=== PATIENT | female | born 1980 | race Caucasian/White ===

== ENCOUNTER 2016-02-24 10:38 | Emergency (ER) | payer OTHER ==
[~2016-02-24] VITALS: Ht 154.9 cm; Wt 71.0 kg
[~2016-02-24 10:38] MED LIST: GLC/500 PO; OXYC1TAB3 PO
[2016-02-24 10:43] VITALS: BP 119/77; TEMP 36.7; Ht 154.9 cm; Wt 71.0 kg
[2016-02-24] MEDS ORDERED: SULFAMETHOXAZOLE/TRIMETHOPRIM DS 800/160MG TAB PO STA (11:06)
[2016-02-24] MEDS ORDERED: PHENAZOPYRIDINE HCL 200 MG TAB PO STA (11:06)
[2016-02-24] MEDS ORDERED: SULF800T23 PO (11:08)
--- NOTE | 2016-02-24 11:08 | EMERGENCY ROOM VISIT NOTE ---
History Report prepared by Lisa: Becky Solorzano Under the Supervision of: Dr. Carlos Bone M.D. First contact with patient: 11:00 Chief Complaint: URINARY SYMPTOMS Stated Complaint: PELVIC PAIN Nursing Triage Summary: pt to [facility] ED with c/o pelvic abd pain into her vaginal area. no discharge no bleeding pt states that she has some dysuria History of Present Illness The patient is a 36 year old female who presents to the Emergency Room with complaints of persistent pelvic pain for the past few days. She rates her discomfort as a 10/10. She has tried taking Tylenol, but it has not provided much relief. She also complains of dysuria but denies any abnormal vaginal discharge or bleeding. She reports she has never experienced a UTI before. The patient denies any recent sexual intercourse or other sexual activity. Source of History: patient Onset: past few days Position: pelvis Symptom Intensity: 10/10 Timing: other (persistent) Modifying Factors (Relieving): tylenol Associated Symptoms: + urinary symptoms Past Medical & Surgical Medical Problems: (1) Acute bilateral lower abdominal pain (2) Acute bronchitis (3) Acute bronchitis (4) Ankle injury (5) Chest pain (6) Epigastric abdominal pain (7) Foot pain (8) Foot pain (9) Knee pain (10) Left ankle sprain (11) Left ankle sprain (12) Left breast abscess (13) Leukocytosis (14) Pain, dental (15) Pain, dental (16) Renal colic (17) Right ankle sprain (18) Right knee pain (19) Thumb pain Surgical Problems: (1) H/O lithotripsy (2) Tubal Ligation Status Family History Diabetes mellitus Social History Smoking Status: Current Every Day Smoker Alcohol Use: occasionally Drug Use: none Marital Status: single Occupation Status: unemployed Current/Historical Medications Scheduled Phenazopyridine HCl (Pyridium), 200 MG PO TID Sulfa/Trimethoprim (Bactrim Ds 800MG/160MG), 1 TAB PO BID Allergies Coded Allergies: Penicillins (Verified Allergy, Unknown, rash, 02/24/16) Physical Exam Vital Signs Date Time Temp Pulse Resp B/P Pulse Ox O2 Delivery O2 Flow Rate FiO2 02/24/16 11:33 78 18 99 02/24/16 10:43 36.7 82 20 119/77 100 Physical Exam GENERAL: Patient is a healthy-appearing well-nourished HEAD: Normocephalic atraumatic EYES: Ocular movements intact pupils equal and react to light OROPHARYNX mucous membranes are moist no exudates present no erythema or edema present NECK: Supple no nuchal rigidity CHEST: Good equal expansion LUNGS: Clear and equal to auscultation CARDIAC: Normal S1 and S2 ABDOMEN: Soft, tender in suprapubic area, no guarding BACK: No CVA tenderness EXTREMITIES: No pain upon palpation normal muscle strength in all groups no clubbing cyanosis or edema NEURO: Patient is following commands is answering questions appropriately. Alert and oriented x3 Cranial Nerves 2-12 grossly intact Medical Decision & Procedures Laboratory Results Test 02/24/16 11:05 Urine Color YELLOW Urine Appearance CLOUDY (CLEAR) Urine pH 5.0 (4.5-7.5) Urine Specific [place] 1.024 (1.000-1.030) Urine Protein 1+ (NEG) Urine Glucose (UA) 1+ (NEG) Urine Ketones NEG (NEG) Urine Occult Blood 2+ (NEG) Urine Nitrite NEG (NEG) Urine Bilirubin NEG (NEG) Urine Urobilinogen NEG (NEG) Urine Leukocyte Esterase NEG (NEG) Urine WBC (Auto) 1-5 /hpf (0-5) Urine RBC (Auto) 0-4 /hpf (0-4) Urine Hyaline Casts (Auto) 1-5 /lpf (0-5) Urine Epithelial Cells (Auto) >30 /lpf (0-5) Urine Bacteria (Auto) 1+ (NEG) Urine Yeast (Auto) (NONE PRSENT) Labs reviewed by ED physician. Medications Administered Medications (Trade) Dose Ordered Sig/Gertrudis Route Start Time Stop Time Status Last Admin Dose Admin Trimethoprim/ Sulfamethoxazole (Septra Ds 800/ 160MG Tab) 1 tab NOW STAT PO 02/24/16 11:06 02/24/16 11:08 DC 02/24/16 11:31 1 TAB Phenazopyridine HCl (Pyridium Tab) 200 mg NOW STAT PO 02/24/16 11:06 02/24/16 11:08 DC 02/24/16 11:31 200 MG Oxycodone/ Acetaminophen (Percocet 5-325MG Tab) 2 tab NOW ONCE PO 02/24/16 11:15 02/24/16 11:16 DC 02/24/16 11:31 2 TAB ED Course 1102: Past medical records reviewed. The patient was evaluated in room C4. A complete history and physical examination was performed. 1106: Pyridium Tab 200 mg PO, Septra Ds 800/160 mg 1 tab PO. 1115: Percocet 5/325 mg 2 tab PO. 1130: I reevaluated the patient. She is feeling well. I discussed her discharge instructions and she verbalized complete understanding and agreement. Medical Decision This is a 36-year-old female who presents emergency department complaining of urinary symptoms. The patient is complaining of frequency of going. She has no CVA tenderness and has mild suprapubic tenderness. Serial abdominal examinations were performed on the patient while she was in the emergency department and at no time did the patient exhibit abdominal tenderness or surgical abdomen. For this reason I felt the patient can be treated with Bactrim pending urine culture results. She was also placed on Pyridium and given Percocet while she was in the emergency department. Repeat examination revealed improvement patient's symptoms. Impression Primary Impression: Symptoms of urinary tract infection Scribe Attestation The scribe's documentation has been prepared under my direction and personally reviewed by me in its entirety. I confirm that the note above accurately reflects all work, treatment, procedures, and medical decision making performed by me. Departure Information Dispostion Home / Self-Care Prescriptions Phenazopyridine HCl (Pyridium) 200 Mg Tab 200 MG PO TID for Bladder pain, #6 TAB Prov: Carlos Bone MD 02/24/16 Sulfa/Trimethoprim (Bactrim Ds 800MG/160MG) Tab 1 TAB PO BID for 7 Days, #14 TAB Prov: Carlos Bone MD 02/24/16 Referrals Thien Borrego M.D. (PCP) Patient Instructions A Signature Page, ED UTI Cystitis Female, My [facility] Additional Instructions Culture results are usually available in approx 48 hours You have been examined and treated today on an emergency basis only. This is not a substitute for, or an effort to provide, complete comprehensive medical care. It is impossible to recognize and treat all injuries or illnesses in a single emergency department visit. It is therefore important that you follow up closely with Dr Borrego. Call as soon as possible for an appointment. Thank you for your time and consideration. I look forward to speaking with you again soon. Please don't hesitate to call us if you have any questions.
[2016-02-24] MEDS ORDERED: PHEN-876 PO (11:09)
[2016-02-24] MEDS ORDERED: OXYCODONE/ACETAMINOPHEN 5-325 TAB PO ONE (11:15)
[2016-02-24 11:33] VITALS: PULSE 78; O2SAT 99
[2016-02-24 12:36] LABS: URINE APPEARANCE CLOUDY (CLEAR); URINE BILIRUBIN NEG (NEG); URINE COLOR YELLOW; URINE EPITHELIAL CELL AUTO >30 /lpf (0-5); URINE NITRITE NEG (NEG); URINE SPECIFIC GRAVITY 1.024 (1.000-1.030); UROBILINOGEN NEG (NEG); ZZUR CULT IF INDIC CLEAN CATCH YES
[2016-02-24 12:39] LABS: MANUAL MICROSCOPIC REQUIRED? NO; REVIEW REQ? YES
[2016-03-03] MEDS ORDERED: METH4PAK PO (18:01)
== END 2016-02-24 11:34 | disposition home or self-care (01) ==
LOC: EDBD 10:38 → C.EDC 10:38
DX: R39.9 Unspecified symptoms and signs involving the genitourinary system (principal); F17.200 Nicotine dependence, unspecified, uncomplicated; Z98.51 Tubal ligation status

== ENCOUNTER 2016-05-03 11:57 | Emergency (ER) | payer OTHER ==
[~2016-05-03] VITALS: Ht 154.9 cm; Wt 66.6 kg
[~2016-05-03 11:57] MED LIST changes: -GLC/500 PO; -OXYC1TAB3 PO; +PHEN-876 PO
[2016-05-03 12:04] VITALS: BP 147/84; PULSE 99; TEMP 37; O2SAT 98; Ht 154.9 cm; Wt 66.6 kg
[2016-05-03] MEDS ORDERED: OXYC-57 PO (12:44)
[2016-05-03] MEDS ORDERED: CLIN300C10 PO (12:44)
--- NOTE | 2016-05-03 19:22 | EMERGENCY ROOM VISIT NOTE ---
ED Visit Note First contact with patient: 12:14 CHIEF COMPLAINT: Tooth pain. HISTORY OF PRESENT ILLNESS: Ms. Tenorio is a 36-year-old white female who ambulates into the ED complaining of right mandibular dental pain. She reports a progressive dental pain for approximately 2 weeks over the right mandible. She was seen by her dentist and is scheduled for a tooth extraction May 26. She reports over the last week she has noted increasing pain and over the last 2 days she has noted facial swelling. Currently she is complaining of pain in the area of tooth 29. She describes her discomfort as a combination of sharp and throbbing. She rates her discomfort 10/10. Her pain does radiate to the preauricular area and into the angle of the mandible. Her pain worsens with chewing, palpation and exposure hot and cold foods. He has not identified any alleviating factors related to the pain. He is been using [id number] medications without relief of her discomfort. Associated with her pain she has noted some mild swelling over the lower edge of the mandible which is slightly extended to the area under the mandible. She denies any associated symptoms including fevers, chills, sweats, sore throat, difficulty swallowing, voice changes, drooling. REVIEW OF SYSTEMS: As noted above in History of Present Illness. 8 body systems were reviewed with this patient and found to be negative unless noted above otherwise. PMH: Diabetes. CURRENT MEDICATION: Patient denies. ALLERGIES TO MEDICATION: Penicillin. SOCIAL HISTORY: Patient is not currently employed; she feels safe in her home environment; she denies alcohol use and admits to tobacco use. PHYSICAL EXAM: Vital Signs: Date Time Temp Pulse Resp B/P Pulse Ox O2 Delivery O2 Flow Rate FiO2 05/03/16 12:04 37.0 99 20 147/84 98 Room Air General: 36 year-old white female in mild distress due to pain, nontoxic appearing, afebrile and hemodynamically stable. Neurological: Awake, alert and oriented to person, place and time. Answering questions appropriately and following commands. Normal gait. Good hand eye coordination. No focal motor or sensory deficits. Skin: Warm, dry and pink. HEENT: Atraumatic and normocephalic. Over the inferior border of the mandible on the right patient has mild swelling without erythema or cellulitic appearance. There is no palpable abscesses in this area. Oral cavity is moist and pink. Airway is patent. Uvula is midline and no abscesses are seen. Speech is normal. No drooling. No intraoral trauma is noted. Obvious signs of dental decay in the area of tooth #29. The gingiva in this area is mildly erythematous and edematous. No palpable abscesses. No cervical or submandibular lymphadenopathy. ED COURSE: Patient is assessed as noted above. Patient is educated about her findings and instructed on her treatment plan; she verbalizes understanding and agreement with this plan. CLINIC IMPRESSION: Dental pain. Possible early dental abscess. DISPOSITION: Patient discharged home in stable condition; prior to departure she was reassessed and subjectively reported she was feeling the same. PLAN: Comfort measures were discussed including a sliding pain scale of ibuprofen, acetaminophen and Percocet. She was warned that Percocet is a narcotic and once taking this medication she should not drink, drive or do any activities that require her full attention. Patient was prescribed Pen-Vee K 500 mg 4 times a day for 10 days. Additional instructions were given and the patient including the use of dental wax, liquid/mechanical soft diet and tobacco avoidance. Patient was encouraged to keep her upcoming followup with personal dentist for definitive care and treatment. Patient was encouraged to return the ED for uncontrolled pain, increasing facial swelling or redness, fevers or any new/concerning symptoms.
== END 2016-05-03 12:50 | disposition home or self-care (01) ==
LOC: C.EDB 11:59 → C.EDD 12:50
DX: K08.89 Other specified disorders of teeth and supporting structures (principal)

== ENCOUNTER 2016-06-30 19:41 | Emergency (ER) | payer OTHER ==
[~2016-06-30] VITALS: Ht 154.9 cm; Wt 71.0 kg
[~2016-06-30 19:41] MED LIST changes: +CLIN300C10 PO; +OXYC-57 PO; -PHEN-876 PO
[2016-06-30 19:45] VITALS: Ht 154.9 cm; Wt 71.0 kg
[2016-06-30] MEDS ORDERED: OXYCODONE HCL IR 5 MG TAB (IMMEDIATE RELEASE) PO STA (19:59)
--- NOTE | 2016-06-30 20:26 | DIAGNOSTIC IMAGING REPORT ---
RIGHT KNEE 3 VIEWS CLINICAL HISTORY: R knee pain Right pain COMPARISON: None. DISCUSSION: The bones and joint spaces appear intact. There is no evidence of fracture, dislocation or bony disease. There is no evidence for soft tissue swelling. IMPRESSION: Negative study. Electronically signed by: Julito Lovelace M.D. 06/30/2016 8:25 PM Dictated Date/Time: 06/30/2016 8:25 PM
[2016-06-30] MEDS ORDERED: OXYC1TAB3 PO (20:45)
[2016-06-30] MEDS ORDERED: OXYCODONE IR HOME PACK PO ONE (21:00)
[2016-06-30 21:03] VITALS: BP 128/68; PULSE 87; TEMP 36.9; O2SAT 99
--- NOTE | 2016-06-30 22:44 | EMERGENCY ROOM VISIT NOTE ---
History First contact with patient: 19:50 Chief Complaint: KNEEPAIN Stated Complaint: RT KNEE PAIN History of Present Illness The patient is a 36 year old female who presents to the Emergency Room with complaints of right knee pain for the past 2 weeks. The patient denies any known injury to the knee. She reports that most of the pain is on the front of the knee. It is worse when she walks or goes up and down steps. She denies any instability, clicking or locking of the knee. The patient denies any prior history of chronic right knee pain. She denies any back pain or thigh pain. She reports that the pain does somewhat radiate into the upper leg. She denies any paresthesias or numbness of the right foot or toes. She rates her discomfort a 10 out of 10. The patient has been taking Aleve and applying ice without relief. Review of Systems 10 system review was performed and was negative except for pertinent positives and negatives as indicated in history of present illness Past Medical/Surgical History Medical Problems: (1) Acute bilateral lower abdominal pain (2) Acute bronchitis (3) Acute bronchitis (4) Ankle injury (5) Chest pain (6) Epigastric abdominal pain (7) Foot pain (8) Foot pain (9) Knee pain (10) Left ankle sprain (11) Left ankle sprain (12) Left breast abscess (13) Leukocytosis (14) Pain, dental (15) Pain, dental (16) Renal colic (17) Right ankle sprain (18) Right knee pain (19) Thumb pain Surgical Problems: (1) H/O lithotripsy (2) Tubal Ligation Status Family History Diabetes mellitus Social History Smoking Status: Current Every Day Smoker Alcohol Use: occasionally Drug Use: none Marital Status: single Occupation Status: unemployed Current/Historical Medications Scheduled PRN Oxycodone Ir (Roxicodone Ir), 1 TAB PO Q6H PRN for Pain Allergies Coded Allergies: Penicillins (Verified Allergy, Unknown, rash, 06/30/16) Physical Exam Vital Signs Date Time Temp Pulse Resp B/P Pulse Ox O2 Delivery O2 Flow Rate FiO2 06/30/16 21:03 36.9 87 20 128/68 99 06/30/16 21:02 87 20 128/68 99 Room Air 06/30/16 19:45 36.9 90 20 133/71 99 Room Air Physical Exam CONSTITUTIONAL: Healthy and well nourished. Alert and oriented X 3 with positive affect. HEENT: Normocephalic, atraumatic. Pupils equal, round and reactive. NECK: Full active range of motion without discomfort. MUSCULOSKELETAL: Examination of the right knee does not show any ecchymosis, erythema, increased warmth to palpation or obvious joint effusion. Flexion worsens her pain anteriorly. She has significant tenderness to palpation about the patella. Positive patellar grind test. The patient is able straight leg raise. No popliteal masses or tenderness to palpation through the hamstrings. She has mild tenderness to palpation of the medial lateral joint line. Ligamentous exam is normal. Range of motion is limited to 0-75 because of discomfort. Pedal pulses are intact. INTEGUMENTARY: No rash or other significant dermatologic conditions noted. NEUROLOGIC: No focal neurologic deficits noted. Right upper extremity is sensory intact. Medical Decision & Procedures ER Provider Diagnostic Interpretation: My interpretation of right knee x-rays does not show any acute fractures, dislocation, joint effusion or significant degenerative change. Radiologist report is as follows: RIGHT KNEE 3 VIEWS CLINICAL HISTORY: R knee pain Right pain COMPARISON: None. DISCUSSION: The bones and joint spaces appear intact. There is no evidence of fracture, dislocation or bony disease. There is no evidence for soft tissue swelling. IMPRESSION: Negative study. Medications Administered Medications (Trade) Dose Ordered Sig/Gertrudis Route Start Time Stop Time Status Last Admin Dose Admin Oxycodone HCl (Roxicodone Immediate Rel Tab) 5 mg NOW STAT PO 06/30/16 19:59 06/30/16 20:01 DC 06/30/16 20:07 5 MG Oxycodone HCl (Roxicodone Immediate Rel 5MG Home Pack) 1 homepack UD ONCE PO 06/30/16 21:00 06/30/16 21:01 DC 06/30/16 20:55 1 HOMEPACK ED Course Patient history and physical exam were performed. Nurse's notes were reviewed. The patient requested something for pain, and was administered OxyIR 5 mg. X- rays of the right knee were normal. Any immobilizer and crutches were dispensed. The patient was encouraged to intermittently apply ice and elevate the knee for swelling and pain. Ibuprofen and Tylenol as needed for baseline pain relief. The patient was provided a home pack and prescription for OxyIR as needed for breakthrough pain. No drinking or driving while taking this medication. She was instructed to follow-up with her PCP for reevaluation in 5- 7 days, at which time she can be referred to orthopedics as needed. The patient voiced understanding of all discharge instructions, was happy with plan of care, and rated her pain a 4 out of 10 at the time of discharge. [employer] Drug Monitoring Program Search Results: patient reviewed within database, no issues identified Impression Primary Impression: Right anterior knee pain Departure Information Prescriptions Oxycodone Ir (Roxicodone Ir) 5 Mg Tab 1 TAB PO Q6H Y for Pain, #12 TAB For Initial Treatment Prov: Sukhjinder Lr PA 06/30/16 Referrals Thien Borrego M.D. (PCP) Patient Instructions My [facility]
== END 2016-06-30 21:04 | disposition home or self-care (01) ==
LOC: C.EDB 19:42 → C.EDD 21:04
DX: M25.561 Pain in right knee (principal); F17.210 Nicotine dependence, cigarettes, uncomplicated; Z83.3 Family history of diabetes mellitus

== ENCOUNTER 2016-08-22 10:54 | Emergency (ER) | payer OTHER ==
[~2016-08-22] VITALS: Ht 154.9 cm; Wt 66.6 kg
[~2016-08-22 10:54] MED LIST changes: -CLIN300C10 PO; -OXYC-57 PO; +OXYC1TAB3 PO
[2016-08-22 10:57] VITALS: TEMP 36.7; Ht 154.9 cm; Wt 66.6 kg
[2016-08-22] MEDS ORDERED: KETOROLAC TROMETHAMINE 30 MG/ML VIAL IV STA (12:03)
[2016-08-22 12:16] LABS: BASO % 0.8 %; BASO ABS # 0.07 K/uL (0-0.2); COMPLETE YES; EOS % 1.2 %; HEMATOCRIT 41.3 % (37-47); IG% 0.2 %; LYMPH % 36.2 %; LYMPH ABS # 3.12 K/uL (1.2-3.4); MEAN CELL VOLUME 83.3 fL (80-100); MEAN CORPUSCULAR HEMOGLOBIN 29.2 pg (25-34); MEAN CORPUSCULAR HGB CONC 35.1 g/dl (32-36); MEAN PLATELET VOLUME 9.8 fL (7.4-10.4); MONO % 8.8 %; NEUT % 52.8 %; PLATELET COUNT 199 K/uL (130-400); RED BLOOD COUNT 4.96 M/uL (4.2-5.4); WHITE BLOOD COUNT 8.63 K/uL (4.8-10.8)
[2016-08-22 12:28] LABS: BUN/CREATININE RATIO 9.6 (10-20); CREATININE 0.8 mg/dl (0.60-1.20); POTASSIUM 3.9 mmol/L (3.5-5.1); PREG INTERNAL NEGATIVE QC NEG CLEAR BACKGROUND; PREG INTERNAL POSITIVE QC POS CONTROL LINE
[2016-08-22 12:30] LABS: PROTHROMBIN TIME (PATIENT) 10.7 SECONDS (9.0-12.0)
[2016-08-22 12:31] LABS: POINT OF CARE TROPONIN I < 0.030 ng/ml (0-0.045)
--- NOTE | 2016-08-22 13:01 | DIAGNOSTIC IMAGING REPORT ---
CHEST 2 VIEWS ROUTINE HISTORY: Left chest pain. COMPARISON: Chest 05/07/2015. FINDINGS: The heart is normal in size. No pleural effusions. The lungs are clear. There is a faint linear density within the left lung apex which favors a pleural reflection from a pneumothorax. The maximal pleural gap is 8 mm. IMPRESSION: Small left apical pneumothorax. Electronically signed by: Mario Sandoval M.D. 08/22/2016 1:00 PM Dictated Date/Time: 08/22/2016 12:57 PM
[2016-08-22 13:26] VITALS: O2SAT 97
--- NOTE | 2016-08-22 14:10 | DIAGNOSTIC IMAGING REPORT ---
CHEST CT WITHOUT CONTRAST CT DOSE: 280.94 mGycm HISTORY: Pneumothorax eval right PTX per Dr. Simran schroeder TECHNIQUE: Multiaxial CT images of the chest were performed without contrast. COMPARISON: Chest series in the FINDINGS: The lungs are clear. The mediastinal vascular structures are within normal limits. No mediastinal or hilar lymphadenopathy. No pleural effusion or pneumothorax. Limited views of the upper abdomen demonstrate a normal liver and spleen. No evidence pneumothorax IMPRESSION: Lungs are clear. No evidence pneumothorax by CT evaluation Electronically signed by: Julito Lovelace M.D. 08/22/2016 2:09 PM Dictated Date/Time: 08/22/2016 2:04 PM
[2016-08-22 14:39] VITALS: BP 115/73; PULSE 65; O2SAT 100
--- NOTE | 2016-08-24 20:20 | EMERGENCY ROOM VISIT NOTE ---
History Report prepared by Lisa: Sandy Rios Under the Supervision of: Dr. Prateek Kirby M.D. First contact with patient: 11:57 Chief Complaint: CARDIAC ASSESSMENT Stated Complaint: PAIN IN LEFT BREAST Nursing Triage Summary: Pt started to experience chest pain in the left chest last evening. Pt states that the pain is sharp and radiates to the back. Denies SOB, Nausea or vomiting. Pt states that the pain can be reproduced. Pt has no cardiac history. History of Present Illness The patient is a 36 year old female who presents to the Emergency Room with complaints of left chest pain beginning last night at 11. The pain is described as being sharp and rated at a 10/10. She states that the pain radiates to the back. The patient denies abdominal pain, shortness of breath, light-headedness, and diaphoresis. She states that she did not take any medication for her pain today. The patient reports that she smokes 1-2 packs of cigarettes per day. She states that she does not on control, as she has had a tubal ligation. The patient states that she is diabetic and that there is no family history of heart disease. Source of History: patient Onset: last night, 13 hours ago Position: chest (left) Symptom Intensity: rated at a 10/10 Quality: sharp (radiating to the bacl ) Modifying Factors (Worsening): movement Associated Symptoms: No diaphoresis, No SOB, No abdominal pain Note: also denies light-headedness Review of Systems See HPI for pertinent positives & negatives. A total of 10 systems reviewed and were otherwise negative. Past Medical & Surgical Medical Problems: (1) Acute bilateral lower abdominal pain (2) Acute bronchitis (3) Acute bronchitis (4) Ankle injury (5) Chest pain (6) Diabetes (7) Epigastric abdominal pain (8) Foot pain (9) Foot pain (10) Knee pain (11) Left ankle sprain (12) Left ankle sprain (13) Left breast abscess (14) Leukocytosis (15) Pain, dental (16) Pain, dental (17) Renal colic (18) Right ankle sprain (19) Right knee pain (20) Thumb pain Surgical Problems: (1) H/O lithotripsy (2) Tubal Ligation Status Family History Diabetes mellitus Social History Smoking Status: Current Every Day Smoker Alcohol Use: occasionally Drug Use: none Marital Status: single Occupation Status: unemployed Current/Historical Medications No Active Prescriptions or Reported Meds Allergies Coded Allergies: Penicillins (Verified Allergy, Unknown, rash, 06/30/16) Physical Exam Vital Signs Date Time Temp Pulse Resp B/P (MAP) Pulse Ox O2 Delivery O2 Flow Rate FiO2 08/22/16 14:39 65 20 115/73 100 08/22/16 13:26 97 Nasal Cannula 2.0 08/22/16 13:12 70 08/22/16 12:30 71 20 118/79 95 Room Air 08/22/16 12:19 97 Room Air 08/22/16 11:28 97 Room Air 08/22/16 11:17 96 Room Air 08/22/16 11:11 80 08/22/16 10:57 36.7 90 16 136/78 97 Room Air Physical Exam Constitutional: Vital signs reviewed. Eyes: Pupils are equal round reactive to light. Conjunctiva are noninjected. ENT: Pharynx is clear without erythema or exudate. Mucous membranes are moist. Neck supple without meningeal signs. Respiratory: Clear to auscultation bilaterally. Breath sounds are equal bilaterally. Cardiovascular: Regular rate and rhythm. No rubs or gallops. GI: Soft, nondistended and nontender. Bowel sounds are present. Musculoskeletal: No peripheral edema. No lower extremity tenderness. Tenderness to left anterior chest wall. Integumentary: No cyanosis. Neurological: The patient is awake and alert. No focal deficits. Psychiatric: Normal affect. Medical Decision & Procedures ER Provider Diagnostic Interpretation: X-ray results as stated below per interpretation by me and the radiologist: CHEST 2 VIEWS ROUTINE HISTORY: Left chest pain. COMPARISON: Chest 05/07/2015. FINDINGS: The heart is normal in size. No pleural effusions. The lungs are clear. There is a faint linear density within the left lung apex which favors a pleural reflection from a pneumothorax. The maximal pleural gap is 8 mm. IMPRESSION: Small left apical pneumothorax. Electronically signed by: Mario Sandoval M.D. 08/22/2016 1:00 PM Dictated Date/Time: 08/22/2016 12:[address] results as stated below per my review and radiologist interpretation. CHEST CT WITHOUT CONTRAST CT DOSE: 280.94 mGycm HISTORY: Pneumothorax eval right PTX per Dr. Simran scrhoeder TECHNIQUE: Multiaxial CT images of the chest were performed without contrast. COMPARISON: Chest series in the FINDINGS: The lungs are clear. The mediastinal vascular structures are within normal limits. No mediastinal or hilar lymphadenopathy. No pleural effusion or pneumothorax. Limited views of the upper abdomen demonstrate a normal liver and spleen. No evidence pneumothorax IMPRESSION: Lungs are clear. No evidence pneumothorax by CT evaluation Electronically signed by: Julito Lovelace M.D. 08/22/2016 2:09 PM Dictated Date/Time: 08/22/2016 2:04 PM Laboratory Results 08/22/16 11:39 Red Blood Count 4.96, Mean Corpuscular Volume 83.3, Mean Corpuscular Hemoglobin 29.2, Mean Corpuscular Hemoglobin Concent 35.1, Mean Platelet Volume 9.8, Neutrophils (%) (Auto) 52.8, Lymphocytes (%) (Auto) 36.2, Monocytes (%) (Auto) 8.8, Eosinophils (%) (Auto) 1.2, Basophils (%) (Auto) 0.8, Neutrophils # (Auto) 4.56, Lymphocytes # (Auto) 3.12, Monocytes # (Auto) 0.76, Eosinophils # (Auto) 0.10, Basophils # (Auto) 0.07 08/22/16 11:39 Test 08/22/16 11:39 08/22/16 12:12 White Blood Count 8.63 K/uL (4.8-10.8) Red Blood Count 4.96 M/uL (4.2-5.4) Hemoglobin 14.5 g/dL (12.0-16.0) Hematocrit 41.3 % (37-47) Mean Corpuscular Volume 83.3 fL (80-100) Mean Corpuscular Hemoglobin 29.2 pg (25-34) Mean Corpuscular Hemoglobin Concent 35.1 g/dl (32-36) Platelet Count 199 K/uL (130-400) Mean Platelet Volume 9.8 fL (7.4-10.4) Neutrophils (%) (Auto) 52.8 % Lymphocytes (%) (Auto) 36.2 % Monocytes (%) (Auto) 8.8 % Eosinophils (%) (Auto) 1.2 % Basophils (%) (Auto) 0.8 % Neutrophils # (Auto) 4.56 K/uL (1.4-6.5) Lymphocytes # (Auto) 3.12 K/uL (1.2-3.4) Monocytes # (Auto) 0.76 K/uL (0.11-0.59) Eosinophils # (Auto) 0.10 K/uL (0-0.5) Basophils # (Auto) 0.07 K/uL (0-0.2) RDW Standard Deviation 38.3 fL (36.4-46.3) RDW Coefficient of Variation 12.7 % (11.5-14.5) Immature Granulocyte % (Auto) 0.2 % Immature Granulocyte # (Auto) 0.02 K/uL (0.00-0.02) Prothrombin Time 10.7 SECONDS (9.0-12.0) Prothromb Time International Ratio 1.0 (0.9-1.1) Activated Partial Thromboplast Time 26.1 SECONDS (21.0-31.0) Partial Thromboplastin Ratio 1.0 Anion Gap 8.0 mmol/L (3-11) Est Creatinine Clear Calc Drug Dose 83.2 ml/min Estimated GFR () 108.4 Estimated GFR (Non- 93.5 BUN/Creatinine Ratio 9.6 (10-20) Calcium Level 9.0 mg/dl (8.5-10.1) Human Chorionic Gonadotropin, Qual NEG (NEG) Bedside D-Dimer 242 ng/mlFEU (0-450) Bedside Troponin I < 0.030 ng/ml (0-0.045) Laboratory results as reviewed by me. Medications Administered Medications (Trade) Dose Ordered Sig/Gertrudis Route Start Time Stop Time Status Last Admin Dose Admin Ketorolac Tromethamine (Toradol Inj) 10 mg NOW STAT IV 08/22/16 12:03 08/22/16 12:08 DC 08/22/16 12:28 10 MG ECG Indication: chest pain Rate (beats per minute): 74 Rhythm: normal sinus Findings: no acute ischemic change, no ectopy ED Course 1200: The patient was evaluated in room C11. A complete history and physical exam was performed. 1203: Ordered Toradol Inj 10 mg IV. 1325: Dr. Erickson said that the patient is able to go home. Dr. Erickson would like to have the patient to have a non-contrast CT scan before she leaves. He will see the patient on Thursday. 1335: The patient says that she feels better and that she is happy with that plan. 1440: I talked with the patient about her results. 1450: Upon reevaluation, the patient appeared to have improvement of her symptoms. I discussed maciel's findings with her. She verbalized agreement of the treatment plan. She was discharged home. Medical Decision This is a 36-year-old female who presents with chest pain. Differential diagnosis includes pleurisy, strain, pneumothorax, pneumonia, pulmonary embolism. I did perform a limited focused review of portions of the patient's old chart on the electronic medical record. The patient has had no recent pertinent visits to this hospital. Blood Pressure Screening: Patient was found to have a slightly elevated blood pressure due to circumstances. I do not believe that the patient requires hypertension monitoring. Medication Reconciliation: I attest that I have personally reviewed the patient' s current medication list. I did evaluate the patient as noted above. The patient is presenting left- sided chest pain which is reproducible on palpation. IV access was established. The patient was placed on a continuous locomotive oiler. I did order and personally review the patient's 12-lead EKG and chest x-ray as described above. The radiologist describes a small apical pneumothorax on the left. I did order and review the patient's blood work as noted in the electronic medical record. Troponin and d-dimer are negative. I did discuss case with Dr. Erickson who recommended CT scan of the chest and follow up on Thursday. I did order a CT of the chest. I did review the images myself as well as the radiology report as described above. There is no evidence of pneumothorax. I did treat patient with Toradol IV. On reassessment she is feeling better. I did discuss the test results with the patient and recommended close follow up with her doctor. She was discharged in good condition. Consults Time Called: 1315 Consulting Physician: Dr. Erickson- [facility] Returned Call: 1325 Dr. Erickson said that the patient is able to go home. Dr. Erickson would like to have the patient to have a non-contrast CT scan before she leaves. He will see the patient on Thursday. Impression Primary Impression: Left sided chest pain Scribe Attestation The scribe's documentation has been prepared under my direct and personally reviewed by me in its entirety. I confirm that the note above accurately reflects all work, treatment, procedures, and medical decision making performed by me. Departure Information Prescriptions No Active Prescriptions or Reported Meds Referrals Thien Borrego M.D. (PCP) Forms IMPORTANT VISIT INFORMATION Patient Instructions ED Chest Pain Atypical Unkn Cause, My [facility] Additional Instructions You have been examined and treated today on an emergency basis only. This is not a substitute for, or an effort to provide, complete comprehensive medical care. It is impossible to recognize and treat all injuries or illnesses in a single emergency department visit. It is therefore important that you follow up closely with your physician. Call as soon as possible for an appointment. Return for worsening symptoms or if you develop fever, vomiting, shortness of breath or any other concerning symptoms.
== END 2016-08-22 14:40 | disposition home or self-care (01) ==
LOC: C.EDB 10:56 → C.EDC 14:40
DX: R07.9 Chest pain, unspecified (principal); E11.9 Type 2 diabetes mellitus without complications; Z83.3 Family history of diabetes mellitus; F17.200 Nicotine dependence, unspecified, uncomplicated

== ENCOUNTER 2016-09-28 19:26 | Emergency (ER) | payer OTHER ==
[~2016-09-28] VITALS: Ht 154.9 cm; Wt 65.0 kg
[2016-09-28 19:34] VITALS: TEMP 37.3; Ht 154.9 cm; Wt 65.0 kg
[2016-09-28] MEDS ORDERED: KETOROLAC TROMETHAMINE 30 MG/ML VIAL IV STA (19:41)
[2016-09-28 20:02] LABS: BASO % 0.2 %; BASO ABS # 0.02 K/uL (0-0.2); COMPLETE YES; EOS % 1.3 %; HEMATOCRIT 42.1 % (37-47); IG% 0.1 %; LYMPH % 45.5 %; LYMPH ABS # 4.17 K/uL (1.2-3.4); MEAN CORPUSCULAR HEMOGLOBIN 29.8 pg (25-34); MEAN CORPUSCULAR HGB CONC 35.9 g/dl (32-36); MEAN PLATELET VOLUME 9.2 fL (7.4-10.4); MONO % 7.2 %; NEUT % 45.7 %; PLATELET COUNT 220 K/uL (130-400); RED BLOOD COUNT 5.07 M/uL (4.2-5.4); WHITE BLOOD COUNT 9.16 K/uL (4.8-10.8)
[2016-09-28 20:10] LABS: INR 0.9 (0.9-1.1); PROTHROMBIN TIME (PATIENT) 10.1 SECONDS (9.0-12.0)
[2016-09-28 20:12] LABS: POINT OF CARE TROPONIN I < 0.030 ng/ml (0-0.045)
[2016-09-28 20:22] LABS: ALT/SGPT 22 U/L (12-78); BLOOD UREA NITROGEN 10 mg/dl (7-18); BUN/CREATININE RATIO 11.5 (10-20); CALCIUM 8.6 mg/dl (8.5-10.1); CARBON DIOXIDE 27 mmol/L (21-32); CHLORIDE 106 mmol/L (98-107); CREATININE 0.84 mg/dl (0.60-1.20); GLUCOSE 139 mg/dl (70-99); POTASSIUM 4.2 mmol/L (3.5-5.1); SODIUM 141 mmol/L (136-145)
[2016-09-28 20:27] LABS: ALKALINE PHOSPHATASE 104 U/L (45-117); AST/SGOT 19 U/L (15-37)
--- NOTE | 2016-09-28 20:29 | DIAGNOSTIC IMAGING REPORT ---
CHEST ONE VIEW PORTABLE HISTORY: Atypical CHEST PAIN COMPARISON: Chest 08/22/2016. FINDINGS: A few small right basilar linear densities consistent with subsegmental atelectasis. The lungs are otherwise clear. Cardiac silhouette is normal in size. No pleural effusions. No pneumothorax. IMPRESSION: No acute process. Electronically signed by: Mario Sandoval M.D. 09/28/2016 8:28 PM Dictated Date/Time: 09/28/2016 8:26 PM
[2016-09-28 20:57] LABS: PREG INTERNAL NEGATIVE QC NEG CLEAR BACKGROUND; PREG INTERNAL POSITIVE QC POS CONTROL LINE
[2016-09-28 22:48] VITALS: BP 133/73; PULSE 77; O2SAT 97
--- NOTE | 2016-09-29 00:36 | EMERGENCY ROOM VISIT NOTE ---
History Report prepared by Lisa: Dev Gamble Under the Supervision of: Dr. Tigre La M.D. First contact with patient: 19:29 Chief Complaint: CHEST PAIN Stated Complaint: CHEST PAIN History of Present Illness The patient is a 36 year old female who presents to the Emergency Room via EMS with complaints of an episode of left-sided chest pain that started prior to arrival this evening. She says that she was at rest on her couch when the pain came on, and she rates the pain as a 10 out of 10 in severity. The patient was here a month ago for similar chest pain, and was discharged. She says that she saw her primary care doctor (Dr. Borrego), who told the patient that if the pain came on again, to call the hospital. The patient adds that she had left arm pain as well, which she still has currently. She notes that her left side of her chest is still sore. The patient says that she felt completely fine before the pain came on today. She denies any recent travels, long car trips, or plane trips. The patient states that she has no family history of blood clots or heart attacks. Pt denies LOC, headache, fevers, chills, diaphoresis, visual changes, neck pain, breathing difficulties, nausea, vomiting, abdominal pain, back pain, melena, hematochezia, urinary symptoms, numbness, weakness, lymphadenopathy, rash, or other complaints. Source of History: patient, nursing staff Onset: Prior to arrival this evening Position: chest (left) Symptom Intensity: 10/10 Timing: other (episode) Note: Associated symptoms: Left arm pain. Review of Systems See HPI for pertinent positives and negatives. A total of ten systems were reviewed and were otherwise negative. Past Medical & Surgical Medical Problems: (1) Acute bilateral lower abdominal pain (2) Acute bronchitis (3) Acute bronchitis (4) Ankle injury (5) Chest pain (6) Diabetes (7) Epigastric abdominal pain (8) Foot pain (9) Foot pain (10) Knee pain (11) Left ankle sprain (12) Left ankle sprain (13) Left breast abscess (14) Leukocytosis (15) Pain, dental (16) Pain, dental (17) Renal colic (18) Right ankle sprain (19) Right knee pain (20) Thumb pain Surgical Problems: (1) H/O lithotripsy (2) Tubal Ligation Status Family History Diabetes mellitus Social History Smoking Status: Current Every Day Smoker Alcohol Use: occasionally Drug Use: none Marital Status: single Occupation Status: unemployed Current/Historical Medications No Active Prescriptions or Reported Meds Allergies Coded Allergies: Penicillins (Verified Allergy, Unknown, rash, 06/30/16) Physical Exam Vital Signs Date Time Temp Pulse Resp B/P (MAP) Pulse Ox O2 Delivery O2 Flow Rate FiO2 09/28/16 22:48 133/73 09/28/16 22:48 77 16 133/73 97 Room Air 09/28/16 22:16 74 27 96 09/28/16 22:01 82 24 120/78 97 09/28/16 21:46 72 23 96 09/28/16 21:31 75 27 98 09/28/16 21:30 121/82 09/28/16 21:16 74 21 98 09/28/16 21:01 77 17 96 09/28/16 20:56 74 19 98 09/28/16 20:41 82 22 98 09/28/16 20:30 111/75 09/28/16 20:26 100 22 96 09/28/16 20:11 78 26 96 09/28/16 20:08 Room Air 09/28/16 20:06 78 26 126/88 97 09/28/16 19:56 84 16 98 09/28/16 19:46 79 22 99 09/28/16 19:36 76 09/28/16 19:36 75 20 98 09/28/16 19:34 37.3 75 23 144/80 98 Room Air 09/28/16 19:31 144/80 Physical Exam GENERAL: Awake, alert, well-appearing, in no distress HENT: Normocephalic, atraumatic. Oropharynx unremarkable. EYES: Normal conjunctiva. Sclera non-icteric. NECK: Supple. No nuchal rigidity. FROM. No JVD. RESPIRATORY: Clear to auscultation. CARDIAC: Regular rate, normal rhythm. Extremities warm and well perfused. Pulses equal. ABDOMEN: Soft, non-distended. No tenderness to palpation. No rebound or guarding. No masses. RECTAL: Deferred. MUSCULOSKELETAL: Left peristernal tenderness. The back is symmetrical on inspection without obvious abnormality. There is no CVA tenderness to palpation. No joint edema. LOWER EXTREMITIES: Calves are equal size bilaterally and non-tender. No edema. No discoloration. NEURO: Normal sensorium. No sensory or motor deficits noted. SKIN: No rash or jaundice noted. Medical Decision & Procedures ER Provider Diagnostic Interpretation: X-ray: Per my interpretation, radiologist review. CHEST ONE VIEW PORTABLE HISTORY: Atypical CHEST PAIN COMPARISON: Chest 08/22/2016. FINDINGS: A few small right basilar linear densities consistent with subsegmental atelectasis. The lungs are otherwise clear. Cardiac silhouette is normal in size. No pleural effusions. No pneumothorax. IMPRESSION: No acute process. Electronically signed by: Mario Sandoval M.D. 09/28/2016 8:28 PM Dictated Date/Time: 09/28/2016 8:26 PM Laboratory Results 09/28/16 19:50 Red Blood Count 5.07, Mean Corpuscular Volume 83.0, Mean Corpuscular Hemoglobin 29.8, Mean Corpuscular Hemoglobin Concent 35.9, Mean Platelet Volume 9.2, Neutrophils (%) (Auto) 45.7, Lymphocytes (%) (Auto) 45.5, Monocytes (%) (Auto) 7.2, Eosinophils (%) (Auto) 1.3, Basophils (%) (Auto) 0.2, Neutrophils # (Auto) 4.18, Lymphocytes # (Auto) 4.17, Monocytes # (Auto) 0.66, Eosinophils # (Auto) 0.12, Basophils # (Auto) 0.02 09/28/16 19:50 Test 09/28/16 19:50 09/28/16 19:55 09/28/16 22:03 White Blood Count 9.16 K/uL (4.8-10.8) Red Blood Count 5.07 M/uL (4.2-5.4) Hemoglobin 15.1 g/dL (12.0-16.0) Hematocrit 42.1 % (37-47) Mean Corpuscular Volume 83.0 fL (80-100) Mean Corpuscular Hemoglobin 29.8 pg (25-34) Mean Corpuscular Hemoglobin Concent 35.9 g/dl (32-36) Platelet Count 220 K/uL (130-400) Mean Platelet Volume 9.2 fL (7.4-10.4) Neutrophils (%) (Auto) 45.7 % Lymphocytes (%) (Auto) 45.5 % Monocytes (%) (Auto) 7.2 % Eosinophils (%) (Auto) 1.3 % Basophils (%) (Auto) 0.2 % Neutrophils # (Auto) 4.18 K/uL (1.4-6.5) Lymphocytes # (Auto) 4.17 K/uL (1.2-3.4) Monocytes # (Auto) 0.66 K/uL (0.11-0.59) Eosinophils # (Auto) 0.12 K/uL (0-0.5) Basophils # (Auto) 0.02 K/uL (0-0.2) RDW Standard Deviation 37.5 fL (36.4-46.3) RDW Coefficient of Variation 12.6 % (11.5-14.5) Immature Granulocyte % (Auto) 0.1 % Immature Granulocyte # (Auto) 0.01 K/uL (0.00-0.02) Prothrombin Time 10.1 SECONDS (9.0-12.0) Prothromb Time International Ratio 0.9 (0.9-1.1) Activated Partial Thromboplast Time 26.0 SECONDS (21.0-31.0) Partial Thromboplastin Ratio 1.0 Anion Gap 8.0 mmol/L (3-11) Est Creatinine Clear Calc Drug Dose 78.4 ml/min Estimated GFR () 102.2 Estimated GFR (Non- 88.2 BUN/Creatinine Ratio 11.5 (10-20) Calcium Level 8.6 mg/dl (8.5-10.1) Total Bilirubin 0.2 mg/dl (0.2-1) Direct Bilirubin < 0.1 mg/dl (0-0.2) Aspartate Amino Transf (AST/SGOT) 19 U/L (15-37) Alanine Aminotransferase (ALT/SGPT) 22 U/L (12-78) Alkaline Phosphatase 104 U/L (45-117) Total Creatine Kinase 62 U/L (26-192) Creatine Kinase MB < 0.5 ng/ml (0.5-3.6) Creatine Kinase MB Ratio (0-3.0) Total Protein 7.0 gm/dl (6.4-8.2) Albumin 3.6 gm/dl (3.4-5.0) Lipase 179 U/L (73-393) Human Chorionic Gonadotropin, Qual NEG (NEG) Bedside D-Dimer 241 ng/mlFEU (0-450) Bedside Troponin I < 0.030 ng/ml (0-0.045) Laboratory results reviewed by me Medications Administered Medications (Trade) Dose Ordered Sig/Gertrudis Route Start Time Stop Time Status Last Admin Dose Admin Ketorolac Tromethamine (Toradol Inj) 15 mg NOW STAT IV 09/28/16 19:41 09/28/16 19:42 DC 09/28/16 20:06 15 MG ECG Indication: chest pain Rate (beats per minute): 73 Rhythm: normal sinus Findings: no acute ischemic change, no ectopy Change: Repeat ECG: Normal sinus rhythm 74 bpm, no ectopy, no acute ischemic changes. ED Course 1932: The patient was evaluated in room C9. A complete history and physical exam was performed. 1940: Ordered Toradol Inj 15 mg IV. 2146: I reevaluated the patient and she feels much better. She notes that prior to sitting on the couch, she was ripping up carpet. 2244: I reevaluated the patient and she is resting. Discussed results and discharge instructions: she verbalized understanding and agreement. The patient is ready for discharge. Medical Decision Triage Nursing notes reviewed. The patient's presentation and history were concerning for chest pain. Etiologies such as costochondritis, cardiac ischemia, aortic dissection, pulmonary embolism, pneumonia, pneumothorax, musculoskeletal, infections, gastrointestinal, as well as others were entertained. The patient was evaluated. She had blood work, EKG and imaging obtained. Her cc, chemistry panel, LFTs, lipase, cardiac markers, and d-dimer were negative. She is not . Chest x-ray is negative. The patient had a repeat ECG and troponin performed and these were negative. The patient initially denied any trauma and stated this occurred at rest. After family arrived discussed the issue some more as it seemed to be very musculoskeletal and then the patient remembered she was ripping up carpet all afternoon. I suspect that this is musculoskeletal as it is reproducible and has negative diagnostic testing. She had a negative workup last time this occurred as well. I discussed conservative management with her. She'll use NSAIDs and Tylenol at home. If she worsens in any way she will be back. She'll follow-up closely as an outpatient with her primary physician. By the evaluation outlined above other emergent etiologies such as those listed in the differential, as well as others, were deemed relatively unlikely. The patient was educated about the findings as listed above. All questions were answered and the patient was pleased with the treatment. Return instructions were outlined and the patient was discharged in stable condition. The patient was referred to her PCP for follow-up for a recheck of the current condition. Medication Reconcilliation Current Medication List: was personally reviewed by me No medications on list. Blood Pressure Screening Patient's blood pressure: Elevated blood pressure Blood pressure disposition: Referred to PCP Impression Primary Impression: Left sided chest pain Scribe Attestation The scribe's documentation has been prepared under my direction and personally reviewed by me in its entirety. I confirm that the note above accurately reflects all work, treatment, procedures, and medical decision making performed by me. Departure Information Dispostion Home / Self-Care Prescriptions No Active Prescriptions or Reported Meds Referrals Thien Borrego M.D. (PCP) Patient Instructions My [facility] Additional Instructions CHEST PAIN INSTRUCTIONS: Ibuprofen(Motrin, Advil) may be used for fever or pain. Use 600mg every six hours as needed. Take with food. Avoid using more than 2400mg in a 24 hour period. Do not use 2400mg per day for more than three consecutive days without physician direction. Prolonged inappropriate use can lead to stomach upset or ulcers. (AND/OR) Acetaminophen(Tylenol) may be used for fever or pain. Use 1000mg every six hours as needed. Avoid using more than 4000mg in a 24 hour period. Rest and drink plenty of fluids as tolerated. Continue current medications. Avoid strenuous activities and anything that worsens your pain. Resume normal activities once your symptoms resolve. Return to the ER immediately for worsening or persistent chest pain, abdominal pain, vomiting, fevers, chest pains, difficulty breathing, worsening of your condition, or as needed. Follow up with your primary physician in 2-3 days for a recheck of your current condition.
== END 2016-09-28 22:57 | disposition home or self-care (01) ==
LOC: EDBD 19:26 → C.EDC 19:28
DX: R07.9 Chest pain, unspecified (principal); E11.9 Type 2 diabetes mellitus without complications; F17.200 Nicotine dependence, unspecified, uncomplicated; Z87.828 Personal history of other (healed) physical injury and trauma; Z98.51 Tubal ligation status; Z98.890 Other specified postprocedural states; Z83.3 Family history of diabetes mellitus

== ENCOUNTER 2016-11-10 12:22 | Emergency (ER) | payer OTHER ==
[2016-11-10 12:24] VITALS: TEMP 36.6; Ht 154.9 cm
[2016-11-10] MEDS ORDERED: KETOROLAC TROMETHAMINE 60 MG/2 ML VIAL IM STA (12:37)
--- NOTE | 2016-11-10 13:40 | DIAGNOSTIC IMAGING REPORT ---
RIGHT KNEE 1 OR 2 VIEWS ROUTINE CLINICAL HISTORY: Right knee pain/attention tibial tuberosity. COMPARISON: Right knee radiograph June 30, 2016. FINDINGS: Alignment of the right knee is anatomic. No fracture or osseous lesion is present. There may be a small right knee joint effusion. There is mild spurring of the inferior pole of the patella at the origin the patellar tendon. There is mild bony prominence of tibial tuberosity which is chronic and unchanged. This is at the insertion of the patellar tendon. IMPRESSION: 1. No acute fracture. 2. Suspected small right knee joint effusion. 3. Prominence of the tibial tubercle at the insertion of the patellar tendon which is unchanged and represents a chronic finding. Electronically signed by: Cody Baez M.D. 11/10/2016 1:39 PM Dictated Date/Time: 11/10/2016 1:35 PM
--- NOTE | 2016-11-10 13:48 | EMERGENCY ROOM VISIT NOTE ---
ED Visit Note First contact with patient: 12:27 CHIEF COMPLAINT: Right knee pain HISTORY OF PRESENT ILLNESS: This 36-year-old female presents the ER with chief complaint of right knee pain which started yesterday. She also states that she noticed a lump just below her kneecap which she does not think was there before. The patient denies any trauma to the knee. The patient has had problems with her knee in the past for which she saw [facility]. This was just 3 months ago. She states that her knee always clicks when she bends it. She went through physical therapy. She was feeling better. The patient currently denies any locking or giving out of the knee. She did not try and call [facility] today. REVIEW OF SYSTEMS: 6 system review was performed and was negative unless stated otherwise in history of present illness. PMH: The patient is healthy; prior right knee problems SOCIAL HISTORY: Patient lives with her boyfriend. The patient admits to tobacco use denies any alcohol use. PHYSICAL EXAM: Vital Signs: Were reviewed Reviewed Nurse's notes. GENERAL: 36- year-old white female appears in no acute distress. MENTAL STATUS: Alert, oriented, and cooperative. RIGHT KNEE: The patient has increased prominence of the tibial tuberosity as compared to the left knee. The patient is tender to palpation over this area. The patient is also tender to palpation over the entire joint space. Limited range of motion secondary to pain. No ligament instability noted. Audible clicking noted with flexion and extension. EMERGENCY DEPARTMENT COURSE: The patient was evaluated. The patient's EMR medication list were reviewed. The patient was given Toradol 60 mg IM. X-ray of the right knee was ordered and interpreted by the radiologist and myself. DIAGNOSTICS:RIGHT KNEE 1 OR 2 VIEWS ROUTINE CLINICAL HISTORY: Right knee pain/attention tibial tuberosity. COMPARISON: Right knee radiograph June 30, 2016. FINDINGS: Alignment of the right knee is anatomic. No fracture or osseous lesion is present. There may be a small right knee joint effusion. There is mild spurring of the inferior pole of the patella at the origin the patellar tendon. There is mild bony prominence of tibial tuberosity which is chronic and unchanged. This is at the insertion of the patellar tendon. IMPRESSION: 1. No acute fracture. 2. Suspected small right knee joint effusion. 3. Prominence of the tibial tubercle at the insertion of the patellar tendon which is unchanged and represents a chronic finding. Electronically signed by: Cody Baez M.D. 11/10/2016 1:39 PM Dictated Date/Time: 11/10/2016 1:35 PM The patient was informed of the findings. The patient has a knee brace at home. The patient was discharged home in stable condition. DIAGNOSIS: Right knee pain DISCHARGE INSTRUCTIONS: Ibuprofen 600 mg every 6 hours with food for pain. Keep leg elevated whenever possible over the next 24 hours. Ice intermittently over the next 48 hours. Wear knee brace except for bathing until pain is improving. Recommend follow-up with [facility]. Problem List Medical Problems: (1) Acute bilateral lower abdominal pain Status: Resolved (2) Acute bronchitis Status: Resolved (3) Acute bronchitis Status: Resolved (4) Ankle injury Status: Resolved (5) Chest pain Status: Resolved (6) Epigastric abdominal pain Status: Resolved (7) Foot pain Status: Resolved (8) Foot pain Status: Resolved (9) Knee pain Status: Resolved (10) Left ankle sprain Status: Resolved (11) Left ankle sprain Status: Resolved (12) Left breast abscess Status: Resolved (13) Leukocytosis Status: Resolved (14) Pain, dental Status: Resolved (15) Pain, dental Status: Resolved (16) Renal colic Status: Resolved (17) Right ankle sprain Status: Resolved (18) Right knee pain Status: Resolved (19) Thumb pain Status: Resolved Surgical Problems: (1) H/O lithotripsy Status: Resolved (2) Tubal Ligation Status Status: Resolved Current/Historical Medications No Active Prescriptions or Reported Meds Allergies Coded Allergies: Penicillins (Verified Allergy, Unknown, rash, 06/30/16) Vital Signs Date Time Temp Pulse Resp B/P (MAP) Pulse Ox O2 Delivery O2 Flow Rate FiO2 11/10/16 12:24 36.6 87 18 134/74 99 Room Air Medications Administered Medications (Trade) Dose Ordered Sig/Gertrudis Route Start Time Stop Time Status Last Admin Dose Admin Ketorolac Tromethamine (Toradol Inj) 60 mg NOW STAT IM 11/10/16 12:37 11/10/16 12:39 DC 11/10/16 13:08 60 MG Departure Information Prescriptions No Active Prescriptions or Reported Meds Referrals Thien Borrego M.D. (PCP) Patient Instructions [facility]
[2016-11-10 13:59] VITALS: BP 128/85; PULSE 92; O2SAT 98
== END 2016-11-10 14:00 | disposition home or self-care (01) ==
LOC: C.EDB 12:23 → C.EDD 14:00
DX: M25.561 Pain in right knee (principal)

== ENCOUNTER → 2016-11-28 | Outpatient (CLI) | payer OTHER ==
[2016-11-28 13:04] LABS: BASO % 0.5 %; BASO ABS # 0.06 K/uL (0-0.2); COMPLETE YES; EOS % 1.1 %; HEMATOCRIT 42.8 % (37-47); IG% 0.4 %; LYMPH ABS # 4.78 K/uL (1.2-3.4); MEAN CELL VOLUME 83.8 fL (80-100); MEAN CORPUSCULAR HEMOGLOBIN 29.7 pg (25-34); MEAN CORPUSCULAR HGB CONC 35.5 g/dl (32-36); MEAN PLATELET VOLUME 9.6 fL (7.4-10.4); PLATELET COUNT 236 K/uL (130-400); RED BLOOD COUNT 5.11 M/uL (4.2-5.4); WHITE BLOOD COUNT 12.27 K/uL (4.8-10.8)
[2016-11-28 17:32] LABS: LYME DISEASE AB IGG NEG (NEG); LYME DISEASE AB IGM NEG (NEG)
== END | disposition home or self-care (01) ==
LOC: C.LABBFT 10:59
PROVIDERS: ATTEND Internal Medicine
DX: M25.561 Pain in right knee (principal); M25.469 Effusion, unspecified knee

== ENCOUNTER → 2016-12-02 | Outpatient (CLI) | payer OTHER ==
--- NOTE | 2016-12-02 13:47 | DIAGNOSTIC IMAGING REPORT ---
R LOWER EXT JOINT WITHOUT CLINICAL HISTORY: 36 years-old Female presenting with M25.561 Knee pain, [id number] Knee joint effusion. TECHNIQUE: Multisequence, multiplanar MR imaging of the right knee was performed without the use of intravenous contrast. IV contrast: None. COMPARISON: Plain radiographs of the right knee from 11/10/2016. FINDINGS: Localizer images: Unremarkable. No bony edema. Increased signal intensity within the articular cartilage of the patella focally along the lateral aspect of the lateral facet (series 4 image 10) and to a lesser extent in the medial facet. This suggests grade 1 articular cartilage injury. Remaining articular cartilage intact. Anterior and posterior cruciate ligaments intact. Medial and lateral menisci intact. Medial collateral ligament intact. Lateral collateral ligament complex including the biceps femoris tendon, fibular collateral ligament, popliteal tendon, and iliotibial band intact. Quadriceps and patellar tendons intact. Trace knee joint effusion. No popliteal cyst. Normal muscle bulk and signal intensity. IMPRESSION: 1. Grade 1 articular cartilage injury suggested at the lateral greater than medial patellar facets. 2. Trace joint effusion. 3. Otherwise normal. Electronically signed by: Hayden London M.D. 12/02/2016 1:45 PM Dictated Date/Time: 12/02/2016 1:39 PM
== END | disposition home or self-care (01) ==
LOC: C.MRI 12:56
PROVIDERS: ATTEND Internal Medicine
DX: M25.461 Effusion, right knee (principal); M25.561 Pain in right knee; R93.7 Abnormal findings on diagnostic imaging of other parts of musculoskeletal system

== ENCOUNTER 2017-03-09 14:39 | Emergency (ER) | payer OTHER ==
[~2017-03-09] VITALS: Ht 154.9 cm; Wt 68.7 kg
[2017-03-09 14:44] VITALS: TEMP 36.3; Ht 154.9 cm; Wt 68.7 kg
[2017-03-09] MEDS ORDERED: ACETAMINOPHEN 500 MG TAB PO STA (14:52)
[2017-03-09] MEDS ORDERED: ALBUT/IPRATROP 3MG/0.5MG NEB 3 ML VIAL INH STA (14:52)
[2017-03-09] MEDS ORDERED: BENZONATATE 100MG CAP PO ONE (15:00)
--- NOTE | 2017-03-09 15:03 | EMERGENCY ROOM VISIT NOTE ---
History Report prepared by Lisa: Taisha Rodas Under the Supervision of: Dr. Rusty Simmons M.D. First contact with patient: 14:48 Chief Complaint: COUGH Stated Complaint: PAIN IN MY CHEST Nursing Triage Summary: patient c/o sore throat, cough and chest congestion x 3 days. patient denies fever. History of Present Illness The patient is a 37 year old female who presents to the Emergency Room with complaints of persistent chest pain that started 3 days ago. The patient rates her pain a 10/10. She notes she is having difficulty breathing and it is difficult for her to talk. The patient states she has had bronchitis in the past. She reports she is coughing more than usual and her chest pain worsens when she coughs. She denies a history of COPD, asthma, or heart problems. She has not been to the hospital for lung issues for a long time. She states she has been wheezing at night. She notes she is also experiencing headaches, stuffy nose, and a sore throat. She denies any vomiting, diarrhea, or fever. The patient notes she received a flu shot this year. Her family has been ill with similar respiratory symptoms. Source of History: patient Onset: 3 days ago Position: chest (left) Symptom Intensity: 10/10 Timing: other (persistent) Associated Symptoms: + headache, + sorethroat, + cough, No fevers, No vomiting, No diarrhea Note: Additional symptoms: stuffy nose. Review of Systems See HPI for pertinent positives & negatives. A total of 10 systems reviewed and were otherwise negative. Past Medical & Surgical Medical Problems: (1) Acute bilateral lower abdominal pain (2) Acute bronchitis (3) Acute bronchitis (4) Ankle injury (5) Chest pain (6) Diabetes (7) Epigastric abdominal pain (8) Foot pain (9) Foot pain (10) Knee pain (11) Left ankle sprain (12) Left ankle sprain (13) Left breast abscess (14) Leukocytosis (15) Pain, dental (16) Pain, dental (17) Renal colic (18) Right ankle sprain (19) Right knee pain (20) Thumb pain Surgical Problems: (1) H/O lithotripsy (2) Tubal Ligation Status Family History Diabetes mellitus Social History Smoking Status: Current Every Day Smoker Alcohol Use: occasionally Drug Use: none Marital Status: single Occupation Status: unemployed Current/Historical Medications Scheduled Albuterol Hfa (Ventolin Hfa), 3 PUFFS INH Q6H Azithromycin (Zithromax Z-Mat), 0 PO UD Scheduled PRN Benzonatate (Tessalon Perles), 1-2 CAP PO TID PRN for Cough Allergies Coded Allergies: Penicillins (Verified Allergy, Unknown, rash, 03/09/17) Physical Exam Vital Signs Date Time Temp Pulse Resp B/P (MAP) Pulse Ox O2 Delivery O2 Flow Rate FiO2 03/09/17 16:51 78 20 131/80 96 03/09/17 14:46 98 Room Air 03/09/17 14:44 36.3 85 20 154/86 98 Room Air Physical Exam GENERAL: Patient is in no acute distress. HEENT: No acute trauma, normocephalic atraumatic, mucous membranes moist, no nasal congestion, no scleral icterus. NECK: No stridor, no adenopathy, no meningismus, trachea is midline. LUNGS: Diminished breath sounds bilaterally, no wheezing, breath sounds equal, no rhonchi. HEART: Without murmurs gallops or rubs, regular rate and rhythm. CHEST: Tender to anterior chest wall. ABDOMEN: Soft, nontender, bowel sounds positive, no hernias, no peritonitis. EXTREMITIES: No cyanosis or edema, full range of motion of all the joints without pain or difficulty, no signs for acute trauma. NEUROLOGIC: Oriented x 3, no acute motor or sensory deficits, no focal weakness. SKIN: No rash, no jaundice, no diaphoresis. Medical Decision & Procedures ER Provider Diagnostic Interpretation: Radiology results as stated below per my review and radiologist interpretation: CHEST ONE VIEW PORTABLE HISTORY: 37 years-old Female cough acute cough COMPARISON: Chest radiograph 09/28/2016 TECHNIQUE: Portable AP view of the chest FINDINGS: Cardiac silhouette is within normal limits. Linear subsegmental lateral left midlung and right lung base opacities are noted without pneumothorax, pleural effusion or overt pulmonary edema. The bones of the chest appear grossly intact. IMPRESSION: Linear subsegmental lateral left midlung and right lung base opacities favor atelectasis. No definite focal airspace consolidation to suggest pneumonia. The above report was generated using voice recognition software. It may contain grammatical, syntax or spelling errors. Electronically signed by: Yvon Carvalho M.D. 03/09/2017 3:13 PM Dictated Date/Time: 03/09/2017 3:12 PM Laboratory Results Test 03/09/17 15:20 Influenza Type A Antigen Neg for Influ A (NEG) Influenza Type B Antigen Neg for Influ B (NEG) Laboratory results reviewed by me. Medications Administered Medications (Trade) Dose Ordered Sig/Gertrudis Route Start Time Stop Time Status Last Admin Dose Admin Albuterol/ Ipratropium (Duoneb) 3 ml NOW STAT INH 03/09/17 14:52 03/09/17 14:55 DC 03/09/17 15:20 3 ML Acetaminophen (Tylenol Tab) 1,000 mg NOW STAT PO 03/09/17 14:52 03/09/17 14:55 DC 03/09/17 15:15 1,000 MG Benzonatate (Tessalon Perles Cap) 200 mg NOW ONCE PO 03/09/17 15:00 03/09/17 15:01 DC 03/09/17 15:14 200 MG ECG Indication: chest pain Rate (beats per minute): 73 Rhythm: normal sinus Findings: no acute ischemic change, no ectopy ED Course 1448: The patient was evaluated in room B5. A complete history and physical exam was performed. 1452: Tylenol Tab 1000 mg PO, Duoneb 3 ml INH. 1500: Benzonatate 200 mg PO. 1623: Reevaluated the patient. Discussed results and discharge instructions: She verbalized understanding and agreement. The patient is ready for discharge. Medical Decision The patient is a 37 year old female who presents to the ED with complaints of chest pain. Differential diagnoses considered include flu like illness, influenza, bronchitis, PNA, musculoskeletal pain, PNX, [place].. The patient presents with cough and congestion and some shortness of breath. She did have some reproducible chest pain. Chest film shows some atelectasis, no obvious pneumonia, no CHF or pneumothorax. EKG shows a sinus rhythm, no acute ischemia. Influenza testing was negative. On exam, the patient had diminished breath sounds, she was not hypoxic, febrile or toxic. The patient was given a DuoNeb, oral Tessalon Perles for cough. She received oral Tylenol. The patient has an acute bronchitis. Because of her lung history and smoking history, I will use antibiotics. Zithromax was prescribed. Heat to the chest wall was suggested. I will prescribe Tessalon for cough. If things are worsening, she should return for reassessment. Medication Reconcilliation Current Medication List: was personally reviewed by me Blood Pressure Screening Patient's blood pressure: Elevated blood pressure Blood pressure disposition: Referred to PCP Impression Primary Impression: Acute bronchitis Additional Impression: Anterior chest wall pain Scribe Attestation The scribe's documentation has been prepared under my direction and personally reviewed by me in its entirety. I confirm that the note above accurately reflects all work, treatment, procedures, and medical decision making performed by me. Departure Information Dispostion Home / Self-Care Prescriptions Azithromycin (ZITHROMAX Z-MAT) 250 Mg Tab 0 PO UD, #1 PKT Prov: Rusty Simmons M.D. 03/09/17 Benzonatate (TESSALON PERLES) 100 Mg Cap 1-2 CAP PO TID Y for Cough, #20 CAP Prov: Rusty Simmons M.D. 03/09/17 Albuterol Hfa (VENTOLIN HFA) 200 Puffs/[id number] Mcg Aers 3 PUFFS INH Q6H, #1 INHALER Prov: Rusty Simmons M.D. 03/09/17 Referrals Thien Borrego M.D. (PCP) Patient Instructions [facility] Additional Instructions tessalon perles for cough every 8 hours as needed albuterol 3 puffs every 4 hours as needed to help the breathing zpac as directed return if breathing is worsening heat to the chest wall will help otc pain meds as needed Problem Qualifiers
--- NOTE | 2017-03-09 15:14 | DIAGNOSTIC IMAGING REPORT ---
CHEST ONE VIEW PORTABLE HISTORY: 37 years-old Female cough acute cough COMPARISON: Chest radiograph 09/28/2016 TECHNIQUE: Portable AP view of the chest FINDINGS: Cardiac silhouette is within normal limits. Linear subsegmental lateral left midlung and right lung base opacities are noted without pneumothorax, pleural effusion or overt pulmonary edema. The bones of the chest appear grossly intact. IMPRESSION: Linear subsegmental lateral left midlung and right lung base opacities favor atelectasis. No definite focal airspace consolidation to suggest pneumonia. The above report was generated using voice recognition software. It may contain grammatical, syntax or spelling errors. Electronically signed by: Yvon Carvalho M.D. 03/09/2017 3:13 PM Dictated Date/Time: 03/09/2017 3:12 PM
[2017-03-09 16:18] LABS: INFLUENZA B ANTIGEN Neg for Influ B (NEG)
[2017-03-09] MEDS ORDERED: BENZ100C18 PO (16:36)
[2017-03-09] MEDS ORDERED: AZITTAB PO (16:36)
[2017-03-09] MEDS ORDERED: VNTHFA/IN INH (16:36)
[2017-03-09 16:51] VITALS: BP 131/80; PULSE 78; O2SAT 96
== END 2017-03-09 16:52 | disposition home or self-care (01) ==
LOC: C.EDB 14:40
DX: J20.9 Acute bronchitis, unspecified (principal); R07.89 Other chest pain; E11.9 Type 2 diabetes mellitus without complications; Z98.51 Tubal ligation status; F17.200 Nicotine dependence, unspecified, uncomplicated; Z83.3 Family history of diabetes mellitus

== ENCOUNTER 2017-04-07 10:06 | Emergency (ER) | payer OTHER ==
[~2017-04-07] VITALS: Ht 154.9 cm; Wt 68.0 kg
[~2017-04-07 10:06] MED LIST changes: -OXYC1TAB3 PO; +VNTHFA/IN INH
[2017-04-07 10:08] VITALS: TEMP 36.6; Ht 154.9 cm; Wt 68.0 kg
[2017-04-07] MEDS ORDERED: ACETAMINOPHEN 500 MG TAB PO STA (10:20)
[2017-04-07] MEDS ORDERED: OXYCODONE HCL IR 5 MG TAB (IMMEDIATE RELEASE) PO STA (10:20)
[2017-04-07] MEDS ORDERED: IBUPROFEN 600 MG TAB PO STA (10:20)
[2017-04-07] MEDS ORDERED: TRAMADOL HCL 50 MG TAB PO STA (10:20)
--- NOTE | 2017-04-07 10:23 | EMERGENCY ROOM VISIT NOTE ---
History Report prepared by Lisa: Kenyon Wong Under the Supervision of: Dr. Devon Cruz M.D. First contact with patient: 10:09 Chief Complaint: KNEEPAIN Stated Complaint: PAIN IN RIGHT KNEE History of Present Illness The patient is a 37 year old white female with a past medical history of diabetes who presents to the ED with a cc of worsening burning and sharp right knee pain beginning a couple weeks ago. The pain is worsened with movement. Positive foot pain. Negative recent falls. She states that she has been getting injections in her knee at an orthopedist for torn ligaments, and nothing has been helping. Her last injection was a month ago. Nothing caused the pain initially. She takes pills for her diabetes. She does not take any other medications and has not had any other surgeries. The patient smokes tobacco. Source of History: patient Onset: a couple of weeks ago Position: knee (right) Quality: burning, sharp Timing: worsening Modifying Factors (Worsening): movement Note: Associated symptoms: Right foot pain. Review of Systems See HPI for pertinent positives and negatives. A total of ten systems were reviewed and were otherwise negative. Past Medical & Surgical Medical Problems: (1) Acute bilateral lower abdominal pain (2) Acute bronchitis (3) Acute bronchitis (4) Ankle injury (5) Chest pain (6) Diabetes (7) Epigastric abdominal pain (8) Foot pain (9) Foot pain (10) Knee pain (11) Left ankle sprain (12) Left ankle sprain (13) Left breast abscess (14) Leukocytosis (15) Pain, dental (16) Pain, dental (17) Renal colic (18) Right ankle sprain (19) Right knee pain (20) Thumb pain Surgical Problems: (1) H/O lithotripsy (2) Tubal Ligation Status Family History Diabetes mellitus Social History Smoking Status: Current Every Day Smoker Alcohol Use: occasionally Drug Use: none Marital Status: single Occupation Status: unemployed Current/Historical Medications Scheduled Tramadol Hcl (Ultram), 50 MG PO Q8H Allergies Coded Allergies: Penicillins (Verified Allergy, Unknown, rash, 04/07/17) Physical Exam Vital Signs Date Time Temp Pulse Resp B/P (MAP) Pulse Ox O2 Delivery O2 Flow Rate FiO2 04/07/17 11:27 73 16 131/72 97 Room Air 04/07/17 10:08 36.6 87 16 146/79 98 Physical Exam GENERAL: Awake, alert, well-appearing, NAD HENT: Normocephalic, atraumatic. Missing many maxillary teeth EYES: Normal conjunctiva. Sclera non-icteric. NECK: Supple. No nuchal rigidity. FROM. RESPIRATORY: CTAB, no rhonchi, wheezing, crackles CARDIAC: RRR, no MRG ABDOMEN: Soft, NTND, BS+ MSK: No erythema, swelling, or calor. Mild MCL TTP greater LCL TTP. Pain with varus and valgus stress. No joint laxity with anterior or posterior drawer. No chest wall TTP, no LE edema NEURO: GCS 15, CN 2-12 intact, moves all 4s on command SKIN: No rash or jaundice noted. Medical Decision & Procedures ER Provider Diagnostic Interpretation: Radiology results as stated below per my review and radiologist interpretation: R KNEE 3 VIEWS CLINICAL HISTORY: Chronic right knee pain. COMPARISON: Right knee radiographs June 30, 2016 and MRI of the right knee December 02, 2016. FINDINGS: Alignment of the right knee is anatomic. No fracture or suspicious lesion is present. Joint spaces are preserved. There is minimal spurring of the patella and tibial tubercle. No joint effusion is identified. IMPRESSION: No significant abnormality of the right knee. Electronically signed by: Cody Baez M.D. 04/07/2017 11:14 AM Dictated Date/Time: 04/07/2017 11:13 AM Medications Administered Medications (Trade) Dose Ordered Sig/Gertrudis Route Start Time Stop Time Status Last Admin Dose Admin Ibuprofen (Motrin Tab) 800 mg NOW STAT PO 04/07/17 10:20 04/07/17 10:22 DC 04/07/17 11:04 800 MG Acetaminophen (Tylenol Tab) 1,000 mg NOW STAT PO 04/07/17 10:20 04/07/17 10:22 DC 04/07/17 11:03 1,000 MG Tramadol HCl (Ultram Tab) 50 mg NOW STAT PO 04/07/17 10:20 04/07/17 10:22 DC 04/07/17 11:05 50 MG Oxycodone HCl (Roxicodone Immediate Rel Tab) 5 mg NOW STAT PO 04/07/17 10:20 04/07/17 10:22 DC 04/07/17 11:04 5 MG ED Course 1009: The patient was evaluated in room B6. A complete history and physical exam was performed. 1146: I reevaluated the patient. Discussed results and discharge instructions: She verbalized understanding and agreement. The patient is ready for discharge. Medical Decision The patient is a 37 year old white female with a past medical history of diabetes who presents to the ED with a cc of worsening burning and sharp right knee pain beginning a couple weeks ago. The pain is worsened with movement. Differential diagnosis: Etiologies such as fracture, dislocation, neurovascular compromise, compartment syndrome, soft tissue injury, as well as others were entertained. Patient was seen and evaluated the bedside. Patient has a history of diabetes and was complaining some worsening right-sided knee pain. Patient has no swelling but does complain of some mild paraspinal valgus stress. Patient has no anterior or posterior joint laxity. Patient started and seen by the orthopedist but was told to come here for further evaluation. Patient has no focal signs of infection. She may have some sort of ligamentous injury or sprain although the patient denies any trauma or twisting or popping feeling. Patient did have a plain knee film that was completed that was negative acute. Patient's pain was mildly improved medication management for symptom control. Patient was told to follow-up with her PCP and/or orthopedist. Patient was deemed suitable for outpatient follow-up and treatment at this time. The PDMP was reviewed and the patient has never had no controlled prescription substances within the last 12 months. Patient was given strict follow-up, discharge, and return precautions. All questions were answered. Patient was deemed suitable for outpatient follow-up at this time. Patient agreed with the plan of care and was safely discharged home. [place] Drug Monitoring Program Search Results: patient reviewed within database Drug Monitoring Findings: No Rx's w/in last 12 months in [place] Medication Reconcilliation Current Medication List: was personally reviewed by me Blood Pressure Screening Patient's blood pressure: Elevated blood pressure Blood pressure disposition: Elevated BP felt to be situational Impression Primary Impression: Chronic knee pain Additional Impression: Encounter for smoking cessation counseling Scribe Attestation The scribe's documentation has been prepared under my direction and personally reviewed by me in its entirety. I confirm that the note above accurately reflects all work, treatment, procedures, and medical decision making performed by me. Departure Information Dispostion Home / Self-Care Prescriptions Tramadol Hcl (ULTRAM) 50 Mg Tab 50 MG PO Q8H, #12 TAB PRN PAIN Prov: Devon Cruz M.D. 04/07/17 Referrals Thien Borrego M.D. (PCP) Forms HOME CARE DOCUMENTATION FORM, IMPORTANT VISIT INFORMATION Patient Instructions ED RICE, Knee Pain, [facility] Additional Instructions Please return to the emergency department if you have worsening or recurrent symptoms not amenable to at-home treatment. Please call for a follow-up appointment with her primary care physician. Please take your medications as prescribed. If you have other concerns and/or complaints please feel free to also call your primary care physician's office or return the ED for further evaluation, management, and treatment. You may take 600 mg Ibuprofen every 6 hours as needed for pain with food for no more than 2 consecutive days. You may take tylenol 1000 mg every 6 hours as needed for pain. You may take motrin and tylenol separately or at the same time. You may take tramadol if you have persistent pain after motrin/tylenol but take w/ caution as it is a sedating medication. Take your medications as prescribed. You have been examined and treated today on an emergency basis only. This is not a substitute for, or an effort to provide, complete comprehensive medical care. It is impossible to recognize and treat all injuries or illnesses in a single emergency department visit. It is therefore important that you follow up closely with [facility], your PCP, and/or your specialist(s). Call as soon as possible for an appointment. Thank you for your time and consideration. I look forward to speaking with you again soon. Please don't hesitate to call us if you have any questions. Problem Qualifiers Primary Impression: Chronic knee pain Laterality: right Qualified Codes: M25.561 - Pain in right knee; G89.29 - Other chronic pain
--- NOTE | 2017-04-07 11:16 | DIAGNOSTIC IMAGING REPORT ---
R KNEE 3 VIEWS CLINICAL HISTORY: Chronic right knee pain. COMPARISON: Right knee radiographs June 30, 2016 and MRI of the right knee December 02, 2016. FINDINGS: Alignment of the right knee is anatomic. No fracture or suspicious lesion is present. Joint spaces are preserved. There is minimal spurring of the patella and tibial tubercle. No joint effusion is identified. IMPRESSION: No significant abnormality of the right knee. Electronically signed by: Cody Baez M.D. 04/07/2017 11:14 AM Dictated Date/Time: 04/07/2017 11:13 AM
[2017-04-07 11:27] VITALS: BP 131/72; PULSE 73; O2SAT 97
[2017-04-07] MEDS ORDERED: TRAM-453 PO (11:34)
== END 2017-04-07 11:53 | disposition home or self-care (01) ==
LOC: C.EDB 10:07
DX: M25.561 Pain in right knee (principal); G89.29 Other chronic pain; Z71.6 Tobacco abuse counseling; F17.210 Nicotine dependence, cigarettes, uncomplicated; E11.9 Type 2 diabetes mellitus without complications; Z83.3 Family history of diabetes mellitus; Z79.899 Other long term (current) drug therapy

== ENCOUNTER → 2017-06-04 | Outpatient (CLI) | payer OTHER ==
[2017-06-04 12:53] LABS: HEMOGLOBIN A1C 8.7 % (4.5-5.6)
== END | disposition home or self-care (01) ==
LOC: C.LABBFT 10:45
PROVIDERS: ATTEND Nurse Practitioner
DX: E11.29 Type 2 diabetes mellitus with other diabetic kidney complication (principal)

== ENCOUNTER 2017-07-06 19:38 | Emergency (ER) | payer OTHER ==
[~2017-07-06] VITALS: Ht 154.9 cm; Wt 63.8 kg
[2017-07-06 19:40] VITALS: TEMP 36.8; Ht 154.9 cm; Wt 63.8 kg
[2017-07-06] MEDS ORDERED: KETOROLAC TROMETHAMINE 30 MG/ML VIAL IV STA (19:51)
[2017-07-06] MEDS ORDERED: SODIUM CHLORIDE 0.9% 1000ML 1,000 ML IV STA (19:51)
[2017-07-06] MEDS ORDERED: ONDANSETRON INJ 2 MG/ML 2 ML VIAL IV STA (19:51)
--- NOTE | 2017-07-06 20:10 | EMERGENCY ROOM VISIT NOTE ---
ED Visit Note First contact with patient: 19:45 CHIEF COMPLAINT: Right flank pain HISTORY OF PRESENTING ILLNESS: This is a 37-year-old female who presents the emergency department with complaint of right flank pain that started approximately 10 minutes ago. Patient states that she was feeling fine when she got a sudden stabbing pain in her right side, she states the pain is constant, radiates from her right lower abdomen around the side to her right middle back, worse with movement, better with rest, rates as 10/10. She did not try any medications for the pain prior to coming to the ED. She denies any associated symptoms of nausea, vomiting, diarrhea, constipation, bloody or black stools, dysuria or urinary frequency, hematuria, or fever/chills. She reports a history of kidney stones a few years ago, states that it felt the same way which is why she came directly to the emergency department. She reports a history of a bilateral tubal ligation, denies any other abdominal surgeries. She denies any other symptoms of headaches, neck pain or stiffness, chest pain, shortness of breath, back pain, or unusual rash. REVIEW OF SYSTEMS: A complete 10 point review of systems was reviewed with the patient with pertinent positives and negatives as per history of present illness. All else were negative. PAST MEDICAL HISTORY: Reviewed in chart, see problem list below SOCIAL HISTORY: Lives at home. She is a current everyday smoker. She denies alcohol use. ALLERGIES: Reviewed in chart, see below. PHYSICAL EXAM: CONSTITUTIONAL: Pleasant and cooperative. No acute distress, but appears uncomfortable and in pain. Mildly dehydrated. HEENT: Normocephalic, atraumatic. Pupils equal, round and reactive to light, EOMI. TMs normal. Pharynx normal. Tacky mucous members. NECK: Supple, full active range of motion without discomfort. No cervical adenopathy. RESPIRATORY: Clear to auscultation bilaterally with no wheezing, crackles, rhonchi or stridor. Equal expansion bilaterally. CARDIOVASCULAR: Regular rate and rhythm with no murmurs, rubs or gallops. Normal peripheral perfusion. No edema. GASTROINTESTINAL: Tenderness to palpation in the right mid abdomen and flank, no rebound tenderness or guarding. Abdomen is soft and nondistended. No palpable masses or HSM. Bowel sounds present in all quadrants. No CVA tenderness bilaterally. MUSCULOSKELETAL: Full range of motion of all joints without discomfort. INTEGUMENTARY: No rash or other significant dermatologic conditions noted. NEUROLOGIC: Alert and oriented X 4 with normal affect. Normal strength and sensation in all 4 extremities. No focal neurologic deficits noted. Normal speech. Normal gait observed. ED COURSE AND MEDICAL DECISION MAKING: CC: Patient presenting with complaint of right flank pain DIFFERENTIAL DIAGNOSIS: Includes, but not limited to ureteral stone, ureteral colic, UTI, pyelonephritis, appendicitis, mesenteric adenitis, ovarian cyst, ovarian torsion, ectopic , musculoskeletal sprain/strain, muscle spasm , among others. INTERPRETATION OF LABS: No leukocytosis, no anemia, no significant electrolyte abnormalities, normal renal function, normal liver enzymes. UA shows trace ketones consistent with mild dehydration, no signs of infection. Serum negative. IMAGING: ABD/PELVIS WITHOUT FOR STONE CLINICAL HISTORY: 37 years-old Female presenting with Flank pain, right-sided abdominal pain, eval for stone. TECHNIQUE: Multidetector CT of the abdomen and pelvis was performed without the use of intravenous contrast. IV contrast: None. A dose lowering technique was used consistent with the principles of ALARA (as low as reasonably achievable). COMPARISON: 06/03/2015. CT DOSE (mGy.cm): The estimated cumulative dose is 907.74 mGy.cm. FINDINGS: Electoral Officer topogram: Unremarkable. Lung bases: Normal dependent reticulation and bandlike opacities at the lung bases likely atelectasis. Mild smooth interlobular septal thickening. Mosaic attenuation may suggest small airways disease. Normal heart size. No pericardial or pleural effusion. Liver: Normal morphology. Density consistent with hepatic steatosis. Biliary: Pneumobilia noted. No gross evidence for biliary ductal dilatation allowing for noncontrast technique. Normal gallbladder. Pancreas: Coarse calcifications in the pancreatic head, nonspecific. Otherwise normal noncontrast appearance of the pancreatic parenchyma. Spleen: Calcification in the splenic parenchyma, nonspecific. Otherwise normal noncontrast appearance. Adrenal glands: Normal. Kidneys and ureters: Extensive left nonobstructing nephrolithiasis. No right renal calculi. Ureters normal. No hydronephrosis. Bladder: Incompletely evaluated secondary to underdistention. Pelvic organs: Normal noncontrast appearance. Bowel: Normal appendix. No bowel obstruction. Peritoneal cavity: No free fluid or intraperitoneal gas. Lymph nodes: No gross lymphadenopathy allowing for noncontrast technique. Vasculature: Normal noncontrast appearance. Abdominal wall: Normal. Musculoskeletal: Normal. IMPRESSION: 1. No appendicitis. 2. Nonobstructing left nephrolithiasis, unchanged. No hydronephrosis. 3. Pneumobilia as on prior exam. This may be due to prior sphincterotomy or sphincter Ulices dysfunction. 4. Hepatic steatosis. Correlate with liver function tests to exclude steatohepatitis as a cause for abdominal pain. MEDICATION RECONCILIATION: I attest that I have personally reviewed the patient 's current medication list. INITIAL VITAL SIGNS REVIEW: I reviewed the patient's initial vital signs and interpret them as follows: T: Afebrile; BP: Hypertensive; HR: Tachycardic; RR : Within normal limits; Pulse Ox: Within normal limits on room air. Blood pressure screening: The patient was found to have an elevated blood pressure, which was felt to be situational. SUMMARY: Patient was evaluated at bedside, history and physical exam performed. Patient is alert and oriented, no acute distress, but does appear uncomfortable and in pain, sitting in the stretcher holding her right side. Patient is tender in the right mid abdomen and flank area to palpation, no rebound tenderness or guarding. Orders were placed at bedside for labs, UA, , IV fluids for hydration as a precaution, IV Toradol for pain, IV Zofran for nausea, CT abdomen/pelvis noncontrast to evaluate for ureteral stone. Patient discussed with Dr. Simmons, who agrees with my assessment and plan. Nursing staff called stating that the patient did not get any relief after the Toradol, she is asking for something stronger. IV morphine 4 mg ordered. Labs and imaging reviewed as above, unremarkable, no findings to explain patient 's pain. Patient reassessed multiple times throughout ED stay, patient has remained stable, tachycardia resolved after IV fluids and pain medication. She now appears much more comfortable, resting the stretcher and talking on the phone. She states that her pain has fully resolved after the morphine. Patient was updated on all results and plan for discharge, she was encouraged to follow closely with her PCP. Patient was also given strict return precautions should her symptoms worsen, she verbalized understanding. Patient was discharged home in stable condition and ambulatory. Problem List Medical Problems: (1) Acute bilateral lower abdominal pain Status: Resolved (2) Acute bronchitis Status: Resolved (3) Acute bronchitis Status: Resolved (4) Ankle injury Status: Resolved (5) Chest pain Status: Resolved (6) Epigastric abdominal pain Status: Resolved (7) Foot pain Status: Resolved (8) Foot pain Status: Resolved (9) Knee pain Status: Resolved (10) Left ankle sprain Status: Resolved (11) Left ankle sprain Status: Resolved (12) Left breast abscess Status: Resolved (13) Leukocytosis Status: Resolved (14) Pain, dental Status: Resolved (15) Pain, dental Status: Resolved (16) Renal colic Status: Resolved (17) Right ankle sprain Status: Resolved (18) Right knee pain Status: Resolved (19) Thumb pain Status: Resolved Surgical Problems: (1) H/O lithotripsy Status: Resolved (2) Tubal Ligation Status Status: Resolved Current/Historical Medications Scheduled Metformin Hcl (Glucophage), 500 MG PO TID Allergies Coded Allergies: Penicillins (Verified Allergy, Unknown, rash, 04/07/17) Vital Signs Date Time Temp Pulse Resp B/P (MAP) Pulse Ox O2 Delivery O2 Flow Rate FiO2 07/06/17 22:24 73 18 122/77 98 07/06/17 20:57 80 18 112/66 99 Room Air 07/06/17 19:40 36.8 110 22 144/83 98 Room Air Laboratory Results 07/06/17 20:01 Red Blood Count 5.66, Mean Corpuscular Volume 81.8, Mean Corpuscular Hemoglobin 29.7, Mean Corpuscular Hemoglobin Concent 36.3, Mean Platelet Volume 9.8, Neutrophils (%) (Auto) 41.1, Lymphocytes (%) (Auto) 49.9, Monocytes (%) (Auto) 6.9, Eosinophils (%) (Auto) 1.6, Basophils (%) (Auto) 0.3, Neutrophils # (Auto) 3.67, Lymphocytes # (Auto) 4.47, Monocytes # (Auto) 0.62, Eosinophils # (Auto) 0.14, Basophils # (Auto) 0.03 07/06/17 20:01 Test 07/06/17 20:01 White Blood Count 8.95 K/uL (4.8-10.8) Red Blood Count 5.66 M/uL (4.2-5.4) Hemoglobin 16.8 g/dL (12.0-16.0) Hematocrit 46.3 % (37-47) Mean Corpuscular Volume 81.8 fL (80-100) Mean Corpuscular Hemoglobin 29.7 pg (25-34) Mean Corpuscular Hemoglobin Concent 36.3 g/dl (32-36) Platelet Count 199 K/uL (130-400) Mean Platelet Volume 9.8 fL (7.4-10.4) Neutrophils (%) (Auto) 41.1 % Lymphocytes (%) (Auto) 49.9 % Monocytes (%) (Auto) 6.9 % Eosinophils (%) (Auto) 1.6 % Basophils (%) (Auto) 0.3 % Neutrophils # (Auto) 3.67 K/uL (1.4-6.5) Lymphocytes # (Auto) 4.47 K/uL (1.2-3.4) Monocytes # (Auto) 0.62 K/uL (0.11-0.59) Eosinophils # (Auto) 0.14 K/uL (0-0.5) Basophils # (Auto) 0.03 K/uL (0-0.2) RDW Standard Deviation 38.2 fL (36.4-46.3) RDW Coefficient of Variation 12.8 % (11.5-14.5) Immature Granulocyte % (Auto) 0.2 % Immature Granulocyte # (Auto) 0.02 K/uL (0.00-0.02) Nucleated RBC Absolute Count (auto) 0.06 K/uL (0-0) Nucleated Red Blood Cells % 0.7 % Urine Color YELLOW Urine Appearance CLEAR (CLEAR) Urine pH 5.0 (4.5-7.5) Urine Specific [place] 1.038 (1.000-1.030) Urine Protein NEG (NEG) Urine Glucose (UA) 3+ (NEG) Urine Ketones TRACE (NEG) Urine Occult Blood NEG (NEG) Urine Nitrite NEG (NEG) Urine Bilirubin NEG (NEG) Urine Urobilinogen NEG (NEG) Urine Leukocyte Esterase NEG (NEG) Anion Gap 10.0 mmol/L (3-11) Est Creatinine Clear Calc Drug Dose 67.3 ml/min Estimated GFR () 86.3 Estimated GFR (Non- 74.5 BUN/Creatinine Ratio 5.7 (10-20) Calcium Level 8.6 mg/dl (8.5-10.1) Total Bilirubin 0.5 mg/dl (0.2-1) Direct Bilirubin mg/dl (0-0.2) Aspartate Amino Transf (AST/SGOT) U/L (15-37) Alanine Aminotransferase (ALT/SGPT) 32 U/L (12-78) Alkaline Phosphatase 156 U/L (45-117) Total Protein 7.7 gm/dl (6.4-8.2) Albumin 3.8 gm/dl (3.4-5.0) Human Chorionic Gonadotropin, Qual NEG (NEG) Medications Administered Medications (Trade) Dose Ordered Sig/Gertrudis Route Start Time Stop Time Status Last Admin Dose Admin Sodium Chloride 1,000 ml @ 999 mls/hr Q1H1M STAT IV 07/06/17 19:51 07/06/17 20:51 DC 07/06/17 20:20 999 MLS/HR Ondansetron HCl (Zofran Inj) 4 mg NOW STAT IV 07/06/17 19:51 07/06/17 19:56 DC 07/06/17 20:06 4 MG Ketorolac Tromethamine (Toradol Inj) 15 mg NOW STAT IV 07/06/17 19:51 07/06/17 19:56 DC 07/06/17 20:06 15 MG Morphine Sulfate (MoRPHine SULFATE INJ) 4 mg NOW STAT IV 07/06/17 21:14 07/06/17 21:15 DC 07/06/17 21:19 4 MG Departure Information Impression Primary Impression: Right flank pain Dispostion Home / Self-Care Condition GOOD Referrals Thien Borrego M.D. (PCP) Patient Instructions ED Flank Pain Uncertain Cause, My [facility] Additional Instructions You have been treated in the Emergency Department for your right flank pain. Laboratory results and imaging studies have ruled out any emergent causes for your symptoms which would warrant admission or surgery. For pain control, you can use the following [id number] medicines (if >12 yo): - Regular strength (325mg/tab) Tylenol (acetaminophen) 2 tabs every 4-6 hours as needed. Do not exceed 10 tablets in a 24 hour period. Avoid taking more than 3000 mg of Tylenol per day. This includes any other sources of acetaminophen you may take on a regular basis. - Regular strength (200 mg/tab) Advil (ibuprofen) 3 tabs every 6-8 hours as needed. Do not exceed a dose of 2400 mg per day. You may also use a heating pad to the area as needed for comfort. Drink plenty of fluids to stay well hydrated. Please follow-up with your Primary Care Provider in the next few days if your symptoms persist. Return to the emergency department for severe worsening abdominal or back pain, worsening nausea/vomiting, vomiting blood, blood in your stool or urine, fevers > 101.5, severe dizziness or passing out, or any other concerns. Work Instructions Return To Work: 2 days
[2017-07-06 20:23] LABS: BASO % 0.3 %; BASO ABS # 0.03 K/uL (0-0.2); EOS % 1.6 %; EOS ABS # 0.14 K/uL (0-0.5); HEMATOCRIT 46.3 % (37-47); HEMOGLOBIN 16.8 g/dL (12.0-16.0); IG# 0.02 K/uL (0.00-0.02); LYMPH % 49.9 %; LYMPH ABS # 4.47 K/uL (1.2-3.4); MEAN CELL VOLUME 81.8 fL (80-100); MEAN CORPUSCULAR HEMOGLOBIN 29.7 pg (25-34); MEAN CORPUSCULAR HGB CONC 36.3 g/dl (32-36); MEAN PLATELET VOLUME 9.8 fL (7.4-10.4); MONO % 6.9 %; MONO ABS # 0.62 K/uL (0.11-0.59); NEUT % 41.1 %; NEUT ABS # 3.67 K/uL (1.4-6.5); NUCLEATED RED BLOOD CELL ABS 0.06 K/uL (0-0); PLATELET COUNT 199 K/uL (130-400); RED CELL DISTRIBUTION WIDTH CV 12.8 % (11.5-14.5); RED CELL DISTRIBUTION WIDTH SD 38.2 fL (36.4-46.3); WHITE BLOOD COUNT 8.95 K/uL (4.8-10.8)
[2017-07-06] MEDS ORDERED: GLC/500 PO (20:34)
[2017-07-06] MEDS ORDERED: MoRPHine SULFATE 4 MG/ML 1 ML CARP\\VIAL IV STA (21:14)
--- NOTE | 2017-07-06 21:27 | DIAGNOSTIC IMAGING REPORT ---
ABD/PELVIS WITHOUT FOR STONE CLINICAL HISTORY: 37 years-old Female presenting with Flank pain, right-sided abdominal pain, eval for stone. TECHNIQUE: Multidetector CT of the abdomen and pelvis was performed without the use of intravenous contrast. IV contrast: None. A dose lowering technique was used consistent with the principles of ALARA (as low as reasonably achievable). COMPARISON: 06/03/2015. CT DOSE (mGy.cm): The estimated cumulative dose is 907.74 mGy.cm. FINDINGS: Residency Director topogram: Unremarkable. Lung bases: Normal dependent reticulation and bandlike opacities at the lung bases likely atelectasis. Mild smooth interlobular septal thickening. Mosaic attenuation may suggest small airways disease. Normal heart size. No pericardial or pleural effusion. Liver: Normal morphology. Density consistent with hepatic steatosis. Biliary: Pneumobilia noted. No gross evidence for biliary ductal dilatation allowing for noncontrast technique. Normal gallbladder. Pancreas: Coarse calcifications in the pancreatic head, nonspecific. Otherwise normal noncontrast appearance of the pancreatic parenchyma. Spleen: Calcification in the splenic parenchyma, nonspecific. Otherwise normal noncontrast appearance. Adrenal glands: Normal. Kidneys and ureters: Extensive left nonobstructing nephrolithiasis. No right renal calculi. Ureters normal. No hydronephrosis. Bladder: Incompletely evaluated secondary to underdistention. Pelvic organs: Normal noncontrast appearance. Bowel: Normal appendix. No bowel obstruction. Peritoneal cavity: No free fluid or intraperitoneal gas. Lymph nodes: No gross lymphadenopathy allowing for noncontrast technique. Vasculature: Normal noncontrast appearance. Abdominal wall: Normal. Musculoskeletal: Normal. IMPRESSION: 1. No appendicitis. 2. Nonobstructing left nephrolithiasis, unchanged. No hydronephrosis. 3. Pneumobilia as on prior exam. This may be due to prior sphincterotomy or sphincter Ulices dysfunction. 4. Hepatic steatosis. Correlate with liver function tests to exclude steatohepatitis as a cause for abdominal pain. Electronically signed by: Hayden London M.D. 07/06/2017 9:26 PM Dictated Date/Time: 07/06/2017 9:07 PM
[2017-07-06 21:47] LABS: ALBUMIN 3.8 gm/dl (3.4-5.0); ALKALINE PHOSPHATASE 156 U/L (45-117); ALT/SGPT 32 U/L (12-78); BLOOD UREA NITROGEN 6 mg/dl (7-18); CALCIUM 8.6 mg/dl (8.5-10.1); CARBON DIOXIDE 27 mmol/L (21-32); CREATININE 0.96 mg/dl (0.60-1.20); GLUCOSE 271 mg/dl (70-99); SODIUM 137 mmol/L (136-145); TOTAL PROTEIN 7.7 gm/dl (6.4-8.2)
[2017-07-06 22:24] VITALS: BP 122/77; PULSE 73; O2SAT 98
== END 2017-07-06 22:21 | disposition home or self-care (01) ==
LOC: C.EDB 19:39 → C.EDC 22:21
DX: R10.9 Unspecified abdominal pain (principal); F17.210 Nicotine dependence, cigarettes, uncomplicated; Z79.84 Long term (current) use of oral hypoglycemic drugs; Z88.0 Allergy status to penicillin

== ENCOUNTER 2017-07-11 16:36 | Emergency (ER) | payer OTHER ==
[~2017-07-11] VITALS: Ht 154.9 cm; Wt 64.5 kg
[~2017-07-11 16:36] MED LIST changes: +GLC/500 PO; -VNTHFA/IN INH
[2017-07-11 16:39] VITALS: TEMP 36.7; Ht 154.9 cm; Wt 64.5 kg
[2017-07-11] MEDS ORDERED: KETOROLAC TROMETHAMINE 30 MG/ML VIAL IV STA (17:05)
[2017-07-11] MEDS ORDERED: ONDANSETRON INJ 2 MG/ML 2 ML VIAL IV STA (17:05)
[2017-07-11] MEDS ORDERED: MoRPHine SULFATE 4 MG/ML 1 ML CARP\\VIAL IV PRN (17:15)
[2017-07-11 17:33] LABS: BASO % 0.2 %; BASO ABS # 0.02 K/uL (0-0.2); EOS % 1.3 %; EOS ABS # 0.12 K/uL (0-0.5); HEMATOCRIT 44.7 % (37-47); HEMOGLOBIN 15.9 g/dL (12.0-16.0); IG# 0.03 K/uL (0.00-0.02); LYMPH % 36.7 %; MEAN CELL VOLUME 80.7 fL (80-100); MEAN CORPUSCULAR HEMOGLOBIN 28.7 pg (25-34); MEAN CORPUSCULAR HGB CONC 35.6 g/dl (32-36); MEAN PLATELET VOLUME 9.3 fL (7.4-10.4); MONO % 7.9 %; MONO ABS # 0.71 K/uL (0.11-0.59); NEUT % 53.6 %; NEUT ABS # 4.82 K/uL (1.4-6.5); PLATELET COUNT 202 K/uL (130-400); RED CELL DISTRIBUTION WIDTH CV 12.9 % (11.5-14.5); RED CELL DISTRIBUTION WIDTH SD 38.1 fL (36.4-46.3)
[2017-07-11] MEDS ORDERED: OPTIRAY 320 IV PRN (17:45)
--- NOTE | 2017-07-11 17:51 | EMERGENCY ROOM VISIT NOTE ---
History Report prepared by Lisa: Cristin Coley Under the Supervision of: Dr. Rusty Simmons M.D. First contact with patient: 16:59 Chief Complaint: ABDOMINAL PAIN Stated Complaint: PAIN IN LOWER BACK AND STOMACH Nursing Triage Summary: abdominal pain and back pain 10/10 History of Present Illness The patient is a 37 year old female who presents to the Emergency Room with complaints of constant abdominal pain starting yesterday. The patient states that the pain comes with lower back pain. She currently rates her pain as a 10/ 10 in severity. The patient notes that the pain is worse when she changes positions and uses the restroom. She reports that she tried taking Pepto Bismol with no relief. The patient complains of nausea. The patient notes that she has hurt her tailbone in the past and had UTIs, but this feels different. The patient denies diarrhea, urinary symptoms, vaginal discharge, fever, vomiting, lifting anything heavy recently, pulling a muscle, ever having an ovarian cyst, ever having diverticulitis, a history of abdominal surgeries, loss of appetite, eating affecting the pain, and concern for . The patient notes that she did move her bowels today. Source of History: patient Onset: yesterday Position: abdomen Symptom Intensity: 10/10 Timing: constant Modifying Factors (Worsening): urination, defecation, other (changing positions) Associated Symptoms: + nausea, + back pain (lower), No fevers, No vomiting, No diarrhea, No urinary symptoms Note: The patient denies loss of appetite, pulling a muscle, and vaginal discharge. Review of Systems See HPI for pertinent positives & negatives. A total of 10 systems reviewed and were otherwise negative. Past Medical & Surgical Medical Problems: (1) Acute bilateral lower abdominal pain (2) Acute bronchitis (3) Acute bronchitis (4) Ankle injury (5) Chest pain (6) Diabetes (7) Epigastric abdominal pain (8) Foot pain (9) Foot pain (10) Kidney stone (11) Knee pain (12) Left ankle sprain (13) Left ankle sprain (14) Left breast abscess (15) Leukocytosis (16) Pain, dental (17) Pain, dental (18) Renal colic (19) Right ankle sprain (20) Right knee pain (21) Thumb pain Surgical Problems: (1) H/O lithotripsy (2) Tubal Ligation Status Family History Diabetes mellitus Social History Smoking Status: Current Every Day Smoker Alcohol Use: occasionally Drug Use: none Marital Status: single Occupation Status: unemployed Current/Historical Medications Scheduled Metformin Hcl (Glucophage), 500 MG PO TID Scheduled PRN Oxycodone Ir (Roxicodone Ir), 1-2 TAB PO Q4H PRN for Pain Allergies Coded Allergies: Penicillins (Verified Allergy, Unknown, rash, 04/07/17) Physical Exam Vital Signs Date Time Temp Pulse Resp B/P (MAP) Pulse Ox O2 Delivery O2 Flow Rate FiO2 07/11/17 19:50 89 20 135/72 98 07/11/17 17:59 90 16 137/72 98 Room Air 07/11/17 16:39 36.7 98 18 130/80 100 Room Air Physical Exam GENERAL: Patient is in no acute distress. HEENT: No acute trauma, normocephalic atraumatic, mucous membranes moist, no nasal congestion, no scleral icterus. NECK: No stridor, no adenopathy, no meningismus, trachea is midline. LUNGS: Clear to auscultation bilaterally, no wheeze, no rhonchi, breath sounds equal. HEART: 2/6 systolic murmur. Regular rate and rhythm. ABDOMEN: Soft, bowel sounds positive, no hernias, no peritonitis. Tender more so in the RLQ and mildly tender in LLQ. BACK: No flank discomfort with percussion. No muscle soreness with palpation. EXTREMITIES: No cyanosis or edema, full range of motion of all the joints without pain or difficulty, no signs for acute trauma. NEUROLOGIC: Oriented x 3, no acute motor or sensory deficits, no focal weakness. SKIN: No rash, no jaundice, no diaphoresis. Medical Decision & Procedures ER Provider Diagnostic Interpretation: Radiology results as stated below per my review and radiologist interpretation: CT ABD/PELVIS IV CONTRAST ONLY CLINICAL HISTORY: Right lower quadrant abdominal pain COMPARISON STUDY: 07/06/2017 TECHNIQUE: Following the IV administration of 116 mL of Optiray-320, CT scan of the abdomen and pelvis was performed from the lung bases to the proximal femurs. Images are reviewed in the axial, sagittal, and coronal planes. IV contrast was administered without complication. A dose lowering technique was utilized adhering to the principles of ALARA. CT DOSE: 262.72 mGy.cm FINDINGS: Lower chest: There are minor atelectatic type changes within the right lower lobe and right middle lobe. Liver: There is hepatic steatosis. No focal hepatic masses are visualized. There are few droplets of pneumobilia, similar to the preceding study. Gallbladder: Unremarkable. Spleen: Normal in size and attenuation. Pancreas: Unremarkable. Adrenal glands: Unremarkable. Kidneys: No solid renal masses are visualized. There is left-sided nephrolithiasis. There is upper pole left renal cortical scarring. Bowel: There are no transition zones indicate bowel obstruction. The appendix appears normal. There is no acute diverticulitis. Peritoneum: There is no intraperitoneal free air or abdominal ascites. Vasculature: The abdominal aorta is normal in course and caliber. Adenopathy: None. Pelvic viscera: There is a 16 mm involuting right ovarian cyst Skeletal structures: No destructive osseous lesions are seen. IMPRESSION: 1. No evidence of bowel obstruction. No evidence of free air 2. Normal appendix 3. Hepatic steatosis. Trace pneumobilia, similar to the prior study. 4. Left-sided nephrolithiasis. Left upper pole renal cortical scarring 5. 16 mm involuting right ovarian cyst with trace periovarian fluid Electronically signed by: Edil Calix M.D. 07/11/2017 7:04 PM Dictated Date/Time: 07/11/2017 7:00 PM Laboratory Results 07/11/17 17:20 Red Blood Count 5.54, Mean Corpuscular Volume 80.7, Mean Corpuscular Hemoglobin 28.7, Mean Corpuscular Hemoglobin Concent 35.6, Mean Platelet Volume 9.3, Neutrophils (%) (Auto) 53.6, Lymphocytes (%) (Auto) 36.7, Monocytes (%) (Auto) 7.9, Eosinophils (%) (Auto) 1.3, Basophils (%) (Auto) 0.2, Neutrophils # (Auto) 4.82, Lymphocytes # (Auto) 3.30, Monocytes # (Auto) 0.71, Eosinophils # (Auto) 0.12, Basophils # (Auto) 0.02 07/11/17 17:20 Test 07/11/17 17:20 White Blood Count 9.00 K/uL (4.8-10.8) Red Blood Count 5.54 M/uL (4.2-5.4) Hemoglobin 15.9 g/dL (12.0-16.0) Hematocrit 44.7 % (37-47) Mean Corpuscular Volume 80.7 fL (80-100) Mean Corpuscular Hemoglobin 28.7 pg (25-34) Mean Corpuscular Hemoglobin Concent 35.6 g/dl (32-36) Platelet Count 202 K/uL (130-400) Mean Platelet Volume 9.3 fL (7.4-10.4) Neutrophils (%) (Auto) 53.6 % Lymphocytes (%) (Auto) 36.7 % Monocytes (%) (Auto) 7.9 % Eosinophils (%) (Auto) 1.3 % Basophils (%) (Auto) 0.2 % Neutrophils # (Auto) 4.82 K/uL (1.4-6.5) Lymphocytes # (Auto) 3.30 K/uL (1.2-3.4) Monocytes # (Auto) 0.71 K/uL (0.11-0.59) Eosinophils # (Auto) 0.12 K/uL (0-0.5) Basophils # (Auto) 0.02 K/uL (0-0.2) RDW Standard Deviation 38.1 fL (36.4-46.3) RDW Coefficient of Variation 12.9 % (11.5-14.5) Immature Granulocyte % (Auto) 0.3 % Immature Granulocyte # (Auto) 0.03 K/uL (0.00-0.02) Urine Color YELLOW Urine Appearance CLEAR (CLEAR) Urine pH 5.5 (4.5-7.5) Urine Specific [place] 1.038 (1.000-1.030) Urine Protein NEG (NEG) Urine Glucose (UA) 3+ (NEG) Urine Ketones TRACE (NEG) Urine Occult Blood NEG (NEG) Urine Nitrite NEG (NEG) Urine Bilirubin NEG (NEG) Urine Urobilinogen NEG (NEG) Urine Leukocyte Esterase NEG (NEG) Urine Test NEG (NEG) Anion Gap 7.0 mmol/L (3-11) Est Creatinine Clear Calc Drug Dose 76.4 ml/min Estimated GFR () 100.0 Estimated GFR (Non- 86.3 BUN/Creatinine Ratio 8.2 (10-20) Calcium Level 9.3 mg/dl (8.5-10.1) Total Bilirubin 0.3 mg/dl (0.2-1) Aspartate Amino Transf (AST/SGOT) 25 U/L (15-37) Alanine Aminotransferase (ALT/SGPT) 20 U/L (12-78) Alkaline Phosphatase 132 U/L (45-117) Total Protein 7.4 gm/dl (6.4-8.2) Albumin 3.7 gm/dl (3.4-5.0) Globulin 3.7 gm/dl (2.5-4.0) Albumin/Globulin Ratio 1.0 (0.9-2) Lipase 242 U/L (73-393) Laboratory results reviewed by me. Medications Administered Medications (Trade) Dose Ordered Sig/Gertrudis Route Start Time Stop Time Status Last Admin Dose Admin Ondansetron HCl (Zofran Inj) 4 mg NOW STAT IV 07/11/17 17:05 07/11/17 17:08 DC 07/11/17 17:54 4 MG Morphine Sulfate (MoRPHine SULFATE INJ) 4 mg Q30M PRN IV 07/11/17 17:15 07/11/17 20:47 DC 07/11/17 17:54 4 MG Ketorolac Tromethamine (Toradol Inj) 15 mg NOW STAT IV 07/11/17 17:05 07/11/17 17:08 DC 07/11/17 17:54 15 MG Oxycodone HCl (Roxicodone Immediate Rel 5MG Home Pack) 1 homepack UD ONCE PO 07/11/17 19:45 07/11/17 19:46 DC 07/11/17 19:53 1 HOMEPACK ED Course 1700: The patient was evaluated in room C11B. A complete history and physical exam was performed. 1704: Ordered Toradol Inj 15 mg IV, Zofran Inj 4 mg IV. 1714: Ordered Morphine Sulfate 4 mg PRN IV pain. 1916: Reevaluated the patient and she is feeling much better. Discussed results and discharge instructions: She verbalized understanding and agreement. The patient is ready for discharge. 1944: Ordered Oxycodone HCl 1 homepack PO. Medical Decision Differential diagnoses include appendicitis, diverticulitis, ovarian cyst, pancreatitis, biliary colic, bowel obstruction, abscess, hernia, musculoskeletal pain. There is no leukocytosis or concerning anemia. No significant electrolyte abnormality, kidney failure, hepatitis or pancreatitis. Urinalysis does not show infection. On exam, the patient did not have peritonitis. She was not febrile or toxic. Abdominal and pelvis CT does not show appendicitis or abscess , no diverticulitis. There was a ruptured right ovarian cyst. The patient's pain is likely from her ruptured ovarian cyst. She was mostly tender in the right lower quadrant/pelvis during my evaluation. Patient was given IV morphine, IV Zofran, IV Toradol. She feels improved. The patient will be discharged with ibuprofen, heat, rest, OB follow-up. She was given a prescription for a small number of oxycodone for severe pain. She can return for fever, vomiting or worsening symptoms. [place] Drug Monitoring Program Search Results: no issues identified Medication Reconcilliation Current Medication List: was personally reviewed by me Blood Pressure Screening Patient's blood pressure: Elevated blood pressure Blood pressure disposition: Elevated BP felt to be situational Impression Primary Impression: Lower abdominal pain Additional Impression: Right ovarian cyst Scribe Attestation The scribe's documentation has been prepared under my direction and personally reviewed by me in its entirety. I confirm that the note above accurately reflects all work, treatment, procedures, and medical decision making performed by me. Departure Information Dispostion Home / Self-Care Prescriptions Oxycodone Ir (Roxicodone Ir) 5 Mg Tab 1-2 TAB PO Q4H Y for Pain, #8 TAB Prov: Rusty Simmons M.D. 07/11/17 Referrals Thien Borrego M.D. (PCP) Forms Call Back Authorization, HOME CARE DOCUMENTATION FORM, IMPORTANT VISIT INFORMATION Patient Instructions My [facility] Additional Instructions use motrin 600 mg 3x per day for pain heat to the area on the abdomen may help oxy ir 1-2 tab every 4 hours for severe pain return for fever or uncontrolled pain or vomiting follow with lumber mover for a recheck of the cyst Problem Qualifiers
[2017-07-11 17:54] LABS: ALBUMIN 3.7 gm/dl (3.4-5.0); CALCIUM 9.3 mg/dl (8.5-10.1); CREATININE 0.85 mg/dl (0.60-1.20); POTASSIUM 3.6 mmol/L (3.5-5.1); TOTAL PROTEIN 7.4 gm/dl (6.4-8.2)
--- NOTE | 2017-07-11 19:06 | DIAGNOSTIC IMAGING REPORT ---
CT ABD/PELVIS IV CONTRAST ONLY CLINICAL HISTORY: Right lower quadrant abdominal pain COMPARISON STUDY: 07/06/2017 TECHNIQUE: Following the IV administration of 116 mL of Optiray-320, CT scan of the abdomen and pelvis was performed from the lung bases to the proximal femurs. Images are reviewed in the axial, sagittal, and coronal planes. IV contrast was administered without complication. A dose lowering technique was utilized adhering to the principles of ALARA. CT DOSE: 262.72 mGy.cm FINDINGS: Lower chest: There are minor atelectatic type changes within the right lower lobe and right middle lobe. Liver: There is hepatic steatosis. No focal hepatic masses are visualized. There are few droplets of pneumobilia, similar to the preceding study. Gallbladder: Unremarkable. Spleen: Normal in size and attenuation. Pancreas: Unremarkable. Adrenal glands: Unremarkable. Kidneys: No solid renal masses are visualized. There is left-sided nephrolithiasis. There is upper pole left renal cortical scarring. Bowel: There are no transition zones indicate bowel obstruction. The appendix appears normal. There is no acute diverticulitis. Peritoneum: There is no intraperitoneal free air or abdominal ascites. Vasculature: The abdominal aorta is normal in course and caliber. Adenopathy: None. Pelvic viscera: There is a 16 mm involuting right ovarian cyst Skeletal structures: No destructive osseous lesions are seen. IMPRESSION: 1. No evidence of bowel obstruction. No evidence of free air 2. Normal appendix 3. Hepatic steatosis. Trace pneumobilia, similar to the prior study. 4. Left-sided nephrolithiasis. Left upper pole renal cortical scarring 5. 16 mm involuting right ovarian cyst with trace periovarian fluid Electronically signed by: Edil Calix M.D. 07/11/2017 7:04 PM Dictated Date/Time: 07/11/2017 7:00 PM
[2017-07-11] MEDS ORDERED: OXYC1TAB3 PO (19:42)
[2017-07-11] MEDS ORDERED: OXYCODONE IR HOME PACK PO ONE (19:45)
[2017-07-11 19:50] VITALS: BP 135/72; PULSE 89; O2SAT 98
== END 2017-07-11 19:58 | disposition home or self-care (01) ==
LOC: C.EDB 16:37 → C.EDC 19:58
DX: R10.30 Lower abdominal pain, unspecified (principal); N83.201 Unspecified ovarian cyst, right side; E11.9 Type 2 diabetes mellitus without complications; Z79.02 Long term (current) use of antithrombotics/antiplatelets; F17.210 Nicotine dependence, cigarettes, uncomplicated; Z88.0 Allergy status to penicillin

== ENCOUNTER → 2017-09-11 | Outpatient (CLI) | payer OTHER ==
[~2017-09-11] MED LIST changes: -GLC/500 PO; +IBUP-1050 PO; +METF1TAB85 PO; +TRAM-10 PO
[2017-09-11 17:47] LABS: BLOOD UREA NITROGEN 6 mg/dl (7-18); CREATININE 0.76 mg/dl (0.60-1.20)
== END | disposition home or self-care (01) ==
LOC: C.LABBFT 11:46
PROVIDERS: ATTEND Nurse Practitioner Family
DX: Z00.00 Encounter for general adult medical examination without abnormal findings (principal)

== ENCOUNTER → 2017-09-12 | Outpatient (CLI) | payer OTHER ==
--- NOTE | 2017-09-12 11:50 | DIAGNOSTIC IMAGING REPORT ---
KUB HISTORY: Right-sided abdominal pain. N20.0 Nephrolithiasis COMPARISON: KUB 04/26/2015. Abdomen and pelvis CT 08/05/2017. FINDINGS: The bowel gas pattern is unremarkable. There are no dilated loops of small bowel to suggest an obstruction. No right renal calculi. Multiple small stones seen within the left kidney with the largest measuring 4 mm. These are most pronounced within the upper pole. No ureteral or bladder calculi. Evidence for prior tubal ligation. No pneumoperitoneum or pneumatosis. IMPRESSION: Stable left-sided nephrolithiasis. No ureteral calculi. Electronically signed by: Mario Sandoval M.D. 09/12/2017 11:49 AM Dictated Date/Time: 09/12/2017 11:48 AM
== END | disposition home or self-care (01) ==
LOC: C.RAD 11:12
PROVIDERS: ATTEND Nurse Practitioner Adult Health
DX: N20.0 Calculus of kidney (principal)

== ENCOUNTER → 2017-09-17 | Outpatient (CLI) | payer OTHER ==
[~2017-09-17] MED LIST changes: +OPTIRAY 320 IV PRN
--- NOTE | 2017-09-17 10:59 | DIAGNOSTIC IMAGING REPORT ---
ABDOMEN AND PELVIS CT WITH IV AND ORAL CONTRAST CT DOSE: 279.32 mGy.cm HISTORY: Acute right-sided lower abdominal pain with acute nausea R10.9,R10.30,E11.9 TECHNIQUE: Multiaxial CT images of the abdomen and pelvis were performed following the use of intravenous and oral contrast. A dose lowering technique was utilized adhering to the principles of ALARA. COMPARISON STUDY: CT abdomen and pelvis 08/05/2017. FINDINGS: Mild subsegmental bibasilar atelectasis. No pneumatosis or pneumoperitoneum. Unchanged mild pneumobilia. Imaged inferior cardiac chambers are unremarkable. Gallbladder is within normal limits. The liver is otherwise unremarkable. No intrahepatic biliary ductal dilation. The spleen, and adrenal glands are unremarkable. Coarse calcifications of the pancreatic head and uncinate process redemonstrated. Cortical scarring about the superior pole left kidney. Nonobstructing left nephrolithiasis redemonstrated with calculi of the superior pole measuring up to 4 mm. The previously noted punctate nonobstructing calculi about the right kidney are not definitively seen on this contrast-enhanced exam. No ureteral calculi or obstructive uropathy. Partially decompressed bladder with mild wall thickening. Uterus and left adnexum are unremarkable. Peripherally enhancing cystic lesion measuring 1.8 cm involves the right adnexum. Ill-defined area of heterogeneous enhancement involves the lower right mid uterine body measuring approximately 1.4 cm on image 335 series 3. Mild atheromatous plaque about the aorta without aneurysm. No pathologically enlarged lymph nodes. Patent portal vein. There is no bowel obstruction or focal bowel wall thickening. The appendix appears normal within the abdominal right lower quadrant. The terminal ileum is also within normal limits. Soft tissues and imaged breast parenchyma are within normal limits. The bones appear to be intact. IMPRESSION: 1. No acute intra-abdominal or intrapelvic abnormality identified. Normal appendix. 2. Nonobstructing left nephrolithiasis without ureteral calculi identified. 3. Unchanged mild pneumobilia. 4. Involuting follicle of the right ovary, 1.8 cm. 5. There is a 1.4 cm area of heterogeneous enhancement about the lower mid right uterine body, suspicious for possible uterine leiomyoma. Electronically signed by: Yvon Carvalho M.D. 09/17/2017 10:57 AM Dictated Date/Time: 09/17/2017 10:46 AM
== END | disposition home or self-care (01) ==
LOC: C.CTS 10:16
PROVIDERS: ATTEND Nurse Practitioner Family
DX: R10.30 Lower abdominal pain, unspecified (principal); R93.5 Abnormal findings on diagnostic imaging of other abdominal regions, including retroperitoneum; E11.9 Type 2 diabetes mellitus without complications

== ENCOUNTER 2022-10-04 01:08 | Inpatient (IN) ==
[2022-10-04] MEDS ORDERED: SODIUM CHLORIDE 0.9% 1000ML 1,000 ML IV STA (01:16)
[2022-10-04] MEDS ORDERED: DROPERIDOL 5 MG/2 ML VIAL IV STA (01:16)
[2022-10-04] MEDS ORDERED: FAMOTIDINE 20MG IV PUSH 20 MG/5 ML SYR IV STA (01:16)
--- NOTE | 2022-10-04 01:22 | Emergency Department Note ---
History of Present Illness General Chief complaint: Back Injury/Pain History of Present Illness This 42-year-old female presents via EMS complaining of severe abdominal pain today. She states this is different than her back pain. Patient states the pain started on the left side and now spread across her abdomen. No prior abdominal surgeries. Patient denies fall, chest pain, dyspnea, diarrhea, urinary symptoms. She states she vomited secondary to the pain. No blood or black in it. Home Medications Medication Instructions Recorded Confirmed Type pen needle, diabetic 32 gauge x #100 ea 06/10/21 05/12/22 Rx 1/4" (Novofine 32) fenofibrate nanocrystallized 48 mg 48 mg PO DAILY #90 tabs 06/12/21 10/04/22 Rx tablet (Tricor) diclofenac sodium 75 mg 75 mg PO BID 05/12/22 10/04/22 History tablet,delayed release metformin 500 mg tablet 500 mg PO QID #120 tabs 08/13/22 10/04/22 Rx albuterol sulfate 90 mcg/actuation 2 puff inhalation Q4H PRN 10/04/22 10/04/22 History aerosol inhaler Shortness Of Breath Or Wheezing dulaglutide 3 mg/0.5 mL 3 mg subcut WK 10/04/22 10/04/22 History subcutaneous pen injector ([facility]) gabapentin 300 mg capsule 300 mg PO TID 10/04/22 10/04/22 History glimepiride 1 mg tablet 1 mg PO DAILYBB 10/04/22 10/04/22 History Allergies Allergy/AdvReac Type Severity Reaction Status Date / Time Penicillins Allergy Intermediate Rash Verified 10/04/22 01:34 Past Med/Surg History Medical History Arthritis Diabetes mellitus, type 2 History of kidney stones History of nephrolithiasis Hypertriglyceridemia Surgical History History of bilateral tubal ligation History of cystoscopy STONE REMOVAL History of hysterectomy History of lithotripsy History of tooth extraction History of urethral stent Hx of knee surgery RT Family History Father Diabetes Family history of diabetes mellitus Uncle Family history of diabetes mellitus Other No family history of adverse response to anesthesia Denies family history of Colon cancer Ovarian cancer Prostate cancer Myocardial infarction Breast cancer Social History Smoking Status: Never smoker Tobacco Type: Cigarettes Cigarettes Per Day: 3 CIG DAILY; Second Hand Exposure: Yes; Do You Dip or Chew Tobacco: No; Hx Alcohol Use: No Hx Substance Use: No Preferred Language: Croatian Communication Ability: Effective Visual Impairment: No Limitations Tube Inspector Required: No Beliefs That Will Affect Care: None marital status: Single Current Living Situation: Family Current Living Situation Comment: WITH BOYFRIEND AND SON current occupational status: unemployed Feels Safe at Home: Yes Assistive Devices: Glasses Review of Systems A total of 10 systems reviewed and were otherwise negative Physical Exam Vital Signs Vital Signs - 24 hr 10/04/22 01:13 Temperature 37 C Temperature Source Oral Pulse Rate 120 H Pulse Rhythm Regular Pulse Strength Normal Respiratory Rate 18 Respiratory Effort / Characteristics Non-Labored Spontaneous Respiratory Depth Normal Respiratory Pattern Regular Blood Pressure 123/75 Blood Pressure Mean 91 Blood Pressure Position Sitting Pulse Oximetry 99 Oxygen Delivery Method Room Air Sepsis Recent Fever Within 48 Hours No Sepsis New/Unexplained Change in Mental Status N/A Sepsis Action Taken by Nursing No Action Required VITALS: Vitals are noted on the nurse's note and reviewed by myself. Vital signs mildly tachycardic. GENERAL: White female complaining of being in pain, in no acute distress, nondiaphoretic, well-developed well-nourished. SKIN: The skin was without rashes, erythema, edema, or bruising. There is no tenting of the skin. Capillary reflex less than 2 seconds. HEAD: Normocephalic atraumatic. EARS: External auditory canals clear, EYES: Pupils equal round and reactive to light and accommodation. Conjunctivae without injection, sclerae without icterus. Extraocular movements intact. NOSE: Patent, turbinates without inflammation or discharge. MOUTH: Mucous membranes moist. Pharynx without erythema or exudate. Uvula midline. Airway patent. Tongue does not deviate. NECK: Supple without nuchal rigidity. No lymphadenopathy. No thyromegaly. Cervical spine is nontender. No JVD. HEART: Regular rate and rhythm LUNGS: Clear to auscultation bilaterally without wheezes, rales or rhonchi. No retractions or accessory muscle use. ABDOMEN: Positive bowel sounds x 4. Normal tympanic percussion. Soft, diffusely tender to palpation, without masses or organomegaly. Bravo sign negative. No guarding or rebound tenderness. No CVA tenderness MUSCULOSKELETAL: No muscle atrophy, erythema, or edema noted. NEURO: Patient was alert and oriented to person place and time. Normal sensation to light and sharp touch. No focal neurological deficits. Course Administered Medications Discontinued Medications Droperidol (Droperidol 5 Mg/2 Ml Vial) 1.25 mg IV ONE STA Stop: 10/04/22 01:17 Last Admin: 10/04/22 01:22 Dose: 1.25 mg Documented By: ANGELAW Sodium Chloride (Nss 1000ml) 1,000 mls @ 999 mls/hr IV .Q1H1M STA Stop: 10/04/22 02:16 Last Infusion: 10/04/22 02:44 Dose: 0 mls/hr Documented By: Admin: 10/04/22 01:23 Dose: 999 mls/hr Documented By: ANGELAW Famotidine (Pepcid 20mg Iv Push) 20 mg in 5 mls @ 2.5 mls/min IV NOW STA Stop: 10/04/22 01:17 Last Admin: 10/04/22 01:22 Dose: 2.5 mls/min Documented By: ANGELAW Acetaminophen (Ofirmev) 1,000 mg in 100 mls @ 400 mls/hr IV NOW STA Stop: 10/04/22 02:04 Last Infusion: 10/04/22 02:34 Dose: 0 mls/hr Documented By: Admin: 10/04/22 01:57 Dose: 400 mls/hr Documented By: SANDEEP Ioversol (Optiray 320 100ml) 93 ml IV ONCE ONE Stop: 10/04/22 01:38 Last Admin: 10/04/22 01:37 Dose: 93 ml Documented By: CARMINA Ketorolac Tromethamine (Ketorolac Tromethamine 15 Mg/Ml Vial) 10 mg IV NOW STA Stop: 10/04/22 02:14 Last Admin: 10/04/22 02:34 Dose: 10 mg Documented By: SANDEEP Tamsulosin HCl (Tamsulosin Hcl 0.4 Mg Cap) 0.4 mg PO NOW ONE Stop: 10/04/22 02:36 Last Admin: 10/04/22 02:39 Dose: 0.4 mg Documented By: SANDEEP Medical Decision Making Medical Records Attestation: I reviewed the patient's medical records. Home Medications Current Medication List: was personally reviewed by me Laboratory Data Attestation: I reviewed the patient's lab results. 10/04/22 01:16 10/04/22 01:16 Lab Results 10/04/22 10/04/22 10/04/22 Range/Units 01:16 01:16 01:16 WBC 20.31 H (4.8-10.8) K/ul RBC 5.01 (4.20-5.40) M/uL Hgb 15.0 (12.0-16.0) g/dl POC Hgb (12.0-16.0) g/dl Hct 42.0 (37.0-47.0) % POC Hct (37-47) % MCV 83.8 (80.0-100.0) fL MCH 29.9 (25.0-34.0) pg MCHC 35.7 (32.0-36.0) g/dL RDW Std Deviation 37.5 (36.4-46.3) fL RDW Coeff of Jorge 12.4 (11.5-14.5) % Plt Count 263 (130-400) K/uL MPV 9.4 (9.4-12.4) fL Immature Gran % (Auto) 0.6 % Neut % (Auto) 89.6 % Lymph % (Auto) 4.7 % [place] % (Auto) 4.7 % Eos % (Auto) 0.1 % Baso % (Auto) 0.3 % Neut # (Auto) 18.18 H (1.40-6.50) K/uL Lymph # (Auto) 0.96 L (1.2-3.4) K/uL [place] # (Auto) 0.96 H (0.11-0.59) K/uL Eos # (Auto) 0.02 (0-0.50) K/uL Baso # (Auto) 0.06 (0-0.2) K/uL Immature Gran # (Auto) 0.13 (0.01-0.20) K/uL POC Sodium (135-144) mmol/L Sodium 136 (136-145) mmol/L POC Potassium (3.3-5.0) mmol/L Potassium 4.1 (3.5-5.1) mmol/L POC Chloride (101-112) mmol/L Chloride 104 (98-107) mmol/L Carbon Dioxide 20 L (21-32) mmol/L POC Total CO2 (24-31) mmol/L Anion Gap 12 H (3-11) POC Anion Gap (16-25) mmol/L POC BUN (7-18) mg/dl BUN 10 (6-23) mg/dl Creatinine 0.99 (0.6-1.2) mg/dl POC Creatinine (0.6-1.3) mg/dl Est Cr Clr Drug Dosing 60.7 ml/min Est GFR ( Amer) 80.3 ml/min Est GFR (Non-Af Amer) 69.3 ml/min BUN/Creatinine Ratio 10.1 (10-20) Glucose 232 H (70-99(Fasting)) mg/dl POC Glucose (other) (70-99) mg/dl Calcium 9.7 (8.6-10.3) mg/dl POC Ioniz Calcium Tabatha (1.12-1.32) mmol/l Total Bilirubin 0.9 (0.2-1.0) mg/dl AST 13 (13-39) U/L ALT 8 (7-52) U/L Alkaline Phosphatase 80 (34-104) U/L Total Protein 7.9 (6.0-8.3) gm/dl Albumin 4.6 (3.4-5.0) gm/dl Globulin 3.3 (2.5-4.0) gm/dl Albumin/Globulin Ratio 1.4 (0.9-2) Lipase 26 (11-82) U/L HCG, Qual Negative (Negative) Urine Color Urine Appearance (Clear) Urine pH (4.5-7.5) Ur Specific [place] (1.000-1.030) Urine Protein (Negative) Urine Glucose (UA) (Negative) Urine Ketones (Negative) Urine Blood (Negative) Urine Nitrite (Negative) Urine Bilirubin (Negative) Urine Urobilinogen (Negative) Ur Leukocyte Esterase (Negative) Urine WBC (Auto) (0-5) /hpf Urine RBC (Auto) (0-4) /hpf U Hyaline Cast (Auto) (0-5) /lpf U Epithel Cells (Auto) (0-5) /lpf Urine Bacteria (Auto) (Negative) SARS-CoV-2, RNA, NAAT (NEGATIVE) 10/04/22 10/04/22 10/04/22 Range/Units 01:19 01:24 02:20 WBC (4.8-10.8) K/ul RBC (4.20-5.40) M/uL Hgb (12.0-16.0) g/dl POC Hgb 14.3 (12.0-16.0) g/dl Hct (37.0-47.0) % POC Hct 42 (37-47) % MCV (80.0-100.0) fL MCH (25.0-34.0) pg MCHC (32.0-36.0) g/dL RDW Std Deviation (36.4-46.3) fL RDW Coeff of Jorge (11.5-14.5) % Plt Count (130-400) K/uL MPV (9.4-12.4) fL Immature Gran % (Auto) % Neut % (Auto) % Lymph % (Auto) % [place] % (Auto) % Eos % (Auto) % Baso % (Auto) % Neut # (Auto) (1.40-6.50) K/uL Lymph # (Auto) (1.2-3.4) K/uL [place] # (Auto) (0.11-0.59) K/uL Eos # (Auto) (0-0.50) K/uL Baso # (Auto) (0-0.2) K/uL Immature Gran # (Auto) (0.01-0.20) K/uL POC Sodium 137 (135-144) mmol/L Sodium (136-145) mmol/L POC Potassium 3.8 (3.3-5.0) mmol/L Potassium (3.5-5.1) mmol/L POC Chloride 105 (101-112) mmol/L Chloride (98-107) mmol/L Carbon Dioxide (21-32) mmol/L POC Total CO2 18 L (24-31) mmol/L Anion Gap (3-11) POC Anion Gap 19.0 (16-25) mmol/L POC BUN 8 (7-18) mg/dl BUN (6-23) mg/dl Creatinine (0.6-1.2) mg/dl POC Creatinine 0.9 (0.6-1.3) mg/dl Est Cr Clr Drug Dosing ml/min Est GFR ( Amer) ml/min Est GFR (Non-Af Amer) ml/min BUN/Creatinine Ratio (10-20) Glucose (70-99(Fasting)) mg/dl POC Glucose (other) 235 H (70-99) mg/dl Calcium (8.6-10.3) mg/dl POC Ioniz Calcium [place] 1.12 (1.12-1.32) mmol/l Total Bilirubin (0.2-1.0) mg/dl AST (13-39) U/L ALT (7-52) U/L Alkaline Phosphatase (34-104) U/L Total Protein (6.0-8.3) gm/dl Albumin (3.4-5.0) gm/dl Globulin (2.5-4.0) gm/dl Albumin/Globulin Ratio (0.9-2) Lipase (11-82) U/L HCG, Qual (Negative) Urine Color Yellow Urine Appearance Clear (Clear) Urine pH 5.5 (4.5-7.5) Ur Specific [place] > 1.045 H (1.000-1.030) Urine Protein Negative (Negative) Urine Glucose (UA) 3+ H (Negative) Urine Ketones 1+ H (Negative) Urine Blood Trace H (Negative) Urine Nitrite Negative (Negative) Urine Bilirubin Negative (Negative) Urine Urobilinogen Negative (Negative) Ur Leukocyte Esterase Negative (Negative) Urine WBC (Auto) 10-30 H (0-5) /hpf Urine RBC (Auto) 0-4 (0-4) /hpf U Hyaline Cast (Auto) 0 (0-5) /lpf U Epithel Cells (Auto) 10-20 H (0-5) /lpf Urine Bacteria (Auto) Negative (Negative) SARS-CoV-2, RNA, NAAT NEGATIVE (NEGATIVE) Imaging Data Attestation: I personally reviewed and interpreted this imaging study as follows: Radiologist's Impression: Abdomen/Pelvis CT 10/04/22 01:16 Exam(s): CT ABDOMEN + PELVIS With Contrast IV Amt: 93ML OPTIRAY 350 EXAM: CT Abdomen and Pelvis With Intravenous Contrast CLINICAL HISTORY: Reason for exam: left mid abd pain. TECHNIQUE: Axial computed tomography images of the abdomen and pelvis with intravenous contrast. CTDI is 14.94 mGy and DLP is 744.2 mGy-cm. Automated exposure control was utilized for the study. A dose lowering technique was utilized adhering to the principles of ALARA. CONTRAST: Patient received 93ML OPTIRAY 350 of IV contrast COMPARISON: 10/20/2021 FINDINGS: Lung bases: Unremarkable. No mass. No consolidation. ABDOMEN: Liver: Unremarkable. No mass. Gallbladder and bile ducts: Unremarkable. No calcified stones. No ductal dilation. Pancreas: Unremarkable. No mass. No ductal dilation. Spleen: Unremarkable. No splenomegaly. Adrenals: Unremarkable. No mass. Kidneys and ureters: 0.7 cm distal left ureteral calculus at the level of the distal sacrum causing moderate hydronephrosis and hydroureter with perinephric inflammation and decreased enhancement of the left kidney. Stomach and bowel: Unremarkable. No obstruction. No mucosal thickening. PELVIS: Appendix: No findings to suggest acute appendicitis. Bladder: Unremarkable. No mass. Reproductive: Uterus has been removed. ABDOMEN and PELVIS: Intraperitoneal space: Unremarkable. No free air. No significant fluid collection. Bones/joints: No acute fracture. No dislocation. Soft tissues: Unremarkable. Vasculature: Unremarkable. No abdominal aortic aneurysm. Lymph nodes: Unremarkable. No enlarged lymph nodes. IMPRESSION: 0.7 cm distal left ureteral calculus at the level of the distal sacrum causing moderate hydronephrosis and hydroureter with perinephric inflammation and decreased enhancement of the left kidney. Electronically signed by: Kevyn Dominguez M.D. 10/04/22 02:11 AM MDM Narrative Prior records/ancillary studies reviewed. Triage Nursing notes reviewed. Additional history obtained from EMS. The patient's history was concerning for abdominal pain. Differential diagnosis: Etiologies such as appendicitis, diverticulitis, PUD, biliary pathology, UTI, pancreatitis, obstruction, mesenteric ischemia, aortic pathology, infections, inflammatory bowel disease, renal colic, as well as others were entertained. Physical examination findings: As above. ER treatment provided: An order was placed for continuous cardiac monitoring. The monitor shows a rate of 60-1 40 with a sinus rhythm per my Independent interpretation. IV fluids, droperidol and Pepcid were ordered Rocephin, Toradol and Tylenol were ordered On reassessment the patient felt better. Diagnostics interpreted by me: The labs Independently Interpreted by myself revealed Leukocytosis, hyperglycemia without DKA Negative hCG Urine concerning for infection sent for culture and prior urine culture was reviewed Imaging studies: CT of the abdomen pelvis concerning for left ureterolithiasis with hydronephrosis per my independent interpretation and report was reviewed as above Consultation: A consultation was placed with the hospitalist. The case was discussed and diagnostics were reviewed. The patient was evaluated in the ER for further treatment. A consultation was placed with urology, Dr. Lynne and recommends medical admission and was agreeable with the antibiotics. He will evaluate the patient in the morning. He states call back at anytime if the patient condition changes. Exam and history seem consistent with infected left ureteral stone. Labs and diagnostics were independently interpreted by myself. Radiology read the CAT scan. Patient was started on IV fluids antibiotics and pain meds as above. prior and urine culture was reviewed. She was reassessed multiple times. She was not febrile. She was not vomiting. Patient is agreeable treatment plan of admission. Medicine and urology were consulted and the case was discussed. Patient was admitted to the medical service in stable condition. By the evaluation outlined above emergent etiologies such as appendicitis, diverticulitis, PUD, biliary pathology, pancreatitis, obstruction, mesenteric ischemia, aortic pathology, inflammatory bowel disease, as well as others were deemed relatively unlikely. The pt informed about the findings as listed above. All questions were answered and pleased with the treatment. The chart was completed utilizing [employer] Speech voice recognition software. Grammatical errors, random word insertions, pronoun errors, and incomplete sentences are an occassional consequence of this system due to software limitations, ambient noise, and hardware issues. Any formal questions or concerns about the content, text, or information contained within the body of this dictation should be directly addressed to the physician news assistant for clarification. Impression & Plan Renal colic on left side, Ureterolithiasis, Acute hyperglycemia, Leukocytosis, Acute UTI Discharge Plan Visit Data Chief Complaint: Back Injury/Pain ED Provider: Eva Wei ED Midlevel Provider: Subha Carlin Discharge Problem: Renal colic on left side, Ureterolithiasis, Acute hyperglycemia, Leukocytosis, Acute UTI Patient Disposition: Admitted As Inpatient Condition: Good Forms Stand Alone Forms: My [facility] [employer] Prescriptions Prescriptions: No Action diclofenac sodium 75 mg tablet,delayed release (DR/EC) 75 mg PO BID (DME) pen needle, diabetic [Novofine 32] 32 gauge x 1/4" needle See Rx Instructions .ROUTE .MEDSUPPLY Qty: 100 3RF Rx Instructions: test once daily and prn fenofibrate nanocrystallized [Tricor] 48 mg tablet 48 mg PO DAILY Qty: 90 3RF metformin 500 mg tablet 500 mg PO QID Qty: 120 5RF albuterol sulfate 90 mcg/actuation HFA aerosol inhaler 2 puff INHALATION Q4H PRN (Reason: Shortness Of Breath Or Wheezing) Trulicity 3 mg/0.5 mL pen injector 3 mg SUBCUT WK Rx Instructions: TUESDAYS glimepiride 1 mg tablet 1 mg PO DAILYBB gabapentin 300 mg capsule 300 mg PO TID Referrals Referrals: Darrel Shah MD [Primary Care Provider] -
[2022-10-04 01:36] LABS: iSTAT Creatinine 0.9 mg/dl (0.6-1.3); iSTAT Hemoglobin 14.3 g/dl (12.0-16.0); iSTAT Ionized Calcium 1.12 mmol/l (1.12-1.32); iSTAT Potassium 3.8 mmol/L (3.3-5.0)
[2022-10-04] MEDS ORDERED: OPTIRAY 320 100ml IV ONE (01:37)
[2022-10-04 01:41] LABS: Basophils # (auto) 0.06 K/uL (0-0.2); Basophils % (auto) 0.3 %; Eosinophils # (auto) 0.02 K/uL (0-0.50); Eosinophils % (auto) 0.1 %; Immature Granulocytes # (auto) 0.13 K/uL (0.01-0.20); Immature Granulocytes % (auto) 0.6 %; Lymphocytes # (auto) 0.96 K/uL (1.2-3.4); Lymphocytes % (auto) 4.7 %; Mean Corpuscular Hemoglobin 29.9 pg (25.0-34.0); Mean Corpuscular Hgb Conc 35.7 g/dL (32.0-36.0); Mean Corpuscular Volume 83.8 fL (80.0-100.0); Mean Platelet Volume 9.4 fL (9.4-12.4); Monocytes # (auto) 0.96 K/uL (0.11-0.59); Monocytes % (auto) 4.7 %; Neutrophils # (auto) 18.18 K/uL (1.40-6.50); Neutrophils % (auto) 89.6 %; Platelet Count 263 K/uL (130-400); RDW Coefficient of Variation 12.4 % (11.5-14.5); RDW Standard Deviation 37.5 fL (36.4-46.3); Red Blood Count 5.01 M/uL (4.20-5.40); White Blood Count 20.31 K/ul (4.8-10.8)
[2022-10-04] MEDS ORDERED: ACETAMINOPHEN 1,000 MG/100 ML VIAL IV STA (01:50)
[2022-10-04 01:54] LABS: Albumin Globulin Ratio 1.4 (0.9-2); Albumin Level 4.6 gm/dl (3.4-5.0); BUN Creatinine Ratio 10.1 (10-20); Bilirubin,Total 0.9 mg/dl (0.2-1.0); Calcium 9.7 mg/dl (8.6-10.3); Creatinine Clr Calc Pharmacy 60.7 ml/min; Est GFR (African American) 80.3 ml/min; Est GFR (Non-African American) 69.3 ml/min; Globulin 3.3 gm/dl (2.5-4.0); Potassium 4.1 mmol/L (3.5-5.1); Total Protein 7.9 gm/dl (6.0-8.3)
[2022-10-04 01:58] LABS: Pregnancy Test, Serum Negative (Negative)
--- NOTE | 2022-10-04 02:12 | CT Scan Report ---
Exam(s): CT ABDOMEN + PELVIS With Contrast IV Amt: 93ML OPTIRAY 350 EXAM: CT Abdomen and Pelvis With Intravenous Contrast CLINICAL HISTORY: Reason for exam: left mid abd pain. TECHNIQUE: Axial computed tomography images of the abdomen and pelvis with intravenous contrast. CTDI is 14.94 mGy and DLP is 744.2 mGy-cm. Automated exposure control was utilized for the study. A dose lowering technique was utilized adhering to the principles of ALARA. CONTRAST: Patient received 93ML OPTIRAY 350 of IV contrast COMPARISON: 10/20/2021 FINDINGS: Lung bases: Unremarkable. No mass. No consolidation. ABDOMEN: Liver: Unremarkable. No mass. Gallbladder and bile ducts: Unremarkable. No calcified stones. No ductal dilation. Pancreas: Unremarkable. No mass. No ductal dilation. Spleen: Unremarkable. No splenomegaly. Adrenals: Unremarkable. No mass. Kidneys and ureters: 0.7 cm distal left ureteral calculus at the level of the distal sacrum causing moderate hydronephrosis and hydroureter with perinephric inflammation and decreased enhancement of the left kidney. Stomach and bowel: Unremarkable. No obstruction. No mucosal thickening. PELVIS: Appendix: No findings to suggest acute appendicitis. Bladder: Unremarkable. No mass. Reproductive: Uterus has been removed. ABDOMEN and PELVIS: Intraperitoneal space: Unremarkable. No free air. No significant fluid collection. Bones/joints: No acute fracture. No dislocation. Soft tissues: Unremarkable. Vasculature: Unremarkable. No abdominal aortic aneurysm. Lymph nodes: Unremarkable. No enlarged lymph nodes. IMPRESSION: 0.7 cm distal left ureteral calculus at the level of the distal sacrum causing moderate hydronephrosis and hydroureter with perinephric inflammation and decreased enhancement of the left kidney. Electronically signed by: Kevyn Dominguez M.D. 10/04/22 02:11 AM
[2022-10-04] MEDS ORDERED: KETOROLAC TROMETHAMINE 15 MG/ML VIAL IV STA (02:13)
[2022-10-04] MEDS ORDERED: TAMSULOSIN HCL 0.4 MG CAP PO ONE (02:35)
[2022-10-04 02:44] LABS: Appearance Urine Clear (Clear); Bacteria Urine Automated Negative (Negative); Bilirubin Urine Negative (Negative); Blood Urine Trace (Negative); Cast Urine Automated 0 /lpf (0-5); Color Urine Yellow; Glucose Urine UA 3+ (Negative); Ketones Urine 1+ (Negative); Leukocyte Esterase Urine Negative (Negative); Nitrite Urine Negative (Negative); Protein Urine Negative (Negative); RBC Urine Automated 0-4 /hpf (0-4); Specific Gravity Urine > 1.045 (1.000-1.030); Urobilinogen Urine Negative (Negative); pH Urine 5.5 (4.5-7.5)
[2022-10-04] MEDS ORDERED: cefTRIAXone SODIUM 1,000 MG in DEXTROSE 5% AD-VAN 50 ML IV STA (02:49)
[2022-10-04] MEDS ORDERED: SODIUM CHLORIDE 0.9% 1000ML 1,000 ML IV ONE ×2 (02:56→04:19)
[2022-10-04 03:15] LABS: Magnesium 1.4 mg/dl (1.7-2.4)
[2022-10-04] MEDS ORDERED: CEFEPIME 2,000 MG/20 ML VIAL IV STA (03:23)
--- NOTE | 2022-10-04 03:23 | History & Physical Report ---
Date of Service October 04, 2022 Assessment & Plan (1) Severe sepsis: Plan: SIRS plus lactic acidosis secondary to complicated UTI secondary to recurrent obstructive uropathy DM2 on oral medications, suboptimal control as of outpatient hemoglobin A1c of 8.2 last June 2022 ongoing tobacco abuse Medical telemetry CS, cefepime Monitor lactic acid response to IVF Continue Flomax, strain urine Urology consult Re: Obstructive uropathy causing sepsis (ER provider already in touch with Dr. Lynne.) N.p.o. until patient seen by Urology in a.m. anticipation of procedure. Basal bolus insulin adjusted for n.p.o. status. ISS BG goal 1 10-1 40 Nicotine replacement therapy as needed DVT prophylaxis. Lovenox subcu Full code Text document was generated using [employer] voice recognition software. It may contain grammatical or spelling errors. Kindly contact undersigned for clarification of any documentation item in question. History of Present Illness Chief Complaint: left flank pain Primary Care Provider: Darrel Shah MD History obtained from patient and records. Medical history significant for urolithiasis, hyperlipidemia, DM2 on oral medications, ongoing tobacco abuse. Last confinement 1999 for left-sided pyelonephritis status post stent placement. Patient seen at the ER last week for tailbone pain attributed to sacroiliitis. Symptoms resolved at home. Patient experience severe abdominal pain yesterday more on the left side. Some nausea, emesis. No hematuria symptoms. Pain reminiscent of kidney stone pain. Patient denies chest pain, SOB. Medical History as above Surgical History : Urologic procedures, knee surgery, JACK, dental surgery Family History : DM Personal/Social history : 1 cigarette a day, EtOH intake, currently unemployed Allergies Allergy/AdvReac Type Severity Reaction Status Date / Time Penicillins Allergy Intermediate Rash Verified 10/04/22 01:34 Home Medications Medication Instructions Recorded Confirmed Type pen needle, diabetic 32 gauge x #100 ea 06/10/21 05/12/22 Rx 1/4" (Novofine 32) fenofibrate nanocrystallized 48 mg 48 mg PO DAILY #90 tabs 06/12/21 10/04/22 Rx tablet (Tricor) diclofenac sodium 75 mg 75 mg PO BID 05/12/22 10/04/22 History tablet,delayed release metformin 500 mg tablet 500 mg PO QID #120 tabs 08/13/22 10/04/22 Rx albuterol sulfate 90 mcg/actuation 2 puff inhalation Q4H PRN 10/04/22 10/04/22 History aerosol inhaler Shortness Of Breath Or Wheezing dulaglutide 3 mg/0.5 mL 3 mg subcut WK 10/04/22 10/04/22 History subcutaneous pen injector (Trulicity) gabapentin 300 mg capsule 300 mg PO TID 10/04/22 10/04/22 History glimepiride 1 mg tablet 1 mg PO DAILYBB 10/04/22 10/04/22 History Past Med/Surg History Medical History Arthritis Diabetes mellitus, type 2 History of kidney stones History of nephrolithiasis Hypertriglyceridemia Surgical History History of bilateral tubal ligation History of cystoscopy STONE REMOVAL History of hysterectomy History of lithotripsy History of tooth extraction History of urethral stent Hx of knee surgery RT Family History Father Diabetes Family history of diabetes mellitus Uncle Family history of diabetes mellitus Other No family history of adverse response to anesthesia Denies family history of Colon cancer Ovarian cancer Prostate cancer Myocardial infarction Breast cancer Social History Smoking Status: Never smoker Tobacco Type: Cigarettes Cigarettes Per Day: 3 CIG DAILY; Second Hand Exposure: Yes; Do You Dip or Chew Tobacco: No; Hx Alcohol Use: No Hx Substance Use: No Preferred Language: Uruguayan Communication Ability: Effective Visual Impairment: No Limitations Cell Installer Required: No Beliefs That Will Affect Care: None marital status: Single Current Living Situation: Family Current Living Situation Comment: WITH BOYFRIEND AND SON current occupational status: unemployed Feels Safe at Home: Yes Assistive Devices: Glasses Review of Systems Review of Systems: As per HPI, all other systems reviewed and negative Physical Exam Physical Exam: GENERAL: Slightly uncomfortable, looks older than stated age, no respiratory distress SKIN: Normal color, warm HEENT: Bespectacled, pink palpebral conjunctivae, no ptosis, dry buccal mucosa NECK : Supple, no tenderness CHEST : CTA, no tenderness HEART : Tachycardic, no obvious murmurs ABDOMEN: Some distention, left-sided abdominal tenderness EXTREMITIES : No LE swelling/tenderness, no other conspicuous deformities noted NEUROLOGIC : Coherent, no facial asymmetry, no other gross focality Results & Data Results & Data Vital Signs (Past 12 Hours) Vital Signs Temp Pulse Pulse Resp BP BP Pulse Ox 10/04/22 03:11 83 18 153/89 H 98 10/04/22 02:30 85 20 150/66 H 98 10/04/22 01:13 37 C 120 H 18 123/75 99 O2 Del Method 10/04/22 03:11 Room Air 10/04/22 02:30 Room Air 10/04/22 01:13 Room Air Laboratory Results Laboratory Results WBC 20.31 K/ul (4.8-10.8) H 10/04/22 01:16 RBC 5.01 M/uL (4.20-5.40) 10/04/22 01:16 Hgb 15.0 g/dl (12.0-16.0) 10/04/22 01:16 POC Hgb 14.3 g/dl (12.0-16.0) 10/04/22 01:24 Hct 42.0 % (37.0-47.0) 10/04/22 01:16 POC Hct 42 % (37-47) 10/04/22 01:24 MCV 83.8 fL (80.0-100.0) 10/04/22 01:16 MCH 29.9 pg (25.0-34.0) 10/04/22 01:16 MCHC 35.7 g/dL (32.0-36.0) 10/04/22 01:16 RDW Std Deviation 37.5 fL (36.4-46.3) 10/04/22 01:16 RDW Coeff of Jorge 12.4 % (11.5-14.5) 10/04/22 01:16 Plt Count 263 K/uL (130-400) 10/04/22 01:16 MPV 9.4 fL (9.4-12.4) 10/04/22 01:16 Immature Gran % (Auto) 0.6 % 10/04/22 01:16 Neut % (Auto) 89.6 % 10/04/22 01:16 Lymph % (Auto) 4.7 % 10/04/22 01:16 Cotton % (Auto) 4.7 % 10/04/22 01:16 Eos % (Auto) 0.1 % 10/04/22 01:16 Baso % (Auto) 0.3 % 10/04/22 01:16 Neut # (Auto) 18.18 K/uL (1.40-6.50) H 10/04/22 01:16 Lymph # (Auto) 0.96 K/uL (1.2-3.4) L 10/04/22 01:16 Cotton # (Auto) 0.96 K/uL (0.11-0.59) H 10/04/22 01:16 Eos # (Auto) 0.02 K/uL (0-0.50) 10/04/22 01:16 Baso # (Auto) 0.06 K/uL (0-0.2) 10/04/22 01:16 Immature Gran # (Auto) 0.13 K/uL (0.01-0.20) 10/04/22 01:16 POC Sodium 137 mmol/L (135-144) 10/04/22 01:24 Sodium 136 mmol/L (136-145) 10/04/22 01:16 POC Potassium 3.8 mmol/L (3.3-5.0) 10/04/22 01:24 Potassium 4.1 mmol/L (3.5-5.1) 10/04/22 01:16 POC Chloride 105 mmol/L (101-112) 10/04/22 01:24 Chloride 104 mmol/L (98-107) 10/04/22 01:16 Carbon Dioxide 20 mmol/L (21-32) L 10/04/22 01:16 POC Total CO2 18 mmol/L (24-31) L 10/04/22 01:24 Anion Gap 12 (3-11) H 10/04/22 01:16 POC Anion Gap 19.0 mmol/L (16-25) 10/04/22 01:24 POC BUN 8 mg/dl (7-18) 10/04/22 01:24 BUN 10 mg/dl (6-23) 10/04/22 01:16 Creatinine 0.99 mg/dl (0.6-1.2) 10/04/22 01:16 POC Creatinine 0.9 mg/dl (0.6-1.3) 10/04/22 01:24 Est Cr Clr Drug Dosing 60.7 ml/min 10/04/22 01:16 Est GFR ( Amer) 80.3 ml/min 10/04/22 01:16 Est GFR (Non-Af Amer) 69.3 ml/min 10/04/22 01:16 BUN/Creatinine Ratio 10.1 (10-20) 10/04/22 01:16 Glucose 232 mg/dl (70-99(Fasting)) H 10/04/22 01:16 POC Glucose (other) 235 mg/dl (70-99) H 10/04/22 01:24 Calcium 9.7 mg/dl (8.6-10.3) 10/04/22 01:16 POC Ioniz Calcium [place] 1.12 mmol/l (1.12-1.32) 10/04/22 01:24 Magnesium 1.4 mg/dl (1.7-2.4) L 10/04/22 01:16 Total Bilirubin 0.9 mg/dl (0.2-1.0) 10/04/22 01:16 AST 13 U/L (13-39) 10/04/22 01:16 ALT 8 U/L (7-52) 10/04/22 01:16 Alkaline Phosphatase 80 U/L (34-104) 10/04/22 01:16 Total Protein 7.9 gm/dl (6.0-8.3) 10/04/22 01:16 Albumin 4.6 gm/dl (3.4-5.0) 10/04/22 01:16 Globulin 3.3 gm/dl (2.5-4.0) 10/04/22 01:16 Albumin/Globulin Ratio 1.4 (0.9-2) 10/04/22 01:16 Lipase 26 U/L (11-82) 10/04/22 01:16 HCG, Qual Negative (Negative) 10/04/22 01:16 Urine Color Yellow 10/04/22 02:20 Urine Appearance Clear (Clear) 10/04/22 02:20 Urine pH 5.5 (4.5-7.5) 10/04/22 02:20 Ur Specific [place] > 1.045 (1.000-1.030) H 10/04/22 02:20 Urine Protein Negative (Negative) 10/04/22 02:20 Urine Glucose (UA) 3+ (Negative) H 10/04/22 02:20 Urine Ketones 1+ (Negative) H 10/04/22 02:20 Urine Blood Trace (Negative) H 10/04/22 02:20 Urine Nitrite Negative (Negative) 10/04/22 02:20 Urine Bilirubin Negative (Negative) 10/04/22 02:20 Urine Urobilinogen Negative (Negative) 10/04/22 02:20 Ur Leukocyte Esterase Negative (Negative) 10/04/22 02:20 Urine WBC (Auto) 10-30 /hpf (0-5) H 10/04/22 02:20 Urine RBC (Auto) 0-4 /hpf (0-4) 10/04/22 02:20 U Hyaline Cast (Auto) 0 /lpf (0-5) 10/04/22 02:20 U Epithel Cells (Auto) 10-20 /lpf (0-5) H 10/04/22 02:20 Urine Bacteria (Auto) Negative (Negative) 10/04/22 02:20 SARS-CoV-2, RNA, NAAT NEGATIVE (NEGATIVE) 10/04/22 01:19 Impressions Abdomen/Pelvis CT 10/04/22 01:16 Exam(s): CT ABDOMEN + PELVIS With Contrast IV Amt: 93ML OPTIRAY 350 EXAM: CT Abdomen and Pelvis With Intravenous Contrast CLINICAL HISTORY: Reason for exam: left mid abd pain. TECHNIQUE: Axial computed tomography images of the abdomen and pelvis with intravenous contrast. CTDI is 14.94 mGy and DLP is 744.2 mGy-cm. Automated exposure control was utilized for the study. A dose lowering technique was utilized adhering to the principles of ALARA. CONTRAST: Patient received 93ML OPTIRAY 350 of IV contrast COMPARISON: 10/20/2021 FINDINGS: Lung bases: Unremarkable. No mass. No consolidation. ABDOMEN: Liver: Unremarkable. No mass. Gallbladder and bile ducts: Unremarkable. No calcified stones. No ductal dilation. Pancreas: Unremarkable. No mass. No ductal dilation. Spleen: Unremarkable. No splenomegaly. Adrenals: Unremarkable. No mass. Kidneys and ureters: 0.7 cm distal left ureteral calculus at the level of the distal sacrum causing moderate hydronephrosis and hydroureter with perinephric inflammation and decreased enhancement of the left kidney. Stomach and bowel: Unremarkable. No obstruction. No mucosal thickening. PELVIS: Appendix: No findings to suggest acute appendicitis. Bladder: Unremarkable. No mass. Reproductive: Uterus has been removed. ABDOMEN and PELVIS: Intraperitoneal space: Unremarkable. No free air. No significant fluid collection. Bones/joints: No acute fracture. No dislocation. Soft tissues: Unremarkable. Vasculature: Unremarkable. No abdominal aortic aneurysm. Lymph nodes: Unremarkable. No enlarged lymph nodes. IMPRESSION: 0.7 cm distal left ureteral calculus at the level of the distal sacrum causing moderate hydronephrosis and hydroureter with perinephric inflammation and decreased enhancement of the left kidney. Electronically signed by: Kevyn Dominguez M.D. 10/04/22 02:11 AM Diagnostic Findings EKG as per my interpretation :Rate 130, sinus tachycardia, normal axis, no ischemia
[2022-10-04] MEDS ORDERED: PROMETHAZINE HCL 6.25 MG in SODIUM CHLORIDE 0.9% 50 ML IV PRN (03:28)
[2022-10-04] MEDS ORDERED: LORazepam 0.5 MG TAB PO PRN (03:28)
[2022-10-04] MEDS ORDERED: MoRPHine SULFATE 4 MG/ML 1 ML CARP\\VIAL IV PRN (03:28)
[2022-10-04] MEDS: MAGNESIUM SULFATE / D5W 1 GM/100 ML BAG IV SCH ×2 (03:39→06:07)
[2022-10-04] MEDS ORDERED: METOPROLOL TARTRATE 1 MG/ML VIAL IV STA (03:56)
[2022-10-04] MEDS ORDERED: BENZTROPINE MESYLATE 1 MG/ML 2 ML AMP IV STA (04:28)
[2022-10-04] MEDS ORDERED: LORazepam 2 MG/1 ML VIAL IV STA (04:33)
[2022-10-04] MEDS ORDERED: GLUCAGON FOR INJ 1 MG VIAL SQ PRN (05:24)
[2022-10-04] MEDS ORDERED: DEXTROSE 50% 50 ML SYRINGE IV PRN (05:24)
[2022-10-04] MEDS ORDERED: GLUCOSE 40% GEL 15 GM TUBE PO PRN (05:24)
[2022-10-04] MEDS ORDERED: LANTUS PER UNIT CHARGE SQ SCH (05:24)
[2022-10-04] MEDS ORDERED: CARBOHYDRATES FOR HYPOGLYCEMIA PO PRN (05:24)
[2022-10-04] MEDS ORDERED: GLUCOSE 10 TAB/TUBE PO PRN (05:24)
[2022-10-04] MEDS ORDERED: LACTATED RINGER'S 1,000 ML IV ONE (06:00)
[2022-10-04] MEDS: INSULIN ASPART PER UNIT CHARGE SC SCH ×4 (06:07→21:42)
--- NOTE | 2022-10-04 07:16 | Urology Consultation ---
Date of Consultation October 04, 2022 Assessment & Plan (1) Ureterolithiasis: (2) Renal colic on left side: (3) Acute UTI: Plan CT scan demonstrates a left ureteral stone. Although urinalysis was overall reassuring and she does not endorse significant infectious symptoms, her chirag kocytosis and tachycardia raise concern for possible infection. In absence of another source, we discussed the role for cystoscopy, left retrograde pyelogram, left ureteral stent placement, as it is possible there is an infection blocked behind her kidney stone. We discussed risks and benefits of the surgery. We reviewed risks of bleeding, infection, injury to the urinary tract, need for additional procedures, inability to place the stent. She expressed understanding and would like to proceed with surgery. Plan: Cystoscopy, left ureteral stent placement today in the OR Maintain NPO until after surgery Continue broad-spectrum antibiotics, narrow based on cultures once available History of Present Illness Reason for Consultation: left ureteral stone, possible UTI Attending Physician: Samson Keller MD History of Present Illness This is a 42 year old female who presented to the emergency department on 10/04/22 with left sided abdominal pain associated with nausea and vomiting. She has a history of back pain, however this has felt different. Work-up in the emergency department was notable for leukocytosis (WBC 20.31). Creatinine was normal at 0.99. Glucose was somewhat elevated at 232. Urinalysis was negative for nitrites, negative for leukocyte esterase, did not demonstrate bacteria, however showed some epithelial cells and white blood cells. CT scan of the abdomen and pelvis was performed. I independently reviewed these images. Both kidneys are in normal position. There is hydronephrosis on the left side extending down the ureter to a 5 to 6 mm stone. There is a delayed nephrogram on the left side. There are also some small stones/calcifications in the left kidney. Her bladder appears grossly normal. At the bedside this morning, she denies passing the stone. She is still having some flank pain. She denies fevers or chills. She denies any urinary symptoms, specifically dysuria or bladder pressure. She has had UTIs in the past and does not have any of the symptoms. Allergies Allergy/AdvReac Type Severity Reaction Status Date / Time Penicillins Allergy Intermediate Rash Verified 10/04/22 01:34 Home Medications Medication Instructions Recorded Confirmed Type pen needle, diabetic 32 gauge x #100 ea 04/18/22 03/20/23 Rx 1/4" (Novofine 32) fenofibrate nanocrystallized 48 mg 48 mg PO DAILY #90 tabs 06/12/21 10/04/22 Rx tablet (Tricor) diclofenac sodium 75 mg 75 mg PO BID 05/12/22 10/04/22 History tablet,delayed release metformin 500 mg tablet 500 mg PO QID #120 tabs 08/13/22 10/04/22 Rx albuterol sulfate 90 mcg/actuation 2 puff inhalation Q4H PRN 10/04/22 10/04/22 History aerosol inhaler Shortness Of Breath Or Wheezing dulaglutide 3 mg/0.5 mL 3 mg subcut WK 10/04/22 10/04/22 History subcutaneous pen injector (Trulicity) gabapentin 300 mg capsule 300 mg PO TID 10/04/22 10/04/22 History glimepiride 1 mg tablet 1 mg PO DAILYBB 10/04/22 10/04/22 History Patient History Medical History Arthritis Diabetes mellitus, type 2 History of kidney stones History of nephrolithiasis Hypertriglyceridemia Surgical History History of bilateral tubal ligation History of cystoscopy STONE REMOVAL History of hysterectomy History of lithotripsy History of tooth extraction History of urethral stent Hx of knee surgery RT Family History Father Diabetes Family history of diabetes mellitus Uncle Family history of diabetes mellitus Other No family history of adverse response to anesthesia Denies family history of Colon cancer Ovarian cancer Prostate cancer Myocardial infarction Breast cancer Social History Smoking Status: Current every day smoker Tobacco Type: Cigarettes Cigarettes Per Day: 2; Second Hand Exposure: Yes; Do You Dip or Chew Tobacco: No; Tobacco Cessation Education Requested by Patient: No Hx Alcohol Use: No Hx Substance Use: No (pt takes prescribed oxy) Preferred Language: Belarusian Communication Ability: Effective Visual Impairment: No Limitations Hand Paster Required: No Beliefs That Will Affect Care: None marital status: Single Current Living Situation: Significant Other Current Living Situation Comment: WITH BOYFRIEND AND SON current occupational status: unemployed Other Information That Helps Us Care for You: No Feels Safe at Home: Yes Safety Concerns: Feels Safe At This Time Assistive Devices: None Review of Systems Review of Systems: 12 point review of systems negative except for otherwise indicated. Physical Exam Constitutional: well developed and well nourished; no acute distress Eyes: + anicteric sclerae; pupils not irregular Respiratory: normal respiratory effort; no respiratory distress, does not use accessory muscles and no cough Cardiovascular: well perfused Gastrointestinal (Abdomen): Inspection/Auscultation: abdomen normal to inspection; abdomen not distended Musculoskeletal: Extremities: extremities normal to inspection Skin: normal turgor; no rashes and no lesions Neurologic: moves all extremities and awake Psychiatric: Orientation: alert and oriented x 3 Results & Data Vital Signs (Past 12 Hours) Vital Signs Temp Pulse Pulse Resp BP BP Pulse Ox 10/04/22 05:46 36.8 C 125 H 18 101/67 96 10/04/22 04:52 10/04/22 04:30 128 H 26 H 105/56 L 97 10/04/22 04:38 119 H 10/04/22 04:00 133 H 37 H 118/69 93 10/04/22 04:02 37.4 C 10/04/22 03:38 136 H 10/04/22 03:11 112 H 18 153/89 H 98 10/04/22 02:30 123 H 20 150/66 H 98 10/04/22 01:13 37 C 120 H 18 123/75 99 O2 Del Method 10/04/22 05:46 Room Air 10/04/22 04:52 Room Air 10/04/22 04:30 Room Air 10/04/22 04:38 10/04/22 04:00 Room Air 10/04/22 04:02 10/04/22 03:38 10/04/22 03:11 Room Air 10/04/22 02:30 Room Air 10/04/22 01:13 Room Air PG Care Time/CCT Total # of Minutes Spent Total Time Spent with Patient: Total time spent is greater than 50% in coordination of care (as documented) at patient's floor/unit and/or counseling patient: Coding Level of Care Code 72246 IN/OBS CONSULT LVL 4,60M Diagnoses Ureterolithiasis N20.1 Renal colic on left side N23 Acute UTI N39.0
[2022-10-04] MEDS: GABAPENTIN 300 MG CAP PO SCH ×3 (07:56→21:44)
[2022-10-04] MEDS: FENOFIBRATE NANOCRYSTALLIZED 48 MG TABLET PO SCH (07:56)
[2022-10-04] MEDS: oxyCODONE HCL IR 5 MG TAB (IMMEDIATE RELEASE) PO PRN (08:01)
[2022-10-04 09:23] LABS: Amphetamines+Metham, Urine Neg (Neg); Barbiturates, Urine Neg (Neg); Benzodiazepine, Urine Neg (Neg); Cocaine, Urine Neg (Neg); MDMA (Ecstacy), Urine Neg (Neg); Methadone, Urine Neg (Neg); Opiate, Urine Neg (Neg); Phencyclidine, Urine Neg (Neg)
[2022-10-04] MEDS: ENOXAPARIN INJ 40 MG/0.4 ML SYR SQ SCH (10:17)
--- NOTE | 2022-10-04 11:40 | Electrocardiogram Report ---
Test Reason : Blood Pressure : / mmHG Vent. Rate : 131 BPM Atrial Rate : 131 BPM P-R Int : 128 ms QRS Dur : 066 ms QT Int : 296 ms P-R-T Axes : 050 032 027 degrees QTc Int : 437 ms Sinus tachycardia Nonspecific ST abnormality Abnormal ECG When compared with ECG of 12-JUL-2021 18:17, Vent. rate has increased BY 56 BPM T wave inversion now evident in Inferior leads Confirmed by Leeroy Short ([id number]) on 10/04/2022 11:39:28 AM Referred By: Darrel Shah Confirmed By:Leeroy Short
[2022-10-04] MEDS: LACTATED RINGER'S 1,000 ML IV SCH ×3 (11:43→23:15)
[2022-10-04 13:46] LABS: A calco-baum cmplx NotReported Not Detected (NotDetected); Bact fragilis Not Reported Not Detected (NotDetected); C auris Not Reported Not Detected (NotDetected); CTX-M Resistant Gene Not Detected (NotDetected); Calbicans Not Reported Not Detected (NotDetected); Candida glabrata Not Reported Not Detected (NotDetected); Candida krusei Not Reported Not Detected (NotDetected); Cneoformans/gatti Not Reported Not Detected (NotDetected); Cparapsilosis Not Reported Not Detected (NotDetected); Ctropicalis Not Reported Not Detected (NotDetected); E cloacae compx Not Reported Not Detected (NotDetected); Efaecalis Not Reported Not Detected (NotDetected); Efaecium Not Reported Not Detected (NotDetected); Enterobacterales DETECTED (NotDetected); Enterobacterales Not Reported DETECTED (NotDetected); Escherichia coli Not Reported DETECTED (NotDetected); H influenzae Not Reported Not Detected (NotDetected); IMP Resistant Gene Not Detected (NotDetected); K aerogenes Not Reported Not Detected (NotDetected); KPC Resistant Gene Not Detected (NotDetected); Koxytoca Not Reported Not Detected (NotDetected); Kpneumoniae grp Not Reported Not Detected (NotDetected); Lmonocyt Not Reported Not Detected (NotDetected); N meningitidis Not Reported Not Detected (NotDetected); NDM Resistant Gene Not Detected (NotDetected); OXA 48 Like Resistant Gene Not Detected (NotDetected); P aeruginosa Not Reported Not Detected (NotDetected); Proteus spp Not Reported Not Detected (NotDetected); Salmonella spp Not Reported Not Detected (NotDetected); Smarcescens Not Reported Not Detected (NotDetected); Staph lugdunensis Not Reported Not Detected (NotDetected); Staph spp. Not Reported Not Detected (NotDetected); Staphaureus Not Reported Not Detected (NotDetected); Staphepi Not Reported Not Detected (NotDetected); Stenmaltophilia Not Reported Not Detected (NotDetected); Strep agal(GrpB) Not Reported Not Detected (NotDetected); Strep pneum Not Reported Not Detected (NotDetected); Strep pyog (GrpA) Not Reported Not Detected (NotDetected); Strep spp Not Reported Not Detected (NotDetected); VIM Resistant Gene Not Detected (NotDetected); mcr-1 Colistin Resistant Gene Not Detected (NotDetected)
[2022-10-04] MEDS ORDERED: SODIUM CHLORIDE 0.9% 1000ML 250 ML IV ONE (14:08)
[2022-10-04] MEDS: CEFEPIME 2,000 MG in SYRINGE 0 ML IV SCH ×2 (14:16→21:43)
--- NOTE | 2022-10-04 14:28 | Anesthesiology Consultation ---
Date of Service October 04, 2022 Assessment & Plan (1) Encounter for pre-operative examination: Chart Review Chart Review: Acceptable Risk for Surgery History Surgery Operation Date: 10/04/22 14:00 Proposed Procedures p Ureteral Stent Insertion/Removal(Left) - Zack Lynne MD Height/Weight Height: 5 ft 1 in Weight: 61.405 kg Allergies Allergy/AdvReac Type Severity Reaction Status Date / Time Penicillins Allergy Intermediate Rash Verified 10/04/22 01:34 Medications Home Medications Medication Instructions Recorded Confirmed Last Taken pen needle, diabetic 32 gauge x #100 ea 06/10/21 05/12/22 Unknown 1/4" (Novofine 32) fenofibrate nanocrystallized 48 mg 48 mg PO DAILY #90 tabs 06/12/21 10/04/22 10/03/22 tablet (Tricor) diclofenac sodium 75 mg 75 mg PO BID 05/12/22 10/04/22 10/03/22 tablet,delayed release metformin 500 mg tablet 500 mg PO QID #120 tabs 08/13/22 10/04/22 10/03/22 albuterol sulfate 90 mcg/actuation 2 puff inhalation Q4H PRN 10/04/22 10/04/22 Unknown aerosol inhaler Shortness Of Breath Or Wheezing dulaglutide 3 mg/0.5 mL 3 mg subcut WK 10/04/22 10/04/22 09/30/22 subcutaneous pen injector (Trulicity) gabapentin 300 mg capsule 300 mg PO TID 10/04/22 10/04/22 10/03/22 glimepiride 1 mg tablet 1 mg PO DAILYBB 10/04/22 10/04/22 10/03/22 Active Medications Generic Name Dose Route Start Last Admin Trade Name Freq PRN Reason Stop Dose Admin Enoxaparin Sodium 40 mg 10/04/22 09:00 10/04/22 10:17 Enoxaparin Inj 40 Mg/0.4 Ml Syr SQ 11/03/22 08:59 Not Given QAM [place] Fenofibrate 48 mg 10/04/22 09:00 10/04/22 07:56 Fenofibrate Nanocrystallized 48 Mg Tablet PO 11/03/22 08:59 48 mg DAILY [place] Administration Gabapentin 300 mg 10/04/22 09:00 10/04/22 14:27 Gabapentin 300 Mg Cap PO 11/03/22 08:59 Not Given TID [place] Cefepime HCl 2,000 mg/ Syringe 20 mls @ 5 mls/min 10/04/22 12:00 10/04/22 14:16 IV 10/14/22 11:59 5 mls/min Q8H [place] Administration Protocol Lactated Ringer's 1,000 mls @ 150 mls/hr 10/04/22 11:00 10/04/22 11:43 Lr IV 11/03/22 10:59 150 mls/hr .Q6H40M [place] Administration Insulin Aspart 0 units 10/04/22 05:24 10/04/22 14:16 Insulin Aspart Per Unit Charge SC 11/03/22 05:23 4 units ACHS [place] Administration Insulin Glargine 5 units 10/04/22 05:24 10/04/22 06:08 Lantus Per Unit Charge SQ 11/03/22 05:23 5 units DAILY [place] Administration Oxycodone HCl 5 - 10 mg 10/04/22 03:28 10/04/22 08:01 Oxycodone Hcl Ir 5 Mg Tab (Immediate Release) PO 10/18/22 03:27 10 mg QID PRN Administration Pain Past Medical History Medical History (Updated 10/04/22 @ 14:27 by Yousif Schuler MD) Arthritis Diabetes mellitus, type 2 History of kidney stones Hypertriglyceridemia Past Family History Family History Father Diabetes Family history of diabetes mellitus Uncle Family history of diabetes mellitus Other No family history of adverse response to anesthesia Denies family history of Colon cancer Ovarian cancer Prostate cancer Myocardial infarction Breast cancer Past Surgical History Surgical History History of bilateral tubal ligation History of cystoscopy STONE REMOVAL History of hysterectomy History of lithotripsy History of tooth extraction History of urethral stent Hx of knee surgery RT Social History Smoking Status: Current every day smoker tobacco type: cigarettes Smoking cigarettes per day: 2 Do You Dip or Chew Tobacco: No Hx Alcohol Use: No Hx Substance Use: No (pt takes prescribed oxy) substance use type: does not use Physical Exam Vital Signs Last Vital Signs Temp 37.0 C 10/04/22 11:38 Pulse 97 H 10/04/22 11:38 Resp 16 10/04/22 11:38 BP 90/58 L 08/12/23 12:40 Pulse Ox 92 10/04/22 11:38 O2 Del Method Room Air 10/04/22 11:38 Testing Laboratory Results 10/04/22 01:16 10/04/22 01:16 Urine Color Yellow 10/04/22 02:20 Urine Appearance Clear (Clear) 10/04/22 02:20 Urine pH 5.5 (4.5-7.5) 10/04/22 02:20 Ur Specific [place] > 1.045 (1.000-1.030) H 10/04/22 02:20 Urine Protein Negative (Negative) 10/04/22 02:20 Urine Glucose (UA) 3+ (Negative) H 10/04/22 02:20 Urine Ketones 1+ (Negative) H 10/04/22 02:20 Urine Nitrite Negative (Negative) 10/04/22 02:20 Ur Leukocyte Esterase Negative (Negative) 10/04/22 02:20 Urine WBC (Auto) 10-30 /hpf (0-5) H 10/04/22 02:20 Urine RBC (Auto) 0-4 /hpf (0-4) 10/04/22 02:20 U Hyaline Cast (Auto) 0 /lpf (0-5) 10/04/22 02:20 U Epithel Cells (Auto) 10-20 /lpf (0-5) H 10/04/22 02:20 Urine Bacteria (Auto) Negative (Negative) 10/04/22 02:20 10/04/22 03:14 Anaerobic Blood Culture - Preliminary Blood Gram negative bacilli 10/04/22 03:28 Anaerobic Blood Culture - Preliminary Blood Gram negative bacilli 10/04/22 10/04/22 12:01 05:53 POC Glucose 227 H 249 H
[2022-10-04] MEDS ORDERED: LIDOCAINE 2% 2 ML VIAL/AMP(20MG/ML) INFIL ONE (14:38)
[2022-10-04] MEDS ORDERED: PROPOFOL IV EMULSION 10 MG/ML 20 ML VIAL IV ONE (14:38)
[2022-10-04] MEDS ORDERED: fentaNYL citrate PF 100 MCG/2 ML VIAL ONE (14:38)
[2022-10-04] MEDS ORDERED: MIDAZOLAM HCL 1 MG/ML 2ML VIAL ONE (14:38)
[2022-10-04] MEDS ORDERED: ONDANSETRON INJ 2 MG/ML 2 ML VIAL IV PRN (14:55)
[2022-10-04] MEDS ORDERED: ATROPINE SULFATE 0.1 MG/ML 10ML SYR IV PRN (14:55)
[2022-10-04] MEDS ORDERED: PHENYLEPHRINE 100MCG/ML 5ML SYR IV PRN (14:55)
[2022-10-04] MEDS ORDERED: ePHEDrine sulfate 50 MG/ML AMP IV PRN (14:55)
--- NOTE | 2022-10-04 14:56 | Hospitalist Progress Note ---
Date of Service October 04, 2022 Assessment & Plan (1) Severe sepsis: Plan: SIRS PLUS LACTIC ACIDOSIS SECONDARY TO BACTEREMIA,COMPLICATED UTI SECONDARY TO RECURRENT OBSTRUCTIVE UROPATHY Urine culture: Pending Blood culture: Gram-negative bacilli Blood pressure on the lower side, continue vigorous IV fluids Afebrile Positive leukocytosis Continue cefepime IV day #1 For stent placement today by urology service Repeat blood culture tomorrow DM2 on oral medications, suboptimal control as of outpatient hemoglobin A1c of 8.2 last June 2022 Obtain A1c Insulin sliding scale Monitor closely Ongoing tobacco abuse DVT prophylaxis. Lovenox subcu Full code plan of care discussed with patient in detail and at length all questions answered She is understanding, agreeable, comfortable with the plan of care Admission and Anticipated Discharge Date Admission Date: October 04, 2022 Subjective Follow-up for sepsis, UTI, left ureter stone, etc. Sleeping in bed, comfortable, not in distress, easily awakened States she feels improved compared to yesterday but still feels very tired Minimal left abdominal discomfort, pink-tinged urine, but no fevers or chills, nausea or vomiting no chest pain, dyspnea, palpitations, dizziness No other new symptoms Review of Systems Review of Systems: all noted and negative except for above Physical Exam Physical Exam: General- oriented x 3, not in distress, speaks in sentences with no effort or accessory muscle use Eyes- anicteric Neck- no JVD Lungs- clear breath sounds bilaterally, no rales/wheezes Heart- normal rate, regular rhythm; no murmurs Abdomen- normal bowel sounds, nondistended, soft, mild left lower quadrant tenderness Extremities- no pretibial edema, no calf tenderness Neuro- alert, oriented x 3; no gross focal neurologic deficits Skin- warm & dry Results & Data Results & Data Vital Signs (Past 12 Hours) Vital Signs Temp Pulse Pulse Resp BP BP Pulse Ox 10/04/22 12:40 90/58 L 10/04/22 11:38 37.0 C 97 H 16 80/45 L 92 10/04/22 08:25 98/64 L 10/04/22 07:30 36.7 C 115 H 16 82/52 L 95 10/04/22 07:30 114 H 10/04/22 05:46 36.8 C 125 H 18 101/67 96 10/04/22 04:52 10/04/22 04:30 128 H 26 H 105/56 L 97 10/04/22 04:38 119 H 10/04/22 04:00 133 H 37 H 118/69 93 10/04/22 04:02 37.4 C 10/04/22 03:38 136 H 10/04/22 03:11 112 H 18 153/89 H 98 O2 Del Method 10/04/22 12:40 10/04/22 11:38 Room Air 10/04/22 08:25 10/04/22 07:30 Room Air 10/04/22 07:30 10/04/22 05:46 Room Air 10/04/22 04:52 Room Air 10/04/22 04:30 Room Air 10/04/22 04:38 10/04/22 04:00 Room Air 10/04/22 04:02 10/04/22 03:38 10/04/22 03:11 Room Air all noted and reviewed including below
[2022-10-04] MEDS ORDERED: ONDANSETRON INJ 2 MG/ML 2 ML VIAL ONE (14:59)
--- NOTE | 2022-10-04 15:26 | Operative Report ---
PG Post Operative Report Pre & Post Diagnosis Operation Date: 10/04/22 14:00 Pre-Op Diagnosis: Left Ureteral Calculus Post-Op Diagnosis: Left Ureteral Calculus I identified the patient and participated in the time-out.: Yes Procedure Operation Date: 10/04/22 14:00 Actual Procedures p Cystoscopy, Retrograde Pyelogram, Insertion of Left Ureteral Stent(Left) - Zack Lynne MD Surgeon Zack Lynen MD [employer] History Professor None Estimated Blood Loss 0 Findings Consistent with Post-Op Diagnosis Successful left ureteral stent placement Specimens None Drains 6 Japanese by 24 cm double-J ureteral stent in the left ureter Anesthesia Type MAC Complications none Disposition Accompanied Patient To Recovery: Yes Disposition: Recovery Room Indications This is a 42-year-old female admitted to the hospital with left-sided abdominal pain, a CT scan demonstrating a left ureteral stone as well as tachycardia and leukocytosis. She is being brought to the OR for left ureteral stent placement due to suspicion for possible urinary tract infection and sepsis. Description of Procedure The patient was identified in the holding area and informed consent was confirmed. She was marked on the left side, then was taken to the operating room where anesthesia was initiated. She was placed in the dorsal lithotomy position with all pressure points appropriately padded. She was prepped and draped in the usual sterile fashion and a preoperative timeout was performed. A well-lubricated cystoscope was inserted per urethra and panendoscopy was performed. The urethra was normal in appearance. The bladder was of normal size with ureteral orifices in orthotopic position. The left ureteral orifice was identified and cannulated with a 5 Japanese open- ended catheter. A retrograde pyelogram was performed demonstrating the distal ureter was normal in course and caliber. I did not appreciate a filling defect to suggest a stone, however there was some hydronephrosis of the proximal ureter and kidney. A 0.038" ZIPwire was advanced to the level of the kidney under fluoroscopic guidance. Over the wire, a 6 Japanese x 24 centimeter double-J ureteral stent was advanced. When the wire was removed, the proximal curl was visualized in the kidney with x-ray, and the distal curl visualized in the bladder with the cystoscope. At this point the bladder was drained and all instrumentation was removed. The patient was then awakened from anesthesia and was brought to the PACU in stable condition. I attest to the content of the Intraoperative Record and any orders documented therein. Any exceptions are noted below.
[2022-10-04] MEDS ORDERED: DIATRIZOATE MEGLUMINE 30% 100ML VIAL INSTIL ONE (15:32)
--- NOTE | 2022-10-04 16:01 | Fluoroscopy Report ---
FL retrograde includes kub CLINICAL HISTORY: LEFT SIDE CYSTO COMPARISON STUDY: None. FLUOROSCOPY TIME: 10 seconds FLUOROSCOPY IMAGES: 2 Ka,r: 2.6 mGy FINDINGS: Retrograde opacification of the left renal collecting system/ureter followed by placement o f a left ureteral stent. Only the proximal portion of the stent is identified and appears in good pos ition. IMPRESSION: Fluoroscopic assistance as above. ACT 112: Negative or not required by law. Electronically signed by: Mario Sandoval M.D. 10/04/2022 4:00 PM
--- NOTE | 2022-10-04 16:06 | Anesthesiology Progress Note ---
Date of Service October 04, 2022 Anesthesia Post Procedure Vital Signs Vital Signs: Temp Pulse Pulse Pulse Resp BP BP 10/04/22 15:50 36.4 C L 104 H 22 93/45 L 10/04/22 15:40 107 H 22 97/58 L 10/04/22 15:30 37.3 C 103 H 29 H 89/48 L 10/04/22 12:40 90/58 L 10/04/22 11:38 37.0 C 97 H 16 80/45 L 10/04/22 08:25 98/64 L 10/04/22 07:30 36.7 C 115 H 16 82/52 L 10/04/22 07:30 114 H 10/04/22 05:46 36.8 C 125 H 18 101/67 10/04/22 04:52 10/04/22 04:30 128 H 26 H 105/56 L 10/04/22 04:38 119 H 10/04/22 04:00 133 H 37 H 118/69 10/04/22 04:02 37.4 C 10/04/22 03:38 136 H 10/04/22 03:11 112 H 18 153/89 H 10/04/22 02:30 123 H 20 150/66 H 10/04/22 01:13 37 C 120 H 18 123/75 Pulse Ox O2 Del Method O2 Flow Rate 10/04/22 15:50 92 Room Air 10/04/22 15:40 92 Room Air 10/04/22 15:30 99 Oxymask 5 10/04/22 12:40 10/04/22 11:38 92 Room Air 10/04/22 08:25 10/04/22 07:30 95 Room Air 10/04/22 07:30 10/04/22 05:46 96 Room Air 10/04/22 04:52 Room Air 10/04/22 04:30 97 Room Air 10/04/22 04:38 10/04/22 04:00 93 Room Air 10/04/22 04:02 10/04/22 03:38 10/04/22 03:11 98 Room Air 10/04/22 02:30 98 Room Air 10/04/22 01:13 99 Room Air Pain Intensity Left Abdomen: Pain Intensity: 9 Transfer of Care Handoff Completed per policy Notes Mental Status: alert / awake / arousable Patient Amnestic to Procedure: Yes Nausea / Vomiting: adequately controlled Pain: adequately controlled Airway Patency, RR, SpO2: stable & adequate BP & HR: stable & adequate Hydration State: stable & adequate Anesthetic Complications: no major complications apparent
[2022-10-04] MEDS: ACETAMINOPHEN 325 MG TAB PO PRN ×2 (17:13→21:42)
[2022-10-04] MEDS ORDERED: IBUPROFEN 200 MG TAB PO STA (18:39)
[2022-10-04] MEDS: LANTUS PER UNIT CHARGE SQ SCH (23:15)
[2022-10-05] MEDS: oxyCODONE HCL IR 5 MG TAB (IMMEDIATE RELEASE) PO PRN (04:45)
[2022-10-05] MEDS: CEFEPIME 2,000 MG in SYRINGE 0 ML IV SCH ×3 (04:45→19:51)
[2022-10-05] MEDS: LACTATED RINGER'S 1,000 ML IV SCH ×3 (04:45→15:54)
[2022-10-05] MEDS ORDERED: KETOROLAC 30 MG/ML VIAL IV PRN (08:35)
[2022-10-05] MEDS: ENOXAPARIN INJ 40 MG/0.4 ML SYR SQ SCH (08:36)
[2022-10-05] MEDS: GABAPENTIN 300 MG CAP PO SCH ×3 (08:36→20:34)
[2022-10-05] MEDS: FENOFIBRATE NANOCRYSTALLIZED 48 MG TABLET PO SCH (08:36)
[2022-10-05] MEDS: TAMSULOSIN HCL 0.4 MG CAP PO SCH (08:37)
[2022-10-05] MEDS: INSULIN ASPART PER UNIT CHARGE SC SCH ×4 (08:46→20:35)
[2022-10-05 08:51] LABS: BUN Creatinine Ratio 13.2 (10-20); Calcium 8.4 mg/dl (8.6-10.3); Creatinine Clr Calc Pharmacy 84.4 ml/min; Est GFR (African American) 110.6 ml/min; Est GFR (Non-African American) 95.4 ml/min; Magnesium 1.6 mg/dl (1.7-2.4); Potassium 4.1 mmol/L (3.5-5.1)
[2022-10-05 09:06] LABS: Basophils # (auto) 0.06 K/uL (0-0.2); Basophils % (auto) 0.3 %; Eosinophils # (auto) 0.13 K/uL (0-0.50); Eosinophils % (auto) 0.7 %; Hematocrit (blood only) 30.9 % (37.0-47.0); Hemoglobin 10.4 g/dl (12.0-16.0); Immature Granulocytes % (auto) 1.1 %; Lymphocytes # (auto) 2.14 K/uL (1.2-3.4); Lymphocytes % (auto) 11.6 %; Mean Corpuscular Hemoglobin 29.1 pg (25.0-34.0); Mean Corpuscular Hgb Conc 33.7 g/dL (32.0-36.0); Mean Corpuscular Volume 86.3 fL (80.0-100.0); Mean Platelet Volume 10.3 fL (9.4-12.4); Monocytes # (auto) 1.21 K/uL (0.11-0.59); Monocytes % (auto) 6.6 %; Neutrophils # (auto) 14.64 K/uL (1.40-6.50); Neutrophils % (auto) 79.7 %; Platelet Count 147 K/uL (130-400); RDW Coefficient of Variation 12.8 % (11.5-14.5); RDW Standard Deviation 40.3 fL (36.4-46.3); Red Blood Count 3.58 M/uL (4.20-5.40); White Blood Count 18.38 K/ul (4.8-10.8)
[2022-10-05] MEDS: ACETAMINOPHEN 500 MG TAB PO SCH ×2 (09:14→17:10)
[2022-10-05 09:45] LABS: Estimated Average Glucose 171 mg/dl; Hemoglobin A1C 7.6 % (4.5-5.6)
--- NOTE | 2022-10-05 11:11 | Urology Progress Note ---
Date of Service October 05, 2022 Assessment & Plan (1) Ureterolithiasis: (2) Renal colic on left side: (3) Acute UTI: Plan Left kidney now draining with ureteral stent in position. Would recommend continuing broad-spectrum antibiotics, can narrow coverage as culture data becomes available No plan for further urologic intervention during this admission. We will arrange outpatient follow-up to discuss/coordinate stone management Urology will sign off for now, please call with any questions or concerns. Admission and Anticipated Discharge Date Admission Date: October 04, 2022 Subjective Feeling well this morning, denies fevers or chills Denies any pain or urinary symptoms from the stent, stone pain has improved Had some fevers and soft blood pressures after stent placement Remains on broad-spectrum antibiotics: Blood cultures with gram-negative rods, urine culture pending Mild improvement in leukocytosis (18.38) Physical Exam Physical Exam: Well-appearing, NAD Results & Data Vital Signs (Past 12 Hours) Vital Signs Temp Pulse Pulse Resp BP BP Pulse Ox 10/05/22 07:30 37.2 C 92 H 16 104/73 88 L 10/05/22 05:14 10/05/22 04:49 110/67 10/05/22 02:49 36.6 C 80 18 85/54 L 93 10/05/22 00:26 Pulse Ox O2 Del Method O2 Del Method 10/05/22 07:30 Room Air 10/05/22 05:14 96 Room Air 10/05/22 04:49 10/05/22 02:49 Room Air 10/05/22 00:26 Room Air PG Care Time/CCT Total # of Minutes Spent Total Time Spent with Patient: Total time spent is greater than 50% in coordination of care (as documented) at patient's floor/unit and/or counseling patient: Coding Level of Care Code 80787 SUB INP/OBS CARE 25MIN Diagnoses Ureterolithiasis N20.1 Renal colic on left side N23 Acute UTI N39.0
--- NOTE | 2022-10-05 11:30 | Hospitalist Progress Note ---
Date of Service October 05, 2022 Assessment & Plan (1) Severe sepsis: Plan: SIRS PLUS LACTIC ACIDOSIS SECONDARY TO BACTEREMIA,COMPLICATED UTI SECONDARY TO RECURRENT OBSTRUCTIVE UROPATHY Urine culture: Pending Blood culture: Gram-negative bacilli Repeat blood culture: Pending Status post stent placement 10/04/2022 No problems with urination Renal function stable Blood pressure on the lower side Afebrile Leukocytosis improving Continue cefepime IV day #2 IV fluids DM2 on oral medications, suboptimal control as of outpatient hemoglobin A1c of 8.2 last June 2022 7.6 Insulin sliding scale Ongoing tobacco abuse DVT prophylaxis. Lovenox subcu Full code plan of care discussed with patient in detail and at length all questions answered She is understanding, agreeable, comfortable with the plan of care Admission and Anticipated Discharge Date Admission Date: October 04, 2022 Subjective Follow-up for ureteral stone, UTI, bacteremia, etc. Seen resting in bed, comfortable, not in distress, sitting up, having breakfast Good spirits States she feels improved compared to yesterday Still having some left-sided lower abdominal discomfort No problems with urination Denies chills, nausea vomiting, shortness of breath No other symptoms Review of Systems Review of Systems: all noted and negative except for above Physical Exam Physical Exam: General- oriented x 3, not in distress, speaks in sentences with no effort or accessory muscle use Eyes- anicteric Neck- no JVD Lungs- clear breath sounds bilaterally, no rales/wheezes Heart- normal rate, regular rhythm; no murmurs Abdomen- normal bowel sounds, nondistended, soft, nontender Extremities- no pretibial edema, no calf tenderness Neuro- alert, oriented x 3; no gross focal neurologic deficits Skin- warm & dry Results & Data Results & Data Vital Signs (Past 12 Hours) Vital Signs Temp Pulse Pulse Resp BP BP Pulse Ox 10/05/22 07:30 37.2 C 92 H 16 104/73 88 L 10/05/22 05:14 10/05/22 04:49 110/67 10/05/22 02:49 36.6 C 80 18 85/54 L 93 10/05/22 00:26 Pulse Ox O2 Del Method O2 Del Method 10/05/22 07:30 Room Air 10/05/22 05:14 96 Room Air 10/05/22 04:49 10/05/22 02:49 Room Air 10/05/22 00:26 Room Air all noted and reviewed including below
[2022-10-05] MEDS: ACETAMINOPHEN 325 MG TAB PO PRN (19:50)
[2022-10-05] MEDS: LANTUS PER UNIT CHARGE SQ SCH (21:03)
[2022-10-06] MEDS: ACETAMINOPHEN 500 MG TAB PO SCH ×2 (01:03→08:37)
[2022-10-06] MEDS: LACTATED RINGER'S 1,000 ML IV SCH (01:03)
[2022-10-06] MEDS: CEFEPIME 2,000 MG in SYRINGE 0 ML IV SCH (03:02)
[2022-10-06] MEDS: ENOXAPARIN INJ 40 MG/0.4 ML SYR SQ SCH (08:36)
[2022-10-06] MEDS: TAMSULOSIN HCL 0.4 MG CAP PO SCH (08:38)
[2022-10-06] MEDS: GABAPENTIN 300 MG CAP PO SCH (08:38)
[2022-10-06] MEDS: FENOFIBRATE NANOCRYSTALLIZED 48 MG TABLET PO SCH (08:38)
[2022-10-06] MEDS: INSULIN ASPART PER UNIT CHARGE SC SCH ×2 (08:43→12:20)
--- NOTE | 2022-10-06 10:21 | Hospitalist Progress Note ---
Date of Service October 06, 2022 Assessment & Plan (1) Severe sepsis: Plan: SECONDARY TO BACTEREMIA,COMPLICATED UTI SECONDARY TO RECURRENT OBSTRUCTIVE UROPATHY SIRS plus lactic acidosis Urine culture: More than 3 types of organisms present: Low counts Blood culture: E. coli pansensitive Repeat blood culture: Pending Status post ureteral stent placement 10/04/[address] Zack Lynne No problems with urination Renal function stable Blood pressure improved Afebrile Leukocytosis improving Continue cefepime IV day #2.5 --> transition to ciprofloxacin 500 mg twice a day x12 days to complete 14-day course Follow-up with urologist Dr. 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 Resting in bed, comfortable, not in distress States that she feels much better overall Denies abdominal/flank/back pain No problems with urination No fevers or chills no chest pain, dyspnea, palpitations, dizziness Ambulating in the room with no problems No other symptoms States she would like to be discharged today Review of Systems Review of Systems: all noted and negative except for above Physical Exam Physical Exam: General- oriented x 3, not in distress, speaks in sentences with no effort or accessory muscle use Eyes- anicteric Neck- no JVD Lungs- clear breath sounds bilaterally, no rales/wheezes Heart- normal rate, regular rhythm; no murmurs Abdomen- normal bowel sounds, nondistended, soft, nontender No CVA tenderness Extremities- no pretibial edema, no calf tenderness Neuro- alert, oriented x 3; no gross focal neurologic deficits Skin- warm & dry Results & Data Results & Data Vital Signs (Past 12 Hours) Vital Signs Temp Pulse Pulse Pulse Resp BP Pulse Ox 10/06/22 07:45 36.8 C 79 16 152/89 H 92 10/06/22 07:41 94 H 10/06/22 03:36 36.9 C 78 16 146/88 H 92 10/05/22 23:02 36.6 C 84 16 131/78 91 O2 Del Method 10/06/22 07:45 Room Air 10/06/22 07:41 10/06/22 03:36 Room Air 10/05/22 23:02 Room Air all noted and reviewed including below
[2022-10-06] MEDS ORDERED: CIPROFLOXACIN 500 MG TAB PO SCH (10:30)
[2022-10-06 11:11] LABS: Basophils # (auto) 0.06 K/uL (0-0.2); Basophils % (auto) 0.4 %; Eosinophils # (auto) 0.09 K/uL (0-0.50); Eosinophils % (auto) 0.6 %; Hematocrit (blood only) 30.3 % (37.0-47.0); Hemoglobin 10.4 g/dl (12.0-16.0); Immature Granulocytes # (auto) 0.13 K/uL (0.01-0.20); Immature Granulocytes % (auto) 0.9 %; Lymphocytes % (auto) 13.7 %; Mean Corpuscular Hemoglobin 29.1 pg (25.0-34.0); Mean Corpuscular Hgb Conc 34.3 g/dL (32.0-36.0); Mean Corpuscular Volume 84.9 fL (80.0-100.0); Mean Platelet Volume 10.6 fL (9.4-12.4); Monocytes % (auto) 5.2 %; Neutrophils # (auto) 12.11 K/uL (1.40-6.50); Neutrophils % (auto) 79.2 %; Platelet Count 148 K/uL (130-400); RDW Coefficient of Variation 12.7 % (11.5-14.5); RDW Standard Deviation 39.5 fL (36.4-46.3); Red Blood Count 3.57 M/uL (4.20-5.40); White Blood Count 15.29 K/ul (4.8-10.8)
[2022-10-06 11:18] LABS: BUN Creatinine Ratio 14.5 (10-20); Calcium 8.5 mg/dl (8.6-10.3); Est GFR (African American) 110.6 ml/min; Est GFR (Non-African American) 95.4 ml/min; Potassium 3.7 mmol/L (3.5-5.1)
== END 2022-10-06 13:00 | disposition home or self-care (01) | DRG 854 ==
LOC: ED 01:08 → 2N 03:25

== ENCOUNTER 2024-07-06 00:48 | Inpatient (IN) ==
[2024-07-06 01:15] LABS: Hematocrit (blood only) 44.8 % (37.0-47.0); Hemoglobin 15.5 g/dl (12.0-16.0); Mean Corpuscular Hemoglobin 29.4 pg (25.0-34.0); Mean Corpuscular Hgb Conc 34.6 g/dL (32.0-36.0); Mean Platelet Volume 9.6 fL (9.4-12.4); Platelet Count 284 K/uL (130-400); RDW Coefficient of Variation 12.3 % (11.5-14.5); RDW Standard Deviation 37.8 fL (36.4-46.3); Red Blood Count 5.27 M/uL (4.20-5.40); White Blood Count 26.88 K/ul (4.8-10.8)
[2024-07-06] MEDS: DICYCLOMINE HCL 10 MG/ML 2 ML AMP/VIAL IM ONE ×2 (01:18→02:35)
[2024-07-06] MEDS: FAMOTIDINE 20MG IV PUSH 20 MG/5 ML SYR IV STA (01:18)
[2024-07-06] MEDS: ONDANSETRON INJ 2 MG/ML 2 ML VIAL IV STA ×2 (01:18→02:09)
[2024-07-06] MEDS: SODIUM CHLORIDE 0.9% 1,000 ML IV SCH ×2 (01:18→08:39)
[2024-07-06 01:33] LABS: Albumin Globulin Ratio 1.6 (0.9-2); Albumin Level 5.1 gm/dl (3.4-5.0); BUN Creatinine Ratio 18.2 (10-20); Bilirubin,Total 0.9 mg/dl (0.2-1.0); Calcium 9.8 mg/dl (8.6-10.3); Globulin 3.2 gm/dl (2.5-4.0); Magnesium 1.5 mg/dl (1.7-2.4); Potassium 3.9 mmol/L (3.5-5.1); Total Protein 8.3 gm/dl (6.0-8.3)
[2024-07-06 01:37] LABS: Basophils % (auto) 0.4 %; Echinocytes 1+; Eosinophils # (auto) 0.01 K/uL (0.00-0.50); Immature Granulocytes # (auto) 0.24 K/uL (0.01-0.20); Immature Granulocytes % (auto) 0.9 %; Lymphocytes # (auto) 2.61 K/uL (1.20-3.40); Lymphocytes % (auto) 9.7 %; Monocytes # (auto) 1.02 K/uL (0.11-0.59); Monocytes % (auto) 3.8 %; Neutrophils % (auto) 85.2 %
[2024-07-06 01:39] LABS: Troponin I High Sensitivity 5.2 pg/ml (0-14)
--- NOTE | 2024-07-06 01:40 | Emergency Department Note ---
History of Present Illness General Chief complaint: Abdominal Pain Stated complaint: NAUSEA/VOMITTING Time Seen by Provider: 07/06/24 00:50 History of Present Illness This 44-year-old female presents ER complaining of nausea vomiting and diarrhea today. Patient denies well water, recent antibiotics, recent travel, chest pain, dyspnea, fever, chills, flulike illness. Home Medications Medication Instructions Recorded Confirmed Type dulaglutide 4.5 mg/0.5 mL 4.5 mg subcut WK 07/06/24 07/06/24 History subcutaneous pen injector (Trulicity) Allergies Allergy/AdvReac Type Severity Reaction Status Date / Time Penicillins Allergy Intermediate Rash Verified 07/06/24 01:18 Past Med/Surg History Problem List Hypomagnesemia (Acute) Nausea, vomiting, and diarrhea (Acute) Leukocytosis (Acute) Renal colic on left side (Acute) Severe sepsis Acute UTI (Acute) Leukocytosis (Acute) Acute hyperglycemia (Acute) Ureterolithiasis (Acute) Renal colic on left side (Acute) Impingement syndrome, shoulder, left Mechanical low back pain Constipation Encounter for pre-operative examination Diabetes mellitus with renal manifestations, uncontrolled (Chronic) Microalbuminuria Pulmonary valve disorder (Chronic) pt unaware Nephrolithiasis (Chronic) Hypertriglyceridemia (Chronic) Medical History Nephrolithiasis Ureteral stent present Arthritis History of kidney stones Diabetes mellitus, type 2 Surgical History History of hysterectomy History of urethral stent History of lithotripsy Hx of knee surgery RT History of cystoscopy History of bilateral tubal ligation History of tooth extraction Family History Father Diabetes Family history of diabetes mellitus Uncle Family history of diabetes mellitus Other No family history of adverse response to anesthesia Denies family history of Colon cancer Ovarian cancer Prostate cancer Myocardial infarction Breast cancer Social History Smoking Status: Current every day smoker Tobacco Type: Cigarettes Cigarettes Per Day: 3; Second Hand Exposure: Yes; Do You Dip or Chew Tobacco: No; Hx Alcohol Use: No Hx Substance Use: No Preferred Language: Nam[place]ian Communication Ability: Effective Visual Impairment: No Limitations Trouble Locator Test Desk Required: No Beliefs That Will Affect Care: None marital status: Single Current Living Situation: Significant Other Current Living Situation Comment: WITH BOYFRIEND AND SON current occupational status: unemployed Feels Safe at Home: Yes Assistive Devices: None Review of Systems A total of 10 systems reviewed and were otherwise negative Physical Exam Vital Signs Vital Signs - 24 hr 07/06/24 00:38 07/06/24 00:52 07/06/24 00:53 Temperature 36.7 C Temperature Source Oral Pulse Rate 68 75 Pulse Rate [Radial] Pulse Rate from SpO2 Sensor Respiratory Rate 16 Respiratory Effort / Characteristics Respiratory Depth Respiratory Pattern Blood Pressure 147/75 H 147/75 H Blood Pressure [Right Arm] Blood Pressure Mean 99 100 Blood Pressure Mean [Right Arm] Pulse Oximetry 95 Oxygen Delivery Method Sepsis Recent Fever Within 48 Hours No Sepsis New/Unexplained Change in Mental Status No Sepsis Action Taken by Nursing No Action Required 07/06/24 00:54 07/06/24 01:01 07/06/24 01:01 Temperature Temperature Source Pulse Rate Pulse Rate [Radial] Pulse Rate from SpO2 Sensor Respiratory Rate Respiratory Effort / Characteristics Non-Labored Respiratory Depth Normal Respiratory Pattern Blood Pressure 174/98 H 174/98 H Blood Pressure [Right Arm] Blood Pressure Mean 134 134 Blood Pressure Mean [Right Arm] Pulse Oximetry Oxygen Delivery Method Sepsis Recent Fever Within 48 Hours Sepsis New/Unexplained Change in Mental Status Sepsis Action Taken by Nursing 07/06/24 01:02 07/06/24 01:21 07/06/24 01:27 Temperature Temperature Source Pulse Rate 70 75 Pulse Rate [Radial] Pulse Rate from SpO2 Sensor 70 Respiratory Rate 15 25 H Respiratory Effort / Characteristics Respiratory Depth Respiratory Pattern Blood Pressure Blood Pressure [Right Arm] Blood Pressure Mean Blood Pressure Mean [Right Arm] Pulse Oximetry 98 Oxygen Delivery Method Room Air Sepsis Recent Fever Within 48 Hours Sepsis New/Unexplained Change in Mental Status Sepsis Action Taken by Nursing 07/06/24 01:31 07/06/24 01:45 07/06/24 02:00 Temperature Temperature Source Pulse Rate 69 94 H Pulse Rate [Radial] Pulse Rate from SpO2 Sensor Respiratory Rate 25 H 25 H Respiratory Effort / Characteristics Respiratory Depth Respiratory Pattern Blood Pressure 142/73 H Blood Pressure [Right Arm] Blood Pressure Mean 116 Blood Pressure Mean [Right Arm] Pulse Oximetry Oxygen Delivery Method Sepsis Recent Fever Within 48 Hours Sepsis New/Unexplained Change in Mental Status Sepsis Action Taken by Nursing 07/06/24 02:12 07/06/24 03:00 07/06/24 04:45 Temperature Temperature Source Pulse Rate 76 Pulse Rate [Radial] 73 Pulse Rate from SpO2 Sensor 71 Respiratory Rate 17 Respiratory Effort / Characteristics Non-Labored Spontaneous Respiratory Depth Normal Respiratory Pattern Regular Blood Pressure Blood Pressure [Right Arm] 143/63 H Blood Pressure Mean Blood Pressure Mean [Right Arm] 89 Pulse Oximetry 100 98 Oxygen Delivery Method Room Air Sepsis Recent Fever Within 48 Hours Sepsis New/Unexplained Change in Mental Status Sepsis Action Taken by Nursing VITALS: Vitals are noted on the nurse's note and reviewed by myself. Vital signs stable. GENERAL: Pleasant female, in no acute distress, nondiaphoretic, well-developed well-nourished. SKIN: Capillary reflex less than 2 seconds. HEENT: Normocephalic. PERRLA. EOMI. Nares patent. Mucous membranes moist. Neck is supple without nuchal rigidity. HEART: Regular rate and rhythm LUNGS: Clear to auscultation bilaterally without wheezes, rales or rhonchi. No retractions or accessory muscle use. ABDOMEN: Positive bowel sounds x 4. Normal tympanic percussion. Soft, nontender, without masses or organomegaly. Bravo sign negative. No guarding or rebound tenderness. no CVA tenderness MUSCULOSKELETAL: No gross musculoskeletal defects. NEURO: Patient was alert and oriented to person place and time. No focal neurological deficits. Course Administered Medications Discontinued Medications Dicyclomine HCl (Dicyclomine Hcl 10 Mg/Ml 2 Ml Amp/Vial) 20 mg IM NOW ONE Stop: 07/06/24 01:03 Last Admin: 07/06/24 01:18 Dose: 20 mg Documented By: RAQUEL Dicyclomine HCl (Dicyclomine Hcl 10 Mg/Ml 2 Ml Amp/Vial) Confirm Administered Dose 20 mg IM .STK-MED ONE Stop: 07/06/24 01:14 Last Admin: 07/06/24 02:35 Dose: Not Given Documented By: RAQUEL Famotidine (Famotidine 20mg/5ml Iv Push) Confirm Administered Dose 20 mg IV .STK-MED ONE Stop: 07/06/24 01:15 Last Admin: 07/06/24 02:35 Dose: Not Given Documented By: RAQUEL Sodium Chloride (Nss) 1,000 mls @ 999 mls/hr IV .Q1H1M [place] Stop: 07/06/24 02:15 Last Infusion: 07/06/24 03:23 Dose: Infused Documented By: Admin: 07/06/24 01:18 Dose: 999 mls/hr Documented By: RAQUEL Famotidine (Pepcid 20mg Iv Push) 20 mg in 5 mls @ 2.5 mls/min IV NOW STA Stop: 07/06/24 01:03 Last Admin: 07/06/24 01:18 Dose: 2.5 mls/min Documented By: RAQUEL Magnesium Sulfate/Dextrose (Magnesium Sulfate / D5w) 1 gm in 100 mls @ 200 mls/hr IV Q30M [place] Stop: 07/06/24 03:15 Last Infusion: 07/06/24 03:51 Dose: Infused Documented By: Admin: 07/06/24 03:22 Dose: 200 mls/hr Documented By: Infusion: 07/06/24 02:53 Dose: Infused Documented By: Admin: 07/06/24 02:23 Dose: 200 mls/hr Documented By: RAQUEL Sodium Chloride (Nss) 1,000 mls @ 999 mls/hr IV .Q1H1M ONE Stop: 07/06/24 04:21 Last Infusion: 07/06/24 04:44 Dose: Infused Documented By: Admin: 07/06/24 03:22 Dose: 999 mls/hr Documented By: PATRIC Ceftriaxone Sodium (Rocephin) 1,000 mg in 50 mls @ 100 mls/hr IV NOW STA Stop: 07/06/24 04:18 Last Infusion: 07/06/24 04:56 Dose: Infused Documented By: Admin: 07/06/24 04:18 Dose: 100 mls/hr Documented By: PATRIC Ioversol (Optiray 320 100ml) 100 ml IV ONCE ONE Stop: 07/06/24 01:56 Last Admin: 07/06/24 01:56 Dose: 93 ml Documented By: MIKE Magnesium Sulfate/Dextrose (Magnesium Sulfate 1gm / D5w Bag) Confirm Administered Dose 2 gm IV .STK-MED ONE Stop: 07/06/24 02:22 Last Admin: 07/06/24 02:36 Dose: Not Given Documented By: RAQUEL Ondansetron HCl (Ondansetron Inj 2 Mg/Ml 2 Ml Vial) 4 mg IV NOW STA Stop: 07/06/24 01:03 Last Admin: 07/06/24 01:18 Dose: 4 mg Documented By: RAQUEL Ondansetron HCl (Ondansetron Inj 2 Mg/Ml 2 Ml Vial) 4 mg IV NOW STA Stop: 07/06/24 02:06 Last Admin: 07/06/24 02:09 Dose: 4 mg Documented By: RAQUEL Ondansetron HCl (Ondansetron Inj 2 Mg/Ml 2 Ml Vial) Confirm Administered Dose 4 mg .ROUTE .STK-MED ONE Stop: 07/06/24 01:15 Last Admin: 07/06/24 02:36 Dose: Not Given Documented By: RAQUEL Ondansetron HCl (Ondansetron Inj 2 Mg/Ml 2 Ml Vial) Confirm Administered Dose 4 mg .ROUTE .STK-MED ONE Stop: 07/06/24 02:09 Last Admin: 07/06/24 02:36 Dose: Not Given Documented By: RAQUEL Tamsulosin HCl (Tamsulosin Hcl 0.4 Mg Cap) 0.4 mg PO NOW STA Stop: 07/06/24 04:16 Last Admin: 07/06/24 04:55 Dose: 0.4 mg Documented By: PATRIC Medical Decision Making Medical Records Attestation: I reviewed the patient's medical records. Home Medications Current Medication List: was personally reviewed by id Laboratory Data Attestation: I reviewed the patient's lab results. 07/06/24 00:57 07/06/24 04:21 Lab Results 07/06/24 07/06/24 07/06/24 Range/Units 00:57 01:40 04:21 WBC 26.88 H (4.8-10.8) K/ul RBC 5.27 (4.20-5.40) M/uL Hgb 15.5 (12.0-16.0) g/dl Hct 44.8 (37.0-47.0) % MCV 85.0 (80.0-100.0) fL MCH 29.4 (25.0-34.0) pg MCHC 34.6 (32.0-36.0) g/dL RDW Std Deviation 37.8 (36.4-46.3) fL RDW Coeff of Jorge 12.3 (11.5-14.5) % Plt Count 284 (130-400) K/uL MPV 9.6 (9.4-12.4) fL Immature Gran % (Auto) 0.9 % Neut % (Auto) 85.2 % Lymph % (Auto) 9.7 % [place] % (Auto) 3.8 % Eos % (Auto) 0.0 % Baso % (Auto) 0.4 % Neut # (Auto) 22.90 H (1.40-6.50) K/uL Lymph # (Auto) 2.61 (1.20-3.40) K/uL [place] # (Auto) 1.02 H (0.11-0.59) K/uL Eos # (Auto) 0.01 (0.00-0.50) K/uL Baso # (Auto) 0.10 (0.00-0.20) K/uL Immature Gran # (Auto) 0.24 H (0.01-0.20) K/uL Echinocytes 1+ Sodium 138 138 (136-145) mmol/L Potassium 3.9 4.1 (3.5-5.1) mmol/L Chloride 100 108 H (98-107) mmol/L Carbon Dioxide 18 L 16 L (21-32) mmol/L Anion Gap 20 H 14 H (3-11) BUN 16 13 (6-23) mg/dl Creatinine 0.88 0.74 (0.6-1.2) mg/dl Est Cr Clr Drug Dosing 58.0 69.0 ml/min eGFR 82.03 100.99 BUN/Creatinine Ratio 18.2 17.6 (10-20) Glucose 292 H 275 H (70-99(Fasting)) mg/dl Calcium 9.8 8.4 L (8.6-10.3) mg/dl Magnesium 1.5 L (1.7-2.4) mg/dl Total Bilirubin 0.9 (0.2-1.0) mg/dl AST 11 L (13-39) U/L ALT 6 L (7-52) U/L Alkaline Phosphatase 82 (34-104) U/L Troponin I High Sens 5.2 (0-14) pg/ml Total Protein 8.3 (6.0-8.3) gm/dl Albumin 5.1 H (3.4-5.0) gm/dl Globulin 3.2 (2.5-4.0) gm/dl Albumin/Globulin Ratio 1.6 (0.9-2) Lipase 16 (11-82) U/L Urine Color Yellow Urine Appearance Clear (Clear) Urine pH 5.5 (4.5-7.5) Ur Specific [place] 1.024 (1.000-1.030) Urine Protein 1+ H (Negative) Urine Glucose (UA) 3+ H (Negative) Urine Ketones 4+ H (Negative) Urine Blood Negative (Negative) Urine Nitrite Negative (Negative) Urine Bilirubin Negative (Negative) Urine Urobilinogen Negative (Negative) Ur Leukocyte Esterase Negative (Negative) Urine WBC (Auto) 6-10 H (0-5) /hpf Urine RBC (Auto) 0-2 (0-2) /hpf U Hyaline Cast (Auto) 3-5 H (0-2) /lpf U Epithel Cells (Auto) 3-5 H (0-2) /hpf Urine Bacteria (Auto) None Seen (None Seen) Imaging Data Attestation: I personally reviewed and interpreted this imaging study as follows: Radiologist's Impression: Abdomen/Pelvis CT 07/06/24 01:33 EXAM: CT abd pelvis IV con only CLINICAL HISTORY: pain TECHNIQUE: Contiguous axial images were obtained from the level of the diaphragm to the pubic symphysis with intravenous contrast. Coronal and sagittal reconstructions were likewise performed and indicated to increase the sensitivity for detecting clinically relevant pathology. If IV contrast material had not been administered, the likelihood of detecting abnormalities relevant to the patient's condition would have been substantially decreased. CT scan was performed according to ALARA (as low as reasonable achievable). COMPARISON: 16:52:10 VENDOR MANAGEMENT CONSULTANT FINDINGS: The visualized lung bases are clear. The liver is normal in size and attenuation. No focal liver lesions are seen. There is no intra or extrahepatic biliary ductal dilatation. Hepatic vasculature is patent. The gallbladder is present. The spleen, pancreas, and adrenal glands are unremarkable. The kidneys are normal in size and attenuation. Left kidney shows hydronephrosis and hydroureter up to an obstructing calculus of size 2mm is noted in left vesicoureteric junction. Multiple 1-2 mm sized concretion are noted involving upper and mid calyx of left kidney. The ureters are normal in caliber and no ureteral calculi are seen. The bladder is normal in contour. Pelvic viscera are unremarkable. No focal or diffuse bowel wall thickening or evidence of bowel obstruction is identified. No evidence of inflamed appendix. Abdominal and pelvic vasculature is patent. No adenopathy or fluid collections are seen. No aggressive appearing osseous lesions are identified. IMPRESSION: 1. Left kidney shows hydronephrosis and hydroureter up to an obstructing calculus of size 2mm is noted in left vesicoureteric junction. -new finding. 2. Multiple 1-2 mm sized concretion are noted involving upper and mid calyx of left kidney.-stable. 3. Prior pneumobilia it completely resolved. Electronically signed by Francisco Orozco 07-06-2024 03:34 AM [facility] Narrative Prior records/ancillary studies reviewed. Triage Nursing notes reviewed. Additional history obtained from nursing The patient's history was concerning for nausea, vomiting, diarrhea, and abdominal pain. Differential diagnosis: Etiologies such as gastroenteritis, food borne illness, infections, appendicitis, diverticulitis, inflammatory bowel disease, obstruction, GI bleed, biliary pathology, as well as others were entertained. Physical examination findings: As above. Abdominal examination revealed mild tenderness. Vital signs reviewed and revealed stable. ER treatment provided: IV hydration 2 L NSS. Zofran, Pepcid and Bentyl were ordered Rocephin was ordered for possible UTI On reassessment the patient felt better. Patient was tolerating p.o. intake. Diagnostics interpretation by me: EKG ordered for weakness EKG: Normal sinus, normal intervals, no acute ST-T wave changes. Impression normal sinus rhythm independently interpreted by myself The labs Independently Interpreted by myself revealed magnesium 1.5 Leukocytosis Elevated anion gap most likely from dehydration and repeat was ordered after patient was hydrated as above. Urine concerning for possible infection and sent for culture. Prior culture was reviewed Imaging studies: Imaging was reviewed and read by radiology Consultation: A consultation was placed with the hospitalist. The case was discussed and diagnostics were reviewed. The patient was evaluated in the ER for further treatment. Consultation was placed with urology and the case discussed. The patient was evaluated by the urology team. This appears to be consistent with nausea, vomiting, diarrhea, left renal colic and dehydration with a leukocytosis. Patient was still feeling quite weak and nauseous. She was reassessed multiple times. She was hydrated and medicated as above. Medicine was consulted and the case is discussed. She will be evaluated for admission. Patient was given Rocephin for possible UTI. By the evaluation outlined above emergent etiologies such as appendicitis, diverticulitis, obstruction, cardiac sources, mesenteric ischemia, aortic pathology, inflammatory bowel disease, renal colic, PUD, biliary pathology, , as well as others were deemed relatively unlikely. The pt informed about the findings as listed above. All questions were answered and pleased with the treatment. The chart was completed utilizing [employer] Speech voice recognition software. Grammatical errors, random word insertions, pronoun errors, and incomplete sentences are an occassional consequence of this system due to software limitations, ambient noise, and hardware issues. Any formal questions or concerns about the content, text, or information contained within the body of this dictation should be directly addressed to the physician biology research assistant for clarification. Impression & Plan Renal colic on left side, Leukocytosis, Nausea, vomiting, and diarrhea, Hypomagnesemia Discharge Plan Visit Data Chief Complaint: Abdominal Pain Stated Complaint: NAUSEA/VOMITTING ED Provider: Sandra Diehl ED Midlevel Provider: Subha Carlin Discharge Problem: Renal colic on left side, Leukocytosis, Nausea, vomiting, and diarrhea, Hypomagnesemia Patient Disposition: Admitted As Inpatient Condition: Good Forms Stand Alone Forms: [employer] Prescriptions Prescriptions: No Action Trulicity 4.5 mg/0.5 mL pen injector 4.5 mg SUBCUT WK Referrals Referrals: Darrel Shah MD [Primary Care Provider] -
[2024-07-06] MEDS: OPTIRAY 320 100ml IV ONE (01:56)
[2024-07-06] MEDS: MAGNESIUM SULFATE / D5W 1 GM/100 ML BAG IV SCH (02:23)
[2024-07-06 02:29] LABS: Appearance Urine Clear (Clear); Bacteria Urine Automated None Seen (None Seen); Bilirubin Urine Negative (Negative); Blood Urine Negative (Negative); Color Urine Yellow; Glucose Urine UA 3+ (Negative); Ketones Urine 4+ (Negative); Leukocyte Esterase Urine Negative (Negative); Nitrite Urine Negative (Negative); Protein Urine 1+ (Negative); RBC Urine Automated 0-2 /hpf (0-2); Specific Gravity Urine 1.024 (1.000-1.030); Urobilinogen Urine Negative (Negative); pH Urine 5.5 (4.5-7.5)
[2024-07-06] MEDS: FAMOTIDINE 20MG/5ML IV PUSH IV ONE (02:35)
[2024-07-06] MEDS: MAGNESIUM SULFATE 1GM / D5W BAG IV ONE (02:36)
[2024-07-06] MEDS: ONDANSETRON INJ 2 MG/ML 2 ML VIAL ONE ×2 (02:36)
[2024-07-06] MEDS: SODIUM CHLORIDE 0.9% 1,000 ML IV ONE (03:22)
--- OUTSIDE RECORDS SUMMARY | 2024-07-06 03:31 | External Medical Summary | Summary of Care ---
Author Name Unknown Organization [facility] Address [address] [facility] [place] [address] Phone [phone] Care Team Providers Care Mailing Machine Operator Name Role Phone Darrel Shah MD Primary Care Provider [phone] Reason for Visit * Reason Onset Date Comments Pre Cert/Prior Auth 03/14/2024 Trulicity 4. 5 Encounter Details Date Type Department Care Team (Late st Contact Info) Description 03/14/2024 Telephone [facility] [address] [place] [address] Darrel Shah MD [address] [facility] [place] [address] Pre Cert/Prior Auth (Trulicity 4.5) Allergies Active Allergy Reactions Criticality Noted Date Comments Penicillins Hives 06/11/2014 documented as of this encounter (statuses as of 03/15/2024) Medications Gabapentin 100 MG Oral Capsule (Neurontin)Indic ations:Trochante beth bursitis of left hip One cap am, one cap mid day and 3 caps at bedtime for 2 weeks as needed for pain 120 Capsule 4 Active Additional Information Patient not taking.Reported on 12/22/2023 keTORolac Tromethamine 10 MG Oral Tablet (Toradol)Indicat ions:Trochanteri c bursitis of left hip Take 1 Tablet by mouth 4 times a day as needed for Pain, Severe. Do not take for longer than 5 days 20 Tablet 4 Active OneTouch Verio In Vitro Strip (Glucose Blood) Use up to 4 times a day E11.9 100 Strip 11 09/23/2023 11:52 AM EDT 4 Active metFORMIN HCl 500 MG Oral Tablet (Glucophage) TAKE 1 TABLET BY MOUTH 4 TIMES DAILY 360 Tablet 3 09/23/2023 11:52 AM EDT 4 Active Diclofenac Sodium 75 MG Oral Tablet Delayed Release (Voltaren) Take 1 Tablet by mouth in the morning and 1 Tablet before bedtime. With food.. 60 Tablet 3 4 Active OneTouch Verio w/Device Kit Use up to 4 times a day E11.9 1 Kit 4 Active OneTouch Delica Plus [id number] Use up to 4 times a day 400 Each 1 10/08/2023 6:54 PM EDT 4 Active Fluconazole 150 MG Oral Tablet (Diflucan)Indica tions:Acute vaginitis Take 1 tab. If in 72 hours from first dose symptoms are not resolved, please take second tab. 2 Tablet 4 Active Dulaglutide 4.5 MG/0.5ML Subcutaneous Solution Auto-injector (Tastemaker [employer]) Inject 4.5 mg under the skin once a week 6 mL 2 5 Active documented as of this encounter (statuses as of 03/15/2024) Active Problems Problem Noted Date Diagnosed Date DDD (degenerative disc disease), lumbar 09/22/19 24 Sacroiliitis, not elsewhere classified 4 Overweight (BMI 25.0-29.9) 03/13/2022 Smoking 03/13/2022 Type 2 diabetes mellitus wit h hemoglobin A1c goal of less than 7.5% 11/05/2021 Other hyperlipidemia 11/05/2021 Chronic bilateral low back pain with bilateral s ciatica 11/05/2021 Diabetic peripheral neuropathy 11/05/2021 documented as of this encounter (statuses as of 03/15/2024) Resolved Problems Problem Noted Date Diagnosed Date Resolved Date Scabies 04/09/2016 09/11/2022 documented as of this encounter (statuses as of 03/15/2024) Immunizations Name Administration Dates Next Due DTaP Dipth/Tet/Acell Pertussis (Infanrix), Peds 03/07/2014 Pneumococcal Conjugate Vaccine, 20-valent (Prevn ar20) 11/11/2022 Seasonal Influenza, PF, 6 M & above, IM , (FluLaval or Fluzone) 11/11/2022 documented as of this encounter Social History Tobacco Use Types Packs/Day Years Used Date Smoking Tobacco: Every Day Cigarettes Passive Smoke Exposure: Never Smokeless Tobacco: Never Comments:used to smoke heavi er Alcohol Use Standard Drinks/Week Comments No 0 (1 standard drink = 0.6 oz pur e alcohol) Utilities Answer Date Recorded Do you have trouble paying y our heating, water, or electric bill? (Adult - for ages 18 years and over) Not on file 08/11/2023 Is your family able to pay t he heat, water, or electric bill? (Household - for ages 0-17 years) Not on file 08/11/2023 Does your family have access to good internet? (Household - for ages 0-17 years) Not on file 08/11/2023 Social Connections Answer Date Recorded How often do you feel lonely or isolated from those around you? (Adult - for ages 18 years and over) Not on file 08/11/2023 Comments No Sex and Gender Information Value Date Recorded Sex Assigned at Not on file Legal Sex Female 4:52 PM EST Gender Identity Not on file Sexual Orientation Not on file documented as of this encounter Miscellaneous Notes * Telephone Encounter - Rossana Ball LPN - 03/15/2024 10:35 AM EST Yes they do, do you want me to place that one. * Telephone Encounter - Darrel Shah MD - 03/15/2024 9:42 AM EST DO They have only 3 mg one? * Telephone Encounter - Rossana Ball LPN - 03/15/2024 9:38 AM EST Tired to place a Prompt PA for Trulicity 4.5 mg. But the only thing that was coming up was TRULICITY 3 MG/0.5 ML PEN. Please advise. * Telephone Encounter - Darrel Shah MD - 03/15/2024 9:01 AM EST Please provide previous Sep 21 office note Her recent hba1c was more than 8 in nov 2023 * [facility]/14/2024 11:19 AM EST Please submit PA. Include the following documentation: 09/22/23 OV notes Most recent A1C results Please copy and paste the following information into PA form: No contraindications for use What other drugs is there medical record documentation of therapeutic failure on, intolerance to, or contraindication to for this condition? metformin Julito as urgent: No Diagnosis/ICD-10 Code(s): E11.9 If instantaneous decision is not received after submitting prior auth, please continue to follow upon this and route back to the [facility] pool if no decision is made by the insurance by 03/17/24, after clarifying with the pharmacy that the claim is still not processing. If PA is denied, please also route back to [facility] pool. Thanks, Lara Silverio [facility] Clinical Pharmacist Centralized Clinical Pharmacy Services ([facility]) [phone] * Telephone Encounter - Darrin Fields CPhT - 03/14/2024 10:54 AM EST This is a new PA request. Upon review of this prior authorization request, I verified this request is appropriate. This is prescribed by a department for which [facility] is authorized to review prior authorizations This is not a duplicate encounter regarding the same prior authorization The patient is planning to use insurance The insurance information listed in previous note is correct and the plan that is requiring prior authorization The insurance does not cover either brand or generic forms of this script as written without prior authorization The insurance does not cover any NDCs of this script without prior authorization RX Estimate tool confirms this script needs prior authorization Of note, there is nothing currently pending in [facility] for this request. Please advise how to proceed. Thank you, Anthony Fields ([facility]) Feeder Operator III [facility] Pharmacy Services ([facility]) 03/14/2024, 10:54 AM * Telephone Encounter - Deena Watts CPhT - 03/14/2024 9:13 AM EST Pharmacy calling to inform doctor that the patient's insurance will not pay for this medication without a completed prior authorization. Did confirm this information with the pharmacy. Pt's current insurance information is as follows: Patient name: Celsa Tenorio ID number: [id number] BIN number: [id number] PCN number: [facility] Group number: [id number] Subscriber name: Celsa Tenorio Primary or Secondary Insurance:Primary Medication: trulicity 4.5 Reason for Request: prior auth required Pharmacy and phone number: [facility] [phone] Rx plan and phone number: [facility] [phone] Is this a new medication for the patient? No. How did the patient obtain the medication on the lastfill? It was covered last time on this same insurance. What alternative medications does the pharmacy have in stock?: none Thank you, Deena Watts [facility] Feeder Operator III [facility] Pharmacy Services([facility]) 03/14/24 documented in this encounter Plan of Treatment Upcoming Encounters Date Type Department Care Team (Late st Contact Info) Description 05/24/2024 1:30 PM EDT [facility] [address] [place] [phone] [facility] [address] [place] [address] [place] [address] Health Maintenance Due Date Last Done Comments DISCUSS TOBACCO CESSATION (REFER TO SMARTSET #5453) 1978 Depression Screening 1990 Albumin/Creatinine Ratio 01/12/1996 Pap Smear 1999 Cervical Cancer Screening 01/12/2008 HPV/Co-Test 01/12/2008 Mammogram 2018 Cologuard 2023 Colonoscopy 2023 Colorectal Cancer Screening 2023 Fecal Occult Blood Test 2023 Sigmoidoscopy 2023 GFR 07/01/2023 06/30/2022, 11/05/2021 COVID-19 Vaccine ( season) 2023 Influenza Vaccine (FLU shot) (#1) 2023 11/11/2022 Diabetic Eye Exam 03/19/2024 03/19/2023, 03/19/2023 HbA1c 06/22/2024 12/23/2023, 05/0 09/2022, 03/13/2022, Additional history exists Diabetic Foot Exam 08/05/2024 08/06/2023 Lipid Panel 07/01/2027 06/30/2022 DTap/Tdap Vaccines (3 - Td or Tdap) 08/30/2032 08/30/2022, 03/07/2014, 03/07/2014 Pneumococcal Vaccine: Pediatrics (0 to 5 Years) and At-Risk Patients (6 to 18 Years and 19+ Years) Completed 11/11/2022 HIV Screening Discontinued HPV (Gardasil) Vaccine Aged Out No lo nger eligible based on patient's age to complete this topic Hepatitis B Vaccine Discontinued Hepatitis C Screening Discontinued MENINGOCOCCAL (MENACTRA/MENVEO) Aged Out No longer eligible based on patient's age to complete this topic documented as of this encounter Medical Devices Not on filedocumented as of this encounter Care Teams Mailing Machine Operator Relationship Specialty Start Date End Date Darrel Shah MD PCP - General Internal Medicine 03/06/22 documented as of this encounter
--- OUTSIDE RECORDS SUMMARY | 2024-07-06 03:31 | External Medical Summary | Summary of Care ---
Author Name Unknown Organization [facility] Address [address] [place] [address] Phone [phone] Care Team Providers Care Pillar Worker Name Role Phone Darrel Shah MD Primary Care Provider [phone] Reason for Visit * Reason Comments Dosage Adjustment Via Phone (anticoag Cl inic) Encounter Details Date Type Department Care Team (Late st Contact Info) Description 06/08/2024 6:10 PM EDT Pharmacy Pharmacy, [facility] [address] [place] [address] [place], [facility] [address] [place] [address] Type 2 diabetes mellitus with hemoglobin A1c goal of less than 7.5% ([facility])* Allergies Active Allergy Reactions Criticality Noted Date Comments Penicillins Hives 06/11/2014 documented as of this encounter (statuses as of 06/08/2024) Medications Gabapentin 100 MG Oral Capsule (Neurontin)Indic [...] 1 Kit 4 Active OneTouch Delica Plus [id number] Use up to 4 times a day 400 Each 1 10/08/2023 6:54 PM EDT 4 Active Fluconazole 150 MG Oral Tablet (Diflucan)Indica tions:Acute vaginitis Take 1 tab. If in 72 hours from first dose symptoms are not resolved, please take second tab. 2 Tablet 4 Active Dulaglutide 4.5 MG/0.5ML Subcutaneous Solution Auto-injector (MDconnectME) Inject 4.5 mg under the skin once a week 6 mL 1 05/31/2024 11:03 AM EDT 4 Active documented as of this encounter (statuses as of 06/08/2024) Active Problems Problem Noted Date Diagnosed Date [...] as of this encounter (statuses as of 06/08/2024) Resolved Problems Problem Noted Date Diagnosed Date Resolved Date Scabies 04/09/2016 09/11/2022 documented as of this encounter (statuses as of 06/08/2024) Immunizations Name Administration Dates Next Due DTaP [...] on file documented as of this encounter Progress Notes * Ruby Bañuelos CPhT - 06/08/2024 8:49 AM EDT Patient Phone Numbers Left message on patient’s answering machine to schedule MTDM appointment for DM management. [facility] message sent --no Clinic will follow up again in 2 week(s). [Attempt # 1] Ruby Bañuelos CPhT, ASTRID Pack Master II [facility] Services ([facility]) documented in this encounter Plan of Treatment Upcoming Encounters Date Type Department Care Team (Late st Contact Info) Description 06/29/2024 6:10 PM EDT Pharmacy Pharmacy, [address] [place] [phone] [address] [facility] [address] [facility] [place] [address] Health Maintenance Due Date Last Done Comments DISCUSS TOBACCO CESSATION (REFER TO SMARTSET #7605) 1978 Depression Screening 1990 Albumin/Creatinine Ratio 01/12/1996 Pap Smear 1999 Cervical Cancer Screening 01/12/2008 HPV/Co-Test 01/12/2008 Mammogram 2018 Cologuard 2023 Colonoscopy 2023 Colorectal Cancer Screening 2023 Fecal Occult Blood Test 2023 Sigmoidoscopy 2023 GFR 07/01/2023 06/30/2022, 11/05/2021 COVID-19 Vaccine ( season) 2023 Diabetic Eye Exam 03/19/2024 03/19/2023, 03/19/2023 HbA1c 06/22/2024 12/23/2023, 05/0 09/2022, 03/13/2022, Additional history exists Diabetic Foot Exam 08/05/2024 08/06/2023 Influenza Vaccine (FLU shot) (Season Ended) 2024 11/11/2022 Lipid Panel 07/01/2027 06/30/2022 DTap/Tdap Vaccines (3 [...] on patient's age to complete this topic Meningitis B Vaccine (Bexsero/Trumemba) Aged Out No longer eligible based on patient's age to complete this topic documented as of this encounter Medical Devices Not on filedocumented as of this encounter Visit Diagnoses Diagnosis Type 2 diabetes mellitus with hemoglobin A1c goal of less than 7.5% (HCC)- Primary documented in this encounter Care Teams Pillar Worker Relationship Specialty Start Date End Date Darrel Shah MD PCP - General Internal Medicine 03/06/22 documented as of this encounter
--- OUTSIDE RECORDS SUMMARY | 2024-07-06 03:31 | External Medical Summary | Summary of Care ---
Author Name Unknown Organization [facility] Address [address] [facility] [place] [address] Phone [phone] Care Team Providers Care Patient Care Associate Name Role Phone Darrel Shah MD Primary Care Provider [phone] Reason for Visit * Reason Onset Date Comments Pre Cert/Prior Auth 03/14/2024 Trulicity 4. 5 Encounter Details Date Type Department Care Team (Late st Contact Info) Description 03/14/2024 Telephone [facility] [address] [place] [address] Darrel Shah MD [address] [facility] [place] [address] Pre Cert/Prior Auth (Trulicity 4.5) Allergies [...] 1 Kit 4 Active OneTouch Delica Plus [id number] Use up to 4 times a day 400 Each 1 10/08/2023 6:54 PM EDT 4 Active Fluconazole 150 MG Oral Tablet (Diflucan)Indica tions:Acute vaginitis Take 1 tab. If in 72 hours from first dose symptoms are not resolved, please take second tab. 2 Tablet 4 Active Dulaglutide 4.5 MG/0.5ML Subcutaneous Solution Auto-injector (NumberPicture) Inject 4.5 mg under the skin once [...] encounter Miscellaneous Notes * Telephone Encounter - Darrel Shah MD - 03/15/2024 10:50 AM EST I increased trulicity dose to 4.5 in Maximino I ordered trulicity 4.5 yesterday That is what pt is taking currently * Telephone Encounter - Rossana Ball LPN [...] nov 2023 * Telephone Encounter - Lara Silverio [facility] - 03/14/2024 11:19 AM EST Please [...] upon this and route back to the [facility] pool if no decision is made by the insurance by 03/17/24, after clarifying with the pharmacy that the claim is still not processing. If PA is denied, please also route back to [facility] pool. Thanks, Lara Silverio [facility] Clinical Pharmacist Centralized Clinical Pharmacy Services ([facility]) [phone] * Telephone Encounter - Darrin Fields CPhT - 03/14/2024 10:54 AM EST This is a new PA request. Upon review of this prior authorization request, I verified this request is appropriate. This is prescribed by a department for which [facility] is authorized to review prior authorizations This [...] note, there is nothing currently pending in Center for this request. Please advise how to proceed. Thank you, Anthony Fields ([facility]) Live In Housekeeper III Centralized Clin[facility] Pharmacy Services ([facility]) 03/14/2024, 10:54 AM * Telephone Encounter - Deena Watts CPhT - 03/14/2024 9:13 AM EST Pharmacy calling to inform doctor that the patient's insurance will not pay for this medication without a completed prior authorization. Did confirm this information with the pharmacy. Pt's current insurance information is as follows: Patient name: Celsa Tenorio ID number: [id number] BIN number: [id number] PCN number: [id number] Group number: [id number] Subscriber name: Celsa Tenorio Primary or Secondary Insurance:Primary Medication: trulicity 4.5 Reason for Request: prior auth required Pharmacy and phone number: [facility] [phone] Rx plan and phone number: [facility] [phone] Is this a new medication for the patient? No. How did the patient obtain the medication on the lastfill? It was covered last time on this same insurance. What alternative medications does the pharmacy have in stock?: none Thank you, Deena Watts CphT Live In Housekeeper III [facility]) 03/14/24 documented in this encounter Plan of Treatment Upcoming Encounters Date Type Department Care Team (Late st Contact Info) Description 05/24/2024 1:30 PM EDT Office Visit Pharmacy, [address] [place] [address] [facility] [place] [facility] [address] [place] [address] Health Maintenance Due Date Last Done Comments DISCUSS TOBACCO CESSATION (REFER TO SMARTSET #2686) 1978 Depression Screening 1990 Albumin/Creatinine Ratio 01/12/1996 [...] filedocumented as of this encounter Care Teams Patient Care Associate Relationship Specialty Start Date End Date Darrel Shah MD PCP - General Internal Medicine 03/06/22 documented as of this encounter
--- OUTSIDE RECORDS SUMMARY | 2024-07-06 03:31 | External Medical Summary | Summary of Care ---
Author Name Unknown Organization [facility] Address [address] [facility] [place] [address] Phone [phone] Care Team Providers Care Tankroom Tender Name Role Phone Darrel Shah MD Primary Care Provider [phone] Encounter Details Date Type Department Care Team (Late st Contact Info) Description 07/05/2024 Telephone [facility] [address] [place] [address] Darrel Shah MD [address] [place] [address] Allergies Active Allergy Reactions Criticality Noted Date Comments Penicillins Hives 06/11/2014 documented as of this encounter (statuses as of 07/05/2024) Medications Gabapentin 100 MG Oral Capsule (Neurontin)Indic [...] 1 Kit 4 Active OneTouch Delica Plus [id number] Use up to 4 times a day 400 Each 1 10/08/2023 6:54 PM EDT 4 Active Fluconazole 150 MG Oral Tablet (Diflucan)Indica tions:Acute vaginitis Take 1 tab. If in 72 hours from first dose symptoms are not resolved, please take second tab. 2 Tablet 4 Active Dulaglutide 4.5 MG/0.5ML Subcutaneous Solution Auto-injector (Infomous) Inject 4.5 mg under the skin once a week 6 mL 1 05/31/2024 11:03 AM EDT 4 Active documented as of this encounter (statuses as of 07/05/2024) Active Problems Problem Noted Date Diagnosed Date [...] as of this encounter (statuses as of 07/05/2024) Resolved Problems Problem Noted Date Diagnosed Date Resolved Date Scabies 04/09/2016 09/11/2022 documented as of this encounter (statuses as of 07/05/2024) Immunizations Name Administration Dates Next Due DTaP [...] Telephone Encounter - Darrel Shah MD - 07/05/2024 3:20 PM EDT Has known type 2 DM With acute GI sx, pt needs to be seen by provider * Telephone Encounter - Nano Silva LPN - 07/05/2024 3:02 PM EDT FYI--Pt called she has an acute appointment tomorrow, 07/06, with [facility] [facility] regarding she's been vomiting since last night. Pt is unable to keep anything down and nurse advised she sip on gingerale, 7-up, Pepsi or Coke to stay hydrated with the vomiting. She did have diarrhea but that has stopped. She stated she did not eat or drink anything out of the ordinary; but, she did eat a strawberry after vomiting and it made her sicker. Nurse advised should she feel any worse before tomorrow to go to [facility] or [facility] for eval. ELVI Mcgill DNL [place] * Telephone Encounter - Arlene Virgen OSA - 07/05/2024 2:57 PM EDT Wants to speak to nurse feeling unwell documented in this encounter Plan of Treatment Upcoming Encounters Date Type Department Care Team (Late st Contact Info) Description 07/06/2024 2:20 PM EDT Office Visit [facility] [address] [place] [phone] Brigido Sabillon PA-C [address] [phone] Health Maintenance Due Date Last Done Comments DISCUSS TOBACCO CESSATION (REFER TO SMARTSET #9965) 1978 Depression Screening 1990 Albumin/Creatinine Ratio 01/12/1996 [...] filedocumented as of this encounter Care Teams Tankroom Tender Relationship Specialty Start Date End Date Darrel Shah MD PCP - General Internal Medicine 03/06/22 documented as of this encounter
--- OUTSIDE RECORDS SUMMARY | 2024-07-06 03:31 | External Medical Summary | Summary of Care ---
Author Name Unknown Organization [facility] Address [address] [facility] [place] [address] Phone [phone] Care Team Providers Care Speed Operator Name Role Phone Darrel Shah MD Primary Care Provider [phone] Reason for Visit * Reason Onset Date Comments Pre Cert/Prior Auth 03/14/2024 Trulicity 4. 5 Encounter Details Date Type Department Care Team (Late st Contact Info) Description 03/14/2024 Telephone [facility] [address] [place] [address] Darrel Shah MD [address] [facility] [place] [address] Pre Cert/Prior Auth (Trulicity 4.5) Allergies Active Allergy Reactions Criticality Noted Date Comments Penicillins Hives 06/11/2014 documented as of this encounter (statuses as of 03/16/2024) Medications Gabapentin 100 MG Oral Capsule (Neurontin)Indic [...] 1 Kit 4 Active OneTouch Delica Plus [id number] Use up to 4 times a day 400 Each 1 10/08/2023 6:54 PM EDT 4 Active Fluconazole 150 MG Oral Tablet (Diflucan)Indica tions:Acute vaginitis Take 1 tab. If in 72 hours from first dose symptoms are not resolved, please take second tab. 2 Tablet 4 Active Dulaglutide 4.5 MG/0.5ML Subcutaneous Solution Auto-injector (Copiun) Inject 4.5 mg under the skin once a week 6 mL 1 03/15/2024 1:39 PM EST 4 Active documented as of this encounter (statuses as of 03/16/2024) Active Problems Problem Noted Date Diagnosed Date [...] as of this encounter (statuses as of 03/16/2024) Resolved Problems Problem Noted Date Diagnosed Date Resolved Date Scabies 04/09/2016 09/11/2022 documented as of this encounter (statuses as of 03/16/2024) Immunizations Name Administration Dates Next Due DTaP [...] encounter Miscellaneous Notes * Telephone Encounter - Ro Shelby LPN - 03/16/2024 1:52 PM EST Started a new prior auth with CMM'c for Trulicity 4.5 mg/5 ml Randhawa # [id number] * Telephone Encounter - Darrel Shah MD - 03/15/2024 10:50 AM EST I increased trulicity dose to 4.5 in Aug I ordered trulicity 4.5 yesterday That is [...] 2023 * Telephone Encounter - Lara Silverio [facility] - 03/14/2024 11:19 AM EST Please submit [...] upon this and route back to the [facility] if no decision is made by the insurance by 03/17/24, after clarifying with the pharmacy that the claim is still not processing. If PA is denied, please also route back to [facility]. ThanksLara [facility] Clinical Pharmacist Central[facility] Clinical Pharmacy Services ([facility]) [phone] * Telephone Encounter - Darrin Fields CPhT - 03/14/2024 10:54 AM EST This is a new PA request. Upon review of this prior authorization request, I verified this request is appropriate. This is prescribed by a department for which [facility] is authorized to review prior authorizations This [...] note, there is nothing currently pending in [facility] for this request. Please advise how to proceed. Thank you, Anthony Fields ([facility]) Package Winder III [facility] Services ([facility]) 03/14/2024, 10:54 AM * Telephone Encounter - Deena Watts CPhT - 03/14/2024 9:13 AM EST Pharmacy calling to inform doctor that the patient's insurance will not pay for this medication without a completed prior authorization. Did confirm this information with the pharmacy. Pt's current insurance information is as follows: Patient name: Celsa Tenorio ID number: [id number] BIN number: [id number] PCN number: [facility] [place] Group number: [id number] Subscriber name: Celsa Tenorio Primary or Secondary Insurance:Primary Medication: trulicity 4.5 Reason for Request: prior auth required Pharmacy and phone number: [facility] [phone] Rx plan and phone number: [facility] [phone] Is this a new medication for the patient? No. How did the patient obtain the medication on the lastfill? It was covered last time on this same insurance. What alternative medications does the pharmacy have in stock?: none Thank you, Deena Watts CphT Package Winder III [facility]) 03/14/24 documented in this encounter Plan of Treatment Upcoming Encounters Date Type Department Care Team (Late st Contact Info) Description 05/24/2024 1:30 PM EDT [facility] [address] [place] [phone] [facility] [address] [facility] [place] [address] Health Maintenance Due Date Last Done Comments DISCUSS TOBACCO CESSATION (REFER TO SMARTSET #1125) 1978 Depression Screening 1990 Albumin/Creatinine Ratio 01/12/1996 [...] filedocumented as of this encounter Care Teams Speed Operator Relationship Specialty Start Date End Date Darrel Shah MD PCP - General Internal Medicine 03/06/22 documented as of this encounter
--- OUTSIDE RECORDS SUMMARY | 2024-07-06 03:31 | External Medical Summary | Summary of Care ---
Author Name Unknown Organization [facility] Address [address] [place] [address] Phone [phone] Care Team Providers Care Health Services Coordinator Name Role Phone Darrel Shah MD Primary Care Provider [phone] Reason for Visit * Reason Comments Dosage Adjustment Via Phone (anticoag Cl inic) Encounter Details Date Type Department Care Team (Late st Contact Info) Description 06/29/2024 6:10 PM EDT Pharmacy Pharmacy, [facility] [address] [place] [address] [place], [facility] [address] [place] [address] Type 2 diabetes mellitus with hemoglobin A1c goal of less than 7.5% ([facility])* Allergies Active Allergy Reactions Criticality Noted Date Comments Penicillins Hives 06/11/2014 documented as of this encounter (statuses as of 06/29/2024) Medications Gabapentin 100 MG Oral Capsule (Neurontin)Indic [...] 1 Kit 4 Active OneTouch Delica Plus [id number] Use up to 4 times a day 400 Each 1 10/08/2023 6:54 PM EDT 4 Active Fluconazole 150 MG Oral Tablet (Diflucan)Indica tions:Acute vaginitis Take 1 tab. If in 72 hours from first dose symptoms are not resolved, please take second tab. 2 Tablet 4 Active Dulaglutide 4.5 MG/0.5ML Subcutaneous Solution Auto-injector (authorGEN) Inject 4.5 mg under the skin once a week 6 mL 1 05/31/2024 11:03 AM EDT 4 Active documented as of this encounter (statuses as of 06/29/2024) Active Problems Problem Noted Date Diagnosed Date [...] as of this encounter (statuses as of 06/29/2024) Resolved Problems Problem Noted Date Diagnosed Date Resolved Date Scabies 04/09/2016 09/11/2022 documented as of this encounter (statuses as of 06/29/2024) Immunizations Name Administration Dates Next Due DTaP [...] as of this encounter Progress Notes * Sara Hudson, getter welder - 06/29/2024 8:27 AM EDT I spoke to Celsa to reschedule an appointment for diabetes management per referral from PCP. She stated she did not wish to reschedule and wants to be discharged from services. Patient is discharged from [facility] services at this time. Thank you, Sara Hudson Senior Software Qa Analyst [facility] Pharmacy Services ([facility]) 06/29/2024, 8:27 AM documented in this encounter Plan of Treatment Health Maintenance Due Date Last Done Comments DISCUSS TOBACCO CESSATION (REFER TO SMARTSET #6644) 1978 Depression Screening 1990 Albumin/Creatinine Ratio 01/12/1996 [...] Primary documented in this encounter Care Teams Health Services Coordinator Relationship Specialty Start Date End Date Darrel Shah MD PCP - General Internal Medicine 03/06/22 documented as of this encounter
--- OUTSIDE RECORDS SUMMARY | 2024-07-06 03:32 | External Medical Summary | Summary of Care ---
Author Name Unknown Organization [facility] Address [address] [facility] [place] [address] Phone [phone] Care Team Providers Care Dough Maker Name Role Phone Darrel Shah MD Primary Care Provider [phone] Reason for Visit * Reason Onset Date Comments Pre Cert/Prior Auth 03/14/2024 Trulicity 4. 5 Encounter Details Date Type Department Care Team (Late st Contact Info) Description 03/14/2024 Telephone [facility] [address] [address] Darrel Shah MD [address] [facility] [place] [address] Pre Cert/Prior Auth (Trulicity 4.5) Allergies [...] 1 Kit 4 Active OneTouch Delica Plus Qczecl32U Use up to 4 times a day 400 Each 1 10/08/2023 6:54 PM EDT 4 Active Fluconazole 150 MG Oral Tablet (Diflucan)Indica tions:Acute vaginitis Take 1 tab. If in 72 hours from first dose symptoms are not resolved, please take second tab. 2 Tablet 4 Active Dulaglutide 4.5 MG/0.5ML Subcutaneous Solution Auto-injector (Joroto) Inject 4.5 mg under the skin once [...] 2023 * Telephone Encounter - Lara Silverio [facility] - 03/14/2024 11:19 AM EST Please [...] upon this and route back to the [facility] pool if no decision is made by the insurance by 03/17/24, after clarifying with the pharmacy that the claim is still not processing. If PA is denied, please also route back to [facility] pool. Thanks, Lara Silverio [facility] Clinical Pharmacist Centralized Clinical Pharmacy Services ([facility]PS) [phone] * Telephone Encounter - Darrin Fields CPhT - 03/14/2024 10:54 AM EST This is a new PA request. Upon review of this prior authorization request, I verified this request is appropriate. This is prescribed by a department for which [facility] is authorized to review prior authorizations This [...] note, there is nothing currently pending in [facility] for this request. Please advise how to proceed. Thank you, Anthony Fields ([facility]) Offset Label Rewinder III [facility] Pharm[facility] Services ([facility]) 03/14/2024, 10:54 AM * Telephone Encounter - Deena Watts CPhT - 03/14/2024 9:13 AM EST Pharmacy calling to inform doctor that the patient's insurance will not pay for this medication without a completed prior authorization. Did confirm this information with the pharmacy. Pt's current insurance information is as follows: Patient name: Celsa Tenorio ID number: [id number] BIN number: [id number] PCN number: [facility] Group number: [id number] Subscriber name: Celsa Tenorio Primary or Secondary Insurance:Primary Medication: trulicity 4.5 Reason for Request: prior auth required Pharmacy and phone number: [facility] [phone] Rx plan and phone number: [facility] [phone] Is this a new medication for the patient? No. How did the patient obtain the medication on the lastfill? It was covered last time on this same insurance. What alternative medications does the pharmacy have in stock?: none Thank you, Deena Watts CphT Offset Label Rewinder III [facility]) 03/14/24 documented in this encounter Plan of Treatment Upcoming Encounters Date Type Department Care Team (Late st Contact Info) Description 05/24/2024 1:30 PM EDT Office [facility] [address] [phone] [place] [facility] [address] [place] [address] [place] [address] Health Maintenance Due Date Last Done Comments DISCUSS TOBACCO CESSATION (REFER TO SMARTSET #5975) 1978 Depression Screening 1990 Albumin/Creatinine Ratio 01/12/1996 Pap Smear 1999 Cervical Cancer Screening 01/12/2008 HPV/Co-Test 01/12/2008 Mammogram 2018 Cologuard 2023 Colonoscopy 2023 Colorectal Cancer Screening 2023 Fecal Occult Blood Test 2023 Sigmoidoscopy 2023 GFR 07/01/2023 06/30/2022, 11/05/2021 COVID-19 Vaccine ( - season) 2023 Influenza Vaccine (FLU shot) (#1) [...] filedocumented as of this encounter Care Teams Dough Maker Relationship Specialty Start Date End Date Darrel Shah MD PCP - General Internal Medicine 03/06/22 documented as of this encounter
--- OUTSIDE RECORDS SUMMARY | 2024-07-06 03:32 | External Medical Summary | Summary of Care ---
Author Name Unknown Organization [facility] Address [address] [facility] [place] [address] Phone [phone] Care Team Providers Care Electrical Controls Assembler Name Role Phone Darrel Shah MD Primary Care Provider [phone] Reason for Visit * Reason Onset Date Comments Pre Cert/Prior Auth 03/14/2024 Trulicity 4. 5 Encounter Details Date Type Department Care Team (Late st Contact Info) Description 03/14/2024 Telephone [facility] [address] [address] [address] Darrel Shah MD [address] [facility] [place] [address] Pre Cert/Prior Auth (Trulicity 4.5) Allergies [...] 1 Kit 4 Active OneTouch Delica Plus Igiwdd04I Use up to 4 times a day 400 Each 1 10/08/2023 6:54 PM EDT 4 Active Fluconazole 150 MG Oral Tablet (Diflucan)Indica tions:Acute vaginitis Take 1 tab. If in 72 hours from first dose symptoms are not resolved, please take second tab. 2 Tablet 4 Active Dulaglutide 4.5 MG/0.5ML Subcutaneous Solution Auto-injector (Syncurity) Inject 4.5 mg under the skin once [...] 2023 * Telephone Encounter - Lara Silverio [facility] - 03/14/2024 11:19 AM EST Please [...] route back to the [facility] pool if no decision is made by the insurance by 03/17/24, after clarifying with the pharmacy that the claim is still not processing. If PA is denied, please also route back to [facility]. Thanks, Lara Silverio, [facility] Clinical Pharmacist Centralized Clinical Pharmacy Services ([facility]PS) [phone] * Telephone Encounter - Darrin Fields CPhT - 03/14/2024 10:54 AM EST This is a new PA request. Upon review of this prior authorization request, I verified this request is appropriate. This is prescribed by a department for which [facility] is authorized to review prior authorizations This [...] how to proceed. Thank you, Anthony Fields ([facility]) Inspector Subassemblies III [facility] ([facility]) 03/14/2024, 10:54 AM * Telephone Encounter - Deena Watts CPhT - 03/14/2024 9:13 AM EST Pharmacy calling to inform doctor that the patient's insurance will not pay for this medication without a completed prior authorization. Did confirm this information with the pharmacy. Pt's current insurance information is as follows: Patient name: Celsa Tenorio ID number: [id number] BIN number: [id number] PCN number: [facility] Group number: [id number] Subscriber name: Celsa Tenorio Primary or Secondary Insurance:Primary Medication: trulicity 4.5 Reason for Request: prior auth required Pharmacy and phone number: [facility] [phone] Rx plan and phone number: [facility] [phone] Is this a new medication for the patient? No. How did the patient obtain the medication on the lastfill? It was covered last time on this same insurance. What alternative medications does the pharmacy have in stock?: none Thank you, Deena Watts CphT Inspector Subassemblies III [facility]) 03/14/24 documented in this encounter Plan of Treatment Upcoming Encounters Date Type Department Care Team (Late st Contact Info) Description 05/24/2024 1:30 PM EDT [facility] [address] [facility] [place] [address] [place] [facility] [address] [place] [address] Health Maintenance Due Date Last Done Comments DISCUSS TOBACCO CESSATION (REFER TO SMARTSET #0827) 1978 Depression Screening 1990 Albumin/Creatinine Ratio 01/12/1996 [...] filedocumented as of this encounter Care Teams Electrical Controls Assembler Relationship Specialty Start Date End Date Darrel Shah MD PCP - General Internal Medicine 03/06/22 documented as of this encounter
--- OUTSIDE RECORDS SUMMARY | 2024-07-06 03:32 | External Medical Summary | Summary of Care ---
Author Name Unknown Organization [facility] Address [address] [facility] [place] [address] Phone [phone] Care Team Providers Care Rn Cardiology Name Role Phone Darrel Shah MD Primary Care Provider [phone] Reason for Visit * Reason Onset Date Comments Pre Cert/Prior Auth 03/14/2024 Trulicity 4. 5 Encounter Details Date Type Department Care Team (Late st Contact Info) Description 03/14/2024 Telephone [facility] [address] [address] [address] Darrel Shah MD 226 [facility] [place] [address] Pre Cert/Prior Auth (Trulicity 4.5) Allergies [...] 1 Kit 4 Active OneTouch Delica Plus Tplklo61O Use up to 4 times a day 400 Each 1 10/08/2023 6:54 PM EDT 4 Active Fluconazole 150 MG Oral Tablet (Diflucan)Indica tions:Acute vaginitis Take 1 tab. If in 72 hours from first dose symptoms are not resolved, please take second tab. 2 Tablet 4 Active Dulaglutide 4.5 MG/0.5ML Subcutaneous Solution Auto-injector (Bidstalk) Inject 4.5 mg under the skin once [...] 2023 * Telephone Encounter - Lara Silverio [facility] - 03/14/2024 11:19 AM EST Please submit [...] upon this and route back to the [facility] pool if no decision is made by the insurance by 03/17/24, after clarifying with the pharmacy that the claim is still not processing. If PA is denied, please also route back to [facility] pool. Thanks, Lara Silverio [facility] Clinical Pharmacist Centralized Clinical Pharmacy Services ([facility]) [phone] * Telephone Encounter - Darrin Fields CPhT - 03/14/2024 10:54 AM EST This is a new PA request. Upon review of this prior authorization request, I verified this request is appropriate. This is prescribed by a department for which [facility] is authorized to review prior authorizations This [...] note, there is nothing currently pending in [facility] for this request. Please advise how to proceed. Thank you, Anthony Fields ([facility]) Fitter Welder III [facility]ized [facility] Pharmacy Services ([facility]) 03/14/2024, 10:54 AM * Telephone Encounter - Deena Watts CPhT - 03/14/2024 9:13 AM EST Pharmacy calling to inform doctor that the patient's insurance will not pay for this medication without a completed prior authorization. Did confirm this information with the pharmacy. Pt's current insurance information is as follows: Patient name: Celsa Tenorio ID number: [id number] BIN number: [id number] PCN number: [facility] Group number: [id number] Subscriber name: Celsa Tenorio Primary or Secondary Insurance:Primary Medication: trulicity 4.5 Reason for Request: prior auth required Pharmacy and phone number: [facility] [phone] Rx plan and phone number: [facility] [phone] Is this a new medication for the patient? No. How did the patient obtain the medication on the lastfill? It was covered last time on this same insurance. What alternative medications does the pharmacy have in stock?: none Thank you, Deena Watts CphT Fitter Welder III [facility]) 03/14/24 documented in this encounter Plan of Treatment Upcoming Encounters Date Type Department Care Team (Late st Contact Info) Description 05/24/2024 1:30 PM EDT Office [facility] [address] [phone] [place] [facility] [address] [place] [address] [place] [address] Health Maintenance Due Date Last Done Comments DISCUSS TOBACCO CESSATION (REFER TO SMARTSET #0812) 1978 Depression Screening 1990 Albumin/Creatinine Ratio 01/12/1996 [...] filedocumented as of this encounter Care Teams Rn Cardiology Relationship Specialty Start Date End Date Darrel Shah MD PCP - General Internal Medicine 03/06/22 documented as of this encounter
--- OUTSIDE RECORDS SUMMARY | 2024-07-06 03:32 | External Medical Summary | Summary of Care ---
Author Name Unknown Organization [facility] Address [address] [facility] [place] [address] Phone [phone] Care Team Providers Care Senior Test Analyst Name Role Phone Darrel Shah MD Primary Care Provider [phone] Reason for Visit * Reason Onset Date Comments Pre Cert/Prior Auth 03/14/2024 Trulicity 4. 5 Encounter Details Date Type Department Care Team (Late st Contact Info) Description 03/14/2024 Telephone [facility] [address] [address] Darrel Shah MD [address] [facility] [address] Pre Cert/Prior Auth (Trulicity 4.5) Allergies [...] 1 Kit 4 Active OneTouch Delica Plus Ontjlb91D Use up to 4 times a day 400 Each 1 10/08/2023 6:54 PM EDT 4 Active Fluconazole 150 MG Oral Tablet (Diflucan)Indica tions:Acute vaginitis Take 1 tab. If in 72 hours from first dose symptoms are not resolved, please take second tab. 2 Tablet 4 Active Dulaglutide 4.5 MG/0.5ML Subcutaneous Solution Auto-injector ([employer]) Inject 4.5 mg under the skin once [...] nov 2023 * Telephone Encounter - Lara Silverio, [facility] - 03/14/2024 11:19 AM EST [...] upon this and route back to the [facility] pool if no decision is made by the insurance by 03/17/24, after clarifying with the pharmacy that the claim is still not processing. If PA is denied, please also route back to [facility]. Thanks, Lara Silverio [facility] Clinical Pharmacist Centralized Clinical Pharmacy Services ([facility]) [phone] * Telephone Encounter - Darrin Fields CPhT - 03/14/2024 10:54 AM EST This is a new PA request. Upon review of this prior authorization request, I verified this request is appropriate. This is prescribed by a department for which [facility] is authorized to review prior authorizations [...] there is nothing currently pending in [facility] for this request. Please advise how to proceed. Thank you, Anthony Fields (hoisting engineer pile driving) Sales Center Manager III [facility]ized [facility] Services ([facility]) 03/14/2024, 10:54 AM * Telephone Encounter - Deena Watts CPhT - 03/14/2024 9:13 AM EST Pharmacy calling to inform doctor that the patient's insurance will not pay for this medication without a completed prior authorization. Did confirm this information with the pharmacy. Pt's current insurance information is as follows: Patient name: Celsa Tenorio ID number: [id number] BIN number: [id number] [place] [facility] [place] number: [id number] Subscriber name: Celsa Tenorio Primary or Secondary Insurance:Primary Medication: trulicity 4.5 Reason for Request: prior auth required Pharmacy and phone number: [facility] [phone] Rx plan and phone number: [facility] [phone] Is this a new medication for the patient? No. How did the patient obtain the medication on the lastfill? It was covered last time on this same insurance. What alternative medications does the pharmacy have in stock?: none Thank you, Deena Watts CphT Sales Center Manager III [facility] Pharmacy Services([facility]) 03/14/24 documented in this encounter Plan of Treatment Upcoming Encounters Date Type Department Care Team (Late st Contact Info) Description 05/24/2024 1:30 PM EDT [facility] [address] [place] [phone] [place] [facility] [address], [place] [phone] Health Maintenance Due Date Last Done Comments DISCUSS TOBACCO CESSATION (REFER TO SMARTSET #4571) 1978 Depression Screening 1990 Albumin/Creatinine Ratio 01/12/1996 [...] filedocumented as of this encounter Care Teams Senior Test Analyst Relationship Specialty Start Date End Date Darrel Shah MD PCP - General Internal Medicine 03/06/22 documented as of this encounter
--- OUTSIDE RECORDS SUMMARY | 2024-07-06 03:32 | External Medical Summary | Summary of Care ---
Author Name Unknown Organization [facility] Address [address] [place] [address] Phone [phone] Care Team Providers Care Registered Pharmacy Technician Name Role Phone Darrel Shah MD Primary Care Provider [phone] Encounter Details Date Type Department Care Team (Late st Contact Info) Description 03/14/2024 Population Health External Data Unspecified Department Allergies Active Allergy Reactions Criticality Noted Date Comments Penicillins Hives 06/11/2014 documented as of this encounter (statuses as of 03/14/2024) Medications Gabapentin 100 MG Oral Capsule (Neurontin)Indic [...] 1 Kit 4 Active OneTouch Delica Plus [id number] Use up to 4 times a day 400 Each 1 10/08/2023 6:54 PM EDT 4 Active Fluconazole 150 MG Oral Tablet (Diflucan)Indica tions:Acute vaginitis Take 1 tab. If in 72 hours from first dose symptoms are not resolved, please take second tab. 2 Tablet 4 Active Dulaglutide 4.5 MG/0.5ML Subcutaneous Solution Auto-injector ([employer]) Inject 4.5 mg under the skin once a week 6 mL 2 5 Active documented as of this encounter (statuses as of 03/14/2024) Active Problems Problem Noted Date Diagnosed Date [...] as of this encounter (statuses as of 03/14/2024) Resolved Problems Problem Noted Date Diagnosed Date Resolved Date Scabies 04/09/2016 09/11/2022 documented as of this encounter (statuses as of 03/14/2024) Immunizations Name Administration Dates Next Due DTaP [...] on file documented as of this encounter Plan of Treatment Upcoming Encounters Date Type Department Care Team (Late st Contact Info) Description 05/24/2024 1:30 PM EDT Office Visit Pharmacy, [address] [facility] [place] [phone] [facility] [address] [facility] [place] [address] Health Maintenance Due Date Last Done Comments DISCUSS TOBACCO CESSATION (REFER TO SMARTSET #[id number]) 1978 Depression Screening 1990 Albumin/Creatinine Ratio 01/12/1996 [...] filedocumented as of this encounter Care Teams Registered Pharmacy Technician Relationship Specialty Start Date End Date Darrel Shah MD PCP - General Internal Medicine 03/06/22 documented as of this encounter
--- NOTE | 2024-07-06 03:34 | CT Scan Report ---
EXAM: CT abd pelvis IV con only CLINICAL HISTORY: pain TECHNIQUE: Contiguous axial images were obtained from the level of the diaphragm to the pubic symphysis with intravenous contrast. Coronal and sagittal reconstructions were likewise performed and indicated to increase the sensitivity for detecting clinically relevant pathology. If IV contrast material had not been administered, the likelihood of detecting abnormalities relevant to the patient's condition would have been substantially decreased. CT scan was performed according to ALARA (as low as reasonable achievable). COMPARISON: 16:52:10 CREWMAN MAIN BATTLE TANK FINDINGS: The visualized lung bases are clear. The liver is normal in size and attenuation. No focal liver lesions are seen. There is no intra or extrahepatic biliary ductal dilatation. Hepatic vasculature is patent. The gallbladder is present. The spleen, pancreas, and adrenal glands are unremarkable. The kidneys are normal in size and attenuation. Left kidney shows hydronephrosis and hydroureter up to an obstructing calculus of size 2mm is noted in left vesicoureteric junction. Multiple 1-2 mm sized concretion are noted involving upper and mid calyx of left kidney. The ureters are normal in caliber and no ureteral calculi are seen. The bladder is normal in contour. Pelvic viscera are unremarkable. No focal or diffuse bowel wall thickening or evidence of bowel obstruction is identified. No evidence of inflamed appendix. Abdominal and pelvic vasculature is patent. No adenopathy or fluid collections are seen. No aggressive appearing osseous lesions are identified. IMPRESSION: 1. Left kidney shows hydronephrosis and hydroureter up to an obstructing calculus of size 2mm is noted in left vesicoureteric junction. -new finding. 2. Multiple 1-2 mm sized concretion are noted involving upper and mid calyx of left kidney.-stable. 3. Prior pneumobilia it completely resolved. Electronically signed by Francisco Orozco 07-06-2024 03:34 AM
--- NOTE | 2024-07-06 04:14 | Urology Consultation ---
Date of Consultation July 06, 2024 Assessment & Plan (1) Renal colic on left side: The patient is being admitted on the hospitalist service. From a urologic perspective we recommend the following: Provide analgesics Provide antiemetics Further IV fluid for hydration Would recommend initiating Flomax for expulsive therapy. I have ordered first dose to be given now She has been placed on empiric Rocephin which may continue Would keep patient n.p.o. for the present time Patient be reevaluated by her dayshift team on 07/06/2024 to determine if cystoscopy will be required. At the present time the patient is normotensive without tachycardia or fever and is nontoxic-appearing Additional recommendations were forthcoming based on her clinical course as unfolds History of Present Illness Reason for Consultation: Nephrolithiasis History of Present Illness This is a 44-year-old female who presented to the emergency department secondary to pain across her lower back. Patient does note that the pain is worse on the left side compared to the right. She has had associated nausea and vomiting. She denies any fevers, shakes, or chills. She denies any dysuria or hematuria. She notes that she has had kidney stones in the past requiring cystoscopy, with the most recent episode being in September 2022 at which time she required laser lithotripsy and stone removal and left ureteral stent exchange. Since arrival to the hospital the patient has had labs and imaging which independent reviewed. A CT scan of the abdomen pelvis showed the patient had left-sided hydronephrosis secondary to obstructing kidney stone measuring approximately 2 mm which was at the left ureterovesical junction. CBC revealed white blood cell count was elevated at 26.8. Hemoglobin and hematocrit as well as a platelet count were normal. Chemistry profile was pending. Urinalysis was negative for nitrites as well as leukocyte esterase. There are 6-10 white blood cells per high-power field and no bacteria. At the time my interview she was resting comfortably in bed and she was in no distress. Allergies Allergy/AdvReac Type Severity Reaction Status Date / Time Penicillins Allergy Intermediate Rash Verified 07/06/24 01:18 Home Medications Medication Instructions Recorded Confirmed Type dulaglutide 4.5 mg/0.5 mL 4.5 mg subcut WK 07/06/24 07/06/24 History subcutaneous pen injector (Trulicity) Patient History Medical History Nephrolithiasis Ureteral stent present Arthritis History of kidney stones Diabetes mellitus, type 2 Surgical History History of hysterectomy History of urethral stent History of lithotripsy Hx of knee surgery RT History of cystoscopy History of bilateral tubal ligation History of tooth extraction Family History Father Diabetes Family history of diabetes mellitus Uncle Family history of diabetes mellitus Other No family history of adverse response to anesthesia Denies family history of Colon cancer Ovarian cancer Prostate cancer Myocardial infarction Breast cancer Social History Smoking Status: Current every day smoker Tobacco Type: Cigarettes Cigarettes Per Day: 3; Second Hand Exposure: Yes; Do You Dip or Chew Tobacco: No; Hx Alcohol Use: No Hx Substance Use: No Preferred Language: Mohawk Communication Ability: Effective Visual Impairment: No Limitations Conduit Reamer Operator Required: No Beliefs That Will Affect Care: None marital status: Single Current Living Situation: Significant Other Current Living Situation Comment: WITH BOYFRIEND AND SON current occupational status: unemployed Feels Safe at Home: Yes Assistive Devices: None Review of Systems Review of Systems: All systems reviewed & are unremarkable except as noted in HPI & below Physical Exam Constitutional: WD/WN, vitals as above Eyes: no conjunctival abnormality ENMT: Ears: no hearing impairment and no external ear abnormality Mouth: no oropharynx abnormality Neck: trachea midline Respiratory: normal respiratory effort; no respiratory distress and no labored breathing Cardiovascular: Rate/Rhythm: regular rate and regular rhythm Gastrointestinal (Abdomen): Abdomen is soft without distention. There is no rebound tenderness guarding, or signs of peritonitis Musculoskeletal: No calf tenderness Skin: no rashes Neurologic: moves all extremities Psychiatric: A+Ox3, euthymic affect Genitourinary: Left CVA tenderness noted with percussion. No CVA tenderness with percussion on the right Results & Data Vital Signs (Past 12 Hours) Vital Signs Temp Pulse Pulse Resp BP BP Pulse Ox 07/06/24 03:00 73 17 143/63 H 98 07/06/24 02:12 100 07/06/24 02:00 94 H 25 H 07/06/24 01:45 69 25 H 07/06/24 01:31 142/73 H 07/06/24 01:27 75 25 H 07/06/24 01:21 70 15 98 07/06/24 01:02 07/06/24 01:01 174/98 H 07/06/24 01:01 174/98 H 07/06/24 00:53 75 07/06/24 00:52 147/75 H 07/06/24 00:38 36.7 C 68 16 147/75 H 95 O2 Del Method 07/06/24 03:00 Room Air 07/06/24 02:12 07/06/24 02:00 07/06/24 01:45 07/06/24 01:31 07/06/24 01:27 07/06/24 01:21 07/06/24 01:02 Room Air 07/06/24 01:01 07/06/24 01:01 07/06/24 00:53 07/06/24 00:52 07/06/24 00:38 PG Care Time/CCT Total # of Minutes Spent Total Time Spent with Patient: Total time spent is greater than 50% in coordination of care (as documented) at patient's floor/unit and/or counseling patient: Coding Level of Care Code 00001 IN/OBS CONSULT LVL 5,80M Diagnoses Renal colic on left side N23
[2024-07-06] MEDS: cefTRIAXone SODIUM 1,000 MG/50 ML BAG IV STA (04:18)
[2024-07-06] MEDS: TAMSULOSIN HCL 0.4 MG CAP PO STA (04:55)
[2024-07-06 04:59] LABS: BUN Creatinine Ratio 17.6 (10-20); Calcium 8.4 mg/dl (8.6-10.3); Potassium 4.1 mmol/L (3.5-5.1)
--- NOTE | 2024-07-06 05:22 | History & Physical Report ---
Date of Service July 06, 2024 Assessment & Plan (1) Nausea, vomiting, and diarrhea: Plan: 44-year-old female with past medical history significant for type 2 diabetes, diabetic peripheral neuropathy, hyperlipidemia, chronic low back pain, degenerative disease, sacroiliitis, presents with nausea vomiting abdominal pain and diarrhea and also found to have left kidney stone. Since last couple days having a lot of nausea and vomitings. Today vomiting slightly better. Having Abdominal Pain. Had Few Episodes of Diarrhea. Denies Any Fevers. No Chest Pain or Shortness of Breath. No Cough. Hemodynamics are okay. Nausea vomiting and diarrhea Abdominal pain Has leukocytosis Possible gastroenteritis Will follow stool studies N.p.o. for now, IV fluids and pain control and antiemetics as needed Left kidney stone CAT scan showing left hydronephrosis and hydroureter with obstructing calculus of size 2 mm in the left vesicoureteric junction Appreciate urology help ER gave Rocephin which will be continued N.p.o., IV fluids, IV pain meds as needed and Flomax Diabetes Hold metformin and Trulicity Sliding scale Will monitor Hypomagnesia Replaced by ER Will follow labs DVT prophylaxis SCDs Disposition Medical floor Full code. History of Present Illness Chief Complaint: Nausea vomiting abdominal pain diarrhea and Found to have kidney stone Primary Care Provider: Darrel Shah MD 44-year-old female with past medical history significant for type 2 diabetes, diabetic peripheral neuropathy, hyperlipidemia, chronic low back pain, degenerative disease, sacroiliitis, presents with nausea vomiting abdominal pain and diarrhea and also found to have left kidney stone. Since last couple days having a lot of nausea and vomitings. Today vomiting slightly better. Having Abdominal Pain. Had Few Episodes of Diarrhea. Denies Any Fevers. No Chest Pain or Shortness of Breath. No Cough. Hemodynamics are okay. Past medical history. As mentioned above Past surgical history. None as per epic Social history. History of smoking. No alcohol use. No drug use. Family history. No family history on file. Allergies Allergy/AdvReac Type Severity Reaction Status Date / Time Penicillins Allergy Intermediate Rash Verified 07/06/24 01:18 Home Medications Medication Instructions Recorded Confirmed Type dulaglutide 4.5 mg/0.5 mL 4.5 mg subcut WK 07/06/24 07/06/24 History subcutaneous pen injector (Trulicity) metformin 500 mg tablet 500 mg PO QID 07/06/24 07/06/24 History Past Med/Surg History Problem List Hypomagnesemia (Acute) Nausea, vomiting, and diarrhea (Acute) Leukocytosis (Acute) Renal colic on left side (Acute) Severe sepsis Acute UTI (Acute) Leukocytosis (Acute) Acute hyperglycemia (Acute) Ureterolithiasis (Acute) Renal colic on left side (Acute) Impingement syndrome, shoulder, left Mechanical low back pain Constipation Encounter for pre-operative examination Diabetes mellitus with renal manifestations, uncontrolled (Chronic) Microalbuminuria Pulmonary valve disorder (Chronic) pt unaware Nephrolithiasis (Chronic) Hypertriglyceridemia (Chronic) Medical History Nephrolithiasis Ureteral stent present Arthritis History of kidney stones Diabetes mellitus, type 2 Surgical History History of hysterectomy History of urethral stent History of lithotripsy Hx of knee surgery RT History of cystoscopy History of bilateral tubal ligation History of tooth extraction Family History Father Diabetes Family history of diabetes mellitus Uncle Family history of diabetes mellitus Other No family history of adverse response to anesthesia Denies family history of Colon cancer Ovarian cancer Prostate cancer Myocardial infarction Breast cancer Social History Smoking Status: Current every day smoker Tobacco Type: Cigarettes Cigarettes Per Day: 3; Second Hand Exposure: Yes; Do You Dip or Chew Tobacco: No; Hx Alcohol Use: No Hx Substance Use: No Preferred Language: [place] Communication Ability: Effective Visual Impairment: No Limitations Airline Pilot/First Officer Required: No Beliefs That Will Affect Care: None marital status: Single Current Living Situation: Significant Other Current Living Situation Comment: WITH BOYFRIEND AND SON current occupational status: unemployed Feels Safe at Home: Yes Assistive Devices: None Review of Systems Review of Systems: All systems reviewed & are unremarkable except as noted in HPI & below Physical Exam Physical Exam: General- Not in distress Head- atraumatic Eyes- PERRL. ENT- oropharynx clear Neck- supple, no JVD. Lungs- clear to auscultation no wheezing or crackles Heart- regular rhythm; no murmur, no gallop,. Abdomen- normal bowel sounds, soft, diffuse tender, no distension Extremities- no pretibial edema, no erythema seen Neuro- alert, oriented PERRL, no facial palsy; no dysarthria; moves extremities Results & Data Results & Data Vital Signs (Past 12 Hours) Vital Signs Temp Pulse Pulse Resp BP BP Pulse Ox 07/06/24 04:45 76 07/06/24 03:00 73 17 143/63 H 98 07/06/24 02:12 100 07/06/24 02:00 94 H 25 H 07/06/24 01:45 69 25 H 07/06/24 01:31 142/73 H 07/06/24 01:27 75 25 H 07/06/24 01:21 70 15 98 07/06/24 01:02 07/06/24 01:01 174/98 H 07/06/24 01:01 174/98 H 07/06/24 00:53 75 07/06/24 00:52 147/75 H 07/06/24 00:38 36.7 C 68 16 147/75 H 95 O2 Del Method 07/06/24 04:45 07/06/24 03:00 Room Air 07/06/24 02:12 07/06/24 02:00 07/06/24 01:45 07/06/24 01:31 07/06/24 01:27 07/06/24 01:21 07/06/24 01:02 Room Air 07/06/24 01:01 07/06/24 01:01 07/06/24 00:53 07/06/24 00:52 07/06/24 00:38 Diagnostic Findings Laboratory Results WBC 26.88 K/ul (4.8-10.8) H 07/06/24 00:57 RBC 5.27 M/uL (4.20-5.40) 07/06/24 00:57 Hgb 15.5 g/dl (12.0-16.0) 07/06/24 00:57 Hct 44.8 % (37.0-47.0) 07/06/24 00:57 MCV 85.0 fL (80.0-100.0) 07/06/24 00:57 MCH 29.4 pg (25.0-34.0) 07/06/24 00:57 MCHC 34.6 g/dL (32.0-36.0) 07/06/24 00:57 RDW Std Deviation 37.8 fL (36.4-46.3) 07/06/24 00:57 RDW Coeff of Jorge 12.3 % (11.5-14.5) 07/06/24 00:57 Plt Count 284 K/uL (130-400) 07/06/24 00:57 MPV 9.6 fL (9.4-12.4) 07/06/24 00:57 Immature Gran % (Auto) 0.9 % 07/06/24 00:57 Neut % (Auto) 85.2 % 07/06/24 00:57 Lymph % (Auto) 9.7 % 07/06/24 00:57 Patrick % (Auto) 3.8 % 07/06/24 00:57 Eos % (Auto) 0.0 % 07/06/24 00:57 Baso % (Auto) 0.4 % 07/06/24 00:57 Neut # (Auto) 22.90 K/uL (1.40-6.50) H 07/06/24 00:57 Lymph # (Auto) 2.61 K/uL (1.20-3.40) 07/06/24 00:57 Patrick # (Auto) 1.02 K/uL (0.11-0.59) H 07/06/24 00:57 Eos # (Auto) 0.01 K/uL (0.00-0.50) 07/06/24 00:57 Baso # (Auto) 0.10 K/uL (0.00-0.20) 07/06/24 00:57 Immature Gran # (Auto) 0.24 K/uL (0.01-0.20) H 07/06/24 00:57 Echinocytes 1+ 07/06/24 00:57 Sodium 138 mmol/L (136-145) 07/06/24 04:21 Potassium 4.1 mmol/L (3.5-5.1) 07/06/24 04:21 Chloride 108 mmol/L (98-107) H 07/06/24 04:21 Carbon Dioxide 16 mmol/L (21-32) L 07/06/24 04:21 Anion Gap 14 (3-11) H 07/06/24 04:21 BUN 13 mg/dl (6-23) 07/06/24 04:21 Creatinine 0.74 mg/dl (0.6-1.2) 07/06/24 04:21 Est Cr Clr Drug Dosing 69.0 ml/min 07/06/24 04:21 eGFR 100.99 07/06/24 04:21 BUN/Creatinine Ratio 17.6 (10-20) 07/06/24 04:21 Glucose 275 mg/dl (70-99(Fasting)) H 07/06/24 04:21 Calcium 8.4 mg/dl (8.6-10.3) L 07/06/24 04:21 Magnesium 1.5 mg/dl (1.7-2.4) L 07/06/24 00:57 Total Bilirubin 0.9 mg/dl (0.2-1.0) 07/06/24 00:57 AST 11 U/L (13-39) L 07/06/24 00:57 ALT 6 U/L (7-52) L 07/06/24 00:57 Alkaline Phosphatase 82 U/L (34-104) 07/06/24 00:57 Troponin I High Sens 5.2 pg/ml (0-14) 07/06/24 00:57 Total Protein 8.3 gm/dl (6.0-8.3) 07/06/24 00:57 Albumin 5.1 gm/dl (3.4-5.0) H 07/06/24 00:57 Globulin 3.2 gm/dl (2.5-4.0) 07/06/24 00:57 Albumin/Globulin Ratio 1.6 (0.9-2) 07/06/24 00:57 Lipase 16 U/L (11-82) 07/06/24 00:57 Urine Color Yellow 07/06/24 01:40 Urine Appearance Clear (Clear) 07/06/24 01:40 Urine pH 5.5 (4.5-7.5) 07/06/24 01:40 Ur Specific Elton 1.024 (1.000-1.030) 07/06/24 01:40 Urine Protein 1+ (Negative) H 07/06/24 01:40 Urine Glucose (UA) 3+ (Negative) H 07/06/24 01:40 Urine Ketones 4+ (Negative) H 07/06/24 01:40 Urine Blood Negative (Negative) 07/06/24 01:40 Urine Nitrite Negative (Negative) 07/06/24 01:40 Urine Bilirubin Negative (Negative) 07/06/24 01:40 Urine Urobilinogen Negative (Negative) 07/06/24 01:40 Ur Leukocyte Esterase Negative (Negative) 07/06/24 01:40 Urine WBC (Auto) 6-10 /hpf (0-5) H 07/06/24 01:40 Urine RBC (Auto) 0-2 /hpf (0-2) 07/06/24 01:40 U Hyaline Cast (Auto) 3-5 /lpf (0-2) H 07/06/24 01:40 U Epithel Cells (Auto) 3-5 /hpf (0-2) H 07/06/24 01:40 Urine Bacteria (Auto) None Seen (None Seen) 07/06/24 01:40 Impressions Abdomen/Pelvis CT 07/06/24 01:33 EXAM: CT abd pelvis IV con only CLINICAL HISTORY: pain TECHNIQUE: Contiguous axial images were obtained from the level of the diaphragm to the pubic symphysis with intravenous contrast. Coronal and sagittal reconstructions were likewise performed and indicated to increase the sensitivity for detecting clinically relevant pathology. If IV contrast material had not been administered, the likelihood of detecting abnormalities relevant to the patient's condition would have been substantially decreased. CT scan was performed according to ALARA (as low as reasonable achievable). COMPARISON: 16:52:10 SOLDERER ASSEMBLY REPAIR FINDINGS: The visualized lung bases are clear. The liver is normal in size and attenuation. No focal liver lesions are seen. There is no intra or extrahepatic biliary ductal dilatation. Hepatic vasculature is patent. The gallbladder is present. The spleen, pancreas, and adrenal glands are unremarkable. The kidneys are normal in size and attenuation. Left kidney shows hydronephrosis and hydroureter up to an obstructing calculus of size 2mm is noted in left vesicoureteric junction. Multiple 1-2 mm sized concretion are noted involving upper and mid calyx of left kidney. The ureters are normal in caliber and no ureteral calculi are seen. The bladder is normal in contour. Pelvic viscera are unremarkable. No focal or diffuse bowel wall thickening or evidence of bowel obstruction is identified. No evidence of inflamed appendix. Abdominal and pelvic vasculature is patent. No adenopathy or fluid collections are seen. No aggressive appearing osseous lesions are identified. IMPRESSION: 1. Left kidney shows hydronephrosis and hydroureter up to an obstructing calculus of size 2mm is noted in left vesicoureteric junction. -new finding. 2. Multiple 1-2 mm sized concretion are noted involving upper and mid calyx of left kidney.-stable. 3. Prior pneumobilia it completely resolved. Electronically signed by Francisco Orozco 07-06-2024 03:34 AM Code Status & VTE Plan VTE Prophylaxis Plan VTE Prophylaxis will be ordered: Yes
[2024-07-06] MEDS ORDERED: GLUCOSE 10 TAB/TUBE PO PRN (08:30)
[2024-07-06] MEDS ORDERED: GLUCOSE 40% GEL 15 GM TUBE PO PRN (08:30)
[2024-07-06] MEDS ORDERED: DEXTROSE 50% 50 ML SYRINGE IV PRN (08:30)
[2024-07-06] MEDS ORDERED: CARBOHYDRATES FOR HYPOGLYCEMIA PO PRN (08:30)
[2024-07-06] MEDS ORDERED: ACETAMINOPHEN 1,000 MG/100 ML VIAL IV PRN (08:30)
[2024-07-06] MEDS ORDERED: GLUCAGON FOR INJ 1 MG VIAL SQ PRN (08:30)
[2024-07-06] MEDS: ONDANSETRON INJ 2 MG/ML 2 ML VIAL IV PRN (08:39)
[2024-07-06] MEDS: FAMOTIDINE 20MG IV PUSH 20 MG/5 ML SYR IV SCH (08:50)
[2024-07-06] MEDS: INSULIN ASPART PER UNIT CHARGE SC SCH ×2 (08:50→21:32)
[2024-07-06 09:20] LABS: Hematocrit (blood only) 42.3 % (37.0-47.0); Hemoglobin 14.5 g/dl (12.0-16.0); Mean Corpuscular Hemoglobin 28.9 pg (25.0-34.0); Mean Corpuscular Hgb Conc 34.3 g/dL (32.0-36.0); Mean Corpuscular Volume 84.4 fL (80.0-100.0); Mean Platelet Volume 9.9 fL (9.4-12.4); Platelet Count 263 K/uL (130-400); RDW Coefficient of Variation 12.2 % (11.5-14.5); RDW Standard Deviation 37.5 fL (36.4-46.3); Red Blood Count 5.01 M/uL (4.20-5.40); White Blood Count 20.73 K/ul (4.8-10.8)
[2024-07-06 09:36] LABS: BUN Creatinine Ratio 14.1 (10-20); Calcium 9.1 mg/dl (8.6-10.3); Creatinine Clr Calc Pharmacy 71.9 ml/min; Magnesium 1.9 mg/dl (1.7-2.4); Potassium 4.4 mmol/L (3.5-5.1)
[2024-07-06] MEDS ORDERED: ACETAMINOPHEN 500 MG TAB PO PRN (09:40)
[2024-07-06 09:43] LABS: Basophils # (auto) 0.04 K/uL (0.00-0.20); Basophils % (auto) 0.2 %; Immature Granulocytes # (auto) 0.11 K/uL (0.01-0.20); Immature Granulocytes % (auto) 0.5 %; Lymphocytes # (auto) 0.92 K/uL (1.20-3.40); Lymphocytes % (auto) 4.4 %; Monocytes # (auto) 0.46 K/uL (0.11-0.59); Monocytes % (auto) 2.2 %; Neutrophils % (auto) 92.7 %
[2024-07-06 10:10] LABS: Estimated Average Glucose 160 mg/dl; Hemoglobin A1C 7.2 % (4.5-5.6)
--- NOTE | 2024-07-06 11:30 | Urology Progress Note ---
Date of Service July 06, 2024 Assessment & Plan (1) Leukocytosis: (2) Ureterolithiasis: Plan Follow-up for an obstructing 2mm left UVJ stone Afebrile with stable vitals White count 20.73 today (was 26.88 on admit); Normal renal function UA not suspicious for infection. Recommend checking a urine culture. We discussed options for acute stone management. Discussed cystoscopy and stent placement. Ureteral stents were discussed as well as post-operative issues and pain management. She is aware a second procedure may be needed for stone treatment. Discussed trial of passage with max expulsion therapy. Reviewed stone passage rates given size and location. Risks and benefits of each reviewed. All questions were answered. Will proceed to OR today for cystoscopy, left retrograde pyelogram, left ureteral stent placement, possible ureteroscopy and stone treatment. Risks and benefits to be reviewed with patient by Dr. Yadav. Keep NPO. She is covered with scheduled IV Ceftriaxone. Urology will follow. Admission and Anticipated Discharge Date Admission Date: July 06, 2024 Supervising Physician Co-Signing Physician Notes Discussed patient with SHELLI. Agree with plan. Will attempt to remove UVJ stone when placing stent. Calcifications in left upper pole appear to not be in the collecting system. Consent obtained, patient marked. Subjective Pt seen at bedside this AM Awake and resting in bed on arrival No acute distress Had a popsicle around 7AM Review of Systems Constitutional: as per Subjective / HPI Genitourinary: as per Subjective / HPI Physical Exam Constitutional: no acute distress Respiratory: no respiratory distress and no labored breathing Neurologic: awake Psychiatric: A+Ox3, euthymic affect Results & Data Vital Signs (Past 12 Hours) Vital Signs Temp Pulse Pulse Resp BP BP Pulse Ox 07/06/24 10:00 07/06/24 10:00 79 16 152/82 H 99 07/06/24 07:00 77 22 139/90 100 07/06/24 05:00 77 17 133/78 98 07/06/24 04:45 76 07/06/24 03:00 73 17 143/63 H 98 07/06/24 02:12 100 07/06/24 02:00 94 H 25 H 07/06/24 01:45 69 25 H 07/06/24 01:31 142/73 H 07/06/24 01:27 75 25 H 07/06/24 01:21 70 15 98 07/06/24 01:02 07/06/24 01:01 174/98 H 07/06/24 01:01 174/98 H 07/06/24 00:53 75 07/06/24 00:52 147/75 H 07/06/24 00:38 36.7 C 68 16 147/75 H 95 O2 Del Method 07/06/24 10:00 Room Air 07/06/24 10:00 Room Air 07/06/24 07:00 Room Air 07/06/24 05:00 Room Air 07/06/24 04:45 07/06/24 03:00 Room Air 07/06/24 02:12 07/06/24 02:00 07/06/24 01:45 07/06/24 01:31 07/06/24 01:27 07/06/24 01:21 07/06/24 01:02 Room Air 07/06/24 01:01 07/06/24 01:01 07/06/24 00:53 07/06/24 00:52 07/06/24 00:38 PG Care Time/CCT Total # of Minutes Spent Total Time Spent with Patient: Total time spent is greater than 50% in coordination of care (as documented) at patient's floor/unit and/or counseling patient: Coding Level of Care Code None Diagnoses Leukocytosis D72.829 Ureterolithiasis N20.1
--- NOTE | 2024-07-06 11:59 | Hospitalist Progress Note ---
Date of Service July 06, 2024 Assessment & Plan (1) Hydronephrosis of left kidney: (2) Ureterolithiasis: (3) Diabetes mellitus with renal manifestations, uncontrolled: (4) Left ureteral calculus: (5) Suspected UTI: Plan Patient with hydronephrosis and hydroureter due to obstructing ureteral calculus on the left. Urinalysis unremarkable, however patient has significant leukocytosis may be combination of failure infectious and inflammatory, is improving. Continue Evelyn Reviewed urology recommendations, anticipated surgical intervention today Follow-up laboratory studies in a.m. Continue to monitor glucose and manage with insulin Admission and Anticipated Discharge Date Admission Date: July 06, 2024 Subjective Patient still complaining of some suprapubic tenderness. Denies any fever or chills. No shortness of breath. She states she has lost some weight ever since she was started on Trulicity. Physical Exam Physical Exam: Constitutional: Alert, mildly ill in appearance HEENT: Mucous membranes moist. Lungs: Clear to auscultation, decreased, no wheezes rales or rhonchi CV: S1-S2, regular Abdomen: Soft, some mild suprapubic tenderness, no guarding or rigidity Extremities: No significant edema Neuro: No focal deficits Psych: Cooperative, normal mood Results & Data Results & Data Vital Signs (Past 12 Hours) Vital Signs Temp Pulse Pulse Resp BP BP Pulse Ox 07/06/24 10:00 07/06/24 10:00 79 16 152/82 H 99 07/06/24 07:00 77 22 139/90 100 07/06/24 05:00 77 17 133/78 98 07/06/24 04:45 76 07/06/24 03:00 73 17 143/63 H 98 07/06/24 02:12 100 07/06/24 02:00 94 H 25 H 07/06/24 01:45 69 25 H 07/06/24 01:31 142/73 H 07/06/24 01:27 75 25 H 07/06/24 01:21 70 15 98 07/06/24 01:02 07/06/24 01:01 174/98 H 07/06/24 01:01 174/98 H 07/06/24 00:53 75 07/06/24 00:52 147/75 H 07/06/24 00:38 36.7 C 68 16 147/75 H 95 O2 Del Method 07/06/24 10:00 Room Air 07/06/24 10:00 Room Air 07/06/24 07:00 Room Air 07/06/24 05:00 Room Air 07/06/24 04:45 07/06/24 03:00 Room Air 07/06/24 02:12 07/06/24 02:00 07/06/24 01:45 07/06/24 01:31 07/06/24 01:27 07/06/24 01:21 07/06/24 01:02 Room Air 07/06/24 01:01 07/06/24 01:01 07/06/24 00:53 07/06/24 00:52 07/06/24 00:38 Diagnostic Findings Reviewed imaging, laboratory and diagnostic studies. Pertinent findings as below. Magnesium 1.9, improved WBCs 20.7, improved
[2024-07-06] MEDS: HYDROmorphone INJ 0.5 MG/0.5 ML SYR IV PRN ×2 (13:37→19:21)
--- NOTE | 2024-07-06 14:15 | Electrocardiogram Report ---
Test Reason : Blood Pressure : */* mmHG Vent. Rate : 71 BPM Atrial Rate : 71 BPM P-R Int : 130 ms QRS Dur : 88 ms QT Int : 428 ms P-R-T Axes : 65 55 57 degrees QTcB Int : 465 ms Normal sinus rhythm with sinus arrhythmia Normal ECG When compared with ECG of 04-Oct-2022 04:02, Vent. rate has decreased by 60 bpm T wave inversion no longer evident in Inferior leads Confirmed by Garcia Butt ([id number]) on 07/06/2024 2:14:48 PM Referred By: REFERRED SELF Confirmed By: Garcia Butt
[2024-07-06] MEDS ORDERED: PROPOFOL IV EMULSION 10 MG/ML 20 ML VIAL IV ONE (15:55)
[2024-07-06] MEDS ORDERED: LIDOCAINE 2% 2 ML VIAL/AMP(20MG/ML) INFIL ONE (15:55)
[2024-07-06] MEDS ORDERED: ONDANSETRON INJ 2 MG/ML 2 ML VIAL ONE (15:55)
[2024-07-06] MEDS ORDERED: DEXAMETHASONE SOD INJ 4 MG/ML VIAL ONE (15:55)
[2024-07-06] MEDS ORDERED: fentaNYL citrate PF 100 MCG/2 ML VIAL ONE (15:56)
[2024-07-06] MEDS ORDERED: MIDAZOLAM HCL 1 MG/ML 2ML VIAL ONE (15:56)
[2024-07-06] MEDS ORDERED: GLYCOPYRROLATE 0.2 MG/ML VIAL ONE (15:58)
--- NOTE | 2024-07-06 16:04 | Anesthesiology Consultation ---
Date of Service July 06, 2024 Assessment & Plan ASA ASA2 Proposed Anesthesia Anesthesia Type: General Risk / Benefits Reviewed With: PT / POA / Parent / Guardian, Accepts Plan and Informed Consent Obtained Additional Comments: ett because took trulicity at 1300 today History Surgery Operation Date: 07/06/24 10:15 Proposed Procedures p Cystoscopy Left Retrograde Pyelogram and Stent Placement, Possible Ureteroscopy and Laser Lithotripsy Stone Treatment - Paulino Yadav MD Height/Weight Height: 5 ft 1 in Weight: 46 kg Allergies Allergy/AdvReac Type Severity Reaction Status Date / Time Penicillins Allergy Intermediate Rash Verified 07/06/24 01:18 Medications Home Medications Medication Instructions Recorded Confirmed Last Taken dulaglutide 4.5 mg/0.5 mL 4.5 mg subcut WK 07/06/24 07/06/24 07/06/24 12:00 subcutaneous pen injector (Trulicity) metformin 500 mg tablet 500 mg PO QID 07/06/24 07/06/24 07/05/24 17:00 Active Medications Generic Name Dose Route Start Last Admin Trade Name Freq PRN Reason Stop Dose Admin Hydromorphone HCl 0.25 mg 07/06/24 08:30 07/06/24 13:37 Hydromorphone Inj 0.5 Mg/0.5 Ml Syr IV 07/20/24 08:29 0.25 mg Q6H PRN Administration Moderate Pain (Scale 4, 5, 6) Sodium Chloride 1,000 mls @ 125 mls/hr 07/06/24 08:30 07/06/24 08:39 Nss IV 07/09/24 08:29 125 mls/hr .Q8H PARIS Administration Famotidine 20 mg in 5 mls @ 2.5 mls/min 07/06/24 09:00 07/06/24 08:50 Pepcid 20mg Iv Push IV 08/05/24 08:59 2.5 mls/min DAILY PARIS Administration Insulin Aspart 0 units 07/06/24 08:30 07/06/24 12:52 Insulin Aspart Per Unit Charge SC 08/05/24 08:29 1 units Q6 PARIS Administration Ondansetron HCl 4 mg 07/06/24 08:30 07/06/24 08:39 Ondansetron Inj 2 Mg/Ml 2 Ml Vial IV 08/05/24 08:29 4 mg Q6H PRN Administration Nausea NPO Date Last Intake of Fluids: 07/05/24 Time Last Intake of Fluids: 17:00 Date Last Intake of Solids: 07/05/24 Time Last Intake of Solids: 17:00 Past Medical History Medical History Nephrolithiasis Ureteral stent present Arthritis History of kidney stones Diabetes mellitus, type 2 Exercise / Class Metabolic Activity II 4-5 Yardwork/Stairs/Walk up hill Past Family History Family History Father Diabetes Family history of diabetes mellitus Uncle Family history of diabetes mellitus Other No family history of adverse response to anesthesia Denies family history of Colon cancer Ovarian cancer Prostate cancer Myocardial infarction Breast cancer Past Surgical History Surgical History History of hysterectomy History of urethral stent History of lithotripsy Hx of knee surgery RT History of cystoscopy History of bilateral tubal ligation History of tooth extraction Past Anesthesia History No Hx of Anesthesia Complications and No Family Hx of Anesthesia Complications History of PONV No Hx of PONV and No Hx of Motion Sickness Social History Smoking Status: Current every day smoker tobacco type: cigarettes Smoking cigarettes per day: 3 Do You Dip or Chew Tobacco: No Hx Alcohol Use: No Hx Substance Use: No substance use type: does not use Review of Systems denies fever/cough/ colds/ chest pain/ SOB/ GEOVANNY denies GEOVANNY Physical Exam Vital Signs Last Vital Signs Temp 36.7 C 07/06/24 15:36 Pulse 61 07/06/24 15:36 Resp 20 07/06/24 15:36 BP 130/70 07/06/24 15:36 Pulse Ox 100 07/06/24 15:36 O2 Del Method Room Air 07/06/24 15:36 ENMT Mouth: + poor dentition; no TMJ abnormality and no dentition abnormality Thyromental Distance: > or= 3.5 Finger Breadths Mallampati Class: II Neck neck extension not limited Respiratory normal respiratory effort; no respiratory distress Auscultation: lungs clear to auscultation bilaterally Cardiovascular Rate/Rhythm: regular rate and regular rhythm Neurologic moves all extremities Psychiatric Orientation: alert and oriented x 3 Testing Laboratory Results 07/06/24 08:57 07/06/24 08:57 Hemoglobin A1c 7.2 % (4.5-5.6) H 07/06/24 08:57 Urine Color Yellow 07/06/24 01:40 Urine Appearance Clear (Clear) 07/06/24 01:40 Urine pH 5.5 (4.5-7.5) 07/06/24 01:40 Ur Specific [place] 1.024 (1.000-1.030) 07/06/24 01:40 Urine Protein 1+ (Negative) H 07/06/24 01:40 Urine Glucose (UA) 3+ (Negative) H 07/06/24 01:40 Urine Ketones 4+ (Negative) H 07/06/24 01:40 Urine Nitrite Negative (Negative) 07/06/24 01:40 Ur Leukocyte Esterase Negative (Negative) 07/06/24 01:40 Urine WBC (Auto) 6-10 /hpf (0-5) H 07/06/24 01:40 Urine RBC (Auto) 0-2 /hpf (0-2) 07/06/24 01:40 U Hyaline Cast (Auto) 3-5 /lpf (0-2) H 07/06/24 01:40 U Epithel Cells (Auto) 3-5 /hpf (0-2) H 07/06/24 01:40 Urine Bacteria (Auto) None Seen (None Seen) 07/06/24 01:40 07/06/24 07/06/24 07/06/24 15:29 12:35 08:46 POC Glucose 161 H 167 H 248 H
[2024-07-06] MEDS ORDERED: DIATRIZOATE MEGLUMINE 30% 100ML VIAL INSTIL PRN (17:04)
--- NOTE | 2024-07-06 17:23 | Operative Report ---
PG Post Operative Report Pre & Post Diagnosis Operation Date: 07/06/24 10:15 Pre-Op Diagnosis: Hydronephrosis of left kidney, Left ureteral calculus Post-Op Diagnosis: Bladder Tumor, Left Ureteral Calculus I identified the patient and participated in the time-out.: Yes Procedure Operation Date: 07/06/24 10:15 Actual Procedures p Cystoscopy Left Retrograde Pyelogram, left ureteroscopy with stone removal, left Stent Placement, transurethral section of bladder tumor small (Left) - Paulino Yadav MD Surgeon Paulino Yadav MD Injection Molding Machine Operator None Estimated Blood Loss 0 Findings See Below 1. Stone at UVJ and dislodged when semirigid ureteroscope was placed. Ureteroscopy revealed no other stones in the ureter. Retrograde pyelogram showed no extravasation. Stent in appropriate position. 2. 0.5 cm papillary bladder tumor on right posterior wall that was lasered enucleated. Hemostasis was appropriate. No perforation. Specimens 1. Left UVJ stone 2. Bladder tumor Drains 6 Thai by 24 cm left ureteral stent Anesthesia Type MAC Complications none Indications 44-year-old female with a 2 mm left ureteral calculus who desired stent placement. Discussed that we will try to remove the stone if amenable during surgery Description of Procedure After informed consent was obtained, the patient was transported to the operative suite. General anesthesia was induced. They were placed in dorsal lithotomy position and prepped and draped in sterile fashion. They received preoperative ceftriaxone. An appropriate surgical timeout was performed. Rigid cystoscopy was inserted per urethra and the bladder. I turned my attention to the left ureteral orifice and noticed the stone was . A sensor wire was advanced into the upper pole of the kidney. Cystoscope was removed. Advanced a semirigid ureteroscope in the distal ureter and this dislodge the stone in the bladder. I advanced the scope all the way up to the level of the UPJ and noted no other stones. Retrograde pyelogram was shot which showed no filling defects or extravasation. Scope was removed. I deployed a 6 Thai by 24 cm left ureteral stent with good proximal coil in the kidney and a good distal coil in the bladder. Zamudio cystoscopy revealed a 0.5 mm papillary appearing tumor in the right posterior bladder wall. I opted to enucleate this with the laser. A 200 m laser fiber was inserted and under settings of 1 and 14, and area was enucleated around the tumor. Hemostasis was appropriate. No concern for perforation. Specimen was evacuated and sent to pathology. Bladder was emptied and scope was removed. This concluded the case. All counts correct at the end the case. I was present scrubbed and actively participated for the entirety of the proce dure. I attest to the content of the Intraoperative Record and any orders documented therein. Any exceptions are noted below.
--- NOTE | 2024-07-06 17:45 | Anesthesiology Progress Note ---
Date of Service July 06, 2024 Anesthesia Post Procedure Vital Signs Vital Signs: Temp Pulse Pulse Pulse Resp BP BP 07/06/24 17:35 73 16 96/58 L 07/06/24 17:25 36.1 C L 76 18 95/52 L 07/06/24 15:36 36.7 C 61 20 130/70 07/06/24 10:00 07/06/24 10:00 79 16 152/82 H 07/06/24 08:30 81 20 152/82 H 07/06/24 07:00 77 22 139/90 07/06/24 05:00 77 17 133/78 07/06/24 04:45 76 07/06/24 03:00 73 17 143/63 H 07/06/24 02:12 07/06/24 02:00 94 H 25 H 07/06/24 01:45 69 25 H 07/06/24 01:31 142/73 H 07/06/24 01:27 75 25 H 07/06/24 01:21 70 15 07/06/24 01:02 07/06/24 01:01 174/98 H 07/06/24 01:01 174/98 H 07/06/24 00:53 75 07/06/24 00:52 147/75 H 07/06/24 00:38 36.7 C 68 16 147/75 H Pulse Ox O2 Del Method O2 Flow Rate 07/06/24 17:35 98 Nasal Cannula 2 07/06/24 17:25 98 Nasal Cannula 3 07/06/24 15:36 100 Room Air 07/06/24 10:00 Room Air 07/06/24 10:00 99 Room Air 07/06/24 08:30 98 Room Air 07/06/24 07:00 100 Room Air 07/06/24 05:00 98 Room Air 07/06/24 04:45 07/06/24 03:00 98 Room Air 07/06/24 02:12 100 07/06/24 02:00 07/06/24 01:45 07/06/24 01:31 07/06/24 01:27 07/06/24 01:21 98 07/06/24 01:02 Room Air 07/06/24 01:01 07/06/24 01:01 07/06/24 00:53 07/06/24 00:52 07/06/24 00:38 95 Transfer of Care Handoff Completed per policy Notes Mental Status: alert / awake / arousable and participated in evaluation Patient Amnestic to Procedure: Yes Nausea / Vomiting: adequately controlled Pain: adequately controlled Airway Patency, RR, SpO2: stable & adequate BP & HR: stable & adequate Hydration State: stable & adequate Anesthetic Complications: no major complications apparent and Pt Satisfied with anesthetic care
[2024-07-06] MEDS ORDERED: Nursing to Pharmacy Communication SCH (20:00)
[2024-07-06] MEDS: KETOROLAC TROMETHAMINE 15 MG/ML VIAL IV PRN (21:31)
[2024-07-06] MEDS: CALCIUM CARBONATE 500 MG CHEWABLE TAB PO STA (22:24)
[2024-07-07] MEDS: PHENAZOPYRIDINE HCL 100 MG TAB PO PRN (01:52)
[2024-07-07] MEDS ORDERED: ACETAMINOPHEN 1,000 MG/100 ML VIAL IV STA (04:23)
--- NOTE | 2024-07-07 04:26 | Communication Note ---
Date of Service: July 07, 2024 Patient with chest pain described as worsening heartburn overnight. SBP 160s. Chest x-ray as per interpretation, atelectasis EKG as per my interpretation rate 65, NSR, normal axis, T wave abnormality septal leads AP Worsening heartburn Situational hypertension NSAID Rx contributory Famotidine twice daily Hydralazine 1 dose now Hold ketorolac
[2024-07-07] MEDS: hydrALAZINE HCL 20 MG/ML VIAL IV ONE (04:46)
[2024-07-07] MEDS: ACETAMINOPHEN IV ONE (04:55)
[2024-07-07] MEDS: FAMOTIDINE 20MG IV PUSH 20 MG/5 ML SYR IV ONE (04:55)
[2024-07-07] MEDS: cefTRIAXone SODIUM 1,000 MG/50 ML BAG IV SCH (05:19)
[2024-07-07] MEDS: SODIUM CHLORIDE 0.9% 1,000 ML IV ONE (05:23)
[2024-07-07 05:25] LABS: Hematocrit (blood only) 39.7 % (37.0-47.0); Mean Corpuscular Hemoglobin 29.4 pg (25.0-34.0); Mean Corpuscular Hgb Conc 35.3 g/dL (32.0-36.0); Mean Corpuscular Volume 83.4 fL (80.0-100.0); Mean Platelet Volume 9.5 fL (9.4-12.4); Platelet Count 253 K/uL (130-400); RDW Coefficient of Variation 12.4 % (11.5-14.5); RDW Standard Deviation 37.9 fL (36.4-46.3); Red Blood Count 4.76 M/uL (4.20-5.40); White Blood Count 27.29 K/ul (4.8-10.8)
[2024-07-07] MEDS: PROMETHAZINE 6.25 MG/50.25 ML BAG IV STA (05:31)
[2024-07-07 05:39] LABS: BUN Creatinine Ratio 12.5 (10-20); Calcium 9.6 mg/dl (8.6-10.3); Creatinine Clr Calc Pharmacy 63.8 ml/min; Magnesium 1.6 mg/dl (1.7-2.4)
[2024-07-07 05:46] LABS: Troponin I High Sensitivity 5.7 pg/ml (0-14)
[2024-07-07] MEDS: MAGNESIUM SULFATE / D5W 1 GM/100 ML BAG IV ONE (06:10)
[2024-07-07 06:29] LABS: Partial Thromboplastin Ratio 1.1; Partial Thromboplastin Time 30 Seconds (21-31)
--- NOTE | 2024-07-07 06:32 | XRay Report ---
EXAM: XR chest 1V portable CLINICAL HISTORY: cp TECHNIQUE: Radiograph of chest was acquired. COMPARISON: CR,01/01/2021 10:29:28 TREE INSPECTOR FINDINGS: The lungs are clear and well-expanded with no pulmonary infiltrate or pleural effusion. The cardiomediastinal silhouette is within normal limits. No acute osseous abnormality. IMPRESSION: 1. No acute cardiopulmonary disease. 2. No interval change Electronically signed by Francisco Orozco 07-07-2024 06:31 AM
--- NOTE | 2024-07-07 07:54 | Fluoroscopy Report ---
FL retrograde includes kub CLINICAL HISTORY: LEFT STENTplacement COMPARISON STUDY: None pertinent FLUOROSCOPY TIME: 4.1 seconds FLUOROSCOPY IMAGES: 2 EXPOSURE DOSE: 0.53 mGy FINDINGS: Fluoroscopic guidance was provided IMPRESSION: Please refer to the procedure report for evaluation based upon real-time fluoroscopic obs ervation ACT 112: Negative or not required by law. Electronically signed by: Marta Elizabeth M.D. 07/07/2024 7:52 AM
[2024-07-07] MEDS: TAMSULOSIN HCL 0.4 MG CAP PO SCH (08:28)
[2024-07-07] MEDS: MAGNESIUM OXIDE 400 MG TAB PO SCH (08:37)
[2024-07-07] MEDS: PROMETHAZINE 6.25 MG/50.25 ML BAG IV PRN ×2 (09:09→22:13)
[2024-07-07 10:35] LABS: Appearance Urine Clear (Clear); Bacteria Urine Automated None Seen (None Seen); Bilirubin Urine Negative (Negative); Blood Urine 3+ (Negative); Cast Urine Automated 0-2 /lpf (0-2); Color Urine Yellow; Epithelial Cell Urine Auto 0-2 /hpf (0-2); Glucose Urine UA 3+ (Negative); Ketones Urine 4+ (Negative); Leukocyte Esterase Urine 1+ (Negative); Nitrite Urine Negative (Negative); Protein Urine 2+ (Negative); RBC Urine Automated >20 /hpf (0-2); Specific Gravity Urine 1.021 (1.000-1.030); Urobilinogen Urine Negative (Negative); WBC Urine Automated >50 /hpf (0-5); pH Urine 5.5 (4.5-7.5)
[2024-07-07] MEDS ORDERED: ALUMINUM/MAGNESIUM SUSP 30 ML UDC PO PRN (10:53)
--- NOTE | 2024-07-07 10:58 | Hospitalist Progress Note ---
Date of Service July 07, 2024 Assessment & Plan (1) Hydronephrosis of left kidney: (2) Ureterolithiasis: (3) Diabetes mellitus with renal manifestations, uncontrolled: (4) Left ureteral calculus: (5) Suspected UTI: (6) Bladder tumor: (7) Hypomagnesemia: Plan Patient 44-year-old female presented with hydronephrosis due to obstructive ureteral stone. Patient status post urological procedure, stone is extraction, also noted to have a bladder tumor that was removed, pathology pending Trial of scheduled Reglan with meals and at bedtime to address her exacerbated nausea and vomiting. Appears as though patient may have some chronic issues with this Continue Rocephin for suspected UTI, follow urine culture Continue to monitor glucose, insulin coverage for management Encouraged activity and ambulation today Pepcid and Maalox for her esophageal irritation associated with her repetitive vomiting overnight Replace magnesium Suspect patient's leukocytosis is somewhat inflammatory, again continue antibiotics, monitor WBCs in a.m. Monitor electrolytes in a.m. Patient aware of anticipated discharge tomorrow Admission and Anticipated Discharge Date Admission Date: July 06, 2024 Subjective Events of last night reviewed, reported significant nausea vomiting. Complains of chest pain. Cardiac workup negative, chest pain due to her vomiting and e sophageal irritation. This morning she is asking me though to have some bland cereal. Physical Exam Physical Exam: Constitutional: Alert, nontoxic, thin HEENT: Mucous membranes moist. Lungs: Clear to auscultation, decreased, no wheezes rales or rhonchi CV: S1-S2, regular Abdomen: Soft, nontender, nondistended Extremities: No significant edema Neuro: No focal deficits Psych: Cooperative, normal mood Results & Data Results & Data Vital Signs (Past 12 Hours) Vital Signs Temp Pulse Resp BP Pulse Ox O2 Del Method 07/07/24 07:44 36.2 C L 74 18 159/87 H 100 Room Air 07/07/24 04:52 75 146/92 H 99 Room Air 07/07/24 04:16 36.7 C 65 18 163/80 H 99 Room Air 07/07/24 00:34 36.9 C 78 18 147/71 H 99 Room Air Diagnostic Findings Reviewed imaging, laboratory and diagnostic studies. Pertinent findings as below. WBCs 27.2, increased Magnesium 1.6 Creatinine 0.8 Glucose 216 Urine cultures pending
--- NOTE | 2024-07-07 11:43 | Urology Progress Note ---
Date of Service July 07, 2024 Assessment & Plan (1) Leukocytosis: (2) Ureterolithiasis: Plan POD #1 s/p Cystoscopy Left Retrograde Pyelogram, left ureteroscopy with stone removal, left Stent Placement, transurethral section of bladder tumor small Afebrile with stable vitals at present White count up to 27.29 today; Normal renal function Urine culture pending, on Ceftriaxone Voiding spontaneously, continue to monitor No further acute intervention Continue Tamsulosin, prn Pyridium and prn pain medication for stent management Will arrange outpatient follow-up for stent removal and to review pathology Urology will follow peripherally, please call with any questions/concerns Admission and Anticipated Discharge Date Admission Date: July 06, 2024 Subjective Patient seen at bedside this morning Awake and sitting up in bed on arrival Patient had c/o chest pain last night, cardiac workup was negative Has significant nausea and vomiting Reports stent discomfort, mostly with voiding No fever Review of Systems Constitutional: as per Subjective / HPI Gastrointestinal: as per Subjective / HPI Genitourinary: as per Subjective / HPI Physical Exam Constitutional: no acute distress Respiratory: no respiratory distress and no labored breathing Musculoskeletal: Head/Neck/Chest: normocephalic Skin: No visible rashes or lesions to exposed skin areas Neurologic: awake Psychiatric: Orientation: alert and oriented x 3 Results & Data Vital Signs (Past 12 Hours) Vital Signs Temp Pulse Resp BP Pulse Ox O2 Del Method 07/07/24 07:44 36.2 C L 74 18 159/87 H 100 Room Air 07/07/24 04:52 75 146/92 H 99 Room Air 07/07/24 04:16 36.7 C 65 18 163/80 H 99 Room Air 07/07/24 00:34 36.9 C 78 18 147/71 H 99 Room Air PG Care Time/CCT Total # of Minutes Spent Total Time Spent with Patient: Total time spent is greater than 50% in coordination of care (as documented) at patient's floor/unit and/or counseling patient: Coding Level of Care Code 54827 SUB INP/OBS CARE 03/19MIN Diagnoses Leukocytosis D72.829 Ureterolithiasis N20.1
[2024-07-07] MEDS: METOCLOPRAMIDE HCL INJ 5 MG/ML 2 ML VIAL IV SCH (12:11)
[2024-07-07] MEDS: ACETAMINOPHEN 325 MG TAB PO PRN (12:18)
--- NOTE | 2024-07-07 14:51 | Communication Note ---
Date of Service: July 07, 2024 Called urgently to bedside, patient complaining of substernal and epigastric pain. Crying out in pain. Patient is states that it is burning and sharp in na ture admits to a lot of reflux and heartburn. Has not tried Maalox yet. Patient had extensive cardiac workup this morning for similar complaint all which was negative. Patient has had numerous episodes of emesis over the last 24 hours. High suspicion for esophagitis from emesis and reflux Stat dose of Maalox and viscous lidocaine Will schedule before every meal and at bedtime. Will add PPI in addition to H2 francisco
[2024-07-07] MEDS: ALUMINUM/MAGNESIUM SUSP 30 ML UDC PO STA (15:01)
[2024-07-07] MEDS: LIDOCAINE VISCOUS 2% 15 ML UDC PO ONE (15:45)
[2024-07-07] MEDS: PANTOprazole 40 MG TAB PO STA (15:46)
--- NOTE | 2024-07-07 17:18 | Electrocardiogram Report ---
Test Reason : Blood Pressure : */* mmHG Vent. Rate : 65 BPM Atrial Rate : 65 BPM P-R Int : 118 ms QRS Dur : 86 ms QT Int : 412 ms P-R-T Axes : 64 62 59 degrees QTcB Int : 428 ms Normal sinus rhythm with sinus arrhythmia Normal ECG When compared with ECG of 06-Jul-2024 00:57, No significant change was found Confirmed by Garcia Butt ([id number]) on 07/07/2024 5:18:30 PM Referred By: REFERRED SELF Confirmed By: Garcia Butt
[2024-07-07] MEDS: LIDOCAINE VISCOUS 2% 15 ML UDC PO SCH (17:21)
[2024-07-07] MEDS: ALUMINUM/MAGNESIUM SUSP 30 ML UDC PO SCH (17:22)
[2024-07-07] MEDS: FAMOTIDINE 20 MG TAB PO SCH (20:06)
[2024-07-07] MEDS ORDERED: FAMOTIDINE 20MG IV PUSH 20 MG/5 ML SYR IV SCH (21:00)
[2024-07-08 07:31] LABS: Hemoglobin 14.2 g/dl (12.0-16.0); Mean Corpuscular Hgb Conc 35.5 g/dL (32.0-36.0); Mean Corpuscular Volume 81.8 fL (80.0-100.0); Mean Platelet Volume 9.6 fL (9.4-12.4); Platelet Count 249 K/uL (130-400); RDW Coefficient of Variation 12.3 % (11.5-14.5); RDW Standard Deviation 36.6 fL (36.4-46.3); Red Blood Count 4.89 M/uL (4.20-5.40); White Blood Count 21.76 K/ul (4.8-10.8)
[2024-07-08 07:50] VITALS: BP 159/75; PULSE 85; RESP 16; TEMP 98.2; O2SAT 98
[2024-07-08] MEDS: PANTOprazole 40 MG TAB PO SCH (07:56)
[2024-07-08 07:57] LABS: BUN Creatinine Ratio 11.9 (10-20); Calcium 9.3 mg/dl (8.6-10.3); Creatinine Clr Calc Pharmacy 76.2 ml/min; Magnesium 1.9 mg/dl (1.7-2.4); Potassium 3.1 mmol/L (3.5-5.1)
[2024-07-08] MEDS ORDERED: FAMOTIDINE 20MG IV PUSH 20 MG/5 ML SYR IV SCH (09:00)
--- NOTE | 2024-07-08 10:02 | Discharge Summary ---
Discharge Summary Date of Service July 08, 2024 Principal Dx & Hospital Course #1 = Principal Diagnosis (1) Hydronephrosis of left kidney: (2) GERD with esophagitis: (3) Bladder tumor: (4) Ureterolithiasis: (5) Diabetes mellitus with renal manifestations, uncontrolled: (6) Left ureteral calculus: (7) Suspected UTI: (8) Hypomagnesemia: Plan Patient is a 44-year-old female presented with abdominal pain nausea and vomiting. In the emergency room noted to have obstructing left ureteral stone with some hydronephrosis. Patient admitted to the hospital. She was placed on antibiotics. Urology consultation was obtained. Was evaluated by urology and taken to the operating room. And urological procedure the stone was extracted. Is also noted that she had a bladder tumor that was resected. Pathology still pending at time of discharge. Postoperative course was complicated by the fact that patient still had some nausea and severe reflux. Her electrolytes need replaced. She was placed on PPI, H2 blockers and also some viscous lidocaine due to severe esophageal discomfort and esophagitis. With these interventions her symptoms improved and she was able to tolerate oral intake. From urological's perspective she is significantly improved. Diet is advanced. Should be transition to oral antibiotics. Will place her on aggressive acid reduction at time of discharge and she will follow-up with her outpatient PCP and urology. Notes For Next Care Provider Consider GI consultation if patient continues to have significant reflux symptoms after treatment with PPI for 4 to 6 weeks. Follow-up with urology for stent removal Medication Changes From Visit Ceftin for presumed UTI Protonix for esophagitis Maalox for esophagitis Admission HPI Per Admitting Provider 44-year-old female with past medical history significant for type 2 diabetes, diabetic peripheral neuropathy, hyperlipidemia, chronic low back pain, degenerative disease, sacroiliitis, presents with nausea vomiting abdominal pain and diarrhea and also found to have left kidney stone. Since last couple days having a lot of nausea and vomitings. Today vomiting slightly better. Having Abdominal Pain. Had Few Episodes of Diarrhea. Denies Any Fevers. No Chest Pain or Shortness of Breath. No Cough. Hemodynamics are okay. Past medical history. As mentioned above Past surgical history. None as per epic Social history. History of smoking. No alcohol use. No drug use. Family history. No family history on file. Admission Exam Per Admitting Provider See H&P Discharge Exam Constitutional: Alert, nontoxic, no acute distress HEENT: Mucous membranes moist. Lungs: Decreased breath sounds, no wheezes CV: S1-S2, regular Abdomen: Soft, nontender, nondistended Extremities: No significant edema Neuro: No focal deficits Psych: Cooperative, normal mood Updated Medication List Medication Instructions Recorded Confirmed Type dulaglutide 4.5 mg/0.5 mL 4.5 mg subcut WK 07/06/24 07/06/24 History subcutaneous pen injector (Trulicity) metformin 500 mg tablet 500 mg PO QID 07/06/24 07/06/24 History aluminum-magnesium hydroxide 200 30 ml PO ACHS 7 days #210 mL 07/08/24 Rx mg-200 mg/5 mL oral suspension (MAG-AL) cefdinir 300 mg capsule 300 mg PO BID 5 days #10 caps 07/08/24 Rx metoclopramide HCl 10 mg tablet 10 mg PO Q6H PRN nausea and 07/08/24 Rx (Reglan) vomiting #30 tabs pantoprazole 40 mg tablet,delayed 40 mg PO BID #60 tabs 07/08/24 Rx release phenazopyridine 100 mg tablet 100 mg PO TID PRN bladder spasm 07/08/24 Rx (Pyridium) #12 tabs tamsulosin 0.4 mg capsule 0.4 mg PO QAM #30 caps 07/08/24 Rx Hospital Stay Data Consultations 07/06/24 03:53 ED Decision to Admit Stat 07/06/24 08:30 Consult Urology Routine Procedures Performed Operation Date: 07/06/24 10:15 Actual Procedures p Transurethral Resection Bladder Tumor - Paulino Yadav MD s Cystoscopy Left Retrograde Pyelogram, Left Basket Extraction, Left Stent Placement,(Left) - Paulino Yadav MD Diagnostic Imagining Performed 07/06/24 01:33 CT Abd and Pelvis [CT abd pelvis IV con only] Stat 07/06/24 14:00 FL retrograde includes kub Routine Reviewed imaging, laboratory and diagnostic studies. Pertinent findings as below. WBCs 21.7, improved Hemoglobin 14.2 Platelets of 249 Potassium 3.1, repleted prior to discharge Creatinine 0.67 Urine culture pending Stone composition pending Bladder tumor pathology pending Pending Results Patient Have Any Pending Studies at Discharge: Yes Discharge Instructions Given to Patient (Per Discharging Provider) Complete course of antibiotics Follow-up with urology to discuss pathology results Follow-up with PCP Total Time Total Time Spent Total Time Spent (In Minutes): 36
[2024-07-08] MEDS: POTASSIUM CHLORIDE / WTR 10 MEQ/100 ML PLCT IV SCH (10:14)
[2024-07-08] MEDS: POTASSIUM CHLORIDE CRTAB 20 MEQ TABCR PO STA (10:18)
--- NOTE | 2024-07-09 15:20 | Coding Query ---
PATHOLOGY To promote full compliance with coding requirements relating to patient care, physician participation is requested in all cases of diesel service technician uncertainty. Please assist us with the question(s) below: Please review the Pathology report and please document any relevant diagnosis(es) below: Diagnosis(es): Thank you [facility]ETTA Isabel [facility]
--- NOTE | 2024-07-12 07:43 | Coding Query ---
PATHOLOGY To promote full compliance with coding requirements relating to patient care, physician participation is requested in all cases of auto body repair teacher uncertainty. Please assist us with the question(s) below: Please review the Pathology report and please document any relevant diagnosis(es) below: Diagnosis(es): Thank you [facility]ETTA Isabel [facility]
[2024-07-14 16:52] LABS: Component 2 DNR; Source LEFT URETERAL STONE
== END 2024-07-08 13:22 | disposition home or self-care (01) | DRG 660 ==
LOC: ED 00:48 → EDINP 05:08 → 3W 15:19

== ENCOUNTER 2024-11-06 16:50 | Inpatient (IN) ==
[2024-11-06] MEDS: ACETAMINOPHEN 1,000 MG/100 ML VIAL IV STA (18:29)
[2024-11-06] MEDS: dexAMETHasone**PF** 10 MG/ML VIAL IV ONE (18:29)
[2024-11-06] MEDS: SODIUM CHLORIDE 0.9% 1,000 ML IV ONE (18:30)
--- NOTE | 2024-11-06 18:31 | Emergency Department Note ---
Impression & Plan UTI (urinary tract infection), Hip arthritis, Hypomagnesemia, Hypokalemia, Abnormal computed tomography of abdomen and pelvis ED Provider Note NAME: MARYJO ANDERSON AGE: 44 SEX: F : 1980 ARRIVES VIA: Ambulance INFORMANT: Patient ED PROVIDER(S): Zion Burt MD CHIEF COMPLAINT: Bilateral hip pain PLAN: Disposition: Home MEDICAL DECISION MAKING: The patient is a pleasant 44-year-old woman with a past medical history of GERD, type 2 diabetes, chronic back pain, nephrolithiasis who presents to the emergency department via EMS for evaluation of bilateral hip pain where she reports is difficult to walk. She reports the symptoms have been ongoing for the past month but have been waxing and waning. She reports that she has been increasingly physically active with strenuous activity performing housework where her son and boyfriend did not help her. She was seen in the emergency department last month for a near fall when she rolled her left ankle. There was a question of a nondisplaced distal fibular fracture however upon follow-up with orthopedics it was felt that there was no fracture. The patient denies any fevers, chills, cough, chest pain, chest pain, abdominal pain, nausea or vomiting. On evaluation the patient is in no distress, afebrile with stable vital signs. She appears clinically dry. Lungs are clear. Abdomen is benign. Patient reports pain with range of motion of bilateral hips but does exhibit full range of motion. There is no gross deformity. There is no lower extremity edema. Distal PMS is intact. WBC 13K with neutrophilia but no left shift, nonspecific. Hemoglobin and platelets within normal limits. Chemistry without metabolic acidosis. Potassium 3.4 and magnesium 1.6 with repletion provided. CPK within normal limits. LFTs are normal including normal total bilirubin. UA with trace ketones consistent with patient's clinically dry appearance. There is 1+ bacteria but with epithelial cells present and negative nitrites. Lyme screen was negative. ESR marginally above normal at 22, nonspecific. CRP is undetectable. Patient does report that she feels she may have a urinary tract infection as she does have urinary frequency. We agreed to proceed with treatment with cefdinir. CT of the abdomen pelvis was completed and most notable findings seem to be unrelated to patient's presentation or symptoms. Intrahepatic biliary ductal dilatation is described with a small locule of pneumobilia as well as CBD dilatation of up to 1 cm. The gallbladder is described as contracted with trace Gerber cholecystic fluid without visible gallstone. Otherwise nonobstructive left nephrolithiasis is noted and a small hiatal hernia is present. Mild degenerative changes of the spine and hip and pelvis are described. CT findings were reviewed with the patient and she affirms that she has no abdominal pain and was apprised of these findings. Case was discussed with Rigoberto Williamson general surgery TORIE with Dr. Jansen, general surgery on-call. Appreciate consultation and recommendations. Agrees with plan for admission for IV antibiotics and further testing to clarify CT findings. Antibiotic coverage broadened with IV ceftriaxone and IV Flagyl. Patient is in agreement with plan for admission. Case was discussed with Dr. Ga, [facility], who will evaluate the patient for admission. Further management per admitting team. Triage Nursing notes reviewed and agree them. Prior/external medical records reviewed Vital Signs: reviewed Differential diagnosis: Fracture, subluxation, dislocation, contusion, ligamentous injury, neurovascular, compartment syndrome, rhabdomyolysis, as well as other pathologies. ER treatment provided: See below. Diagnostics interpreted by me: Cardiac Monitoring: An order for continuous cardiac monitoring was placed and demonstrated normal sinus rhythm, 76 bpm, no ectopy Laboratory studies: See below Imaging studies: See below Consultation(s): Rigoberto Williamson general surgery TORIE with Dr. Jansen, general surgery on-call. Dr. Ga, [facility]. HPI: Per MDM. ROS: See above HPI for pertinent positives & negatives. A total of 10 systems reviewed and were otherwise negative. VITALS:See Below PHYSICAL EXAMINATION: GENERAL: Awake, alert, in no distress HENT: Normocephalic, atraumatic. Oropharynx with dry mucous membranes and otherwise unremarkable. EYES: Normal conjunctiva. Sclera non-icteric. NECK: Supple. No nuchal rigidity. FROM. No JVD. RESPIRATORY: Clear to auscultation. CARDIAC: Regular rate, normal rhythm. Extremities warm and well perfused. Pulses equal. ABDOMEN: Soft, non-distended. No tenderness to palpation. No rebound or guarding. Negative Bravo's sign. MUSCULOSKELETAL: Chest examination reveals no tenderness. The back is symmetrical on inspection without obvious abnormality. There is no CVA tenderness to palpation. No joint edema. Pain with range of motion of bilateral hips but does exhibit full range of motion. There is no gross deformity. There is no lower extremity edema. Distal PMS is intact. LOWER EXTREMITIES: Calves are equal size bilaterally and non-tender. No edema. No discoloration. NEURO: Normal sensorium. No sensory or motor deficits noted. SKIN: No rash or jaundice noted. Zion Burt MD Past Med/Surg History Problem List (Updated 11/07/24 @ 04:04 by Zion Burt MD) Abnormal computed tomography of abdomen and pelvis (Acute) Pneumobilia Hypokalemia (Acute) Hypomagnesemia (Acute) Hip arthritis (Acute) UTI (urinary tract infection) (Acute) GERD with esophagitis Bladder tumor Suspected UTI Hydronephrosis of left kidney Left ureteral calculus Hypomagnesemia (Acute) Nausea, vomiting, and diarrhea (Acute) Leukocytosis (Acute) Renal colic on left side (Acute) Severe sepsis Acute UTI (Acute) Leukocytosis (Acute) Acute hyperglycemia (Acute) Ureterolithiasis (Acute) Renal colic on left side (Acute) Impingement syndrome, shoulder, left Mechanical low back pain Constipation Encounter for pre-operative examination Diabetes mellitus with renal manifestations, uncontrolled (Chronic) Microalbuminuria Pulmonary valve disorder (Chronic) pt unaware Nephrolithiasis (Chronic) Hypertriglyceridemia (Chronic) Medical History Nephrolithiasis Ureteral stent present Arthritis History of kidney stones Diabetes mellitus, type 2 Surgical History History of hysterectomy History of urethral stent History of lithotripsy Hx of knee surgery RT History of cystoscopy History of bilateral tubal ligation History of tooth extraction Family History Father Diabetes Family history of diabetes mellitus Uncle Family history of diabetes mellitus Other No family history of adverse response to anesthesia Denies family history of Colon cancer Ovarian cancer Prostate cancer Myocardial infarction Breast cancer Social History Smoking Status: Current every day smoker Tobacco Type: Cigarettes Cigarettes Per Day: 3; Second Hand Exposure: Yes; Do You Dip or Chew Tobacco: No; Tobacco Cessation Education Requested by Patient: No (pt refused) Hx Alcohol Use: No Hx Substance Use: No Preferred Language: Portuguese Communication Ability: Effective Visual Impairment: No Limitations Health Underwriter Required: No Beliefs That Will Affect Care: None marital status: Single Current Living Situation: Spouse and Family Current Living Situation Comment: boyfriend and son current occupational status: unemployed Other Information That Helps Us Care for You: No Feels Safe at Home: Yes Safety Concerns: Feels Safe At This Time Assistive Devices: None Allergies Allergies Allergy/AdvReac Type Severity Reaction Status Date / Time Penicillins Allergy Intermediate Rash Verified 11/06/24 17:45 Home Meds Home Medications Medication Instructions Recorded Confirmed dulaglutide 4.5 mg/0.5 mL 4.5 mg subcut WK 07/06/24 11/06/24 [facility] metformin 500 mg tablet 500 mg PO QID 07/06/24 11/06/24 Results & Data (ED) Vital Signs Vital Signs - 24 hr 11/06/24 17:02 11/06/24 18:28 11/06/24 22:00 Temperature 36.7 C Temperature Source Temporal Artery Scan Pulse Rate 76 Pulse Rate [Finger] 71 Pulse Rhythm [Finger] Regular Pulse Strength [Finger] Normal Respiratory Rate 20 18 Respiratory Effort / Characteristics Non-Labored Spontaneous Non-Labored Spontaneous Respiratory Depth Normal Normal Respiratory Pattern Regular Blood Pressure 134/64 Blood Pressure [Left Arm] 129/96 Blood Pressure Mean 87 Blood Pressure Mean [Left Arm] 107 Blood Pressure Position [Left Arm] Lying Pulse Oximetry 94 98 99 Oxygen Delivery Method Room Air Room Air Room Air Sepsis Recent Fever Within 48 Hours No Sepsis New/Unexplained Change in Mental Status N/A Sepsis Action Taken by Nursing No Action Required Laboratory Data Attestation: I reviewed the patient's lab results. 11/06/24 18:25 11/06/24 18:25 Lab Results 11/06/24 11/06/24 11/06/24 Range/Units 18:25 18:37 20:59 WBC 13.09 H (4.8-10.8) K/ul RBC 5.50 H (4.20-5.40) M/uL Hgb 15.7 (12.0-16.0) g/dl Hct 47.4 H (37.0-47.0) % MCV 86.2 (80.0-100.0) fL MCH 28.5 (25.0-34.0) pg MCHC 33.1 (32.0-36.0) g/dL RDW Std Deviation 40.8 (36.4-46.3) fL RDW Coeff of Jorge 13.1 (11.5-14.5) % Plt Count 283 (130-400) K/uL MPV 9.3 L (9.4-12.4) fL Immature Gran % (Auto) 0.4 % Neut % (Auto) 59.4 % Lymph % (Auto) 30.7 % [place] % (Auto) 8.0 % Eos % (Auto) 0.8 % Baso % (Auto) 0.7 % Neut # (Auto) 7.77 H (1.40-6.50) K/uL Lymph # (Auto) 4.02 H (1.20-3.40) K/uL [place] # (Auto) 1.05 H (0.11-0.59) K/uL Eos # (Auto) 0.11 (0.00-0.50) K/uL Baso # (Auto) 0.09 (0.00-0.20) K/uL Immature Gran # (Auto) 0.05 (0.01-0.20) K/uL ESR 22 H (0-20) mm/hr PT 10.9 (9.0-12.0) Seconds INR 1.0 (0.9-1.1) Sodium 139 (136-145) mmol/L Potassium 3.4 L (3.5-5.1) mmol/L Chloride 103 (98-107) mmol/L Carbon Dioxide 27 (21-32) mmol/L Anion Gap 9 (3-11) BUN 12 (6-23) mg/dl Creatinine 0.81 (0.6-1.2) mg/dl Est Cr Clr Drug Dosing 68.6 ml/min eGFR 90.61 BUN/Creatinine Ratio 14.8 (10-20) Glucose 141 H (70-99(Fasting)) mg/dl Calcium 10.1 (8.6-10.3) mg/dl Magnesium 1.6 L (1.7-2.4) mg/dl Total Bilirubin 0.5 (0.2-1.0) mg/dl AST 13 (13-39) U/L ALT 7 (7-52) U/L Alkaline Phosphatase 77 (34-104) U/L Total Creatine Kinase 34 28 (26-192) U/L C-Reactive Protein < 0.50 (0-0.5) mg/dl Total Protein 8.3 (6.0-8.3) gm/dl Albumin 5.0 (3.4-5.0) gm/dl Globulin 3.3 (2.5-4.0) gm/dl Albumin/Globulin Ratio 1.5 (0.9-2) Procalcitonin < 0.02 (0-0.5) ng/ml Urine Color Dark Yellow Urine Appearance Clear (Clear) Urine pH 5.5 (4.5-7.5) Ur Specific [place] 1.028 (1.000-1.030) Urine Protein Trace H (Negative) Urine Glucose (UA) 1+ H (Negative) Urine Ketones Trace H (Negative) Urine Blood Negative (Negative) Urine Nitrite Negative (Negative) Urine Bilirubin Negative (Negative) Urine Urobilinogen Negative (Negative) Ur Leukocyte Esterase Trace H (Negative) Urine WBC (Auto) 11-20 H (0-5) /hpf Urine RBC (Auto) 3-5 H (0-2) /hpf U Hyaline Cast (Auto) 0-2 (0-2) /lpf U Epithel Cells (Auto) 3-5 H (0-2) /hpf Urine Bacteria (Auto) 1+ H (None Seen) Urine Comment Lyme Disease Screen Negative (Negative) Administered Medications Hydromorphone HCl (Hydromorphone Inj 0.5 Mg/0.5 Ml Syr) 0.25 mg IV Q6H PRN PRN Reason: Moderate Pain (Scale 4, 5, 6) Stop: 11/21/24 00:45 Last Admin: 11/07/24 01:21 Dose: 0.25 mg Documented By: SOMMER Sodium Chloride (Nss) 1,000 mls @ 125 mls/hr IV .Q8H [facility] Stop: 11/10/24 00:45 Last Admin: 11/07/24 01:26 Dose: 125 mls/hr Documented By: SOMMER Insulin Aspart (Insulin Aspart Per Unit Charge) 0 units SC Q6 [place] Stop: 12/07/24 00:45 Last Admin: 11/07/24 01:20 Dose: 2 units Documented By: SOMMER Co-signed By: DEA Discontinued Medications Cefdinir (Cefdinir 300 Mg Cap) 300 mg PO ONE STA; Protocol Stop: 11/06/24 21:13 Last Admin: 11/06/24 21:32 Dose: 300 mg Documented By: GEOVANY Dexamethasone Sodium Phosphate (DexamethasonePf 10 Mg/Ml Vial) 10 mg IV NOW ONE Stop: 11/06/24 18:11 Last Admin: 11/06/24 18:29 Dose: 10 mg Documented By: DONOVAN Sodium Chloride (Nss) 1,000 mls @ 999 mls/hr IV .Q1H1M ONE Stop: 11/06/24 19:10 Last Infusion: 11/06/24 19:30 Dose: Infused Documented By: Admin: 11/06/24 18:30 Dose: 999 mls/hr Documented By: DONOVAN Acetaminophen (Ofirmev) 1,000 mg in 100 mls @ 400 mls/hr IV NOW STA Stop: 11/06/24 18:24 Last Infusion: 11/06/24 18:52 Dose: Infused Documented By: Admin: 11/06/24 18:29 Dose: 400 mls/hr Documented By: DONOVAN Famotidine (Pepcid 20mg Iv Push) 20 mg in 5 mls @ 2.5 mls/min IV NOW STA Stop: 11/06/24 19:21 Last Admin: 11/06/24 19:28 Dose: 2.5 mls/min Documented By: TOM Magnesium Sulfate/Dextrose (Magnesium Sulfate / D5w) 1 gm in 100 mls @ 200 mls/hr IV NOW STA Stop: 11/06/24 20:59 Last Infusion: 11/06/24 21:17 Dose: Infused Documented By: Admin: 11/06/24 20:39 Dose: 200 mls/hr Documented By: GEOVANY Metronidazole (Flagyl) 500 mg in 100 mls @ 100 mls/hr IV NOW STA; Protocol Stop: 11/06/24 23:05 Last Infusion: 11/06/24 23:38 Dose: Infused Documented By: Admin: 11/06/24 22:16 Dose: 100 mls/hr Documented By: JESS Ceftriaxone Sodium (Rocephin) 2,000 mg in 50 mls @ 100 mls/hr IV NOW STA Stop: 11/06/24 22:41 Last Infusion: 11/07/24 00:13 Dose: Infused Documented By: Admin: 11/06/24 23:29 Dose: 100 mls/hr Documented By: YANELYW Magnesium Sulfate/Dextrose (Magnesium Sulfate / D5w) 1 gm in 100 mls @ 50 mls/hr IV ONE ONE Stop: 11/07/24 02:45 Last Infusion: 11/07/24 03:37 Dose: Infused Documented By: Admin: 11/07/24 01:26 Dose: 50 mls/hr Documented By: ATS Ioversol (Optiray 320 100ml) 94 ml IV ONCE ONE Stop: 11/06/24 19:13 Last Admin: 11/06/24 19:12 Dose: 94 ml Documented By: JUAN JK Ondansetron HCl (Ondansetron Inj 2 Mg/Ml 2 Ml Vial) 4 mg IV NOW STA Stop: 11/06/24 19:21 Last Admin: 11/06/24 19:28 Dose: 4 mg Documented By: TOM Potassium Chloride (Potassium Chloride Crtab 20 Meq Tabcr) 40 meq PO NOW STA Stop: 11/06/24 20:31 Last Admin: 11/06/24 20:39 Dose: 40 meq Documented By: LAF Imaging Data Radiologist's Impression: Hip/Pelvis X-Ray 11/06/24 18:09 HISTORY: Bilateral hip pain. TECHNIQUE: Pelvis and bilateral hip radiographs, 5 views. COMPARISON: None. FINDINGS: The left femoral head and proximal femur appear intact. Left hip alignment is maintained. Right femoral head and proximal femur appear intact. Right hip alignment is maintained. The pelvic and obturator rings appear intact. There is no widening of the pubic symphysis or sacroiliac joints. Included lower lumbar spine is unremarkable. Surrounding soft tissues are unremarkable. IMPRESSION: No acute osseous abnormality. Electronically signed by Tigre Patel 11-06-2024 8:18 PM Abdomen/Pelvis CT 11/06/24 18:11 HISTORY: Lower abdominal pain and bilateral hip pain. TECHNIQUE: Helical CT imaging of the abdomen and pelvis was performed with IV contrast. Images are presented in axial, sagittal, and coronal reformats. COMPARISON: None. FINDINGS: Lung Bases/Inferior Mediastinum: Unremarkable Liver: Intrahepatic biliary ductal dilation. Small locule of pneumobilia. The common bile duct is dilated measuring up to 1 cm in diameter. Gallbladder: Contracted gallbladder with trace Pericholecystic fluid. No visible gallstones. Spleen: Unremarkable Adrenals: Unremarkable Pancreas: Unremarkable Kidneys: Extensive left nephrolithiasis. Cortical scarring along the superior pole of the left kidney. Right kidney is unremarkable. Stomach/Bowel: Debris and fluid in the distal esophagus. Hiatal hernia. Small bowel loops are normal in caliber. Colonic diverticulosis. No CT evidence of acute diverticulitis. Normal caliber appendix Lymph nodes: Unremarkable Vasculature: No abdominal aortic aneurysm. Mild atherosclerotic vascular disease. Pelvis: Urinary bladder is unremarkable. The uterus is absent. No suspicious adnexal mass. Soft Tissues: Unremarkable Bones: No acute osseous abnormality. Mild degenerative changes of the spine. Mild degenerative changes of the hips and pelvis. IMPRESSION: 1. Mild intra and extrahepatic biliary ductal dilation. Mildly contracted gallbladder with trace Pericholecystic fluid and no visible gallstones. Recommend correlation with biliary enzyme levels. This could be further evaluated with MRCP if clinically warranted. 2. Left nephrolithiasis. Cortical scarring along the superior pole of the left kidney. 3. Small hiatal hernia. Debris and fluid in the distal esophagus is nonspecific. This could be further evaluated with endoscopy if clinically warranted. 4. Mild colonic diverticulosis. 5. Additional chronic and/or incidental findings as detailed above. ACT 112: Positive. There are findings on this exam that require communication between the performing entity and the patient following Patient Test Result Information Act ([place] ACT 112) guidelines. Electronically signed by Tigre Patel 11-06-2024 8:15 PM Gallbladder Ultrasound 11/06/24 22:11 Exam(s): US ABDOMEN LIMITED EXAM: US Abdomen Limited, Right Upper Quadrant CLINICAL HISTORY: Reason for exam: pneumobilia. The TECHNIQUE: Real-time ultrasound of the right upper quadrant with image documentation. COMPARISON: No relevant prior studies available. FINDINGS: Liver: Unremarkable. No mass. No intrahepatic bile duct dilation. Gallbladder: Unremarkable. No gallstones. Common bile duct: Common bile duct upper limits of normal for size at 6 mm. Echogenic area within the common bile duct may represent the pneumobilia recently seen on CT scan. Echogenic areas within the liver likely related to intrahepatic pneumobilia seen on recent CT scan. Liver otherwise unremarkable. No stones. No dilation. Pancreas: Unremarkable as visualized. Right kidney: Unremarkable. No stones. No solid mass. No hydronephrosis. IMPRESSION: No acute findings in the right upper quadrant. Findings likely related to pneumobilia seen on CT scan. Common bile duct upper limits of normal for size at 6 mm. No gallbladder pathology. Electronically signed by: Inderjit Oro MD 11/07/24 00:14 AM Discharge Plan Visit Data Chief Complaint: Hip Pain Stated Complaint: HIP PAIN ED Provider: Zion Burt Discharge Problem: UTI (urinary tract infection), Hip arthritis, Hypomagnesemia, Hypokalemia, Abnormal computed tomography of abdomen and pelvis Patient Disposition: Admitted As Inpatient Condition: Fair Discharge Instructions Interventions: ED Discharge Assessment Last Done: 11/07/24 00:32 Discharge Problem: UTI (urinary tract infection) Qualifiers: Urinary tract infection type: site unspecified Hematuria presence: with hematuria Qualified Code(s): N39.0 - Urinary tract infection, site not specified Hip arthritis Qualifiers: Laterality: bilateral Qualified Code(s): M16.0 - Bilateral primary osteoarthritis of hip
[2024-11-06 18:40] LABS: Hematocrit (blood only) 47.4 % (37.0-47.0); Hemoglobin 15.7 g/dl (12.0-16.0); Immature Granulocytes # (auto) 0.05 K/uL (0.01-0.20); Immature Granulocytes % (auto) 0.4 %; Mean Corpuscular Hemoglobin 28.5 pg (25.0-34.0); Mean Corpuscular Volume 86.2 fL (80.0-100.0); Platelet Count 283 K/uL (130-400); RDW Standard Deviation 40.8 fL (36.4-46.3); Red Blood Count 5.50 M/uL (4.20-5.40); White Blood Count 13.09 K/ul (4.8-10.8)
[2024-11-06 18:58] LABS: Alanine Aminotransferase 7 U/L (7-52); Albumin Globulin Ratio 1.5 (0.9-2); Alkaline Phosphatase 77 U/L (34-104); Anion Gap 9 (3-11); Bilirubin,Total 0.5 mg/dl (0.2-1.0); Blood Urea Nitrogen 12 mg/dl (6-23); Calcium 10.1 mg/dl (8.6-10.3); Carbon Dioxide 27 mmol/L (21-32); Chloride 103 mmol/L (98-107); Creatine Kinase 34 U/L (26-192); Creatinine Clr Calc Pharmacy 68.6 ml/min; Globulin 3.3 gm/dl (2.5-4.0); Glucose 141 mg/dl (70-99(Fasting)); Magnesium 1.6 mg/dl (1.7-2.4); Potassium 3.4 mmol/L (3.5-5.1); Sodium 139 mmol/L (136-145); Total Protein 8.3 gm/dl (6.0-8.3)
[2024-11-06 19:07] LABS: INR 1.0 (0.9-1.1); Prothrombin Time 10.9 Seconds (9.0-12.0)
[2024-11-06] MEDS: OPTIRAY 320 100ml IV ONE (19:12)
[2024-11-06 19:26] LABS: Appearance Urine Clear (Clear); Bacteria Urine Automated 1+ (None Seen); Cast Urine Automated 0-2 /lpf (0-2); Glucose Urine UA 1+ (Negative)
[2024-11-06] MEDS: FAMOTIDINE 20MG IV PUSH 20 MG/5 ML SYR IV STA (19:28)
[2024-11-06] MEDS: ONDANSETRON INJ 2 MG/ML 2 ML VIAL IV STA (19:28)
--- NOTE | 2024-11-06 20:15 | CT Scan Report ---
HISTORY: Lower abdominal pain and bilateral hip pain. TECHNIQUE: Helical CT imaging of the abdomen and pelvis was performed with IV contrast. Images are presented in axial, sagittal, and coronal reformats. COMPARISON: None. FINDINGS: Lung Bases/Inferior Mediastinum: Unremarkable Liver: Intrahepatic biliary ductal dilation. Small locule of pneumobilia. The common bile duct is dilated measuring up to 1 cm in diameter. Gallbladder: Contracted gallbladder with trace Pericholecystic fluid. No visible gallstones. Spleen: Unremarkable Adrenals: Unremarkable Pancreas: Unremarkable Kidneys: Extensive left nephrolithiasis. Cortical scarring along the superior pole of the left kidney. Right kidney is unremarkable. Stomach/Bowel: Debris and fluid in the distal esophagus. Hiatal hernia. Small bowel loops are normal in caliber. Colonic diverticulosis. No CT evidence of acute diverticulitis. Normal caliber appendix Lymph nodes: Unremarkable Vasculature: No abdominal aortic aneurysm. Mild atherosclerotic vascular disease. Pelvis: Urinary bladder is unremarkable. The uterus is absent. No suspicious adnexal mass. Soft Tissues: Unremarkable Bones: No acute osseous abnormality. Mild degenerative changes of the spine. Mild degenerative changes of the hips and pelvis. IMPRESSION: 1. Mild intra and extrahepatic biliary ductal dilation. Mildly contracted gallbladder with trace Pericholecystic fluid and no visible gallstones. Recommend correlation with biliary enzyme levels. This could be further evaluated with MRCP if clinically warranted. 2. Left nephrolithiasis. Cortical scarring along the superior pole of the left kidney. 3. Small hiatal hernia. Debris and fluid in the distal esophagus is nonspecific. This could be further evaluated with endoscopy if clinically warranted. 4. Mild colonic diverticulosis. 5. Additional chronic and/or incidental findings as detailed above. ACT 112: Positive. There are findings on this exam that require communication between the performing entity and the patient following Patient Test Result Information Act ([place] ACT 112) guidelines. Electronically signed by Tigre Patel 11-06-2024 8:15 PM
--- NOTE | 2024-11-06 20:18 | XRay Report ---
HISTORY: Bilateral hip pain. TECHNIQUE: Pelvis and bilateral hip radiographs, 5 views. COMPARISON: None. FINDINGS: The left femoral head and proximal femur appear intact. Left hip alignment is maintained. Right femoral head and proximal femur appear intact. Right hip alignment is maintained. The pelvic and obturator rings appear intact. There is no widening of the pubic symphysis or sacroiliac joints. Included lower lumbar spine is unremarkable. Surrounding soft tissues are unremarkable. IMPRESSION: No acute osseous abnormality. Electronically signed by Tigre Patel 11-06-2024 8:18 PM
[2024-11-06] MEDS: POTASSIUM CHLORIDE CRTAB 20 MEQ TABCR PO STA (20:39)
[2024-11-06] MEDS: MAGNESIUM SULFATE / D5W 1 GM/100 ML BAG IV STA (20:39)
[2024-11-06] MEDS: CEFDINIR 300 MG CAP PO STA (21:32)
--- NOTE | 2024-11-06 22:11 | Surgery Consultation ---
Date of Consultation November 06, 2024 Assessment & Plan (1) Pneumobilia: I discussed with the treating emergency room physician the patient is going to be admitted on the hospitalist service. Surgical recommendations are as follows: The patient's physical exam and laboratory findings are not consistent with cholecystitis, however the cause of the loculated pneumobilia is uncertain (patient has had this on previous CT scan imaging in the past with one of the interpreting radiologist raising the question of a possible incompetent sphincter of Oddi); therefore we will keep the patient n.p.o. for the present time. Will check a gallbladder ultrasound for further delineation of the hepatobiliary system. Will also plan on repeating laboratories including LFTs tomorrow morning. If there is any evidence of dilatation of the biliary tree on ultrasound we will consider performing an MRCP, this study can also be considered if patient has worsening of her LFTs The CT scan findings do not entirely exclude cholecystitis and hopefully gallbladder ultrasound will help us further delineate this. Due to the concern for pneumobilia I would recommend obtaining a GI consultation The treating emergency room physician notes that he will initiate antibiotics Recommend hydrating her with IV fluids Provide analgesics and antiemetics as needed Additional recommendations will be forthcoming based on pending items as they are completed and her clinical course as it unfolds History of Present Illness Reason for Consultation: Pneumobilia History of Present Illness This is a 44-year-old female who presents to the emergency department secondary to hip pain. Patient says that she has had bilateral hip pain for approximate 3 to 4 months and she was told previously that she has arthritis. General surgery was asked to see the patient secondary to some CT scan findings which will be delineated below. I did question the patient on abdominal symptomatology and she reports that she has been having some nonspecific lower abdominal pain that appears to be worse after having sexual activity at times. Patient has not had any fevers, shakes, or chills. She denies any nausea or vomiting prior to arriving to the emergency department but said that she did have an episode of emesis after CT scan performed in the emergency department today. Patient says that she has not had any recent endoscopies or other medical procedures. She says that the only abdominal surgery she has ever had in the past is a tubal ligation. Patient also does add that she has early satiety stating that she can only eat a few bites of food and then she feels full. She does deny any postprandial pain. Since arrival to the emergency department she had labs and imaging which I independently reviewed. She had x-rays of her bilateral hips that showed no acute osseous abnormalities. A CT scan of the abdomen pelvis was performed that showed that the patient had mild intra and extrahepatic biliary ductal dilatation with a mildly contracted gallbladder and trace Gerebr cholecystic fluid. Interpreting radiologist also noted there is a locule of pneumobilia. No gallstones were visualized on this scan. There is no evidence of diverticulitis or appendicitis on this study. Labs including CBC were white blood cell count had a slight elevation at 13.0. Hemoglobin was normal with a hematocrit of 47.4. Platelet count was normal. Coagulation studies were normal. Chemistry profile showed sodium was normal with a potassium of 3.4. BUN and creatinine were both normal. Patient's LFTs were all normal and not elevated. Urinalysis showed trace leukocyte esterase with 11-20 white blood cells per high-power field and 1+ bacteria. Patient had previous imaging in the [facility] system which was reviewed. The patient did have a CT scan of the abdomen pelvis in June of this year that did not show any evidence of biliary ductal dilatation or evidence of cholecystitis. An additional CT scan was performed in March 2023 that did identify gas in the gallbladder and the interpreting radiologist raise the concern for an incompetent sphincter of Oddi. A CT scan of the abdomen pelvis was performed in September 2022 that showed no abnormalities of the biliary system. She also had a gallbladder ultrasound in 2020 that showed no evidence of gallstones. At the time of my interview the patient was resting comfortably in bed and she was in no distress. Allergies Allergy/AdvReac Type Severity Reaction Status Date / Time Penicillins Allergy Intermediate Rash Verified 11/06/24 17:45 Home Medications Medication Instructions Recorded Confirmed Type dulaglutide 4.5 mg/0.5 mL 4.5 mg subcut WK 07/06/24 11/06/24 History subcutaneous pen injector (Trulicity) metformin 500 mg tablet 500 mg PO QID 07/06/24 11/06/24 History Patient History Medical History Nephrolithiasis Ureteral stent present Arthritis History of kidney stones Diabetes mellitus, type 2 Surgical History History of hysterectomy History of urethral stent History of lithotripsy Hx of knee surgery RT History of cystoscopy History of bilateral tubal ligation History of tooth extraction Family History Father Diabetes Family history of diabetes mellitus Uncle Family history of diabetes mellitus Other No family history of adverse response to anesthesia Denies family history of Colon cancer Ovarian cancer Prostate cancer Myocardial infarction Breast cancer Social History Smoking Status: Current every day smoker Tobacco Type: Cigarettes Cigarettes Per Day: 3; Second Hand Exposure: Yes; Do You Dip or Chew Tobacco: No; Hx Alcohol Use: No Hx Substance Use: No Preferred Language: Upper Sorbian Communication Ability: Effective Visual Impairment: No Limitations Patch Washer Required: No Beliefs That Will Affect Care: None marital status: Single Current Living Situation: Significant Other Current Living Situation Comment: WITH BOYFRIEND AND SON current occupational status: unemployed Feels Safe at Home: Yes Assistive Devices: None Review of Systems Review of Systems: All systems reviewed & are unremarkable except as noted in HPI & below Physical Exam Constitutional: WD/WN, vitals as above Eyes: + anicteric sclerae Wears glasses ENMT: Ears: no hearing impairment and no external ear abnormality No subungual jaundice noted Neck: trachea midline Respiratory: normal respiratory effort; no respiratory distress and no labored breathing Cardiovascular: Rate/Rhythm: regular rate and regular rhythm Gastrointestinal (Abdomen): The patient's abdomen is soft without distention. There is no rebound tenderness, guarding, or rigidity. There is no pain in the epigastric area or right upper quadrant with palpation. Bravo sign is negative. Patient does have some generalized pain with palpation in the lower abdomen. Musculoskeletal: No calf tenderness Skin: no jaundice Neurologic: moves all extremities Psychiatric: Orientation: alert and oriented x 3 Affect: + anxious affect and + tearful affect Results & Data Vital Signs (Past 12 Hours) Vital Signs Temp Pulse Pulse Resp BP BP Pulse Ox 11/06/24 22:00 71 18 129/96 99 11/06/24 18:28 98 11/06/24 17:02 36.7 C 76 20 134/64 94 O2 Del Method 11/06/24 22:00 Room Air 11/06/24 18:28 Room Air 11/06/24 17:02 Room Air PG Care Time/CCT Total # of Minutes Spent Total Time Spent with Patient: Total time spent is greater than 50% in coordination of care (as documented) at patient's floor/unit and/or counseling patient: Coding Level of Care Code 16646 IN/OBS CONSULT LVL 5,80M Diagnoses Pneumobilia K83.8
[2024-11-06] MEDS: metroNIDAZOLE 500 MG/100 ML BAG IV STA (22:16)
[2024-11-06] MEDS: cefTRIAXone SODIUM 2,000 MG/50 ML BAG IV STA (23:29)
--- NOTE | 2024-11-07 00:15 | Ultrasound Report ---
Exam(s): US ABDOMEN LIMITED EXAM: US Abdomen Limited, Right Upper Quadrant CLINICAL HISTORY: Reason for exam: pneumobilia. The TECHNIQUE: Real-time ultrasound of the right upper quadrant with image documentation. COMPARISON: No relevant prior studies available. FINDINGS: Liver: Unremarkable. No mass. No intrahepatic bile duct dilation. Gallbladder: Unremarkable. No gallstones. Common bile duct: Common bile duct upper limits of normal for size at 6 mm. Echogenic area within the common bile duct may represent the pneumobilia recently seen on CT scan. Echogenic areas within the liver likely related to intrahepatic pneumobilia seen on recent CT scan. Liver otherwise unremarkable. No stones. No dilation. Pancreas: Unremarkable as visualized. Right kidney: Unremarkable. No stones. No solid mass. No hydronephrosis. IMPRESSION: No acute findings in the right upper quadrant. Findings likely related to pneumobilia seen on CT scan. Common bile duct upper limits of normal for size at 6 mm. No gallbladder pathology. Electronically signed by: Inderjit Oro MD 11/07/24 00:14 AM
--- NOTE | 2024-11-07 00:21 | History & Physical Report ---
Date of Service November 06, 2024 Assessment & Plan (1) Abnormal computed tomography of abdomen and pelvis: Plan: 44-year-old female with past med history significant for type 2 diabetes, diabetic peripheral neuropathy, hyperlipidemia, chronic bilateral low back pain, sacroiliitis, comes because of hip pains. Patient states the hip pain started 2 to 3 days ago. Currently pain is in the right hip region. Also complaining of right lower abdominal region. She is ambulating okay as per patient. Denies any fevers. Has burning micturition for last 2 -3 days. Denies chest pain or shortness of breath. No cough. No runny nose or sore throat. Moving bowels okay. No rash. Hemodynamics are okay. Abdominal CT of abdomen pelvis Possible cholecystitis Pneumobilia LFTs okay On the CT scan March 2023 gas was noted in gallbladder and thought could be incompetent sphincter of Oddi Appreciate surgical input Empiric Rocephin and Flagyl N.p.o., IV fluids, IV pain meds as needed, Will follow gallbladder ultrasound Will follow repeat labs GI and surgery consult UTI Left nephrolithiasis History of left ureteral calculus and status post left total stent placement and stone removal via ureteroscopy on 07/06/2024 at that time a subcentimeter bladder tumor was resected. 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 On 07/01/2024 stent was removed. Plan was cystoscopy with YAMILETH in 3 months Currently placed on Rocephin for UTI Will follow cultures Diabetes Hold home medications Sliding scale Will follow HbA1c level Will monitor DVT prophylaxis SCDs Disposition Medical floor Full code. History of Present Illness Chief Complaint: Hip pain Primary Care Provider: NO PCP 44-year-old female with past med history significant for type 2 diabetes, diabetic peripheral neuropathy, hyperlipidemia, chronic bilateral low back pain, sacroiliitis, comes because of hip pains. Patient states the hip pain started 2 to 3 days ago. Currently pain is in the right hip region. Also complaining of right lower abdominal region. She is ambulating okay as per patient. Denies any fevers. Has burning micturition for last 2 -3 days. Denies chest pain or shortness of breath. No cough. No runny nose or sore throat. Moving bowels okay. No rash. Hemodynamics are okay. Past medical history. As mentioned above. Past surgical history. Ureteral stent placement Social history. History of smoking. No alcohol history no drug use. Family history. No family history on file. Allergies Allergy/AdvReac Type Severity Reaction Status Date / Time Penicillins Allergy Intermediate Rash Verified 11/06/24 17:45 Home Medications Medication Instructions Recorded Confirmed Type dulaglutide 4.5 mg/0.5 mL 4.5 mg subcut WK 07/06/24 11/06/24 History subcutaneous pen injector (Trulicity) metformin 500 mg tablet 500 mg PO QID 07/06/24 11/06/24 History Past Med/Surg History Problem List (Updated 11/07/24 @ 04:04 by Zion Burt MD) Abnormal computed tomography of abdomen and pelvis (Acute) Pneumobilia Hypokalemia (Acute) Hypomagnesemia (Acute) Hip arthritis (Acute) UTI (urinary tract infection) (Acute) GERD with esophagitis Bladder tumor Suspected UTI Hydronephrosis of left kidney Left ureteral calculus Hypomagnesemia (Acute) Nausea, vomiting, and diarrhea (Acute) Leukocytosis (Acute) Renal colic on left side (Acute) Severe sepsis Acute UTI (Acute) Leukocytosis (Acute) Acute hyperglycemia (Acute) Ureterolithiasis (Acute) Renal colic on left side (Acute) Impingement syndrome, shoulder, left Mechanical low back pain Constipation Encounter for pre-operative examination Diabetes mellitus with renal manifestations, uncontrolled (Chronic) Microalbuminuria Pulmonary valve disorder (Chronic) pt unaware Nephrolithiasis (Chronic) Hypertriglyceridemia (Chronic) Medical History Nephrolithiasis Ureteral stent present Arthritis History of kidney stones Diabetes mellitus, type 2 Surgical History History of hysterectomy History of urethral stent History of lithotripsy Hx of knee surgery RT History of cystoscopy History of bilateral tubal ligation History of tooth extraction Family History Father Diabetes Family history of diabetes mellitus Uncle Family history of diabetes mellitus Other No family history of adverse response to anesthesia Denies family history of Colon cancer Ovarian cancer Prostate cancer Myocardial infarction Breast cancer Social History Smoking Status: Current every day smoker Tobacco Type: Cigarettes Cigarettes Per Day: 3; Second Hand Exposure: Yes; Do You Dip or Chew Tobacco: No; Tobacco Cessation Education Requested by Patient: No (pt refused) Hx Alcohol Use: No Hx Substance Use: No Preferred Language: Montserratian Communication Ability: Effective Visual Impairment: No Limitations Sales And Service Agent Required: No Beliefs That Will Affect Care: None marital status: Single Current Living Situation: Spouse and Family Current Living Situation Comment: boyfriend and son current occupational status: unemployed Other Information That Helps Us Care for You: No Feels Safe at Home: Yes Safety Concerns: Feels Safe At This Time Assistive Devices: None Review of Systems Review of Systems: All systems reviewed & are unremarkable except as noted in HPI & below Physical Exam Physical Exam: General-Not in distress Head- atraumatic Eyes- PERRL. ENT- oropharynx clear Neck- supple, no JVD. Lungs- clear to auscultation no wheezing or crackles Heart- regular rate and rhythm; no murmur, no gallop. Abdomen- normal bowel sounds, soft, tenderness in right lower quadrant and groin region,no distension Extremities- no pretibial edema, no erythema seen. Neuro- alert, oriented PERRL, no facial palsy; no dysarthria; moves extremities. Results & Data Results & Data Vital Signs (Past 12 Hours) Vital Signs Temp Pulse Pulse Resp BP BP Pulse Ox 11/06/24 22:00 71 18 129/96 99 11/06/24 18:28 98 11/06/24 17:02 36.7 C 76 20 134/64 94 O2 Del Method 11/06/24 22:00 Room Air 11/06/24 18:28 Room Air 11/06/24 17:02 Room Air Diagnostic Findings Laboratory Results WBC 13.09 K/ul (4.8-10.8) H 11/06/24 18:25 RBC 5.50 M/uL (4.20-5.40) H 11/06/24 18:25 Hgb 15.7 g/dl (12.0-16.0) 11/06/24 18:25 Hct 47.4 % (37.0-47.0) H 11/06/24 18:25 MCV 86.2 fL (80.0-100.0) 11/06/24 18: MCH 28.5 pg (25.0-34.0) 11/06/24 18:25 MCHC 33.1 g/dL (32.0-36.0) 11/06/24 18: RDW Std Deviation 40.8 fL (36.4-46.3) 11/06/24 18: RDW Coeff of Jorge 13.1 % (11.5-14.5) 11/06/24 18: Plt Count 283 K/uL (130-400) 11/06/24 18: MPV 9.3 fL (9.4-12.4) L 11/06/24 18: Immature Gran % (Auto) 0.4 % 11/06/24 18: Neut % (Auto) 59.4 % 11/06/24 18: Lymph % (Auto) 30.7 % 11/06/24 18: Humphreys % (Auto) 8.0 % 11/06/24 18: Eos % (Auto) 0.8 % 11/06/24 18: Baso % (Auto) 0.7 % 11/06/24 18: Neut # (Auto) 7.77 K/uL (1.40-6.50) H 11/06/24 18:25 Lymph # (Auto) 4.02 K/uL (1.20-3.40) H 11/06/24 18:25 Humphreys # (Auto) 1.05 K/uL (0.11-0.59) H 11/06/24 18:25 Eos # (Auto) 0.11 K/uL (0.00-0.50) 11/06/24 18: Baso # (Auto) 0.09 K/uL (0.00-0.20) 11/06/24 18: Immature Gran # (Auto) 0.05 K/uL (0.01-0.20) 11/06/24 18: ESR 22 mm/hr (0-20) H 11/06/24 18:25 PT 10.9 Seconds (9.0-12.0) 11/06/24 18:25 INR 1.0 (0.9-1.1) 11/06/24 18:25 Sodium 139 mmol/L (136-145) 11/06/24 18:25 Potassium 3.4 mmol/L (3.5-5.1) L 11/06/24 18:25 Chloride 103 mmol/L (98-107) 11/06/24 18:25 Carbon Dioxide 27 mmol/L (21-32) 11/06/24 18:25 Anion Gap 9 (3-11) 11/06/24 18:25 BUN 12 mg/dl (6-23) 11/06/24 18:25 Creatinine 0.81 mg/dl (0.6-1.2) 11/06/24 18:25 Est Cr Clr Drug Dosing 68.6 ml/min 11/06/24 18:25 eGFR 90.61 11/06/24 18:25 BUN/Creatinine Ratio 14.8 (10-20) 11/06/24 18:25 Glucose 141 mg/dl (70-99(Fasting)) H 11/06/24 18:25 Calcium 10.1 mg/dl (8.6-10.3) 11/06/24 18:25 Magnesium 1.6 mg/dl (1.7-2.4) L 11/06/24 18:25 Total Bilirubin 0.5 mg/dl (0.2-1.0) 11/06/24 18:25 AST 13 U/L (13-39) 11/06/24 18:25 ALT 7 U/L (7-52) 11/06/24 18:25 Alkaline Phosphatase 77 U/L (34-104) 11/06/24 18:25 Total Creatine Kinase 28 U/L (26-192) 11/06/24 20:59 C-Reactive Protein < 0.50 mg/dl (0-0.5) 11/06/24 18:25 Total Protein 8.3 gm/dl (6.0-8.3) 11/06/24 18:25 Albumin 5.0 gm/dl (3.4-5.0) 11/06/24 18:25 Globulin 3.3 gm/dl (2.5-4.0) 11/06/24 18:25 Albumin/Globulin Ratio 1.5 (0.9-2) 11/06/24 18:25 Procalcitonin < 0.02 ng/ml (0-0.5) 11/06/24 18:25 Urine Color Dark Yellow 11/06/24 18:37 Urine Appearance Clear (Clear) 11/06/24 18:37 Urine pH 5.5 (4.5-7.5) 11/06/24 18:37 Ur Specific Gray 1.028 (1.000-1.030) 11/06/24 18:37 Urine Protein Trace (Negative) H 11/06/24 18:37 Urine Glucose (UA) 1+ (Negative) H 11/06/24 18:37 Urine Ketones Trace (Negative) H 11/06/24 18:37 Urine Blood Negative (Negative) 11/06/24 18:37 Urine Nitrite Negative (Negative) 11/06/24 18:37 Urine Bilirubin Negative (Negative) 11/06/24 18:37 Urine Urobilinogen Negative (Negative) 11/06/24 18:37 Ur Leukocyte Esterase Trace (Negative) H 11/06/24 18:37 Urine WBC (Auto) 11-20 /hpf (0-5) H 11/06/24 18:37 Urine RBC (Auto) 3-5 /hpf (0-2) H 11/06/24 18:37 U Hyaline Cast (Auto) 0-2 /lpf (0-2) 11/06/24 18:37 U Epithel Cells (Auto) 3-5 /hpf (0-2) H 11/06/24 18:37 Urine Bacteria (Auto) 1+ (None Seen) H 11/06/24 18:37 Urine Comment 11/06/24 18:37 Lyme Disease Screen Negative (Negative) 11/06/24 18:25 Impressions Hip/Pelvis X-Ray 11/06/24 18:09 HISTORY: Bilateral hip pain. TECHNIQUE: Pelvis and bilateral hip radiographs, 5 views. COMPARISON: None. FINDINGS: The left femoral head and proximal femur appear intact. Left hip alignment is maintained. Right femoral head and proximal femur appear intact. Right hip alignment is maintained. The pelvic and obturator rings appear intact. There is no widening of the pubic symphysis or sacroiliac joints. Included lower lumbar spine is unremarkable. Surrounding soft tissues are unremarkable. IMPRESSION: No acute osseous abnormality. Electronically signed by Tigre Patel 11-06-2024 8:18 PM Abdomen/Pelvis CT 11/06/24 18:11 HISTORY: Lower abdominal pain and bilateral hip pain. TECHNIQUE: Helical CT imaging of the abdomen and pelvis was performed with IV contrast. Images are presented in axial, sagittal, and coronal reformats. COMPARISON: None. FINDINGS: Lung Bases/Inferior Mediastinum: Unremarkable Liver: Intrahepatic biliary ductal dilation. Small locule of pneumobilia. The common bile duct is dilated measuring up to 1 cm in diameter. Gallbladder: Contracted gallbladder with trace Pericholecystic fluid. No visible gallstones. Spleen: Unremarkable Adrenals: Unremarkable Pancreas: Unremarkable Kidneys: Extensive left nephrolithiasis. Cortical scarring along the superior pole of the left kidney. Right kidney is unremarkable. Stomach/Bowel: Debris and fluid in the distal esophagus. Hiatal hernia. Small bowel loops are normal in caliber. Colonic diverticulosis. No CT evidence of acute diverticulitis. Normal caliber appendix Lymph nodes: Unremarkable Vasculature: No abdominal aortic aneurysm. Mild atherosclerotic vascular disease. Pelvis: Urinary bladder is unremarkable. The uterus is absent. No suspicious adnexal mass. Soft Tissues: Unremarkable Bones: No acute osseous abnormality. Mild degenerative changes of the spine. Mild degenerative changes of the hips and pelvis. IMPRESSION: 1. Mild intra and extrahepatic biliary ductal dilation. Mildly contracted gallbladder with trace Pericholecystic fluid and no visible gallstones. Recommend correlation with biliary enzyme levels. This could be further evaluated with MRCP if clinically warranted. 2. Left nephrolithiasis. Cortical scarring along the superior pole of the left kidney. 3. Small hiatal hernia. Debris and fluid in the distal esophagus is nonspecific. This could be further evaluated with endoscopy if clinically warranted. 4. Mild colonic diverticulosis. 5. Additional chronic and/or incidental findings as detailed above. ACT 112: Positive. There are findings on this exam that require communication between the performing entity and the patient following Patient Test Result Information Act ([place] ACT 112) guidelines. Electronically signed by Tigre Patel 11-06-2024 8:15 PM Gallbladder Ultrasound 11/06/24 22:11 Exam(s): US ABDOMEN LIMITED EXAM: US Abdomen Limited, Right Upper Quadrant CLINICAL HISTORY: Reason for exam: pneumobilia. The TECHNIQUE: Real-time ultrasound of the right upper quadrant with image documentation. COMPARISON: No relevant prior studies available. FINDINGS: Liver: Unremarkable. No mass. No intrahepatic bile duct dilation. Gallbladder: Unremarkable. No gallstones. Common bile duct: Common bile duct upper limits of normal for size at 6 mm. Echogenic area within the common bile duct may represent the pneumobilia recently seen on CT scan. Echogenic areas within the liver likely related to intrahepatic pneumobilia seen on recent CT scan. Liver otherwise unremarkable. No stones. No dilation. Pancreas: Unremarkable as visualized. Right kidney: Unremarkable. No stones. No solid mass. No hydronephrosis. IMPRESSION: No acute findings in the right upper quadrant. Findings likely related to pneumobilia seen on CT scan. Common bile duct upper limits of normal for size at 6 mm. No gallbladder pathology. Electronically signed by: Inderjit Oro MD 11/07/24 00:14 AM Code Status & VTE Plan VTE Prophylaxis Plan VTE Prophylaxis will be ordered: Yes
[2024-11-07] MEDS ORDERED: ACETAMINOPHEN 325 MG TAB PO PRN (00:46)
[2024-11-07] MEDS ORDERED: HYDROmorphone INJ 0.5 MG/0.5 ML SYR IV PRN ×2 (00:46→07:37)
[2024-11-07] MEDS ORDERED: DEXTROSE 50% 50 ML SYRINGE IV PRN (00:46)
[2024-11-07] MEDS ORDERED: GLUCOSE 40% GEL 15 GM TUBE PO PRN (00:46)
[2024-11-07] MEDS ORDERED: GLUCAGON FOR INJ 1 MG VIAL SQ PRN (00:46)
[2024-11-07] MEDS ORDERED: CARBOHYDRATES FOR HYPOGLYCEMIA PO PRN (00:46)
[2024-11-07] MEDS ORDERED: POLYETHYLENE (MIRALAX) 17 GM PACK PO PRN (00:46)
[2024-11-07] MEDS ORDERED: GLUCOSE 10 TAB/TUBE PO PRN (00:46)
[2024-11-07] MEDS ORDERED: ONDANSETRON INJ 2 MG/ML 2 ML VIAL IV PRN (00:46)
[2024-11-07] MEDS: INSULIN ASPART PER UNIT CHARGE SC SCH ×2 (01:20→17:00)
[2024-11-07] MEDS: HYDROmorphone INJ 0.5 MG/0.5 ML SYR IV PRN (01:21)
[2024-11-07] MEDS: SODIUM CHLORIDE 0.9% 1,000 ML IV SCH (01:26)
[2024-11-07] MEDS: MAGNESIUM SULFATE / D5W 1 GM/100 ML BAG IV ONE (01:26)
[2024-11-07] MEDS: metroNIDAZOLE 500 MG/100 ML BAG IV SCH (05:07)
[2024-11-07 06:17] LABS: Hematocrit (blood only) 41.6 % (37.0-47.0); Hemoglobin 13.7 g/dl (12.0-16.0); Immature Granulocytes # (auto) 0.09 K/uL (0.01-0.20); Immature Granulocytes % (auto) 0.6 %; Mean Corpuscular Hemoglobin 28.7 pg (25.0-34.0); Mean Corpuscular Volume 87.2 fL (80.0-100.0); Platelet Count 241 K/uL (130-400); RDW Standard Deviation 41.1 fL (36.4-46.3); Red Blood Count 4.77 M/uL (4.20-5.40); White Blood Count 14.33 K/ul (4.8-10.8)
[2024-11-07 06:38] LABS: Alanine Aminotransferase 5.0 U/L (7-52); Albumin Globulin Ratio 1.7 (0.9-2); Alkaline Phosphatase 64.0 U/L (34-104); Anion Gap 7.0 (3-11); Bilirubin,Total 0.4 mg/dl (0.2-1.0); Blood Urea Nitrogen 8.0 mg/dl (6-23); Calcium 8.7 mg/dl (8.6-10.3); Carbon Dioxide 24.0 mmol/L (21-32); Chloride 105.0 mmol/L (98-107); Creatinine Clr Calc Pharmacy 88.4 ml/min; Globulin 2.6 gm/dl (2.5-4.0); Glucose 185.0 mg/dl (70-99(Fasting)); Lipase 23.0 U/L (11-82); Potassium 4.2 mmol/L (3.5-5.1); Sodium 136.0 mmol/L (136-145); Total Protein 6.9 gm/dl (6.0-8.3)
[2024-11-07] MEDS: MAGNESIUM SULFATE / D5W 1 GM/100 ML BAG IV SCH (07:48)
[2024-11-07 08:43] LABS: Hemoglobin A1C 7.3 % (4.5-5.6)
--- NOTE | 2024-11-07 10:48 | Gastrointestinal Consultation ---
Date of Consultation November 07, 2024 Assessment & Plan (1) Pneumobilia: Patient was admitted with hip pain/RLQ pain. imaging was suggestive of pneumobilia but she has not had recent operations or procedures. LFTs unremarkable. I had discussed the case with Dr. French. - recommend checking MRCP to further evaluate. - can continue to monitor LFTs. -Further recommendations to come with Supervising GI provider on medical rounds. Please see co-signature comments. Supervising Physician Co-Signing Physician Notes The patient was seen and evaluated. Hospital labs, data, records and imaging were reviewed at length. The patient has no symptoms which would be attributable to a right upper quadrant problem. MRCP did not demonstrate any pneumobilia. Common bile duct is 0.6 mm which is essentially in normal limits and does not suggest any biliary obstruction, gallbladder inflammation/gangrene, etc. Normal liver function test corroborate this. Continue to trend LFTs, advance diet as tolerated. No further GI workup is recommended at this time. Please recall if needed. History of Present Illness Reason for Consultation: pneumobilia Requesting Physician: Munir Ga MD Attending Physician: Sukhjinder Sandhu MD History of Present Illness Patient is a 44 year old female who presented to the emergency department on 11/06/24 secondary to hip pain. Patient says that she has had bilateral hip pain for approximate 3 to 4 months and she was told previously that she has arthritis. Patient says that she has not had any recent endoscopies or other medical procedures. She says that the only abdominal surgery she has ever had in the past is a tubal ligation. In the ED, she had x-rays of her bilateral hips that showed no acute osseous abnormalities. A CT of the abdomen pelvis was performed that showed that the patient had mild intra and extrahepatic biliary ductal dilatation with a mildly contracted gallbladder and trace cholecystic fluid. Interpreting radiologist also noted there is a locule of pneumobilia. No gallstones were visualized on this scan. There is no evidence of diverticulitis or appendicitis on the study. Patient's LFTs were all unremarkable. Patient had previous imaging in the [facility] system which was reviewed. The patient did have a CT scan of the abdomen pelvis in June of this year that did not show any evidence of biliary ductal dilatation or evidence of cholecystitis. An additional CT scan was performed in March 2023 that did identify gas in the gallbladder and the interpreting radiologist raise the concern for an incompetent sphincter of Oddi. she does complain of RLQ pain over the area of her hip. she denies nausea, vomiting, heartburn, changes in bowels. US 11/06/24 No acute findings in the right upper quadrant. Findings likely related to pneumobilia seen on CT scan. Common bile duct upper limits of normal for size at 6 mm. No gallbladder pathology. CT AP 11/06/24 1.Mild intra and extrahepatic biliary ductal dilation. Mildly contracted gallbladder with trace Pericholecystic fluid and no visible gallstones. Recommend correlation with biliary enzyme levels. This could be further evaluated with MRCP if clinically warranted. 2. Left nephrolithiasis. Cortical scarring along the superior pole of the left kidney. 3. Small hiatal hernia. Debris and fluid in the distal esophagus is nonspecific. This could be further evaluated with endoscopy if clinically warranted. 4. Mild colonic diverticulosis. 11/07/24 LFTs unremarkable. Allergies Allergy/AdvReac Type Severity Reaction Status Date / Time Penicillins Allergy Intermediate Rash Verified 11/06/24 17:45 Home Medications Medication Instructions Recorded Confirmed Type dulaglutide 4.5 mg/0.5 mL 4.5 mg subcut WK 07/06/24 11/06/24 History subcutaneous pen injector (Trulicity) metformin 500 mg tablet 500 mg PO QID 07/06/24 11/06/24 History Patient History Medical History Nephrolithiasis Ureteral stent present Arthritis History of kidney stones Diabetes mellitus, type 2 Surgical History History of hysterectomy History of urethral stent History of lithotripsy Hx of knee surgery RT History of cystoscopy History of bilateral tubal ligation History of tooth extraction Family History Father Diabetes Family history of diabetes mellitus Uncle Family history of diabetes mellitus Other No family history of adverse response to anesthesia Denies family history of Colon cancer Ovarian cancer Prostate cancer Myocardial infarction Breast cancer Social History Smoking Status: Current every day smoker Tobacco Type: Cigarettes Cigarettes Per Day: 3; Second Hand Exposure: Yes; Do You Dip or Chew Tobacco: No; Tobacco Cessation Education Requested by Patient: No (pt refused) Hx Alcohol Use: No Hx Substance Use: No Preferred Language: American Communication Ability: Effective Visual Impairment: No Limitations Dough Molder Hand Required: No Beliefs That Will Affect Care: None marital status: Single Current Living Situation: Spouse and Family Current Living Situation Comment: boyfriend and son current occupational status: unemployed Other Information That Helps Us Care for You: No Feels Safe at Home: Yes Safety Concerns: Feels Safe At This Time Assistive Devices: Crutches Review of Systems Review of Systems: All systems reviewed & are unremarkable except as noted in HPI & below Physical Exam Constitutional: WD/WN, vitals as above Respiratory: normal respiratory effort, lungs clear to auscultation Cardiovascular: Rate/Rhythm: regular rate and regular rhythm Gastrointestinal (Abdomen): RLQ tenderness to palpation, no guarding, soft, normal bowel sounds. Psychiatric: Orientation: alert and oriented x 3 Affect: euthymic affect Results & Data Vital Signs (Past 12 Hours) Vital Signs Temp Pulse Pulse Resp BP BP BP 11/07/24 07:07 97.7 F 60 16 101/63 11/07/24 00:55 11/07/24 00:45 97.9 F 69 16 124/79 11/07/24 00:32 61 16 95/61 L 11/07/24 00:00 61 16 95/61 L Pulse Ox O2 Del Method 11/07/24 07:07 100 Room Air 11/07/24 00:55 Room Air 11/07/24 00:45 98 Room Air 11/07/24 00:32 97 Room Air 11/07/24 00:00 97 Room Air Coding Level of Care Code 50199 IN/OBS CONSULT LVL 4,60M Diagnoses Pneumobilia K83.8
--- NOTE | 2024-11-07 13:16 | Hospitalist Progress Note ---
Date of Service November 07, 2024 Assessment & Plan (1) Abnormal computed tomography of abdomen and pelvis: Plan: 44-year-old female with past med history significant for type 2 diabetes, diabetic peripheral neuropathy, hyperlipidemia, chronic bilateral low back pain, sacroiliitis, comes because of hip pains. R/o Cholecystitis Pneumobilia -LFTs okay -On the CT scan March 2023 gas was noted in gallbladder and thought could be incompetent sphincter of Oddi -US shows dilated bile duct and pneumobilia Plan: -MRCP ordered -surgery consult, appreciate recs -GI consult, appreciate recs -continue empiric Rocephin and Flagyl -clear liquid diet UTI Left nephrolithiasis -History of left ureteral calculus and status post left total stent placement and stone removal via ureteroscopy on 07/06/2024 at that time a subcentimeter bladder tumor was resected. 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 On 07/01/2024 stent was removed. Plan was cystoscopy with YAMILETH in 3 months Plan: -f/u urine culture -continue ceftriaxone -Will follow cultures DM Type 2 -Sliding scale I spent a total of 50 minutes in direct patient care, including [id number] time with the patient and/or family, reviewing medical records, ordering and reviewing diagnostic tests, and coordinating care with other healthcare providers. This time includes: history taking, physical examination, medical decision making, counseling, ECG interpretation, imaging interpretation, lab interpretation, orders, and education, excluding time spent in the performance of separately billed services. Admission and Anticipated Discharge Date Admission Date: November 06, 2024 Subjective Patient seen and examined at bedside. Patient still having some discomfort in RLQ. Otherwise feels ok. Review of Systems Review of Systems: CONSTITUTIONAL: Patient denies fevers, chills, sweats and weight changes. EYES: Patient denies any visual symptoms. EARS, NOSE, AND THROAT: No difficulties with hearing. No symptoms of rhinitis or sore throat. CARDIOVASCULAR: Patient denies chest pains, palpitations, orthopnea and paroxysmal nocturnal dyspnea. RESPIRATORY: No dyspnea on exertion, no wheezing or cough. GI: RLQ abdominal pain : No urinary hesitancy or dribbling. No nocturia or urinary frequency. No abnormal urethral discharge. MUSCULOSKELETAL: No myalgias or arthralgias. NEUROLOGIC: No chronic headaches, no seizures. Patient denies numbness, tingling or weakness. PSYCHIATRIC: Patient denies problems with mood disturbance. No problems with anxiety. ENDOCRINE: No excessive urination or excessive thirst. DERMATOLOGIC: Patient denies any rashes or skin changes. Physical Exam Physical Exam: Gen: A&O 3 NAD HEENT: NCAT, EOMI, not icteric. External ears normal. No rhinorrhea. Moist mucous membranes. Neck: Supple, full range of motion, no observable masses, No meningeal sign. Lungs: No Respiratory distress. CV: RRR, no edema. Abdomen: mild RLQ tenderness to palpation, is above right hip bone on abdomen MSK: No joint swelling, no redness. Skin: No rashes, petechiae, lesions. Normal color per patient. Neuro: Normal Gait, Grossly intact. Psych: Appropriate for situation. Results & Data Results & Data Vital Signs (Past 12 Hours) Vital Signs Temp Pulse Resp BP Pulse Ox O2 Del Method 11/07/24 07:07 36.5 C 60 16 101/63 100 Room Air Laboratory Results -personally reviewed, leukocytosis is chronic and around chronic baseline, Mg 1.6 and replenished, UA is moderately suggestive of cystitis Medications Administered Sodium Chloride (Nss) 1,000 mls @ 125 mls/hr IV .Q8H PARIS Stop: 11/10/24 00:45 Last Admin: 11/07/24 09:13 Dose: 125 mls/hr Documented By: Infusion: 11/07/24 09:13 Dose: Infused Documented By: Admin: 11/07/24 01:26 Dose: 125 mls/hr Documented By: SOMMER Metronidazole (Flagyl) 500 mg in 100 mls @ 100 mls/hr IV Q8H PARIS; Protocol Stop: 11/17/24 05:59 Last Infusion: 11/07/24 06:11 Dose: Infused Documented By: Admin: 11/07/24 05:07 Dose: 100 mls/hr Documented By: SOMMER Insulin Aspart (Insulin Aspart Per Unit Charge) 0 units SC Q6 [place]IS Stop: 12/07/24 00:45 Last Admin: 11/07/24 12:01 Dose: Not Given Documented By: Admin: 11/07/24 06:11 Dose: 2 units Documented By: SOMMER Co-signed By: DEA Admin: 11/07/24 01:20 Dose: 2 units Documented By: ATS Co-signed By: DEA Oxycodone HCl (Oxycodone Hcl Ir 5 Mg Tab (Immediate Release)) 5 mg PO Q4 PRN PRN Reason: Severe Pain (Scale 7, 8, 9,10) Stop: 11/21/24 07:35 Last Admin: 11/07/24 10:30 Dose: 5 mg Documented By: ROSITA
--- NOTE | 2024-11-07 13:35 | Magnetic Resonance Report ---
MR MRCP CLINICAL HISTORY: loculated pneumobilia COMPARISON STUDY: Ultrasound and CT of 11/06/2024 FINDINGS: There is motion artifact. Common bile duct measures 6 mm diameter, mildly dilated. No commo n bile duct stones seen. No gallstones seen. IMPRESSION: Mild dilatation of the common bile duct with no stones seen. ACT 112: Negative or not required by law. Electronically signed by: Tad Serra M.D. 11/07/2024 1:33 PM
[2024-11-07 14:39] VITALS: RESP 18
--- NOTE | 2024-11-07 16:04 | Surgery Progress Note ---
Date of Service November 07, 2024 Assessment & Plan (1) Pneumobilia: Plan: Patient with CT findings with pneumobilia and the patient has had previous CT imaging with radiology raising concern of possible incompetent sphincter of Oddi. -Patient underwent MRCP imaging today with results of mild dilation of the CBD with no stones. Gallbladder ultrasound also obtained with no findings of acute cholecystitis as well. - Patient was seen and evaluated this afternoon at bedside. Patient with no clinical exam findings concerning for acute cholecystitis at this time. - From a surgical standpoint patient's diet may be advanced as tolerated - No indication for surgical intervention at this time, surgery team will sign off, please re-consult with any questions or concerns Admission and Anticipated Discharge Date Admission Date: November 06, 2024 Subjective Patient seen and evaluated this afternoon at bedside MRCP obtained today with results of mild dilation of the CBD with no stones. Gallbladder ultrasound also obtained with no findings of acute cholecystitis Patient states she has some slight discomfort in her RLQ and hip region otherwise has been able to tolerate clear liquids without any issues of RUQ pain and denies N/V. Physical Exam Constitutional: WD/WN, vitals as above Respiratory: normal respiratory effort, lungs clear to auscultation Cardiovascular: Rate/Rhythm: regular rate Gastrointestinal (Abdomen): Abdomen soft, nondistended, nontender to palpation in the epigastric area and RUQ. Bravo sign is negative. Mild TTP in the lower abdomen with deep palpation No rebound, guarding or signs of peritonitis Skin: no rashes, warm and dry Results & Data Vital Signs (Past 12 Hours) Vital Signs Temp Pulse Resp BP Pulse Ox O2 Del Method 11/07/24 14:38 36.5 C 77 18 146/80 H 98 Room Air 11/07/24 07:07 36.5 C 60 16 101/63 100 Room Air PG Care Time/CCT Total # of Minutes Spent Total Time Spent with Patient: Total time spent is greater than 50% in coordination of care (as documented) at patient's floor/unit and/or counseling patient: Coding [place] [address] SUB INP/OBS CARE 03/19MIN Patient Type Established History Problem Focused Exam Problem Focused Medical Decision Making Straight Forward Diagnoses Pneumobilia K83.8
[2024-11-07] MEDS ORDERED: Nursing to Pharmacy Communication SCH (16:30)
[2024-11-07 19:13] LABS: Hematocrit (blood only) 38.3 % (37.0-47.0); Hemoglobin 12.7 g/dl (12.0-16.0); Immature Granulocytes # (auto) 0.09 K/uL (0.01-0.20); Immature Granulocytes % (auto) 0.5 %; Mean Corpuscular Hemoglobin 29.0 pg (25.0-34.0); Mean Corpuscular Volume 87.4 fL (80.0-100.0); Platelet Count 226 K/uL (130-400); RDW Standard Deviation 41.3 fL (36.4-46.3); Red Blood Count 4.38 M/uL (4.20-5.40); White Blood Count 19.13 K/ul (4.8-10.8)
--- NOTE | 2024-11-07 19:46 | CT Scan Report ---
CT extremity, right hip without contrast History: Pain/weakness Comparison: None Technique: CT performed of the extremity without IV contrast. Dose reduction techniques were achieved by using automatic exposure control and/or adjustment of mA and/or kV according to patient size and/or use of iterative reconstruction technique. Findings: No fracture or dislocation. Joint spaces are normally aligned. No visualized soft tissue abnormality. No aggressive osseous lesion. Impression: No right hip fracture Electronically signed by Garcia Wolfe 11-07-2024 7:46 PM
[2024-11-07] MEDS: LORazepam 0.5 MG TAB PO STA (20:39)
[2024-11-07] MEDS: DICLOFENAC SOD 1% GEL 100 GM TUBE EXT SCH (20:40)
[2024-11-07 23:12] VITALS: BP 99/61; PULSE 63; TEMP 97.9; O2SAT 99
[2024-11-07] MEDS: cefTRIAXone SODIUM 2,000 MG/50 ML BAG IV SCH (23:12)
[2024-11-08 06:35] LABS: Hematocrit (blood only) 37.1 % (37.0-47.0); Hemoglobin 12.2 g/dl (12.0-16.0); Mean Corpuscular Hemoglobin 28.4 pg (25.0-34.0); Mean Corpuscular Volume 86.5 fL (80.0-100.0); Platelet Count 212 K/uL (130-400); RDW Standard Deviation 41.1 fL (36.4-46.3); Red Blood Count 4.29 M/uL (4.20-5.40); White Blood Count 10.73 K/ul (4.8-10.8)
[2024-11-08 06:51] LABS: Anion Gap 7.0 (3-11); Blood Urea Nitrogen 8.0 mg/dl (6-23); Calcium 8.6 mg/dl (8.6-10.3); Carbon Dioxide 22.0 mmol/L (21-32); Chloride 109.0 mmol/L (98-107); Creatinine Clr Calc Pharmacy 96.4 ml/min; Glucose 109.0 mg/dl (70-99(Fasting)); Potassium 4.1 mmol/L (3.5-5.1); Sodium 138.0 mmol/L (136-145)
--- NOTE | 2024-11-08 14:00 | Discharge Summary ---
Discharge Summary Date of Service November 08, 2024 Principal Dx & Hospital Course #1 = Principal Diagnosis (1) Abnormal computed tomography of abdomen and pelvis: 44-year-old female with past med history significant for type 2 diabetes, diabetic peripheral neuropathy, hyperlipidemia, chronic bilateral low back pain, sacroiliitis, comes because of hip pains. R/o Cholecystitis Pneumobilia -LFTs okay -On the CT scan March 2023 gas was noted in gallbladder and thought could be incompetent sphincter of Oddi -US shows dilated bile duct and pneumobilia Plan: -MRCP ordered -surgery consult, appreciate recs -GI consult, appreciate recs -continue empiric Rocephin and Flagyl -clear liquid diet UTI Left nephrolithiasis -History of left ureteral calculus and status post left total stent placement and stone removal via ureteroscopy on 07/06/2024 at that time a subcentimeter bladder tumor was resected. 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 On 07/01/2024 stent was removed. Plan was cystoscopy with YAMILETH in 3 months Plan: -f/u urine culture -continue ceftriaxone -Will follow cultures DM Type 2 -Sliding scale I spent a total of 50 minutes in direct patient care, including [id number] time with the patient and/or family, reviewing medical records, ordering and reviewing diagnostic tests, and coordinating care with other healthcare providers. This time includes: history taking, physical examination, medical decision making, counseling, ECG interpretation, imaging interpretation, lab interpretation, orders, and education, excluding time spent in the performance of separately billed services. Notes For Next Care Provider 44-year-old female with past med history significant for type 2 diabetes, diabetic peripheral neuropathy, hyperlipidemia, chronic bilateral low back pain, sacroiliitis, comes because of hip pains. Admitted to medicine for pneumobilia. Surgery and GI consulted, recommended MRCP. MRCP revealing for mild bile duct dilitation without stone. On 11/08/2024 patient left against medical advice without being evaluated by doctor. To do: [ ] may need pain management referral outpatient -incidentals: left kidney stone, hiatal hernia, diverticulosis Medication Changes From Visit -none Admission HPI Per Admitting Provider 44-year-old female with past med history significant for type 2 diabetes, diabetic peripheral neuropathy, hyperlipidemia, chronic bilateral low back pain, sacroiliitis, comes because of hip pains. Patient states the hip pain started 2 to 3 days ago. Currently pain is in the right hip region. Also complaining of right lower abdominal region. She is ambulating okay as per patient. Denies any fevers. Has burning micturition for last 2 -3 days. Denies chest pain or shortness of breath. No cough. No runny nose or sore throat. Moving bowels okay. No rash. Hemodynamics are okay. Past medical history. As mentioned above. Past surgical history. Ureteral stent placement Social history. History of smoking. No alcohol history no drug use. Family history. No family history on file. Updated Medication List Medication Instructions Recorded Confirmed Type dulaglutide 4.5 mg/0.5 mL 4.5 mg subcut WK 07/06/24 11/06/24 History subcutaneous pen injector (Trulicity) metformin 500 mg tablet 500 mg PO QID 07/06/24 11/06/24 History Hospital Stay Data Consultations 11/06/24 22:06 ED Decision to Admit Stat 11/07/24 00:46 Consult General Surgery Routine 11/07/24 08:00 Consult Gastroenterology Routine Diagnostic Imagining Performed 11/06/24 18:11 CT abd pelvis IV con only Stat 11/06/24 22:11 US GB [US gallbladder] Stat 11/07/24 07:33 MR MRCP Urgent 11/07/24 17:11 CT hip RT wo con Urgent Pending Results Patient Have Any Pending Studies at Discharge: No Discharge Instructions Given to Patient (Per Discharging Provider) Left AMA before being seen. Total Time Total Time Spent Total Time Spent (In Minutes): I spent a total of 35 minutes in direct patient care, including [id number] time with the patient and/or family, reviewing medical records, ordering and reviewing diagnostic tests, and coordinating care with other healthcare providers. This time includes: history taking, physical examination, medical decision making, counseling, ECG interpretation, imaging interpretation, lab interpretation, orders, and education, excluding time spent in the performance of separately billed services.
== END 2024-11-08 06:56 | disposition left against medical advice (07) | DRG 445 ==
LOC: ED 16:50 → 3E 23:44